=== PATIENT | female | born 1970 | race Caucasian/White ===

== ENCOUNTER 2024-11-20 18:13 | Emergency (ER) | payer MEDICAID, SELFPAY ==
[2024-11-20 18:29] VITALS: BP 150/91; PULSE 139; RESP 18; TEMP 37.2; O2SAT 96
--- NOTE | 2024-11-20 18:33 | XR_ITS ---
Examination: PA chest single view Technique: Upright PA chest single view Exam date and time: November 20, 2024 1702 hrs. Indications: Dizziness body aches today. Findings: Normal heart size Minor subsegmental atelectasis left base No lobar pneumonia or pulmonary edema Intact osseous structures Impression: No lobar pneumonia or pulmonary edema
--- NOTE | 2024-11-20 18:33 | EKG_ITS ---
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
--- NOTE | 2024-11-20 18:34 | PD.EDRME ---
Rapid Medical Screening Exam RME Arrival date/time: 11/20/24 18:13 54 year old female present to ED for c/o elevated blood glucose for 2 weeks I have greeted and performed a focused initial assessment of this patient. A comprehensive ED assessment and evaluation of the patient, analysis of all test results, and completion of the medical decision making process will be conducted by additional ED providers. Chief Complaint: General Adult/Misc Complain Time Seen by Provider: 11/20/24 18:25 Vital signs: Vital Signs Temperature 98.9 F 11/20/24 18:29 Pulse Rate 139 H 11/20/24 18:29 Respiratory Rate 18 11/20/24 18:29 Blood Pressure 150/91 H 11/20/24 18:29 Pulse Oximetry (%) 96 11/20/24 18:29 Oxygen Delivery Method Room Air 11/20/24 18:29
[2024-11-20 18:55] LABS: Lactate (Lactic Acid) 2.7 mMol/L (0.4-2.0)
[2024-11-20 18:56] LABS: Basophils # (Auto) 0.1 Thou/mm3 (0.0-0.2); Basophils % (Auto) 1 % (0-2.5); Eosinophils % (Auto) 1 % (0-10); Hematocrit 46.1 % (36.0-46.0); Hemoglobin 16.6 g/dL (12.0-16.0); Immature Granulocytes % (Auto) 0 % (0-0); Immature Granulocytes Auto 0.02 Thou/mm3 (0.00-0.00); Lymphocytes # (Auto) 2.7 Thou/mm3 (1.0-4.8); Lymphocytes % (Auto) 34 % (10-50); Mean Corpuscular Hemoglobin 31.2 pg (25.0-35.0); Mean Corpuscular Volume 87 fL (80-100); Monocytes # (Auto) 0.4 Thou/mm3 (0.0-0.8); Monocytes % (Auto) 5 % (0-12); Neutrophils # (Auto) 4.8 Thou/mm3 (1.8-7.7); Neutrophils % (Auto) 60 % (37-80); Nucleated Red Blood Cell % 0 /100 WBC (0); Platelet Count 387 Thou/mm3 (140-440); RDW Standard Deviation 38.5 fL (36.4-46.3); Red Blood Count 5.32 Miln/mm3 (4.00-5.20); White Blood Count 8.1 Thou/mm3 (3.6-11.0)
[2024-11-20 19:18] LABS: Alanine Aminotransferase 15 U/L (10-49); Albumin, Serum 5.3 gm/dL (3.5-5.0); Albumin/Globulin Ratio 1.5 (1.2-2.2); Alkaline Phosphatase 132 U/L (46-116); Anion Gap 12 (7-16); Aspartate Amino Transferase 12 U/L (0-34); BUN/Creatinine Ratio 21 Ratio (12-20); Bilirubin,Total 0.4 mg/dL (0.3-1.2); Blood Urea Nitrogen 21 mg/dL (9-23); Calcium 10.5 mg/dL (8.3-10.6); Calcium (Corrected) 10.5 mg/dL (8.5-10.1); Carbon Dioxide 25.7 mMol/L (20.0-31.0); Chloride 93 mMol/L (98-107); Globulin 3.6 gm/dL (2.3-3.5); Lipase 25 U/L (12-53); Magnesium 1.8 mg/dL (1.6-2.6); Osmolality,Calculated 283 (275-295); Potassium 4.2 mMol/L (3.4-5.1); Sodium 131 mMol/L (136-145); Total Protein 8.9 gm/dL (5.7-8.2); Troponin I < 0.002 ng/mL (0.0-0.045); eGFR > 60 See Note
[2024-11-20 19:20] LABS: Glucose 426 mg/dL (74-106)
[2024-11-20 19:21] LABS: Beta Hydroxybutyrate 1.2 mmol/L (<0.6)
[2024-11-20 21:10] VITALS: BP 141/102; PULSE 126; RESP 18; TEMP 37; O2SAT 99
[2024-11-20 21:25] LABS: Collection Type, Urine Voided; RBC,Urine 0 /hpf (0-3); WBC,Urine 0 /hpf (0-5)
[2024-11-20 21:49] LABS: Bilirubin,Urine Negative (Negative); Blood,Urine Negative (Negative); Clarity,Urine Clear (Clear/Hazy); Color,Urine Lt-Yellow (Lt Yel-Yel); Glucose, Urine 4+ (Negative); Ketones,Urine 1+ (Negative); Leukocyte Esterase,Urine Negative (Negative); Nitrite,Urine Negative (Negative); Protein,Urine 1+ (Neg - Trace); Specific Gravity,Urine 1.043 (1.001-1.035); Squamous Epithelial Cell,Urine < 1 /hpf (0-5); Urobilinogen,Urine Negative mg/dL (0.0-1.0)
[2024-11-20 21:53] LABS: Reflex Lactate? Y
--- NOTE | 2024-11-20 22:27 | PD.EDADULT ---
ED General RME/HPI General Chief complaint: General Adult/Misc Complain Stated complaint: HIGH BLOOD SUGAR Time Seen by Provider: 11/20/24 18:25 Arrival date/time: 11/20/24 18:13 Limitations: no limitations RME / HPI RME / HPI narrative: 11/20/24 18:13 54 year old female present to ED for c/o elevated blood glucose for 2 weeks I have greeted and performed a focused initial assessment of this patient. A comprehensive ED assessment and evaluation of the patient, analysis of all test results, and completion of the medical decision making process will be conducted by additional ED providers. ----- Dr. Norris[facility] Main ED Evaluation: 54yo female with pmhx HTN, DM presents to the ED for a chief complaint of elevated blood sugar x 2 weeks. Patient states she took her blood sugar prior to arrival and was noted to be over 500. She states she's been taking her insulin, but has not been able to bring her blood sugar down, so she came in for evaluation. She reports an associated cough and generalized body aches. She denies any fever, chills, nausea, vomiting or any other associated symptoms. Related Data Home Medications ?Medication ?Instructions ?Recorded ?Confirmed baclofen 10 mg tablet 10 mg PO HS 09/14/22 09/14/22 clonidine HCl 0.1 mg tablet 0.1 mg PO QDAY 09/14/22 09/14/22 glipizide 10 mg tablet 10 mg PO BID 09/14/22 09/14/22 insulin glargine 100 unit/mL (3 53 unit subcut QPM 09/14/22 09/14/22 mL) subcutaneous pen (Basaglar KwikPen U-100 Insulin) lidocaine 5 % topical patch 1 patch topical Q12H 09/14/22 09/14/22 methadone 10 mg tablet 10 mg PO Q8H PRN Pain 09/14/22 09/14/22 pregabalin 25 mg capsule 25 mg PO BID PRN Pain 09/14/22 09/14/22 promethazine 25 mg tablet 25 mg PO QDAY PRN n/v 09/14/22 09/14/22 Previous Rx's ?Medication ?Instructions ?Recorded clindamycin HCl 300 mg capsule 300 mg PO TID #21 caps 11/21/23 hydrocodone 5 mg-acetaminophen 325 1 tab PO Q8H PRN pain #14 tabs 11/21/23 mg tablet ibuprofen 600 mg tablet 600 mg PO Q8H PRN pain #14 tabs 11/21/23 Allergies Allergy/AdvReac Type Severity Reaction Status Date / Time barium iodide Allergy Severe PASSED OUT Verified 11/20/24 18:18 cephalexin Allergy Severe ITCHING Verified 11/20/24 18:18 AND VOMITING codeine Allergy Severe FAINTS Verified 11/20/24 18:18 Penicillins Allergy Severe HIVES AND Verified 11/20/24 18:18 DIFF BREATHING aspirin Allergy Unknown RASH Verified 11/20/24 18:18 Review of Systems Review of Systems Systems Reviewed: All systems reviewed, normal except as documented Past Medical History Past Medical History NEUROLOGIC: Positive Neurological Disorders (Coma x 3 mons. Pinged nerve- I don't know where.) and Cerebrovascular Accident (9 or 10 yrs ago real weak- had physical therapy.) CARDIAC: Positive Cardiac Disorders (sometimes chest pain and palpitations.), Cellulitis (14 yrs ago- left breast.) and Hypertension; Negative Congestive Heart Failure RESPIRATORY: Positive Pneumonia (bad pna- 14 yrs ago.); Negative Chronic Obstructive Pulmonary Disease (COPD) GASTROINTESTINAL: Positive Gastroesophageal Reflux Disease GENITOURINARY: Negative Renal Disease MUSCULOSKELETAL: Positive Musculoskeletal Disorders (recently found 2 herniated disc. Cyst hector. knees. Tendonitis arms,elbows.) and Degenerative Disk Disease (back and neck.); Negative Arthritis or Fractures ENT: Negative Cataracts (I'm not sure, I don't think so.) ENDOCRINE: Positive Diabetes Mellitus Type 2; Negative Diabetes Mellitus Type 1 OTHER HISTORY: Positive Hospitalization and Falls; Negative Blood Transfusions, Anesthesia Reactions, MRSA or Cancer Family History FAMILY HISTORY: Positive Family Cancer (mother- I don't know what kind.) Surgical History SURGICAL: Positive Section Social History SMOKING STATUS: Never smoker ED Exam Narrative Physical exam: Slightly diaphoretic General Limitations: Present no limitations General appearance: Present alert Head Head exam: Present atraumatic Eye Eye exam: Present normal appearance, PERRL and EOMI ENT ENT exam: Present normal exam, normal oropharynx and mucous membranes moist Neck Neck exam: Present normal inspection, full ROM and trachea midline Chest Chest inspection: Present normal inspection and symmetric chest wall rise Respiratory Respiratory exam: Present normal lung sounds bilaterally Cardiovascular Cardiovascular exam: Present normal rhythm and tachycardia Abdominal Exam Abdominal exam: Present soft and normal bowel sounds Extremities Exam Extremities exam: Present normal inspection and full ROM Back Exam Back exam: Present normal inspection and full ROM Neurological Exam Neurological exam: Present alert, oriented X3 and CN II-XII intact Psychiatric Psychiatric exam: Present normal affect and normal mood Skin Skin exam: Present warm, dry, intact and normal color Course Course Course Narrative: CXR is ordered for determining the etiology of cough. 2243: Sepsis alert initiated. Orders made at this time are congruent with ED Adult Sepsis Order List. Re-evaluation is to be completed. 0149: NS IVF infused. 0229: Sepsis reassessment performed consisting of lab review, vitals, physical exam including auscultation of heart, lungs, and visual evaluation of capillary refills, mucosal membranes and extremities. Quality Measures Possible source: unknown Blood cultures ordered: yes Antibiotic ordered: No Pertinent labs: 11/20/24 11/21/24 18:50 02:35 Lactic Acid 2.7 H mMol/L 1.7 mMol/L (0.4-2.0) (0.4-2.0) Procalcitonin 0.05 ng/ml (0.0-0.49) sepsis Orders Category Date Time Status Bedside COVID-19 Antigen Test NOW Care 11/20/24 18:33 Active Bedside Influenza A&B Antigen Test NOW Care 11/20/24 18:33 Completed Blood glucose [Bedside Blood Glucose] NOW Care 11/20/24 18:35 Active [place] STAT Care 11/20/24 22:43 Active Continuous Pulse Oximetry STAT Care 11/20/24 22:43 Active EKG (ED ONLY) *Do not use* NOW Care 11/20/24 18:33 Completed In and Out Catheter X1PRN Care 11/20/24 22:43 Active Insert IV NOW Care 11/20/24 22:43 Active Insert IV STAT Care 11/20/24 18:33 Active NPO STAT Care 11/20/24 22:43 Active Strict Intake and Output Routine Care 11/20/24 22:[address] angio chest abdomen pelvis Stat Exams 11/21/24 03:33 Ordered EKG (ED Only) Stat Exams 11/20/24 18:33 Draft XR chest 1V portable Stat Exams 11/20/24 18:33 Completed B-Type Natriuretic Peptide Stat Lab 11/20/24 18:50 Completed BMP [Basic Metabolic Panel] Stat Lab 11/21/24 02:35 Completed Beta Hydroxybutyrate Stat Lab 11/20/24 18:50 Completed Blood Culture (Lab) Stat Lab 11/20/24 23:10 Received CBC Stat Lab 11/20/24 18:50 Completed CMP [Comprehensive Metabolic Panel] Stat Lab 11/20/24 18:50 Completed LDH (Lactate Dehydrogenase) Stat Lab 11/20/24 18:50 Completed Lactate (Lactic Acid) Stat Lab 11/20/24 18:50 Completed Lactic Acid, 3 HR Stat Lab 11/20/24 21:53 Completed Lipase Stat Lab 11/20/24 18:50 Completed Mag [Magnesium] Stat Lab 11/20/24 18:50 Completed Partial Thromboplastin Time Stat Lab 11/20/24 18:50 Completed Phosphorous Stat Lab 11/20/24 18:50 Completed Procalcitonin Stat Lab 11/20/24 18:50 Completed Prothrombin Time with INR Stat Lab 11/20/24 18:50 Completed Troponin I Stat Lab 11/20/24 18:50 Completed UA [Urinalysis] Stat Lab 11/20/24 21:04 Completed Urinalysis Stat Lab 11/20/24 22:43 Ordered Urine Culture Stat Lab 11/20/24 22:43 Ordered VBG [Venous Blood Gas] Stat Lab 11/21/24 02:35 Completed HYDROcodone/APAP 10/325 [[place] 10/325] Med 11/20/24 23:16 Discontinued 1 tab PO X1 ONE HYDROcodone/APAP 10/325 [[place] 10/325] Med 11/21/24 02:26 Discontinued 1 tab PO X1 ONE Morphine Inj Med 11/21/24 03:34 Discontinued 4 mg IVP X1 ONE Morphine Inj Med 11/21/24 04:48 Discontinued 4 mg IVP X1 ONE Sodium Chloride 0.9% 1000 ml [Ns] 1,000 ml Med 11/20/24 18:33 Discontinued IV 999 mls/hr Sodium Chloride 0.9% 1000 ml [Ns] 1,000 ml Med 11/20/24 19:52 Discontinued IV 999 mls/hr Sodium Chloride 0.9% 1000 ml [Ns] 1,572 ml Med 11/21/24 03:32 Discontinued IV 1,572 mls/hr Oxygen Delivery NOW RT 11/20/24 22:43 Active Vital Signs Vital signs: Vital Signs Temperature 98.9 F 11/20/24 18:29 Pulse Rate 139 H 11/20/24 18:29 Respiratory Rate 18 11/20/24 18:29 Blood Pressure 150/91 H 11/20/24 18:29 Pulse Oximetry (%) 96 11/20/24 18:29 Oxygen Delivery Method Room Air 11/20/24 18:29 [facility] Patient data External records reviewed:: [facility] previous records (Per chart review, patient was seen here on 08/21/24 for a dental abscess.) Clinical information provided by:: patient Social determinants that could affect healthcare access:: none Patient has the following chronic illnesses:: CVA, HTN, DM How is presenting disease/condition affected by chronic disease/condition?: caused by Evaluation data The following diagnostics were reviewed and interpreted by me:: lab results, radiology exam(s) and EKG tracing(s) Lab and/or radiology exams considered but not ordered:: none Interpretation Summary: CBC is normal, Sodium is slightly low at 131, Glucose is elevated at 426, Beta Hydroxybutyrate is elevated at 1.2, Lactate is 2.7, Repeat Lactate is 1.7, Procalcitonin is normal, UA is positive for 1+ protein, 4+ glucose, and 1+ ketones, according to my interpretation. EKG done at 1844, sinus tachycardia, rate of 133, nonspecific ST-T changes, no elevations, QTc: 462, according to my interpretation. ------ [facility] Report Signed Patient: JAMES GREENE Record#: [id number] Birthdate: 1970 Age/Sex: 54 / F Location: [facility] Attending Dr: Ordering Physician: Kwesi Womack PA-C Date of Service: 11/20/24 Procedure(s): XR chest 1V portable Accession Number(s): [id number] cc: Erich Hendrickson MD; Abhijeet Power MD; Kwesi Womack PA-C~ Examination: PA chest single view Technique: Upright PA chest single view Exam date and time: November 20, 2024 1702 hrs. Indications: Dizziness body aches today. Findings: Normal heart size Minor subsegmental atelectasis left base No lobar pneumonia or pulmonary edema Intact osseous structures Impression: No lobar pneumonia or pulmonary edema Dictated By: Abhijeet Power MD Signed By: <Electronically signed by Abhijeet Power MD in OV> 11/20/24 1919 Medications Medications considered but not ordered:: none Medication administrations:: Medication Administration History Discontinued Medications Hydrocodone Bitart/Acetaminophen (Hydrocodone/Apap 10/325 Tab) 1 tab PO X1 ONE Stop: 11/20/24 23:17 Last Admin: 11/20/24 23:29 Dose: 1 tab Documented By: SOY Hydrocodone Bitart/Acetaminophen (Hydrocodone/Apap 10/325 Tab) 1 tab PO X1 ONE Stop: 11/21/24 02:27 Last Admin: 11/21/24 02:38 Dose: 1 tab Documented By: SOY Sodium Chloride (Ns) 1,000 mls @ 999 mls/hr IV .Q1H1M ONE Stop: 11/20/24 19:33 Last Infusion: 11/21/24 02:17 Dose: Infused Documented By: Admin: 11/20/24 22:51 Dose: 999 mls/hr Documented By: SOY Sodium Chloride (Ns) 1,000 mls @ 999 mls/hr IV .Q1H1M ONE Stop: 11/20/24 20:52 Last Infusion: 11/21/24 01:49 Dose: Infused Documented By: Admin: 11/20/24 22:52 Dose: 999 mls/hr Documented By: SOY Sodium Chloride (Ns) 1,572 mls @ 1,572 mls/hr 30 ml/kg infuse over 60 min (1572 ml) IV .Q1H ONE Stop: 11/21/24 04:31 Last Admin: 11/21/24 04:09 Dose: Not Given Documented By: SOY Non-Admin Reason: Other, see note Morphine Sulfate (Morphine Sulf Inj 10 Mg/Ml Vial) 4 mg IVP X1 ONE Stop: 11/21/24 03:35 Last Admin: 11/21/24 04:30 Dose: 4 mg Documented By: SOY Morphine Sulfate (Morphine Sulf Inj 10 Mg/Ml Vial) 4 mg IVP X1 ONE Stop: 11/21/24 04:49 Last Admin: 11/21/24 04:53 Dose: 4 mg Documented By: SOY see above Consultations Consultation(s) initiated? (list below): No Diagnosis Differential Diagnosis ED Complaint MDM: sepsis, dehydratin, DKA, acute on chronic pain, electrolyte abnormality Most likely diagnosis given after review of the tests above:: pending at sign out Admission Indicated Admission indicated?: not indicated Explain why admission is indicated or not indicated:: pending at sign out. Admission Request Was there a request for admission?: No Disposition Plan Disposition Plan: other (specify) (Signed out to Dr. Womack at 0600 pending CTA chest abdomen pelvis.) Medical Decision Making Differential Diagnosis Differential Diagnosis: sepsis, dehydratin, DKA, acute on chronic pain, electrolyte abnormality Lab Data 11/20/24 18:50 11/21/24 02:35 Labs: Lab Results 11/20/24 11/20/24 11/21/24 Range/Units 18:50 21:04 02:35 WBC 8.1 (3.6-11.0) Thou/mm3 RBC 5.32 H (4.00-5.20) Miln/mm3 Hgb 16.6 H (12.0-16.0) g/dL Hct 46.1 H (36.0-46.0) % MCV 87 (80-100) fL MCH 31.2 (25.0-35.0) pg MCHC 36.0 (31.0-37.0) g/dl RDW Std Deviation 38.5 (36.4-46.3) fL Plt Count 387 (140-440) Thou/mm3 Neut % (Auto) 60 (37-80) % Lymph % (Auto) 34 (10-50) % [place] % (Auto) 5 (0-12) % Eos % (Auto) 1 (0-10) % Baso % (Auto) 1 (0-2.5) % Neut # (Auto) 4.8 (1.8-7.7) Thou/mm3 Lymph # (Auto) 2.7 (1.0-4.8) Thou/mm3 [place] # (Auto) 0.4 (0.0-0.8) Thou/mm3 Eos # (Auto) 0.0 (0.0-0.5) Thou/mm3 Baso # (Auto) 0.1 (0.0-0.2) Thou/mm3 Immature Gran # (Auto) 0.02 H (0.00-0.00) Thou/mm3 Absolute Nucleated RBC 0.00 (0.00-0.00) Thou/mm3 Immature Gran % 0 (0-0) % Nucleated RBC % 0 (0) /100 WBC PT 11.3 (9.0-12.2) Seconds INR 1.0 (0.9-1.3) APTT 28.2 (22.0-36.0) Seconds VBG pH 7.30 L (7.33-7.66) VBG pCO2 48 (36-56) mmHg VBG pO2 35 (15-58) mmHg VBG O2 Sat (Parvin) 62 L (96-97) % VBG Base Excess -3 (-3-3) Sodium 131 L 136 (136-145) mMol/L Potassium 4.2 3.8 (3.4-5.1) mMol/L Chloride 93 L 101 (98-107) mMol/L Carbon Dioxide 25.7 22.9 (20.0-31.0) mMol/L Anion Gap 12 12 (7-16) BUN 21 20 (9-23) mg/dL Creatinine 1.0 0.8 (0.6-1.3) mg/dL Estim Creat Clear Calc Not Performed. 83.2 eGFR > 60 > 60 (60 - ) See Note BUN/Creatinine Ratio 21 H 25 H (12-20) Ratio Glucose 426 H* 289 H D (74-106) mg/dL Calculated Osmolality 283 285 (275-295) Lactic Acid 2.7 H 1.7 (0.4-2.0) mMol/L Calcium 10.5 9.0 D (8.3-10.6) mg/dL Corrected Calcium 10.5 H (8.5-10.1) mg/dL Phosphorus 5.3 H (2.4-5.1) mg/dL Magnesium 1.8 (1.6-2.6) mg/dL Total Bilirubin 0.4 (0.3-1.2) mg/dL AST 12 (0-34) U/L ALT 15 (10-49) U/L Alkaline Phosphatase 132 H (46-116) U/L Lactate Dehydrogenase 170 (120-246) U/L Troponin I < 0.002 (0.0-0.045) ng/mL B-Natriuretic Peptide < 20 (0-100) pg/mL Total Protein 8.9 H (5.7-8.2) gm/dL Albumin 5.3 H (3.5-5.0) gm/dL Globulin 3.6 H (2.3-3.5) gm/dL Albumin/Globulin Ratio 1.5 (1.2-2.2) Lipase 25 (12-53) U/L Beta-Hydroxybutyrate/Acetoacetate 1.2 H (<0.6) mmol/L Procalcitonin 0.05 (0.0-0.49) ng/ml Ur Collection Type Voided Urine Color Lt-Yellow (Lt Yel-Yel) Urine Clarity Clear (Clear/Hazy) Urine pH 6.0 (5.0-7.0) Ur Specific [place] 1.043 H (1.001-1.035) Urine Protein 1+ A (Neg - Trace) Urine Glucose (UA) 4+ A (Negative) Urine Ketones 1+ A (Negative) Urine Blood Negative (Negative) Urine Nitrite Negative (Negative) Urine Bilirubin Negative (Negative) Urine Urobilinogen (Auto) Negative (0.0-1.0) mg/dL Ur Leukocyte Esterase Negative (Negative) Urine RBC 0 (0-3) /hpf Urine WBC 0 (0-5) /hpf Ur Squamous Epith Cells < 1 (0-5) /hpf Urine Bacteria None (None) Discharge Plan Plan Disposition Comment: Stable at signout Prescriptions/Referrals Prescriptions/Med Rec: No Action clindamycin HCl 300 mg capsule 300 mg PO TID Qty: 21 0RF ibuprofen 600 mg tablet 600 mg PO Q8H PRN (Reason: pain) Qty: 14 0RF hydrocodone-acetaminophen 5-325 mg tablet 1 tab PO Q8H MDD 3 tabs/day PRN (Reason: pain) Qty: 14 0RF clonidine HCl 0.1 mg tablet 0.1 mg PO QDAY methadone 10 mg tablet 10 mg PO Q8H PRN (Reason: Pain) Patient Comments: TAKE 1 TABLET BY MOUTH EVERY 8 HOURS NEEDED FOR PAIN (MAX 3 TABLET/DAY) glipizide 10 mg tablet 10 mg PO BID baclofen 10 mg tablet 10 mg PO HS Patient Comments: TAKE 1 TABLET BY MOUTH EVERYDAY AT BEDTIME lidocaine 5 % adhesive patch,medicated 1 patch TOPICAL Q12H Patient Comments: APPLY 1 PATCH TO LOWER BACK AND BOTH KNEES FOR 12 HOURS ON AND 12 HOURS OFF NEEDED FOR PAIN promethazine 25 mg tablet 25 mg PO QDAY PRN (Reason: n/v) Patient Comments: TAKE 1 TABLET BY MOUTH DAILY NEEDED, DO NOT EXCEED MORE THAN ONCE A DAY pregabalin 25 mg capsule 25 mg PO BID PRN (Reason: Pain) Patient Comments: TAKE 1 CAPSULE BY MOUTH TWICE A DAY NEEDED MAX 2 CAPSULES DAILY insulin glargine [Basaglar KwikPen U-100 Insulin] 100 unit/mL (3 mL) insulin pen 53 unit SUBCUT QPM Referrals: Erich Hendrickson MD [Primary Care Provider] - In 1 week Problem List Clinical Impression: Diabetes, Acute hyperglycemia, Sepsis Patient/Caregiver Discharge Instructions Print Language: Lao
[2024-11-20 22:28] VITALS: PULSE 112; RESP 15; O2SAT 98
[2024-11-20 22:31] VITALS: BP 154/121; PULSE 116; RESP 21; O2SAT 97
[2024-11-20] MEDS: SODIUM CHLORIDE 0.9% 1000 ML 1,000 ML 999 ML IV ×2 (22:51→22:52)
[2024-11-20 23:00] VITALS: BP 160/106; PULSE 103; RESP 15; O2SAT 99
[2024-11-20] MEDS: HYDROcodone/APAP 10/325 TAB PO (23:29)
[2024-11-20 23:30] VITALS: BMI 31.8
[2024-11-20 23:30] LABS: Partial Thromboplastin Time 28.2 Seconds (22.0-36.0); Prothrombin Time 11.3 Seconds (9.0-12.2)
[2024-11-20 23:56] LABS: B-Type Natriuretic Peptide < 20 pg/mL (0-100)
[2024-11-20 23:57] LABS: Phosphorous 5.3 mg/dL (2.4-5.1); Procalcitonin 0.05 ng/ml (0.0-0.49)
[2024-11-21] VITALS (8 sets, daily range): BP systolic 139–183; BP diastolic 72–107; PULSE 83–104; RESP 16–18; TEMP 36.8–37.1; O2SAT 97–100
[2024-11-21 00:25] LABS: LDH (Lactate Dehydrogenase) 170 U/L (120-246)
[2024-11-21] MEDS: HYDROcodone/APAP 10/325 TAB PO (02:38)
[2024-11-21 02:56] LABS: Lactic Acid, 3 HR 1.7 mMol/L (0.4-2.0)
--- NOTE | 2024-11-21 03:33 | XR_ITS ---
Examination: CTA chest, with intravenous contrast. CTA abdomen, with intravenous contrast. CTA pelvis, with intravenous contrast. 2-D sagittal and coronal reconstructions. 3-D reconstructions. Date and time of exam: November 21, 2024 0534 hrs. Indications: High blood sugar today, tachycardia, chest abdominal pain today CTDI vol (mgy) 8.43 DLP (MGycm) 574 Technique: Multiple CTA images, 2.0 mm slice thickness, obtained chest, abdomen, pelvis, with the high-resolution 64 slice scanner. 100 cc Isovue-370 is administered intravenously. Sagittal and coronal 2-D reconstructions are obtained. 3-D reconstructions, angiographic images are obtained. 3-D postprocessing, including vascular maximum intensity projections. Low dose protocols were performed. One or more of the following dose reduction techniques were used; automated exposure control, adjustment of the mA and/or KV according to patient size, use of iterative reconstruction technique. Findings: No thoracic aortic aneurysmal dilatation No pulmonary artery emboli No paratracheal tracheobronchial or bronchopulmonary adenopathy No pneumonia or pulmonary edema or pleural disease No visualized liver or splenic Gallbladder is distended, mild extra hepatic biliary tract dilatation No pancreatic or adrenal mass Mild bilateral renal parenchymal scar formation No renal or ureteral calculi, no hydronephrosis 26 mm fat-containing umbilical hernia Normal appendix No bowel obstruction No diverticulitis Anteverted uterus No adnexal mass No bladder mass or bladder calculi Moderate osteopenia Impression: Negative for pulmonary artery emboli No pneumonia, pulmonary edema or pleural disease Mild bilateral renal parenchymal scar formation 26 mm fat-containing umbilical hernia Normal appendix No bowel obstruction or diverticulitis Distended gallbladder with mild intrahepatic biliary tract dilatation, recommend hepatobiliary sonography or MRCP follow-up
[2024-11-21 03:54] LABS: Base Excess, Venous -3 (-3-3); O2 Saturation, Venous 62 % (96-97); PCO2, Venous 48 mmHg (36-56); PO2, Venous 35 mmHg (15-58)
[2024-11-21 04:22] LABS: Anion Gap 12 (7-16); BUN/Creatinine Ratio 25 Ratio (12-20); Blood Urea Nitrogen 20 mg/dL (9-23); Carbon Dioxide 22.9 mMol/L (20.0-31.0); Chloride 101 mMol/L (98-107); Creatinine (Component) 0.8 mg/dL (0.6-1.3); Estimated Creatinine Clearance 83.2 mL/min (>60); Glucose 289 mg/dL (74-106); Osmolality,Calculated 285 (275-295); Potassium 3.8 mMol/L (3.4-5.1); Sodium 136 mMol/L (136-145); eGFR > 60 See Note
[2024-11-21] MEDS: MORPHINE SULF INJ 10 MG/ML VIAL 4 MG IVP ×2 (04:30→04:53)
--- NOTE | 2024-11-21 06:08 | PD.EDADDENDU ---
Emergency Room Addendum <Lorin Renner - Last Filed: 11/21/24 09:16> Addendum Narrative: 0600: Care assumed from Dr. Norris, the previous shift emergency physician. Past medical, surgical, social and family history reviewed. Vitals and home medications reviewed. I will assume the care of the patient at this time, pending chest/abdomen/pelvis CTA and final disposition. Please refer to the emergency department record for history and examination from initial visit.? Physical exam by me shows patient under no acute distress at this time. RADIOLOGY Procedure(s): CT angio chest abdomen pelvis Accession Number(s): [id number] cc: Erich Hendrickson MD; Abhijeet Power MD; Ning Norris MD~ Examination: CTA chest, with intravenous contrast. CTA abdomen, with intravenous contrast. CTA pelvis, with intravenous contrast. 2-D sagittal and coronal reconstructions. 3-D reconstructions. Date and time of exam: November 21, 2024 0534 hrs. Indications: High blood sugar today, tachycardia, chest abdominal pain today CTDI vol (mgy) 8.43 DLP (MGycm) 574 Technique: Multiple CTA images, 2.0 mm slice thickness, obtained chest, abdomen, pelvis, with the high-resolution 64 slice scanner. 100 cc Isovue-370 is administered intravenously. Sagittal and coronal 2-D reconstructions are obtained. 3-D reconstructions, angiographic images are obtained. 3-D postprocessing, including vascular maximum intensity projections. Low dose protocols were performed. One or more of the following dose reduction techniques were used; automated exposure control, adjustment of the mA and/or KV according to patient size, use of iterative reconstruction technique. Findings: No thoracic aortic aneurysmal dilatation No pulmonary artery emboli No paratracheal tracheobronchial or bronchopulmonary adenopathy No pneumonia or pulmonary edema or pleural disease No visualized liver or splenic Gallbladder is distended, mild extra hepatic biliary tract dilatation No pancreatic or adrenal mass Mild bilateral renal parenchymal scar formation No renal or ureteral calculi, no hydronephrosis 26 mm fat-containing umbilical hernia Normal appendix No bowel obstruction No diverticulitis Anteverted uterus No adnexal mass No bladder mass or bladder calculi Moderate osteopenia Impression: Negative for pulmonary artery emboli No pneumonia, pulmonary edema or pleural disease Mild bilateral renal parenchymal scar formation 26 mm fat-containing umbilical hernia Normal appendix No bowel obstruction or diverticulitis Distended gallbladder with mild intrahepatic biliary tract dilatation, recommend hepatobiliary sonography or MRCP follow-up Dictated By: Abhijeet Power MD <Fly Womack MD - Last Filed: 11/21/24 10:11> Addendum Narrative: 0600: Care assumed from Dr. Norris, the previous shift emergency physician. Past medical, surgical, social and family history reviewed. Vitals and home medications reviewed. I will assume the care of the patient at this time, pending chest/abdomen/pelvis CTA and final disposition. Please refer to the emergency department record for history and examination from initial visit.? Physical exam by me shows patient under no acute distress at this time. Lungs are clear. Heart normal. Abdomen is completely benign. Nontender normal distended. No rebound or guarding. No surgical signs. Neuroexam focally normal. No neurological deficit. Skin examination revealed a lot of needle tellez which appear to be chronic. They are all over her arms and legs. But she denied any recent use of heroin. She is on methadone for chronic pain. RADIOLOGY Procedure(s): CT angio chest abdomen pelvis Accession Number(s): [id number] cc: Erich Hendrickson MD; Abhijeet Power MD; Ning Norris MD~ Examination: CTA chest, with intravenous contrast. CTA abdomen, with intravenous contrast. CTA pelvis, with intravenous contrast. 2-D sagittal and coronal reconstructions. 3-D reconstructions. Date and time of exam: November 21, 2024 0534 hrs. Indications: High blood sugar today, tachycardia, chest abdominal pain today CTDI vol (mgy) 8.43 DLP (MGycm) 574 Technique: Multiple CTA images, 2.0 mm slice thickness, obtained chest, abdomen, pelvis, with the high-resolution 64 slice scanner. 100 cc Isovue-370 is administered intravenously. Sagittal and coronal 2-D reconstructions are obtained. 3-D reconstructions, angiographic images are obtained. 3-D postprocessing, including vascular maximum intensity projections. Low dose protocols were performed. One or more of the following dose reduction techniques were used; automated exposure control, adjustment of the mA and/or KV according to patient size, use of iterative reconstruction technique. Findings: No thoracic aortic aneurysmal dilatation No pulmonary artery emboli No paratracheal tracheobronchial or bronchopulmonary adenopathy No pneumonia or pulmonary edema or pleural disease No visualized liver or splenic Gallbladder is distended, mild extra hepatic biliary tract dilatation No pancreatic or adrenal mass Mild bilateral renal parenchymal scar formation No renal or ureteral calculi, no hydronephrosis 26 mm fat-containing umbilical hernia Normal appendix No bowel obstruction No diverticulitis Anteverted uterus No adnexal mass No bladder mass or bladder calculi Moderate osteopenia Impression: Negative for pulmonary artery emboli No pneumonia, pulmonary edema or pleural disease Mild bilateral renal parenchymal scar formation 26 mm fat-containing umbilical hernia Normal appendix No bowel obstruction or diverticulitis Distended gallbladder with mild intrahepatic biliary tract dilatation, recommend hepatobiliary sonography or MRCP follow-up Dictated By: Abhijeet Power MD CT chest abdomen and pelvic reviewed by and interpreted by me: No pneumonia. No free air. No free fluid. No ascites. No stranding. No dilated loops of bowel gas. No evidence of obstruction. No gallstones. When I took over, I gave her another liter of normal saline bolus. The pulse is already down to about 100 bpm. When her fingerstick less than 250 she could be discharged home. Test showed that she has some ketone in the system. And her blood sugar was high but was gradually brought out to acceptable range. No sign of DKA. Diagnosis: Diabetic hyperglycemia Dehydration Ketonemia Condition: Stable and improved for DC home DC instruction: Rest. Drink plenty of liquid. Avoid sugar. Check your blood sugar and take the diabetic medication accordingly. Follow-up with your medical doctor in 3 days. Return the nearest emergency department if condition worsens or if new symptoms develop.
--- NOTE | 2024-11-21 07:07 | PRELIM_ITS ---
CT angiogram of the chest, abdomen and pelvis with intravenous contrast (axial sections with sagittal and coronal reformats) November 21, 2024 at 0534 hoursClinical History: Abdominal pain and tachycardi a.Comparison: No prior study is available for comparison.Findings:The thoracic aorta without evidence of dissection or aneurysm. The origins of the right brachiocephalic, left common carotid, and left s ubclavian arteries are patent.The abdominal aorta without evidence of dissection or aneurysm. The shea iac, superior mesenteric, inferior mesenteric, and bilateral renal arteries are patent to the extent visualized. The common iliac, external iliac, and internal iliac arteries are patent bilaterally.Ther e is no filling defect within the pulmonary artery divisions to suggest pulmonary thromboembolism. No evidence of mediastinal mass or lymphadenopathy. There is no pericardial effusion.The lungs are edgar r. No evidence of pleural effusion or pneumothorax.The liver is mildly enlarged. Fatty infiltration o f the liver is noted. The gallbladder is distended. Mild intra and extrahepatic biliary ductal dilata tion; the common bile duct measures 8 mm. Suggest clinical correlation and further evaluation with so nography or MRCP, if clinically indicated.The spleen, pancreas, adrenals, and kidneys are unremarkabl e.No evidence of bowel obstruction. The appendix is within normal limits. There is no significant mes enteric or retroperitoneal adenopathy. A moderate-size infraumbilical hernia is noted.The urinary clemente dder is unremarkable. The uterus is unremarkable.There is no free fluid, free air, or abscess.Degener ative changes are identified in the spine.Impression:1. No evidence of aortic dissection or aneurysm. 2. No evidence of pulmonary thromboembolism.3. Distended gallbladder. Mild intra and extrahepatic hector iary ductal dilatation; the common bile duct measures 8 mm. Suggest clinical correlation and further evaluation with sonography or MRCP, if clinically indicated. Report Electronically Signed By: Santos marquez 11/21/2024 7:06:28 AM [EST]
[2024-11-21] MEDS: SODIUM CHLORIDE 0.9% 1000 ML 1,000 ML 999 ML IV (08:39)
[2024-11-21 09:01] LABS: Amphetamine/Methamp Scrn,U Negative (Negative); Barbiturate Screen,Urine Negative (Negative); Benzodiazepines Screen,Urine Negative (Negative); Benzoylecgonine Screen, Ur Negative (Negative); Fentanyl Screen,Urine Negative (Negative); Opiate Screen,Urine Negative (Negative); THC Screen,Urine Negative (Negative)
== END 2024-11-21 12:09 | disposition home or self-care (01) ==
PROVIDERS: Emergency Medicine; Physician Assistant; Emergency Provider Emergency Medicine; PCP Family Medicine
DX: E11.65 Type 2 diabetes mellitus with hyperglycemia (principal); E86.0 Dehydration; I10 Essential (primary) hypertension; R52 Pain, unspecified; R05.9 Cough, unspecified
CPT/HCPCS: 36415; 71045; 71275; 74174; 80048; 80053; 80307; 81001; 82010; 82803; 83605; 83615; 83690; 83735; 83880; 84100; 84145; 84484; 85025; 85610; 85730; 87040; 87086; 87400; 87811; 96374; 99285; A4649; J2270; J7030; Q9967; A9270

== ENCOUNTER 2025-04-29 14:08 | Inpatient (IN) | payer MEDICAID, SELFPAY ==
[2025-04-29] VITALS (8 sets, daily range): BP systolic 156–184; BP diastolic 91–114; PULSE 107–138; RESP 19–27; TEMP 36.6–37.7; O2SAT 100; BMI 21.2
--- NOTE | 2025-04-29 14:42 | EKG_ITS ---
[facility] Test Date: 2025-04-29 Pat Name: JAMES GREENE Department: Room: - Gender: Female [employer] Consult[employer]: : 1970 Requested By: Micheal Buck Order Number: [id number] Reading MD: Micheal Buck Measurements Intervals [place] Rate: 135 P: 65 IN: 119 QRS: 78 QRSD: 79 T: 57 QT: 334 QTc: 501 Interpretive Statements SINUS TACHYCARDIA WITH SHORT IN INTERVAL NONSPECIFIC ST & T-WAVE ABNORMALITY ABNORMAL RHYTHM ECG Compared to ECG 11/20/2024 18:44:04 Short IN interval now present T-wave abnormality still present /store/S0/[id number].pdf
--- NOTE | 2025-04-29 15:14 | PD.EDADULT ---
ED General RME/HPI General Chief complaint: Shortness of Breath/Dyspnea Stated complaint: SOB, N/V, WOUND BACK OF NECK, WEAKNESS X 3 WKS Time Seen by Provider: 04/29/25 14:33 Arrival date/time: 04/29/25 14:08 Limitations: no limitations RME / HPI RME / HPI narrative: DR. SOMMER MAIN ED EVALUATION: 55 year old female with past medical history significant for hypertension and diabetes presents to the Emergency Department with multiple complaints including shortness of breath, neck pain, and generalized weakness. Patient has neck pain from an abscess that was already draining. Related Data Home Medications ?Medication ?Instructions ?Recorded ?Confirmed baclofen 10 mg tablet 10 mg PO HS 09/14/22 09/14/22 clonidine HCl 0.1 mg tablet 0.1 mg PO QDAY 09/14/22 09/14/22 glipizide 10 mg tablet 10 mg PO BID 09/14/22 09/14/22 insulin glargine 100 unit/mL (3 53 unit subcut QPM 09/14/22 09/14/22 mL) subcutaneous pen (Bueno Incaglar KwikPen U-100 Insulin) lidocaine 5 % topical patch 1 patch topical Q12H 09/14/22 09/14/22 methadone 10 mg tablet 10 mg PO Q8H PRN Pain 09/14/22 09/14/22 pregabalin 25 mg capsule 25 mg PO BID PRN Pain 09/14/22 09/14/22 promethazine 25 mg tablet 25 mg PO QDAY PRN n/v 09/14/22 09/14/22 Previous Rx's ?Medication ?Instructions ?Recorded clindamycin HCl 300 mg capsule 300 mg PO TID #21 caps 11/21/23 hydrocodone 5 mg-acetaminophen 325 1 tab PO Q8H PRN pain #14 tabs 11/21/23 mg tablet ibuprofen 600 mg tablet 600 mg PO Q8H PRN pain #14 tabs 11/21/23 Allergies Allergy/AdvReac Type Severity Reaction Status Date / Time barium iodide Allergy Severe PASSED OUT Verified 04/29/25 14:12 cephalexin Allergy Severe ITCHING Verified 04/29/25 14:12 AND VOMITING codeine Allergy Severe FAINTS Verified 04/29/25 14:12 Penicillins Allergy Severe HIVES AND Verified 04/29/25 14:12 DIFF BREATHING aspirin Allergy Unknown RASH Verified 04/29/25 14:12 Review of Systems Review of Systems Systems Reviewed: All systems reviewed, normal except as documented Past Medical History Past Medical History NEUROLOGIC: Positive Neurological Disorders (Coma x 3 mons. Pinged nerve- I don't know where.) and Cerebrovascular Accident (9 or 10 yrs ago real weak- had physical therapy.) CARDIAC: Positive Cardiac Disorders, Cellulitis (14 yrs ago- left breast.) and Hypertension; Negative Congestive Heart Failure RESPIRATORY: Positive Pneumonia (bad pna- 14 yrs ago.); Negative Chronic Obstructive Pulmonary Disease (COPD) or Asthma GASTROINTESTINAL: Positive Gastroesophageal Reflux Disease GENITOURINARY: Negative Renal Disease MUSCULOSKELETAL: Positive Musculoskeletal Disorders (recently found 2 herniated disc. Cyst hector. knees. Tendonitis arms,elbows.) and Degenerative Disk Disease (back and neck.); Negative Arthritis or Fractures ENT: Negative Cataracts (I'm not sure, I don't think so.) ENDOCRINE: Negative Diabetes Mellitus Type 1 or Diabetes Mellitus Type 2 HEMATOLOGIC: Negative Sickle Cell Disease OTHER HISTORY: Positive Hospitalization and Falls; Negative Blood Transfusions, Anesthesia Reactions, MRSA or Cancer Family History FAMILY HISTORY: Positive Family Cancer (mother- I don't know what kind.) Surgical History SURGICAL: Positive Section Social History SMOKING STATUS: Never smoker ED Exam General Limitations: Present no limitations General appearance: Present alert and in no apparent distress Head Head exam: Present atraumatic, normocephalic and normal inspection Eye Eye exam: Present normal appearance, PERRL and EOMI ENT ENT exam: Present normal exam, normal oropharynx and mucous membranes moist Neck Neck exam: Present full ROM and trachea midline Chest Chest inspection: Present normal inspection and symmetric chest wall rise Respiratory Respiratory exam: Present normal lung sounds bilaterally Cardiovascular Cardiovascular exam: Present regular rate, normal rhythm and normal heart sounds Abdominal Exam Abdominal exam: Present soft and normal bowel sounds Extremities Exam Extremities exam: Present normal inspection and full ROM Back Exam Back exam: Present normal inspection and full ROM Neurological Exam Neurological exam: Present alert, oriented X3 and CN II-XII intact Psychiatric Psychiatric exam: Present normal affect and normal mood Skin Skin exam: Present warm, dry, intact, normal color and other (draining abscess on the neck) Course Quality Measures none Orders Category Date Time Status Bedside Blood Glucose Q1H Care 04/29/25 18:30 Active COVID-19 Screening Questionnaire NOW Care 04/29/25 18:[address] Screening NOW Care 04/29/25 14:44 Active Butcher Meat Q4H Care 04/29/25 18:30 Active Continuous Pulse Oximetry ONCE Care 04/29/25 14:42 Completed DKA Protocol QSHIFT Care 04/29/25 18:30 Active Decision to Admit X1 Care 04/29/25 18:12 Completed EKG (ED ONLY) *Do not use* NOW Care 04/29/25 14:42 Completed Insert IV STAT Care 04/29/25 14:42 Active Intake and Output Q1H Care 04/29/25 18:30 Ordered Intake and Output Q1H Care 04/29/25 19:30 Ordered Intake and Output Q1H Care 04/29/25 20:30 Ordered Intake and Output Q1H Care 04/29/25 21:30 Ordered Intake and Output Q1H Care 04/29/25 22:30 Ordered Intake and Output Q1H Care 04/29/25 23:30 Ordered NPO NOW Care 04/29/25 18:30 Active Notify provider NEEDED Care 04/29/25 18:30 Active Referral Registered Dietitian Routine Cons 04/29/25 18:30 Active Diet NPO (NOW) Diet 04/29/25 18:[address] angio chest Stat Exams 04/29/25 14:[address] soft tissue neck wo con Stat Exams 04/29/25 18:31 Completed EKG (ED Only) Stat Exams 04/29/25 14:42 Draft XR chest 1V portable Stat Exams 04/29/25 18:30 Completed ABG [Arterial Blood Gas] Stat Lab 04/29/25 19:59 Completed B-Type Natriuretic Peptide Stat Lab 04/29/25 15:44 Completed Beta Hydroxybutyrate DAILY Lab 05/01/25 09:00 Ordered Beta Hydroxybutyrate DAILY Lab 05/02/25 09:00 Ordered Beta Hydroxybutyrate DAILY Lab 05/03/25 09:00 Ordered Beta Hydroxybutyrate Stat Lab 04/29/25 18:48 Completed Blood Culture (Lab) Routine Lab 04/29/25 18:48 Received CBC AM DRAW Lab 04/30/25 05:00 Ordered CBC AM DRAW Lab 05/01/25 05:00 Ordered CBC AM DRAW Lab 05/02/25 05:00 Ordered CBC AM DRAW Lab 05/03/25 05:00 Ordered CBC AM DRAW Lab 05/04/25 05:00 Ordered CBC Stat Lab 04/29/25 15:44 Completed Comprehensive Metabolic Panel Stat Lab 04/29/25 15:44 Completed Glycohemoglobin w (eAG) AM DRAW Lab 04/30/25 05:00 Ordered Lactate (Lactic Acid) Q4 Lab 04/29/25 18:48 Completed Lactate (Lactic Acid) Q4H Lab 04/30/25 02:28 Completed Lactate (Lactic Acid) Q4H Lab 04/30/25 06:30 Ordered Lactate (Lactic Acid) Q4H Lab 04/30/25 10:30 Ordered Lactate (Lactic Acid) Q4H Lab 04/30/25 14:30 Ordered Lactate (Lactic Acid) Q4H Lab 04/30/25 18:30 Ordered Lactate (Lactic Acid) Q4H Lab 04/30/25 22:30 Ordered Lactate (Lactic Acid) Q4H Lab 05/01/25 02:30 Ordered Lactate (Lactic Acid) Q4H Lab 05/01/25 06:30 Ordered Lactate (Lactic Acid) Q4H Lab 05/01/25 10:30 Ordered Lactate (Lactic Acid) Q4H Lab 05/01/25 14:30 Ordered Lactate (Lactic Acid) Q4H Lab 05/01/25 18:30 Ordered Magnesium Q4H Lab 04/29/25 18:48 Completed Magnesium Q4H Lab 04/30/25 02:28 Completed Magnesium Q4H Lab 04/30/25 06:30 Ordered Magnesium Q4H Lab 04/30/25 10:30 Ordered Magnesium Q4H Lab 04/30/25 14:30 Ordered Magnesium Q4H Lab 04/30/25 18:30 Ordered Magnesium Q4H Lab 04/30/25 22:30 Ordered Magnesium Q4H Lab 05/01/25 02:30 Ordered Magnesium Q4H Lab 05/01/25 06:30 Ordered Magnesium Q4H Lab 05/01/25 10:30 Ordered Magnesium Q4H Lab 05/01/25 14:30 Ordered Magnesium Q4H Lab 05/01/25 18:30 Ordered Magnesium Stat Lab 04/29/25 15:44 Completed Phosphorous Q4H Lab 05/01/25 02:30 Ordered Phosphorous Q4H Lab 05/01/25 06:30 Ordered Phosphorous Q4H Lab 05/01/25 10:30 Ordered Phosphorous Q4H Lab 05/01/25 14:30 Ordered Phosphorous Q4H Lab 05/01/25 18:30 Ordered Prothrombin Time with INR Stat Lab 04/29/25 15:44 Completed Renal Function Panel Q4 Lab 04/29/25 18:48 Completed Renal Function Panel Q4 Lab 04/30/25 02:28 Completed Renal Function Panel Q4 Lab 04/30/25 06:30 Ordered Renal Function Panel Q4 Lab 04/30/25 10:30 Ordered Renal Function Panel Q4 Lab 04/30/25 14:30 Ordered Renal Function Panel Q4 Lab 04/30/25 18:30 Ordered Renal Function Panel Q4 Lab 04/30/25 22:30 Ordered Renal Function Panel Q4 Lab 05/01/25 02:30 Ordered Renal Function Panel Q4 Lab 05/01/25 06:30 Ordered Renal Function Panel Q4 Lab 05/01/25 10:30 Ordered Renal Function Panel Q4 Lab 05/01/25 14:30 Ordered Renal Function Panel Q4 Lab 05/01/25 18:30 Ordered Troponin I Stat Lab 04/29/25 15:44 Completed Dextrose 5%-Lactated Ringers [D5-Lr] 1,000 ml Med 04/29/25 18:30 Active Pot Chl Additive [KCl Additive] 40 meq IV 250 mls/hr Dextrose 5%-Lactated Ringers [D5-Lr] 1,000 ml Med 04/29/25 18:30 Active IV 250 mls/hr Dextrose 50% Syr [D50w Syringe Abboject] Med 04/29/25 18:30 Active 25 ml IV [id number] PRN KCL 20 mEq/L in D5-LR Med 04/29/25 18:30 Active 20 meq in 1,000 ml IV 250 mls/hr Levofloxacin/D5w 750Mg Ivpb [Levaquin Ivpb] Med 04/29/25 18:36 Discontinued 750 mg in 150 ml IV X1 Magnesium Sulfate 2 GM Ivpb [Magnesium Sulfate Ivpb] Med 04/29/25 18:30 Active 2 gm in 50 ml IV 25 mls/hr POT PHOS 15 mMol in NS 250 ML [Pot Phos 15 mMol in NS Med 04/29/25 18:30 Active 250 ml] 15 mmol in 250 ml IV PRN POTASSIUM CHL 10 mEq IVPB [Kcl Ivpb] Med 04/29/25 18:30 Active 10 meq in 100 ml IV 100 mls/hr POTASSIUM CHL 10 mEq IVPB [Kcl Ivpb] Med 04/29/25 18:30 Active 10 meq in 100 ml IV PRN Pre-Mixed [Pre-mixed Bag] 1 bag Med 04/29/25 18:30 Active Insulin Reg 100 Units/100 ml [Myxredlin] 100 unit IV 0.1 unit/kg/hr Ringers Lactated 1000 ml [Lactated Ringers] 1,000 ml Med 04/29/25 18:30 Active Pot Chl Additive [KCl Additive] 20 meq IV 250 mls/hr Ringers Lactated 1000 ml [Lactated Ringers] 1,000 ml Med 04/29/25 18:30 Active Pot Chl Additive [KCl Additive] 40 meq IV 250 mls/hr Ringers Lactated 1000 ml [Lactated Ringers] 1,000 ml Med 04/29/25 18:30 Active IV 250 mls/hr Ringers Lactated 1000 ml [Lactated Ringers] 1,000 ml Med 04/29/25 17:32 Discontinued IV 999 mls/hr Ringers Lactated 1000 ml [Lactated Ringers] 1,000 ml [facility] 04/29/25 18:30 Discontinued IV Q1H Sodium Bicarb 8.4% SYR Med 04/29/25 18:30 Active 50 ml IV Q4HR PRN Sodium Chloride 0.9% 1000 ml [Ns] 1,000 ml Med 04/29/25 14:42 Discontinued IV 999 mls/hr Sodium Chloride 0.9% 1000 ml [Ns] 1,000 ml Med 04/29/25 15:51 Discontinued IV 999 mls/hr Sodium Chloride 0.9% 1000 ml [Ns] 1,000 ml [facility] 04/29/25 17:33 Discontinued IV 999 mls/hr Sodium Chloride 0.9% 250 ml [Ns] 250 ml Med 04/29/25 18:30 Active Sod Phos Additive [NaPhos Additive] 15 mmol IV 62.5 mls/hr Vancomycin/Ns 1 gm Ivpb 200 ml [facility] 04/29/25 18:35 Discontinued IV X1 metroNIDAZOLE/NS 500 MG IVPB [Flagyl 500 mg IV] Med 04/29/25 18:37 Active 500 mg in 100 ml IV Q8HR Vital Signs Vital signs: Vital Signs Temperature 99.9 F 04/29/25 14:54 Pulse Rate 138 H 04/29/25 14:54 Respiratory Rate 27 H 04/29/25 14:54 Blood Pressure 178/108 H 04/29/25 14:54 Pulse Oximetry (%) 100 04/29/25 14:54 Oxygen Delivery Method Room Air 04/29/25 14:54 Discharge Plan Plan Patient Disposition: Admit Acute Care w/in Hospital Patient condition on transfer: Stable Problem List Clinical Impression: DKA (diabetic ketoacidosis), Abscess of skin of neck MDM Narrative Procedures done or offered: Patient had an abscess that was already draining. Manually drained the rest and decompressed the abscess. Clinical Information Provided by patient Medical Records Reviewed [facility] Meds/Rx Considered, not Ordered None Labs/Rad/Tests considered, not Ordered None Chronic Illness/Social Conditions Add or document further as needed: hypertension and diabetes EKG EKG Interpretation narrative: My interpretation: EKG performed at 1500 hours, sinus tachycardia, rate 135, no STEMI Medication Administration(s) Medication Administration History Clonidine (Clonidine Hcl 0.1 Mg Tablet) 0.1 mg PO TID [facility] Stop: 05/30/25 05:59 Last Admin: 04/30/25 05:21 Dose: 0.1 mg Documented By: AD Dextrose (Dextrose 50%-Water Inj 50 Ml Syringe) 25 ml IV PRNMRX1 PRN PRN Reason: Blood Sugar - Low Heparin Sodium (Porcine) (Heparin Sod Inj 5000 Unit/Ml Vial) 5,000 unit SC Q12H [facility] Stop: 05/13/25 20:14 Last Admin: 04/29/25 20:40 Dose: 5,000 unit Documented By: CB Co-signed By: EE Potassium Chloride (Kcl Ivpb) 10 meq in 100 mls @ 100 mls/hr IV .Q1H PRN PRN Reason: IF POTASSIUM LESS THAN 3.3 Stop: 05/29/25 18:29 Magnesium Sulfate (Magnesium Sulfate Ivpb) 2 gm in 50 mls @ 25 mls/hr IV .Q2H PRN PRN Reason: PER DKA PROTOCOL Stop: 05/29/25 18:29 Insulin Human Regular 100 unit (/ IV Miscellaneous Supplies) 100 mls @ 5.443 mls/hr IV .[id number] PRN; Protocol PRN Reason: PER PROTOCOL Stop: 05/29/25 18:29 Last Titration: 04/30/25 02:00 Dose: 0.1 unit/kg/hr, 5.443 mls/hr Documented By: AD Co-signed By: CLT Titration: 04/30/25 01:00 Dose: 0.1 unit/kg/hr, 5.443 mls/hr Documented By: AD Co-signed By: CLT Titration: 04/30/25 00:00 Dose: 0.1 unit/kg/hr, 5.443 mls/hr Documented By: AD Co-signed By: CLT Titration: 04/29/25 23:00 Dose: 0.1 unit/kg/hr, 5.443 mls/hr Documented By: AD Co-signed By: CLT Titration: 04/29/25 22:00 Dose: 0.1 unit/kg/hr, 5.443 mls/hr Documented By: AD Co-signed By: CLT Titration: 04/29/25 21:49 Dose: 0.1 unit/kg/hr, 5.443 mls/hr Documented By: AD Co-signed By: CLT Titration: 04/29/25 20:39 Dose: 0.1 unit/kg/hr, 5.443 mls/hr Documented By: AMISHA Co-signed By: YASMANI Admin: 04/29/25 19:38 Dose: 0.1 unit/kg/hr, 5.443 mls/hr Documented By: AMISHA Co-signed By: YASMANI Dextrose/Lactated Ringer's (D5-Lr) 1,000 mls @ 250 mls/hr IV .Q4H PRN PRN Reason: PER PROTOCOL Stop: 05/29/25 18:29 Last Admin: 04/30/25 02:59 Dose: 250 mls/hr Documented By: TRACE Lactated Ringer's (Lactated Ringers) 1,000 mls @ 250 mls/hr IV .Q4H PRN PRN Reason: PER PROTOCOL Stop: 04/30/25 18:29 Last Infusion: 04/30/25 02:59 Dose: 0 mls/hr Documented By: Admin: 04/30/25 00:27 Dose: 250 mls/hr Documented By: Infusion: 04/29/25 23:40 Dose: Infused Documented By: Admin: 04/29/25 19:40 Dose: 250 mls/hr Documented By: AMISHA Potassium Chloride 20 meq/ (Lactated Ringer's) 1,010 mls @ 250 mls/hr IV .Q4H3M PRN PRN Reason: K LEVEL 3.3 TO 5.3mM/L Stop: 05/29/25 18:29 Last Admin: 04/29/25 19:42 Dose: 250 mls/hr Documented By: AMISHA Potassium Chloride 40 meq/ (Lactated Ringer's) 1,020 mls @ 250 mls/hr IV .Q4H5M PRN PRN Reason: K LEVEL < 3.3 mM/L Stop: 05/29/25 18:29 Potassium Chloride 40 meq/ (Dextrose/Lactated Ringer's) 1,020 mls @ 250 mls/hr IV .Q4H5M PRN PRN Reason: K LEVEL < 3.3mM/L Stop: 05/29/25 18:29 Potassium Cl/Dextrose/Lact Ringer's (Kcl 20 Meq/L In D5-Lr) 20 meq in 1,000 mls @ 250 mls/hr IV .Q4H PRN PRN Reason: K LEVEL 3.3 TO 5.3 mM/L Stop: 05/29/25 18:29 Potassium Chloride (Kcl Ivpb) 10 meq in 100 mls @ 50 mls/hr IV PRN PRN PRN Reason: K LEVEL 3.3 to 5.3 & BG > 200 Stop: 05/29/25 18:29 Last Admin: 04/30/25 02:24 Dose: 50 mls/hr Documented By: Infusion: 04/30/25 02:24 Dose: Infused Documented By: Admin: 04/30/25 00:27 Dose: 50 mls/hr Documented By: TRACE Potassium Phosphate (Pot Phos 15 Mmol In Ns 250 Ml) 15 mmol in 250 mls @ 62.5 mls/hr IV PRN PRN PRN Reason: Phosphate <= 1mg/dL Stop: 05/29/25 18:29 Sodium Phosphate 15 mmol/ (Sodium Chloride) 255 mls @ 62.5 mls/hr IV .Q4H5M PRN PRN Reason: Phosphate <= 1mg/dL and K> than 5.3 Stop: 05/29/25 18:29 Metronidazole (Flagyl 500 Mg Iv) 500 mg in 100 mls @ 200 mls/hr IV Q8HR DANII Stop: 05/06/25 18:36 Last Admin: 04/30/25 05:22 Dose: 200 mls/hr Documented By: Infusion: 04/29/25 20:15 Dose: Infused Documented By: Admin: 04/29/25 19:37 Dose: 200 mls/hr Documented By: AMISHA Levofloxacin/Dextrose (Levaquin Ivpb) 500 mg in 100 mls @ 100 mls/hr IV QDAY DANII Stop: 05/07/25 08:59 Ketorolac Tromethamine (Ketorolac Inj 30 Mg/Ml Vial) 15 mg IVP Q6H PRN PRN Reason: Pain Stop: 05/04/25 20:14 Last Admin: 04/29/25 21:47 Dose: 15 mg Documented By: AD Methadone HCl (Methadone Hcl 10 Mg Tablet) 10 mg PO TID PRN PRN Reason: PAIN Stop: 05/04/25 22:29 Last Admin: 04/29/25 22:36 Dose: 10 mg Documented By: AD Ondansetron HCl (Ondansetron Inj 2 Mg/Ml Inj 2 Ml) 4 mg IVP Q6HR PRN; Protocol PRN Reason: NAUSEA OR VOMITING Stop: 05/29/25 20:08 Last Admin: 04/30/25 05:21 Dose: 4 mg Documented By: Admin: 04/29/25 21:48 Dose: 4 mg Documented By: AD Sodium Bicarbonate (Sodium Bicarb Inj 8.4% Syr 50 Ml Syringe) 50 ml IV Q4HR PRN PRN Reason: For ph <= to 7.0 Stop: 05/29/25 18:29 Discontinued Medications Sodium Chloride (Ns) 1,000 mls @ 999 mls/hr IV .Q1H1M ONE Stop: 04/29/25 15:42 Last Infusion: 04/29/25 17:08 Dose: Infused Documented By: Admin: 04/29/25 15:46 Dose: 999 mls/hr Documented By: RADHA Sodium Chloride (Ns) 1,000 mls @ 999 mls/hr IV .Q1H1M ONE Stop: 04/29/25 16:51 Last Infusion: 04/29/25 17:25 Dose: Infused Documented By: Admin: 04/29/25 16:31 Dose: 999 mls/hr Documented By: DO Lactated Ringer's (Lactated Ringers) 1,000 mls @ 999 mls/hr IV .Q1H1M ONE Stop: 04/29/25 18:32 Sodium Chloride (Ns) 1,000 mls @ 999 mls/hr IV .Q1H1M ONE Stop: 04/29/25 18:33 Last Infusion: 04/29/25 19:09 Dose: Infused Documented By: Admin: 04/29/25 17:38 Dose: 999 mls/hr Documented By: JERMAIN Lactated Ringer's (Lactated Ringers) 1,000 mls @ 1,000 mls/hr IV Q1H DANII Stop: 04/29/25 20:29 Last Admin: 04/29/25 20:26 Dose: 1,000 mls/hr Documented By: Infusion: 04/29/25 20:26 Dose: Infused Documented By: Admin: 04/29/25 19:37 Dose: 1,000 mls/hr Documented By: AMISHA Vancomycin/Sodium Chloride (Vancomycin/Ns 1 Gm Ivpb) 200 mls @ 120 mls/hr IV X1 ONE Stop: 04/29/25 20:14 Last Admin: 04/29/25 21:49 Dose: 120 mls/hr Documented By: TRACE Levofloxacin/Dextrose (Levaquin Ivpb) 750 mg in 150 mls @ 100 mls/hr IV X1 ONE Stop: 04/29/25 20:05 Last Admin: 04/29/25 20:14 Dose: 100 mls/hr Documented By: AMISHA Magnesium Sulfate (Magnesium Sulfate Ivpb) 2 gm in 50 mls @ 25 mls/hr IV X1 ONE Stop: 04/29/25 22:59 Last Admin: 04/29/25 20:40 Dose: 25 mls/hr Documented By: AMISHA Insulin Human Regular (Insulin Hum Regular 1 Unit/0.01 Ml (Per Unit)) 10 unit IV X1 ONE Stop: 04/29/25 20:03 Last Admin: 04/29/25 20:21 Dose: 10 unit Documented By: AMISHA Co-signed By: YASMANI Diagnosis Differential diagnosis: abscess, PE, pneumonia, CHF, Dispositon Disposition: Admit
[2025-04-29] MEDS: SODIUM CHLORIDE 0.9% 1000 ML 1,000 ML 999 ML IV ×3 (15:46→17:38)
[2025-04-29 15:56] LABS: Basophils # (Auto) 0.1 Thou/mm3 (0.0-0.2); Basophils % (Auto) 1 % (0-2.5); Eosinophils % (Auto) 0 % (0-10); Hematocrit 52.6 % (36.0-46.0); Hemoglobin 18.2 g/dL (12.0-16.0); Immature Granulocytes % (Auto) 4 % (0-0); Immature Granulocytes Auto 0.73 Thou/mm3 (0.00-0.00); Lymphocytes # (Auto) 1.3 Thou/mm3 (1.0-4.8); Lymphocytes % (Auto) 7 % (10-50); Mean Corpuscular HGB Conc 34.6 g/dl (31.0-37.0); Mean Corpuscular Hemoglobin 30.8 pg (25.0-35.0); Mean Corpuscular Volume 89 fL (80-100); Monocytes % (Auto) 5 % (0-12); Neutrophils # (Auto) 14.5 Thou/mm3 (1.8-7.7); Neutrophils % (Auto) 82 % (37-80); Nucleated Red Blood Cell % 0 /100 WBC (0); Platelet Count 602 Thou/mm3 (140-440); RDW Standard Deviation 41.2 fL (36.4-46.3); Red Blood Count 5.91 Miln/mm3 (4.00-5.20); White Blood Count 17.6 Thou/mm3 (3.6-11.0)
[2025-04-29 16:09] LABS: INR 1.1 (0.9-1.3); Prothrombin Time 11.7 Seconds (9.0-12.2)
[2025-04-29 16:41] LABS: Alanine Aminotransferase 18 U/L (10-49); Albumin/Globulin Ratio 1.4 (1.2-2.2); Alkaline Phosphatase 217 U/L (46-116); Anion Gap 32 (7-16); B-Type Natriuretic Peptide < 20 pg/mL (0-100); BUN/Creatinine Ratio 14 Ratio (12-20); Bilirubin,Total 0.2 mg/dL (0.3-1.2); Blood Urea Nitrogen 27 mg/dL (9-23); Calcium 10.6 mg/dL (8.3-10.6); Calcium (Corrected) 10.6 mg/dL (8.5-10.1); Chloride 90 mMol/L (98-107); Estimated Creatinine Clearance 26.9 mL/min (>60); Globulin 3.5 gm/dL (2.3-3.5); Magnesium 2.3 mg/dL (1.6-2.6); Osmolality,Calculated 304 (275-295); Potassium 4.5 mMol/L (3.4-5.1); Sodium 132 mMol/L (136-145); Total Protein 8.5 gm/dL (5.7-8.2); Troponin I < 0.020 ng/mL (0.0-0.045); eGFR 29 See Note
[2025-04-29 16:45] LABS: Aspartate Amino Transferase 12 U/L (0-34); Carbon Dioxide < 10.0 mMol/L (20.0-31.0); Glucose 724 mg/dL (74-106)
--- NOTE | 2025-04-29 18:30 | XR_ITS ---
Examination: AP chest single view Technique : AP portable upright chest single view Date and time: April 29, 2025 at 1855 hours INDICATIONS: Shortness chest pain beginning 4 days ago. FINDINGS: Normal heart size Lungs are clear. Moderate osteopenia IMPRESSION: No active disease
--- NOTE | 2025-04-29 18:31 | XR_ITS ---
Examination: CT soft tissue neck, without intravenous contrast. 2-D coronal reconstructions. 2-D sagittal reconstructions. Date and time of exam :April 29, 2025 2040 hours INDICATIONS: Redness swelling and pain involving the back of the neck recently. CTDI: vol (mGy):11.7 DLP: (mGycm):278 Technique: 1.25 mm axial sections of the neck of the obtained. Coronal and sagittal reconstructions have been obtained. . Low dose protocols were performed. One or more of the following dose reduction techniques were used; automated exposure control, adjustment of the mA and/or KV according to patient size, use of iterative reconstruction technique. Findings: Cellulitis pattern in the soft tissue posterior to the occipital bone Adjacent skin thickening No soft tissue abscess Symmetrical oropharynx nasopharynx No pathologic cervical lymphadenopathy The larynx appears normal Normal epiglottis IMPRESSION: Cellulitis pattern in the soft tissue posterior neck No soft tissue abscess
--- NOTE | 2025-04-29 18:41 | EVENTNT_ITS ---
<Statement entered by Norberto Rivera MD - 04/30/25 09:30> I reviewed the resident?s note findings and plan as documented in the resident?s note. i asked the resident to admit the patient to the ICU based off their labs and presenting complaints, given that DKA was most likely diagnosis. irrespective pt will require aggressive IVFs, f/u lactic acid/ bld clx. obtain sx consult for neck possible abscess start DKA protocol unasyn and vanc Documentation for date of: 04/29/25 Event Note Event Note: Patient is a 55-year-old female seen in the ED for possible DKA. ICU was consulted. He was informed of pending workup, requested blood gas, CT soft tissue neck, BHB to confirm metabolic acidosis secondary to DKA. General surgery Dr. Benson consulted, appreciate recommendations, he was updated over phone call about the consult. Patient started on vancomycin + Levaquin + Flagyl for the neck abscess, given history of allergies to penicillins. Night hospitalist was informed of possible request for admission from the ED overnight. Will reevaluate once ED workup completed, ICU versus floor admission. Plan of care discussed with exploration geologist Dr. Rivera, - Troy Blackburn MD PGY 2
[2025-04-29 19:11] LABS: Lactate (Lactic Acid) 3.1 mMol/L (0.4-2.0)
[2025-04-29] MEDS: RINGERS LACTATED 1000 ML 1,000 ML IV ×2 (19:37→20:26)
[2025-04-29] MEDS: metroNIDAZOLE/NS 500 MG IVPB 500 MG/100 ML BAG 200 MG IV (19:37)
[2025-04-29] MEDS: INSULIN REG 100 UNITS/100 ML 100 UNIT in PRE-MIXED 1 BAG 5.443 UNIT IV (19:38)
[2025-04-29] MEDS: RINGERS LACTATED 1000 ML 1,000 ML 250 ML IV (19:40)
[2025-04-29] MEDS: POT CHL ADDITIVE 20 MEQ in RINGERS LACTATED 1000 ML 1,000 ML 250 MEQ IV (19:42)
[2025-04-29 19:52] LABS: Anion Gap 28 (7-16); BUN/Creatinine Ratio 17 Ratio (12-20); Blood Urea Nitrogen 27 mg/dL (9-23); Calcium 9.4 mg/dL (8.3-10.6); Calcium (Corrected) 9.4 mg/dL (8.5-10.1); Chloride 98 mMol/L (98-107); Creatinine (Component) 1.6 mg/dL (0.6-1.3); Estimated Creatinine Clearance 33.6 mL/min (>60); Magnesium 1.9 mg/dL (1.6-2.6); Osmolality,Calculated 306 (275-295); Phosphorous 5.2 mg/dL (2.4-5.1); Potassium 4.5 mMol/L (3.4-5.1); Sodium 136 mMol/L (136-145); eGFR 38 See Note
--- NOTE | 2025-04-29 19:52 | PD.HHHP ---
Documentation for date of: 04/29/25 HPI - Hospitalist History of Present Illness History of present illness: Patient is a 55-year-old female with history of type 2 diabetes mellitus on insulin, peripheral neuropathy, chronic pain in setting of herniated disc, and hypertension, who presented with multiple complaints but her main complaint was neck pain. She was in her usual state of health until about 3 days prior to admission. Patient started to have worsening neck pain in the posterior area that is associated with swelling. She reported subjective fevers and chills. She feels weak. She reported abdominal pain that is mainly epigastric and associated with nausea and vomiting. She reported shortness of breath. Although symptoms started at the same time when her neck symptoms started. Patient does have history of diabetes mellitus and she is on insulin. She reported taking her insulin as per instructions. She reported taking pain medicine. No other reported symptoms. Patient reported no current tobacco use, alcohol use, or illicit drug use. She reported multiple allergies including penicillin and aspirin. In the ED, patient was tachycardic and hypertensive. She was afebrile. Labs showed critically elevated glucose at 581. Her anion gap was elevated and her bicarb was less than 10. Her creatinine was 2.0 and her baseline creatinine is 0.8. VBG showed pH of 7.3. ABG was ordered. CT scan of the neck soft tissue was ordered. General surgery was notified and will follow the patient. She was admitted to the ICU for further evaluation and management Review of Systems Review of Systems Narrative Review of Systems: 12 point of system reviewed. All negative except as mentioned in the HPI. Meds Home Medications and Allergies Home Medications ?Medication ?Instructions ?Recorded ?Confirmed ?Type baclofen 10 mg tablet 10 mg PO HS 09/14/22 09/14/22 History clonidine HCl 0.1 mg tablet 0.1 mg PO QDAY 09/14/22 09/14/22 History glipizide 10 mg tablet 10 mg PO BID 09/14/22 09/14/22 History insulin glargine 100 unit/mL (3 53 unit subcut QPM 09/14/22 09/14/22 History mL) subcutaneous pen (Basaglar KwikPen U-100 Insulin) lidocaine 5 % topical patch 1 patch topical Q12H 09/14/22 09/14/22 History methadone 10 mg tablet 10 mg PO Q8H PRN Pain 09/14/22 09/14/22 History pregabalin 25 mg capsule 25 mg PO BID PRN Pain 09/14/22 09/14/22 History promethazine 25 mg tablet 25 mg PO QDAY PRN n/v 09/14/22 09/14/22 History Allergies Allergy/AdvReac Type Severity Reaction Status Date / Time barium iodide Allergy Severe PASSED OUT Verified 04/29/25 14:12 cephalexin Allergy Severe ITCHING Verified 04/29/25 14:12 AND VOMITING codeine Allergy Severe FAINTS Verified 04/29/25 14:12 Penicillins Allergy Severe HIVES AND Verified 04/29/25 14:12 DIFF BREATHING aspirin Allergy Unknown RASH Verified 04/29/25 14:12 Exam Vital Signs Temp Pulse Resp BP Pulse Ox O2 Del Method 98.3 F 125 H 20 174/93 H 100 Room Air 04/29/25 19:33 04/29/25 19:33 04/29/25 19:33 04/29/25 19:33 04/29/25 19:33 04/29/25 19:33 Narrative General: Alert and oriented x3. Appears in pain and in mild distress Eyes: Pupils are equal and reactive to light bilaterally. HEENT: Atraumatic, normocephalic. No JVD noted. Mucous membranes are dry. Indurated area on the upper neck noted with mild drainage consistent with neck abscess. The area is tender to palpation. Cardiovascular: Normal S1 and S2. Tachycardic. No murmurs appreciated. No peripheral pitting edema noted. No JVD noted. Respiratory: No respiratory distress. Lungs are clear to auscultation bilaterally. No wheezing or crackles heard. Abdomen: Soft, epigastric tenderness noted, nondistended. Skin: No rash. Dry. Warm. Purulent discharge from skin abscess as mentioned above Musculoskeletal: No gross injuries. Able to move all 4 extremities. Neuro: Alert and oriented x3. Sensation is intact throughout. Strength is 5/5 but diminished. No focal neuro deficits. Psych: Anxious mood. Cooperative Results - Hospitalist Labs Diagrams: 04/29/25 15:44 Labs: Short CBC 04/29/25 Range/Units 15:44 WBC 17.6 H (3.6-11.0) Thou/mm3 Hgb 18.2 H (12.0-16.0) g/dL Hct 52.6 H (36.0-46.0) % Plt Count 602 H (140-440) Thou/mm3 BMP 04/29/25 15:44 Sodium 132 L Potassium 4.5 Chloride 90 L Carbon Dioxide < 10.0 L* BUN 27 H Creatinine 2.0 H Glucose 724 H* Calcium 10.6 Cardiac Enzymes 04/29/25 Range/Units 15:44 Troponin I < 0.020 (0.0-0.045) ng/mL Liver Function 04/29/25 Range/Units 15:44 Total Bilirubin 0.2 L (0.3-1.2) mg/dL AST 12 (0-34) U/L ALT 18 (10-49) U/L Alkaline Phosphatase 217 H (46-116) U/L Albumin 5.0 (3.5-5.0) gm/dL Assessment & Plan -Hospitalist Patient Synopsis 55-year-old female with history of type 2 diabetes mellitus on insulin who presented with a chief complaint of neck pain, fevers, epigastric pain, nausea, and vomiting. She was found to have DKA and neck abscess Endocrine DKA Type 2 diabetes mellitus on insulin Patient has significant anion gap elevation Her glucose levels were in the upper 500s/lower 600s at the time of admission She has very low sodium bicarb Possible medication compliance Possibly triggered by infection in setting of neck abscess Plan: Admitting to ICU Started insulin drip per DKA protocol Monitor electrolytes especially magnesium/potassium and replete as needed Started LR at 250 cc/h Monitor fingersticks every 1 hour N.p.o. Management of nausea/vomiting as needed Infectious disease Neck abscess Leukocytosis Likely in the setting of poorly controlled diabetes mellitus Patient was tachycardic and having leukocytosis for which she meets criteria for sepsis, although her abnormal vital signs can be in setting of DKA and severe dehydration General surgery Dr. Benson was contacted in the ED Plan: Started IV levofloxacin, renally dosed given the allergy to penicillins Trend WBC Continue IV fluids General Surgery consulted. Appreciate recommendations Management of pain as needed: Noted allergy to codeine. Will resume home methadone as needed 10 mg 3 times daily. Can give ketorolac IV 50 mg every 6 hours as needed Renal JOSE ROBERTO Likely prerenal in the setting of dehydration Plan: Continue aggressive IV hydration Monitor kidney function Avoid nephrotoxins Renally dose medications Hypomagnesemia Replete magnesium as needed and monitor level Hypertension Likely exacerbated by severe pain and nausea/vomiting. Resume home clonidine. Management of pain as needed as above Respiratory She is on room air Neuro She is AOO x 3 Cardio Sinus tachycardia Likely in setting of dehydration versus sepsis. Management as above. Monitor vital signs slowly CODE STATUS is full code DVT prophylaxis with subcutaneous heparin Diet is n.p.o. admitting to ICU Critical care time is 65 minutes Quality Measures Quality Measures VTE prophylaxis and none
[2025-04-29 20:04] LABS: Base Excess -24 (-3-3); HCO3 4 mEq/L (20-26); Inspired Oxygen, FIO2 21 %; O2 Saturation 99 % (91-98); PCO2 11 mmHg (32.0-48.0); PO2 134 mmHg (83-108)
[2025-04-29 20:08] LABS: Allen Test Performed/OK; Puncture Site Right Radial; pH, Arterial 7.12 (7.35-7.45)
[2025-04-29] MEDS: LEVOFLOXACIN/D5W 750MG IVPB 750 MG/150 ML BAG 100 MG IV (20:14)
[2025-04-29 20:17] LABS: Beta Hydroxybutyrate 5.3 mmol/L (<0.6)
[2025-04-29 20:18] LABS: Carbon Dioxide < 10.0 mMol/L (20.0-31.0)
[2025-04-29 20:19] LABS: Glucose 620 mg/dL (74-106)
[2025-04-29] MEDS: INSULIN HUM REGULAR 1 UNIT/0.01 ML (PER UNIT) 10 UNIT IV (20:21)
[2025-04-29] MEDS: Magnesium Sulfate 2 GM Ivpb 2 GM/50 ML BAG IV (20:40)
[2025-04-29] MEDS: HEPARIN SOD INJ 5000 UNIT/ML VIAL SC (20:40)
[2025-04-29] MEDS: KETOROLAC INJ 30 MG/ML VIAL 15 MG IVP (21:47)
[2025-04-29] MEDS: ONDANSETRON INJ 2 MG/ML INJ 2 ML 4 MG IVP (21:48)
[2025-04-29] MEDS: VANCOMYCIN/NS 1 GM IVPB 200 ML IV (21:49)
[2025-04-29 22:05] LABS: Reflex Lactate? Y
[2025-04-29] MEDS: METHADONE HCL 10 MG TABLET PO (22:36)
[2025-04-29 23:17] LABS: Lactic Acid, 3 HR 3.4 mMol/L (0.4-2.0)
[2025-04-30] VITALS (57 sets, daily range): BP systolic 142–201; BP diastolic 73–109; PULSE 85–112; RESP 1–26; TEMP 36.2–36.9; O2SAT 97–100; BMI 22.8
[2025-04-30 00:05] LABS: Albumin, Serum 3.5 gm/dL (3.5-5.0); Anion Gap 19 (7-16); BUN/Creatinine Ratio 16 Ratio (12-20); Blood Urea Nitrogen 16 mg/dL (9-23); Calcium 8.5 mg/dL (8.3-10.6); Calcium (Corrected) 8.9 mg/dL (8.5-10.1); Chloride 106 mMol/L (98-107); Estimated Creatinine Clearance 53.8 mL/min (>60); Glucose 308 mg/dL (74-106); Magnesium 4.2 mg/dL (1.6-2.6); Osmolality,Calculated 285 (275-295); Phosphorous 1.2 mg/dL (2.4-5.1); Potassium 5.3 mMol/L (3.4-5.1); Sodium 136 mMol/L (136-145); eGFR > 60 See Note
[2025-04-30 00:15] LABS: Carbon Dioxide 10.8 mMol/L (20.0-31.0)
[2025-04-30] MEDS: RINGERS LACTATED 1000 ML 1,000 ML 250 ML IV ×2 (00:27→07:54)
[2025-04-30] MEDS: POTASSIUM CHL 10 mEq IVPB 10 MEQ/100 ML BAG 50 MEQ IV ×3 (00:27→06:42)
[2025-04-30 02:35] LABS: Lactate (Lactic Acid) 1.4 mMol/L (0.4-2.0)
[2025-04-30] MEDS: DEXTROSE 5%-LACTATED RINGERS 1,000 ML 250 ML IV (02:59)
[2025-04-30 03:06] LABS: Albumin, Serum 3.9 gm/dL (3.5-5.0); Anion Gap 15 (7-16); BUN/Creatinine Ratio 19 Ratio (12-20); Blood Urea Nitrogen 19 mg/dL (9-23); Calcium 9.2 mg/dL (8.3-10.6); Calcium (Corrected) 9.3 mg/dL (8.5-10.1); Carbon Dioxide 19.8 mMol/L (20.0-31.0); Chloride 104 mMol/L (98-107); Estimated Creatinine Clearance 53.8 mL/min (>60); Glucose 214 mg/dL (74-106); Magnesium 1.8 mg/dL (1.6-2.6); Osmolality,Calculated 285 (275-295); Phosphorous 1.3 mg/dL (2.4-5.1); Potassium 4.6 mMol/L (3.4-5.1); Sodium 139 mMol/L (136-145); eGFR > 60 See Note
[2025-04-30] MEDS: ONDANSETRON INJ 2 MG/ML INJ 2 ML 4 MG IVP ×2 (05:21→12:02)
[2025-04-30] MEDS: cloNIDine HCL 0.1 MG TABLET PO ×3 (05:21→21:45)
[2025-04-30] MEDS: metroNIDAZOLE/NS 500 MG IVPB 500 MG/100 ML BAG 200 MG IV (05:22)
[2025-04-30 06:25] LABS: Lactate (Lactic Acid) 1.4 mMol/L (0.4-2.0)
[2025-04-30] MEDS: METHADONE HCL 10 MG TABLET PO ×2 (06:42→16:10)
[2025-04-30 06:54] LABS: Albumin, Serum 3.5 gm/dL (3.5-5.0); Anion Gap 10 (7-16); BUN/Creatinine Ratio 14 Ratio (12-20); Blood Urea Nitrogen 13 mg/dL (9-23); Calcium 8.7 mg/dL (8.3-10.6); Calcium (Corrected) 9.1 mg/dL (8.5-10.1); Carbon Dioxide 22.7 mMol/L (20.0-31.0); Chloride 104 mMol/L (98-107); Creatinine (Component) 0.9 mg/dL (0.6-1.3); Estimated Creatinine Clearance 59.8 mL/min (>60); Glucose 238 mg/dL (74-106); Magnesium 1.6 mg/dL (1.6-2.6); Osmolality,Calculated 281 (275-295); Phosphorous 1.4 mg/dL (2.4-5.1); Potassium 3.8 mMol/L (3.4-5.1); Sodium 137 mMol/L (136-145); eGFR > 60 See Note
[2025-04-30] MEDS: Magnesium Sulfate 4 GM Ivpb 4 GM/50 ML BAG IV (07:47)
[2025-04-30] MEDS: NAPH,KPH MBDB 1 PACKET (1.5 GM) PO (07:48)
[2025-04-30] MEDS: POT CHL ADDITIVE 20 MEQ in RINGERS LACTATED 1000 ML 1,000 ML 250 MEQ IV (07:58)
[2025-04-30 08:10] LABS: Basophils % (Auto) 0 % (0-2.5); Eosinophils % (Auto) 0 % (0-10); Hematocrit 36.8 % (36.0-46.0); Hemoglobin 13.7 g/dL (12.0-16.0); Immature Granulocytes % (Auto) 1 % (0-0); Immature Granulocytes Auto 0.08 Thou/mm3 (0.00-0.00); Lymphocytes # (Auto) 1.4 Thou/mm3 (1.0-4.8); Lymphocytes % (Auto) 11 % (10-50); Mean Corpuscular HGB Conc 37.2 g/dl (31.0-37.0); Mean Corpuscular Hemoglobin 30.8 pg (25.0-35.0); Mean Corpuscular Volume 83 fL (80-100); Monocytes % (Auto) 8 % (0-12); Neutrophils # (Auto) 10.2 Thou/mm3 (1.8-7.7); Neutrophils % (Auto) 80 % (37-80); Nucleated Red Blood Cell % 0 /100 WBC (0); Platelet Count 350 Thou/mm3 (140-440); RDW Standard Deviation 38.2 fL (36.4-46.3); Red Blood Count 4.45 Miln/mm3 (4.00-5.20); White Blood Count 12.7 Thou/mm3 (3.6-11.0)
[2025-04-30 08:12] LABS: Base Excess -1 (-3-3); HCO3 23 mEq/L (20-26); Inspired Oxygen, FIO2 21 %; O2 Saturation 98 % (91-98); PCO2 34 mmHg (32.0-48.0); PO2 83 mmHg (83-108); pH, Arterial 7.44 (7.35-7.45)
--- NOTE | 2025-04-30 08:17 | EKG_ITS ---
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
--- NOTE | 2025-04-30 08:24 | ESPR_ITS ---
<Statement entered by Raad Hampton MD - 05/01/25 10:59> agree with above. hold methadone. monitor qt interval closely. Cumulative time spent in management is 40 minutes Documentation for date of: 04/30/25 Subjective Subjective Interval history: Ms Angel is a 55-year-old female with history of type 2 diabetes mellitus on insulin, peripheral neuropathy, chronic pain in setting of herniated disc, and hypertension, who presented with multiple complaints but her main complaint was neck pain. She was in her usual state of health until about 3 days prior to admission. Patient started to have worsening neck pain in the posterior area that is associated with swelling. She reported subjective fevers and chills. She feels weak. She reported abdominal pain that is mainly epigastric and associated with nausea and vomiting. She reported shortness of breath. Although symptoms started at the same time when her neck symptoms started. Patient does have history of diabetes mellitus and she is on insulin. She reported taking her insulin as per instructions. She reported taking pain medicine. No other reported symptoms. Patient reported no current tobacco use, alcohol use, or illicit drug use. She reported multiple allergies including penicillin and aspirin. In the ED, patient was tachycardic and hypertensive. She was afebrile. Labs showed critically elevated glucose at 581. Her anion gap was elevated and her bicarb was less than 10. Her creatinine was 2.0 and her baseline creatinine is 0.8. VBG showed pH of 7.3. ABG was ordered. CT scan of the neck soft tissue was ordered. General surgery was notified and will follow the patient. She was admitted to the ICU for further evaluation and management. 04/30/2025: Patient seen at bedside, endorses improvement in epigastric pain, no more episodes of vomiting. Insulin gtt was running overnight, total 67.3 units received, BG now ranging 190-250s. Will transition to 40 units glargine and 6 units lispro AC, along with SSI. Patient lab show closed AG, normal bicarb and K and mag wnl. Will hold home methadone given QTc >501, repeat EKG ordered. May resume once QTc <480, PRN keterolac in place until. Plan to downgrade to medical floors today for further management once off of gtt and transitioned safely to SC insulin. Will continue iv antibiotics, switched to clindamycin and doxycycline until further evaluation by general surgery. Exam Vital Signs Temp Pulse Resp BP Pulse Ox O2 Del Method 98.4 F 97 13 168/91 H 100 Room Air 04/30/25 04:00 04/30/25 06:00 04/30/25 06:00 04/30/25 06:00 04/30/25 06:00 04/29/25 20:38 Narrative Exam Constitutional Alert, oriented x3 and comfortable HEENT Vision grossly intact. Patent nares. Trachea midline. Respiratory Chest normal on inspection and clear to auscultation bilaterally. Cardiovascular S1 and S2 audible, RRR. No murmurs or carotid bruit. No gross JVD. Abdominal Soft, BS + ; mildly tender to palpation in epigastric region. Genitourinary No bladder tenderness, no flank pain. Normal to palpation. Musculoskeletal Extremities tone within normal limits. 1+ LE edema. Neurological CN II - XII grossly intact. Extremity motor and sensation grossly intact. Skin Warm, dry and intact. B/L LE erythema and raised lesions in various stages on healing, non pruritic. Psychiatric Patient has a good affect, is cooperative. Objective Labs 04/30/25 07:05 04/30/25 10:45 Labs: Laboratory Results - last 24 hr 04/29/25 04/29/25 04/29/25 15:44 18:48 19:59 WBC 17.6 H RBC 5.91 H Hgb 18.2 H Hct 52.6 H MCV 89 MCH 30.8 MCHC 34.6 RDW Std Deviation 41.2 Plt Count 602 H Neut % (Auto) 82 H Lymph % (Auto) 7 L [place] % (Auto) 5 Eos % (Auto) 0 Baso % (Auto) 1 Neut # (Auto) 14.5 H Lymph # (Auto) 1.3 [place] # (Auto) 1.0 H Eos # (Auto) 0.0 Baso # (Auto) 0.1 Immature Gran # (Auto) 0.73 H Absolute Nucleated RBC 0.00 Immature Gran % 4 H Nucleated RBC % 0 PT 11.7 INR 1.1 Puncture Site Right Radial ABG pH 7.12 L* ABG pCO2 11 L* ABG pO2 134 H ABG HCO3 4 L* ABG O2 Saturation 99 H ABG Base Excess -24 L FiO2 21 Sodium 132 L 136 Potassium 4.5 4.5 Chloride 90 L 98 Carbon Dioxide < 10.0 L* < 10.0 L* Anion Gap 32 H 28 H BUN 27 H 27 H Creatinine 2.0 H 1.6 H Estim Creat Clear Calc 26.9 L 33.6 L eGFR 29 L 38 L BUN/Creatinine Ratio 14 17 Glucose 724 H* 620 H* D Calculated Osmolality 304 H 306 H Lactic Acid 3.1 H Calcium 10.6 9.4 Corrected Calcium 10.6 H 9.4 Phosphorus 5.2 H Magnesium 2.3 1.9 Total Bilirubin 0.2 L AST 12 ALT 18 Alkaline Phosphatase 217 H Troponin I < 0.020 B-Natriuretic Peptide < 20 Total Protein 8.5 H Albumin 5.0 5.0 Globulin 3.5 Albumin/Globulin Ratio 1.4 Beta-Hydroxybutyrate/Acetoacetate 5.3 H 04/29/25 04/30/25 04/30/25 22:57 02:28 06:10 WBC RBC Hgb Hct MCV MCH MCHC RDW Std Deviation Plt Count Neut % (Auto) Lymph % (Auto) [place] % (Auto) Eos % (Auto) Baso % (Auto) Neut # (Auto) Lymph # (Auto) [place] # (Auto) Eos # (Auto) Baso # (Auto) Immature Gran # (Auto) Absolute Nucleated RBC Immature Gran % Nucleated RBC % PT INR Puncture Site ABG pH ABG pCO2 ABG pO2 ABG HCO3 ABG O2 Saturation ABG Base Excess FiO2 Sodium 136 139 137 Potassium 5.3 H D 4.6 D 3.8 D Chloride 106 104 104 Carbon Dioxide 10.8 L* 19.8 L 22.7 Anion Gap 19 H 15 10 BUN 16 19 13 Creatinine 1.0 D 1.0 0.9 Estim Creat Clear Calc 53.8 L 53.8 L 59.8 L eGFR > 60 > 60 > 60 BUN/Creatinine Ratio 16 19 14 Glucose 308 H D 214 H D 238 H Calculated Osmolality 285 285 281 Lactic Acid 3.4 H 1.4 1.4 Calcium 8.5 9.2 8.7 Corrected Calcium 8.9 9.3 9.1 Phosphorus 1.2 L 1.3 L 1.4 L Magnesium 4.2 H 1.8 1.6 Total Bilirubin AST ALT Alkaline Phosphatase Troponin I B-Natriuretic Peptide Total Protein Albumin 3.5 D 3.9 3.5 Globulin Albumin/Globulin Ratio Beta-Hydroxybutyrate/Acetoacetate 04/30/25 07:05 WBC 12.7 H RBC 4.45 Hgb 13.7 D Hct 36.8 D MCV 83 MCH 30.8 MCHC 37.2 H RDW Std Deviation 38.2 Plt Count 350 D Neut % (Auto) 80 Lymph % (Auto) 11 [place] % (Auto) 8 Eos % (Auto) 0 Baso % (Auto) 0 Neut # (Auto) 10.2 H Lymph # (Auto) 1.4 [place] # (Auto) 1.0 H Eos # (Auto) 0.0 Baso # (Auto) 0.0 Immature Gran # (Auto) 0.08 H Absolute Nucleated RBC 0.00 Immature Gran % 1 H Nucleated RBC % 0 PT INR Puncture Site ABG pH ABG pCO2 ABG pO2 ABG HCO3 ABG O2 Saturation ABG Base Excess FiO2 Sodium Potassium Chloride Carbon Dioxide Anion Gap BUN Creatinine Estim Creat Clear Calc eGFR BUN/Creatinine Ratio Glucose Calculated Osmolality Lactic Acid Calcium Corrected Calcium Phosphorus Magnesium Total Bilirubin AST ALT Alkaline Phosphatase Troponin I B-Natriuretic Peptide Total Protein Albumin Globulin Albumin/Globulin Ratio Beta-Hydroxybutyrate/Acetoacetate ABG Interpretation ABG results: 04/29/25 19:59 ABG pH 7.12 L* ABG pCO2 11 L* ABG pO2 134 H ABG HCO3 4 L* ABG O2 Saturation 99 H ABG Base Excess -24 L Quality Measures Quality Measures VTE prophylaxis and none Assessment & Plan Assessment Current Active Medications: Generic Name Dose Route Start Last Admin Trade Name Freq PRN Reason Stop Dose Admin Clonidine 0.1 mg 04/30/25 06:00 04/30/25 05:21 Clonidine Hcl 0.1 Mg Tablet PO 05/30/25 05:59 0.1 mg TID DANII Administration Dextrose 25 ml 04/29/25 18:30 Dextrose 50%-Water Inj 50 Ml Syringe IV [id number] PRN Blood Sugar - Low Enoxaparin Sodium 40 mg 04/30/25 21:00 Enoxaparin Sod Inj 40 Mg/0.4 Ml Syringe SC 05/14/25 20:59 HS DANII Hyoscyamine 0.25 mg 04/30/25 10:00 Hyoscyamine Sulf 0.125 Mg Tab.Subl PO 05/30/25 09:59 Q4HR DANII Potassium Chloride 10 meq in 100 mls @ 100 mls/hr 04/29/25 18:30 Kcl Ivpb IV 05/29/25 18:29 .Q1H PRN IF POTASSIUM LESS THAN 3.3 Magnesium Sulfate 2 gm in 50 mls @ 25 mls/hr 04/29/25 18:30 Magnesium Sulfate Ivpb IV 05/29/25 18:29 .Q2H PRN PER DKA PROTOCOL Insulin Human Regular 100 unit 100 mls @ 5.443 mls/hr 04/29/25 18:30 04/30/25 07:00 / IV Miscellaneous Supplies IV 05/29/25 18:29 0.1 unit/kg/hr .[id number] PRN 5.443 mls/hr PER PROTOCOL Titration Protocol 0.1 UNIT/KG/HR Dextrose/Lactated Ringer's 1,000 mls @ 250 mls/hr 04/29/25 18:30 04/30/25 07:00 D5-Lr IV 05/29/25 18:29 Infused .Q4H PRN Infusion PER PROTOCOL Lactated Ringer's 1,000 mls @ 250 mls/hr 04/29/25 18:30 04/30/25 07:58 Lactated Ringers IV 04/30/25 18:29 0 mls/hr .Q4H PRN Infusion PER PROTOCOL Potassium Chloride 20 meq/ 1,010 mls @ 250 mls/hr 04/29/25 18:30 04/30/25 07:58 Lactated Ringer's IV 05/29/25 18:29 250 mls/hr .Q4H3M PRN Administration K LEVEL 3.3 TO 5.3mM/L Potassium Chloride 40 meq/ 1,020 mls @ 250 mls/hr 04/29/25 18:30 Lactated Ringer's IV 05/29/25 18:29 .Q4H5M PRN K LEVEL < 3.3 mM/L Potassium Chloride 40 meq/ 1,020 mls @ 250 mls/hr 04/29/25 18:30 Dextrose/Lactated Ringer's IV 05/29/25 18:29 .Q4H5M PRN K LEVEL < 3.3mM/L Potassium Chloride 10 meq in 100 mls @ 50 mls/hr 04/29/25 18:30 04/30/25 06:42 Kcl Ivpb IV 05/29/25 18:29 50 mls/hr PRN PRN Administration K LEVEL 3.3 to 5.3 & BG > 200 Sodium Phosphate 15 mmol/ 255 mls @ 62.5 mls/hr 04/29/25 18:30 Sodium Chloride IV 05/29/25 18:29 .Q4H5M PRN Phosphate <= 1mg/dL and K> than 5.3 Metronidazole 500 mg in 100 mls @ 200 mls/hr 04/29/25 18:37 04/30/25 05:22 Flagyl 500 Mg Iv IV 05/06/25 18:36 200 mls/hr Q8HR DANII Administration Levofloxacin/Dextrose 500 mg in 100 mls @ 100 mls/hr 04/30/25 09:00 Levaquin Ivpb IV 05/07/25 08:59 QDAY DANII Potassium Phosphate 15 mmol in 250 mls @ 62.5 mls/hr 04/30/25 07:29 Pot Phos 15 Mmol In Ns 250 Ml IV 05/29/25 18:29 PRN PRN Phos <2 Magnesium Sulfate 4 gm in 50 mls @ 12.5 mls/hr 04/30/25 07:29 04/30/25 07:47 Magnesium Sulfate Ivpb IV 04/30/25 11:28 12.5 mls/hr X1 ONE Administration Potassium Cl/Dextrose/Lact Ringer's 20 meq in 1,000 mls @ 250 mls/hr 04/30/25 07:47 Kcl 20 Meq/L In D5-Lr IV 05/29/25 18:29 .Q4H PRN K LEVEL <3.4 Ketorolac Tromethamine 15 mg 04/30/25 08:20 Ketorolac Inj 30 Mg/Ml Vial IVP 05/04/25 20:14 Q6H PRN PAIN SCALE 4-10(MOD-SEV) Methadone HCl 10 mg 04/30/25 08:05 Methadone Hcl 10 Mg Tablet PO 05/04/25 22:29 TID PRN Pain 4-10 Protocol Ondansetron HCl 4 mg 04/29/25 20:09 04/30/25 05:21 Ondansetron Inj 2 Mg/Ml Inj 2 Ml IVP 05/29/25 20:08 4 mg Q6HR PRN Administration NAUSEA OR VOMITING Protocol Pantoprazole Sodium 40 mg 04/30/25 08:20 Pantoprazole Inj 40 Mg Vial IVP 05/30/25 08:19 QDAY DANII Sodium Bicarbonate 50 ml 04/29/25 18:30 Sodium Bicarb Inj 8.4% Syr 50 Ml Syringe IV 05/29/25 18:29 Q4HR PRN For ph <= to 7.0 Plan Ms Angel is a 55-year-old female with history of type 2 diabetes mellitus on insulin, peripheral neuropathy, chronic pain in setting of herniated disc, and hypertension, who presented with worsening neck pain in the posterior area, associated with subjective fevers, nausea and vomiting and epigastric pain. She was admitted to ICU for DKA, on insulin gtt. NEURO No active problems. CVS Primary Hypertension Dx: Likely exacerbated by abdo pain in setting of DKA Rx: Resume home clonidine TID Management of pain with Keterolac and home methadone Prolonged QTc >500 Sinus tachycardia - resolved Dx: Likely in setting of dehydration versus sepsis. Rx: - Rehydrated with IVF, tolerating diet. - HR trending 90s. Continue to monitor - EKG shows QTc 501 on 04/29. Will hold methadone until QTc <480 - Keep K >4 and Mg >2 to prevent arrythmias PULM No active problems. GI/Hep Epigastric pain Nausea/Vomiting Dx: Pt endorses improvement in epigastric pain, no more episodes of vomiting. Rx: - Will hold home methadone given QTc >501. PRN [address]ac in place until - Repeat EKG ordered, follow up repeat EKGs closely - PRN Zofran on board. Avoid any other QTc prolonging agents. RENAL No active problems JOSE ROBERTO- resolved : Cr 1.3 -> 0.6 ENDO DKA Type 2 insulin dependant diabetes mellitus Dx: - On admission: glucose levels were in the upper 500s/lower 600s, low sodium bicarb 19.8 and pH 7.12 - Possible medication non-compliance, and exacerbated by infection in the scalp follicle - 04/30: Insulin gtt overnight, total 67.3 units received, BG now ranging 190- 250s, AG 10 (closed), bicarb wnl. Rx: - On insulin drip per DKA protocol - Glargine 30U given this am. Will give additional 10U HS x1 tonight - Continue SSI w/ AC - Glargine 40U HS + Lispro 6U AC from 05/01/2025 HEME/ONC Leukocytosis Dx: Likely in the setting of scalp furuncle. WBC 17 --> 12 Rx: - Levaquin and flagyl discontinued - Started on Clindamycin + Doxycycline (04/30- ID Scalp furuncle Dx: scalp furuncle posteriorly, poorly controlled diabetes mellitus Patient was tachycardic and having leukocytosis for which she meets criteria for sepsis, although her abnormal vital signs can be in setting of DKA and severe dehydration General surgery Dr. Benson was contacted in the ED Plan: Started IV levofloxacin, renally dosed given the allergy to penicillins Trend WBC Continue IV fluids General Surgery consulted. Appreciate recommendations Management of pain as needed: Noted allergy to codeine. Will resume home methadone as needed 10 mg 3 times daily. Can give ketorolac IV 50 mg every 6 hours as needed ICU Health maintenance: Dispo: Admit to ICU for DKA on insulin gtt --> SC. Downgrade to medical floors on 04/30/2025 Diet: carb consistent LOW DVT ppx: Enoxaparin 40mg SC daily GI ppx: Protonix 40mg qD IV lines: 2 pIV Central line: No Arterial line: No Mccoy: No Code status: FULL CODE Plan of care discussed with tab card press operator Dr Hampton, Troy Blackburn MD PGY 2 This document was compiled using speech recognition software. Grammatical errors can be an occasional consequence of this system due to software limitations.
[2025-04-30] MEDS: KCL 20 mEq/L in D5-LR 20 MEQ/1,000 ML BAG 250 MEQ IV (08:47)
[2025-04-30 08:53] LABS: Allen Test Performed/OK; Puncture Site Right Radial
[2025-04-30] MEDS: POT PHOS 15 mMol in NS 250 ML 15 MMOL/250 ML BAG 62.5 MMOL IV (10:01)
[2025-04-30] MEDS: DOXYCYCLINE INJ 100 MG in SODIUM CHLORIDE 0.9% (POP) 100 ML IV ×2 (10:01→20:37)
[2025-04-30] MEDS: CLINDAMYCIN/NS 300MG IVPB 300 MG/50 ML BAG 100 MG IV ×3 (10:01→21:44)
[2025-04-30] MEDS: PANTOPRAZOLE INJ 40 MG VIAL IVP (10:01)
[2025-04-30] MEDS: HYOSCYAMINE SULF 0.125 MG TAB.SUBL 0.25 MG PO ×4 (10:24→21:45)
[2025-04-30] MEDS: INSULIN GLARGINE (Lantus) 5 UNIT/0.05 ML (PER 5 UNITS) 30 UNIT SC (10:57)
[2025-04-30 11:20] LABS: Albumin, Serum 3.3 gm/dL (3.5-5.0); Anion Gap 10 (7-16); BUN/Creatinine Ratio 11 Ratio (12-20); Blood Urea Nitrogen 8 mg/dL (9-23); Calcium 8.4 mg/dL (8.3-10.6); Carbon Dioxide 22.1 mMol/L (20.0-31.0); Chloride 103 mMol/L (98-107); Creatinine (Component) 0.7 mg/dL (0.6-1.3); Estimated Creatinine Clearance 73.5 mL/min (>60); Glucose 235 mg/dL (74-106); Magnesium 2.5 mg/dL (1.6-2.6); Osmolality,Calculated 276 (275-295); Phosphorous 1.8 mg/dL (2.4-5.1); Potassium 3.4 mMol/L (3.4-5.1); Sodium 135 mMol/L (136-145); eGFR > 60 See Note
[2025-04-30] MEDS: INSULIN LISPRO (AdmeLOG) 1 UNIT/0.01 ML UNIT SC ×2 (11:56→17:17)
[2025-04-30] MEDS: INSULIN LISPRO (AdmeLOG) 1 UNIT/0.01 ML UNIT 6 UNIT SC ×2 (11:56→17:17)
[2025-04-30 12:37] LABS: Glucose Estimated Average 355 mg/dL (80-131); Hemoglobin A1C > 14.0 % Hgb (4.8-6.0)
[2025-04-30] MEDS: KETOROLAC INJ 30 MG/ML VIAL 15 MG IVP ×2 (15:33→21:44)
[2025-04-30 15:38] LABS: Albumin, Serum 3.4 gm/dL (3.5-5.0); Anion Gap 10 (7-16); BUN/Creatinine Ratio 8 Ratio (12-20); Blood Urea Nitrogen 6 mg/dL (9-23); Calcium 8.6 mg/dL (8.3-10.6); Calcium (Corrected) 9.1 mg/dL (8.5-10.1); Carbon Dioxide 24.8 mMol/L (20.0-31.0); Chloride 103 mMol/L (98-107); Creatinine (Component) 0.8 mg/dL (0.6-1.3); Estimated Creatinine Clearance 64.3 mL/min (>60); Glucose 159 mg/dL (74-106); Magnesium 2.3 mg/dL (1.6-2.6); Osmolality,Calculated 276 (275-295); Phosphorous 2.4 mg/dL (2.4-5.1); Potassium 3.6 mMol/L (3.4-5.1); Sodium 138 mMol/L (136-145); eGFR > 60 See Note
--- NOTE | 2025-04-30 16:23 | PC.SS ---
SS update: patient on IV antibiotics, pending evaluation by general surgery.
--- NOTE | 2025-04-30 16:55 | ESPR_ITS ---
Documentation for date of: 04/30/25 Subjective Subjective Interval history: ICU downgrade on 04/30. Initially admitted on 04/29 for management of DKA but presented with pain on posterior aspect of head with draining lesion noted. On admission, HCO3 less than 10, AG 32, creatinine 2.0, glucose 724, beta hydroxybutyrate 5.3. She was then started on insulin drip and admitted to the ICU for which she received a total of 72 units of insulin. AG now closed and patient transition to 40 units glargine, 6 units lispro 3 times daily with meals, and sliding scale insulin. Surgery consulted in ED for lesion on posterior head for which imaging showed cellulitis pattern. Initial EKG showed QTc of 501 for which home methadone was held but repeat EKG showed QTc of 510. At bedside, patient states she still is mildly nauseous and has some epigastric tenderness on exam. Exam Vital Signs Temp Pulse Resp BP Pulse Ox O2 Del Method 98.0 F 94 15 142/75 H 99 Room Air 04/30/25 16:04/30/25 16:04/30/25 16:04/30/25 16:04/30/25 16:04/29/25 20:38 Narrative Exam General: AOx3, no acute distress, able to speak full sentences HEENT: NC/AT, mucous membranes moist, bilateral sclera anicteric Cardiovascular: regular rate and rhythm, S1/S2 present, no murmurs appreciated Pulmonary: clear to auscultation bilaterally, no rales/rhonchi/wheezes Abdominal: mild epigastric tenderness; soft, non-distended, no rebound/guarding, normal bowel sounds present Musculoskeletal: normal ROM, no peripheral edema Skin: draining lesion on posterior aspect of scalp, healed lesions on skin, warm and dry, intact Neuro: CN II-XII intact, no focal deficits Objective Labs 05/01/25 05:32 05/01/25 05:32 Labs: Laboratory Results - last 24 hr 04/29/25 04/29/25 04/29/25 18:48 19:59 22:57 WBC RBC Hgb Hct MCV MCH MCHC RDW Std Deviation Plt Count Neut % (Auto) Lymph % (Auto) [place] % (Auto) Eos % (Auto) Baso % (Auto) Neut # (Auto) Lymph # (Auto) [place] # (Auto) Eos # (Auto) Baso # (Auto) Immature Gran # (Auto) Absolute Nucleated RBC Immature Gran % Nucleated RBC % Puncture Site Right Radial ABG pH 7.12 L* ABG pCO2 11 L* ABG pO2 134 H ABG HCO3 4 L* ABG O2 Saturation 99 H ABG Base Excess -24 L FiO2 21 Sodium 136 136 Potassium 4.5 5.3 H D Chloride 98 106 Carbon Dioxide < 10.0 L* 10.8 L* Anion Gap 28 H 19 H BUN 27 H 16 Creatinine 1.6 H 1.0 D Estim Creat Clear Calc 33.6 L 53.8 L eGFR 38 L > 60 BUN/Creatinine Ratio 17 16 Glucose 620 H* D [address] Glu mg/dL Hemoglobin A1c Calculated Osmolality 306 H 285 Lactic Acid 3.1 H 3.4 H Calcium 9.4 8.5 Corrected Calcium 9.4 8.9 Phosphorus 5.2 H 1.2 L Magnesium 1.9 4.2 H Albumin 5.0 3.5 D Beta-Hydroxybutyrate/Acetoacetate 5.3 H 04/30/25 04/30/25 04/30/25 02:28 06:10 07:05 WBC 12.7 H RBC 4.45 Hgb 13.7 D Hct 36.8 D MCV 83 MCH 30.8 MCHC 37.2 H RDW Std Deviation 38.2 Plt Count 350 D Neut % (Auto) 80 Lymph % (Auto) 11 [place] % (Auto) 8 Eos % (Auto) 0 Baso % (Auto) 0 Neut # (Auto) 10.2 H Lymph # (Auto) 1.4 [place] # (Auto) 1.0 H Eos # (Auto) 0.0 Baso # (Auto) 0.0 Immature Gran # (Auto) 0.08 H Absolute Nucleated RBC 0.00 Immature Gran % 1 H Nucleated RBC % 0 Puncture Site ABG pH ABG pCO2 ABG pO2 ABG HCO3 ABG O2 Saturation ABG Base Excess FiO2 Sodium 139 137 Potassium 4.6 D 3.8 D Chloride 104 104 Carbon Dioxide 19.8 L 22.7 Anion Gap 15 10 BUN 19 13 Creatinine 1.0 0.9 Estim Creat Clear Calc 53.8 L 59.8 L eGFR > 60 > 60 BUN/Creatinine Ratio 19 14 Glucose 214 H D [address] Glu mg/dL Hemoglobin A1c Calculated Osmolality 285 281 Lactic Acid 1.4 1.4 Calcium 9.2 8.7 Corrected Calcium 9.3 9.1 Phosphorus 1.3 L 1.4 L Magnesium 1.8 1.6 Albumin 3.9 3.5 Beta-Hydroxybutyrate/Acetoacetate 04/30/25 04/30/25 04/30/25 08:08 10:30 10:45 WBC RBC Hgb Hct MCV MCH MCHC RDW Std Deviation Plt Count Neut % (Auto) Lymph % (Auto) [place] % (Auto) Eos % (Auto) Baso % (Auto) Neut # (Auto) Lymph # (Auto) [place] # (Auto) Eos # (Auto) Baso # (Auto) Immature Gran # (Auto) Absolute Nucleated RBC Immature Gran % Nucleated RBC % Puncture Site Right Radial ABG pH 7.44 D ABG pCO2 34 D ABG pO2 83 D ABG HCO3 23 ABG O2 Saturation 98 ABG Base Excess -1 FiO2 21 Sodium 135 L Potassium 3.4 Chloride 103 Carbon Dioxide 22.1 Anion Gap 10 BUN 8 L Creatinine 0.7 Estim Creat Clear Calc 73.5 eGFR > 60 BUN/Creatinine Ratio 11 L Glucose [address] Glu mg/dL 355 H Hemoglobin A1c > 14.0 H Calculated Osmolality 276 Lactic Acid Calcium 8.4 Corrected Calcium 9.0 Phosphorus 1.8 L Magnesium 2.5 Albumin 3.3 L Beta-Hydroxybutyrate/Acetoacetate 04/30/25 15:06 WBC RBC Hgb Hct MCV MCH MCHC RDW Std Deviation Plt Count Neut % (Auto) Lymph % (Auto) [place] % (Auto) Eos % (Auto) Baso % (Auto) Neut # (Auto) Lymph # (Auto) [place] # (Auto) Eos # (Auto) Baso # (Auto) Immature Gran # (Auto) Absolute Nucleated RBC Immature Gran % Nucleated RBC % Puncture Site ABG pH ABG pCO2 ABG pO2 ABG HCO3 ABG O2 Saturation ABG Base Excess FiO2 Sodium 138 Potassium 3.6 Chloride 103 Carbon Dioxide 24.8 Anion Gap 10 BUN 6 L Creatinine 0.8 Estim Creat Clear Calc 64.3 eGFR > 60 BUN/Creatinine Ratio 8 L Glucose [address] Glu mg/dL Hemoglobin A1c Calculated Osmolality 276 Lactic Acid Calcium 8.6 Corrected Calcium 9.1 Phosphorus 2.4 Magnesium 2.3 Albumin 3.4 L Beta-Hydroxybutyrate/Acetoacetate ABG Interpretation ABG results: 04/29/25 04/30/25 19:59 08:08 ABG pH 7.12 L* 7.44 D ABG pCO2 11 L* 34 D ABG pO2 134 H 83 D ABG HCO3 4 L* 23 ABG O2 Saturation 99 H 98 ABG Base Excess -24 L -1 Quality Measures Quality Measures VTE prophylaxis and none Assessment & Plan Assessment Current Active Medications: Generic Name Dose Route Start Last Admin Trade Name Freq PRN Reason Stop Dose Admin Clonidine 0.1 mg 04/30/25 06:00 04/30/25 14:06 Clonidine Hcl 0.1 Mg Tablet PO 05/30/25 05:59 0.1 mg TID DANII Administration Dextrose 25 ml 04/29/25 18:30 Dextrose 50%-Water Inj 50 Ml Syringe IV [id number] PRN Blood Sugar - Low Dextrose 50 ml 04/30/25 10:28 Dextrose 50%-Water Inj 50 Ml Syringe IV 05/30/25 10:27 Q15MIN PRN BG <50 OR BG <70 & pt unresponsive Enoxaparin Sodium 40 mg 04/30/25 21:00 Enoxaparin Sod Inj 40 Mg/0.4 Ml Syringe SC 05/14/25 20:59 HS DANII Glucagon 1 mg 04/30/25 10:28 Glucagon Inj 1 Mg Vial IM Q15MIN PRN BG <70, and no IV access Hyoscyamine 0.25 mg 04/30/25 10:00 04/30/25 14:06 Hyoscyamine Sulf 0.125 Mg Tab.Subl PO 05/30/25 09:59 0.25 mg Q4HR DANII Administration Potassium Chloride 10 meq in 100 mls @ 100 mls/hr 04/29/25 18:30 Kcl Ivpb IV 05/29/25 18:29 .Q1H PRN IF POTASSIUM LESS THAN 3.3 Magnesium Sulfate 2 gm in 50 mls @ 25 mls/hr 04/29/25 18:30 Magnesium Sulfate Ivpb IV 05/29/25 18:29 .Q2H PRN PER DKA PROTOCOL Potassium Chloride 10 meq in 100 mls @ 50 mls/hr 04/29/25 18:30 04/30/25 06:42 Kcl Ivpb IV 05/29/25 18:29 50 mls/hr PRN PRN Administration K LEVEL 3.3 to 5.3 & BG > 200 Sodium Phosphate 15 mmol/ 255 mls @ 62.5 mls/hr 04/29/25 18:30 Sodium Chloride IV 05/29/25 18:29 .Q4H5M PRN Phosphate <= 1mg/dL and K> than 5.3 Potassium Phosphate 15 mmol in 250 mls @ 62.5 mls/hr 04/30/25 07:29 04/30/25 10:01 Pot Phos 15 Mmol In Ns 250 Ml IV 05/29/25 18:29 62.5 mls/hr PRN PRN Administration Phos <2 Potassium Cl/Dextrose/Lact Ringer's 20 meq in 1,000 mls @ 250 mls/hr 04/30/25 07:47 04/30/25 10:00 Kcl 20 Meq/L In D5-Lr IV 05/29/25 18:29 0 mls/hr .Q4H PRN Infusion K LEVEL <3.4 Doxycycline Hyclate 100 mg/ 100 mls @ 100 mls/hr 04/30/25 09:45 04/30/25 10:01 Sodium Chloride IV 05/07/25 09:44 100 mls/hr BID DANII Administration Clindamycin/Sodium Chloride 300 mg in 50 mls @ 100 mls/hr 04/30/25 10:00 04/30/25 14:05 Cleocin/Ns Ivpb IV 05/07/25 09:59 100 mls/hr Q8HR DANII Administration Insulin Glargine 40 unit 05/01/25 21:00 Insulin Glargine (Lantus) 5 Unit/0.05 Ml (Per 5 Units) MT 05/31/25 20:59 HS DANII Insulin Glargine 10 unit 04/30/25 21:00 Insulin Glargine (Lantus) 5 Unit/0.05 Ml (Per 5 Units) SC 04/30/25 21:01 X1 ONE Insulin Human Lispro 6 unit 04/30/25 12:00 04/30/25 11:56 Insulin Lispro (Admelog) 1 Unit/0.01 Ml Unit SC 05/30/25 11:59 6 unit TIDWM DANII Administration Insulin Human Lispro 0 unit 04/30/25 11:30 04/30/25 11:56 Insulin Lispro (Admelog) 1 Unit/0.01 Ml Unit MT 05/30/25 11:29 3 unit AC DANII Administration Protocol Ketorolac Tromethamine 15 mg 04/30/25 08:20 04/30/25 15:33 Ketorolac Inj 30 Mg/Ml Vial IVP 05/04/25 20:14 15 mg Q6H PRN Administration PAIN SCALE 4-10(MOD-SEV) Methadone HCl 10 mg 04/30/25 15:32 04/30/25 16:10 Methadone Hcl 10 Mg Tablet PO 05/04/25 22:29 10 mg TID PRN Administration PAIN Protocol Ondansetron HCl 4 mg 04/29/25 20:09 04/30/25 12:02 Ondansetron Inj 2 Mg/Ml Inj 2 Ml IVP 05/29/25 20:08 4 mg Q6HR PRN Administration NAUSEA OR VOMITING Protocol Pantoprazole Sodium 40 mg 04/30/25 08:20 04/30/25 10:01 Pantoprazole Inj 40 Mg Vial IVP 05/30/25 08:19 40 mg QDAY DANII Administration Sodium Bicarbonate 50 ml 04/29/25 18:30 Sodium Bicarb Inj 8.4% Syr 50 Ml Syringe IV 05/29/25 18:29 Q4HR PRN For ph <= to 7.0 Jen Angel is a 55-year-old female with a past medical history of type 2 diabetes mellitus on insulin, peripheral neuropathy, chronic pain secondary to herniated disc, and hypertension who is admitted for management of DKA and draining lesion on posterior scalp. #Diabetic ketoacidosis, resolved #Insulin-dependent type 2 diabetes mellitus #Nausea/vomiting On admission, HCO3 less than 10, AG 32, creatinine 2.0, glucose 724, beta hydroxybutyrate 5.3. She was then started on insulin drip and admitted to the ICU for which she received a total of 72 units of insulin. A1c greater than 14%. ? Glargine 40 units daily ? Lispro 6 units 3 times daily with meals ? SSI ? Hypoglycemic protocol in place #Furuncle on posterior scalp Draining lesion on posterior scalp for which CT scan showed cellulitis pattern but no evidence of abscess. ? Genereal surgery following, appreciate recommendations ? Clindamycin 300 mg IV every 8 hours (04/30-) ? Doxycycline 100 mg IV twice daily (04/30-) #Hypertension ? Clonidine 0.1 mg p.o. 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 Methadone 10 mg p.o. 3 times daily as needed #Acute kidney injury, resolved #Hyperkalemia, resolved #Hypophosphatemia, resolved Hospital management: Disposition: DKA, posterior furuncle pending surgery recs Diet: carb consistent low Lines: PIV DVT prophylaxis: heparin SC BID GI prophylaxis: pantoprazole 40 mg IV daily CODE STATUS: full code ----- Plan discussed with attending physician Dr. Eagle Gunn MD PGY-1 Internal Medicine Attending Provider Attestation/Addendum I have examined the patient, reviewed labs and imaging findings, discussed the case with the resident(s), and reviewed entered orders. I agree with the plan of care as outlined in this note. Dr. Eagle MD
--- NOTE | 2025-04-30 17:07 | PC.SS ---
Patient is a 55-year old female admitted for DKA neck abcess. Patient in ICU. Patient information confirmed with sonMaurilio. He confirmed demographic information and identified as patient's emergency contact. Patient lives at home with her two sons. Patient utilizes a home walker to assist with ambulation. Patient followed by Juan Molina at [facility] for primary care. Preferred pharmacy is [facility]. Patient discharge plan is to return home. Family is agreeable to home health services. No preferred agency at this time. Family to transport the patient home at discharge. D/c plan: home health Next of kin: sonMaurilio
[2025-04-30] MEDS: LOSARTAN POTASSIUM 25 MG TABLET PO (18:14)
[2025-04-30] MEDS: INSULIN GLARGINE (Lantus) 5 UNIT/0.05 ML (PER 5 UNITS) 10 UNIT SC (20:36)
[2025-04-30] MEDS: ENOXAPARIN SOD INJ 40 MG/0.4 ML SYRINGE SC (20:37)
[2025-05-01] VITALS (16 sets, daily range): BP systolic 130–157; BP diastolic 74–92; PULSE 75–91; RESP 1–27; TEMP 35.9–36.3; O2SAT 96–99; BMI 22.4
[2025-05-01] MEDS: METHADONE HCL 10 MG TABLET PO (00:04)
[2025-05-01] MEDS: HYOSCYAMINE SULF 0.125 MG TAB.SUBL 0.25 MG PO ×6 (02:48→21:23)
[2025-05-01] MEDS: CLINDAMYCIN/NS 300MG IVPB 300 MG/50 ML BAG 100 MG IV ×3 (05:17→21:24)
[2025-05-01] MEDS: cloNIDine HCL 0.1 MG TABLET PO ×3 (05:17→21:23)
[2025-05-01] MEDS: KETOROLAC INJ 30 MG/ML VIAL 15 MG IVP (05:58)
[2025-05-01 06:00] LABS: Basophils % (Auto) 0 % (0-2.5); Eosinophils % (Auto) 0 % (0-10); Hematocrit 34.4 % (36.0-46.0); Hemoglobin 12.9 g/dL (12.0-16.0); Immature Granulocytes % (Auto) 0 % (0-0); Immature Granulocytes Auto 0.03 Thou/mm3 (0.00-0.00); Lymphocytes # (Auto) 2.3 Thou/mm3 (1.0-4.8); Lymphocytes % (Auto) 29 % (10-50); Mean Corpuscular HGB Conc 37.5 g/dl (31.0-37.0); Mean Corpuscular Hemoglobin 30.9 pg (25.0-35.0); Mean Corpuscular Volume 82 fL (80-100); Monocytes # (Auto) 0.5 Thou/mm3 (0.0-0.8); Monocytes % (Auto) 7 % (0-12); Neutrophils # (Auto) 5.1 Thou/mm3 (1.8-7.7); Neutrophils % (Auto) 64 % (37-80); Nucleated Red Blood Cell % 0 /100 WBC (0); Platelet Count 258 Thou/mm3 (140-440); RDW Standard Deviation 38.6 fL (36.4-46.3); Red Blood Count 4.18 Miln/mm3 (4.00-5.20)
[2025-05-01 06:28] LABS: Albumin, Serum 3.4 gm/dL (3.5-5.0); Anion Gap 11 (7-16); BUN/Creatinine Ratio 8 Ratio (12-20); Blood Urea Nitrogen 5 mg/dL (9-23); Calcium 8.7 mg/dL (8.3-10.6); Calcium (Corrected) 9.2 mg/dL (8.5-10.1); Carbon Dioxide 27.1 mMol/L (20.0-31.0); Chloride 98 mMol/L (98-107); Creatinine (Component) 0.6 mg/dL (0.6-1.3); Estimated Creatinine Clearance 85.8 mL/min (>60); Glucose 206 mg/dL (74-106); Magnesium 1.8 mg/dL (1.6-2.6); Osmolality,Calculated 275 (275-295); Phosphorous 2.2 mg/dL (2.4-5.1); Potassium 3.6 mMol/L (3.4-5.1); Sodium 136 mMol/L (136-145); eGFR > 60 See Note
[2025-05-01] MEDS: INSULIN LISPRO (AdmeLOG) 1 UNIT/0.01 ML UNIT 6 UNIT SC ×2 (07:17→16:56)
[2025-05-01] MEDS: INSULIN LISPRO (AdmeLOG) 1 UNIT/0.01 ML UNIT SC ×2 (07:17→16:57)
[2025-05-01] MEDS: PANTOPRAZOLE INJ 40 MG VIAL IVP (08:52)
[2025-05-01] MEDS: DOXYCYCLINE INJ 100 MG in SODIUM CHLORIDE 0.9% (POP) 100 ML IV ×2 (08:53→20:22)
[2025-05-01] MEDS: LOSARTAN POTASSIUM 25 MG TABLET PO (08:53)
[2025-05-01] MEDS: NAPH,KPH MBDB 1 PACKET (1.5 GM) PO (08:53)
[2025-05-01] MEDS: INSULIN GLARGINE (Lantus) 5 UNIT/0.05 ML (PER 5 UNITS) 45 UNIT SC (08:54)
[2025-05-01] MEDS: PREGABALIN 25 MG CAPSULE PO ×2 (09:05→20:39)
--- NOTE | 2025-05-01 09:24 | EKG_ITS ---
[facility] Test Date: 2025-05-01 Pat Name: JAMES GREENE Department: Room: [facility] Gender: Female [employer] Program Manager: MAMADOU : 1970 Requested By: Alexis Gunn Order Number: [id number] Reading MD: Alexis Gunn Measurements Intervals [place] Rate: 84 P: 48 NM: 133 QRS: 50 QRSD: 88 T: 54 QT: 411 QTc: 486 Interpretive Statements SINUS RHYTHM Compared to ECG 04/30/2025 16:28:09 Short NM interval no longer present /store/S0/[id number]/ecg/[id number].pdf
--- NOTE | 2025-05-01 10:24 | ESPR_ITS ---
Documentation for date of: 05/01/25 Subjective Subjective Interval history: No acute overnight events. Seen and examined at bedside and patient states that her nausea, vomiting, abdominal pain have significantly improved since admission. Counseled/educated patient on importance of outpatient follow-up given significantly elevated A1c. Change insulin regimen from glargine 40 to 45 units daily and we will keep lispro 6 units TID with meals. Otherwise, general surgery evaluated patient for lesion on posterior scalp and stated no interventions from there reported to continue with antibiotics at this time. Vital signs stable, CBC unremarkable, CHEM panel showed hypophosphatemia which was repleted. Anticipate discharge within the next 24 to 48 hours. Exam Vital Signs Temp Pulse Resp BP Pulse Ox O2 Del Method 97.2 F 79 19 140/81 H 97 Room Air 05/01/25 08:00 05/01/25 08:53 05/01/25 08:00 05/01/25 08:53 05/01/25 08:00 05/01/25 04:00 Narrative Exam General: AOx3, no acute distress, able to speak full sentences HEENT: NC/AT, mucous membranes moist, bilateral sclera anicteric Cardiovascular: regular rate and rhythm, S1/S2 present, no murmurs appreciated Pulmonary: clear to auscultation bilaterally, no rales/rhonchi/wheezes Abdominal: soft, nontender, non-distended, no rebound/guarding, normal bowel sounds present Musculoskeletal: normal ROM, no peripheral edema Skin: draining lesion on posterior aspect of scalp, healed lesions on skin, warm and dry, intact Neuro: CN II-XII intact, no focal deficits Objective Labs 05/02/25 05:41 05/02/25 05:41 Labs: Laboratory Results - last 24 hr 04/30/25 04/30/25 04/30/25 10:30 10:45 15:06 WBC RBC Hgb Hct MCV MCH MCHC RDW Std Deviation Plt Count Neut % (Auto) Lymph % (Auto) [place] % (Auto) Eos % (Auto) Baso % (Auto) Neut # (Auto) Lymph # (Auto) [place] # (Auto) Eos # (Auto) Baso # (Auto) Immature Gran # (Auto) Absolute Nucleated RBC Immature Gran % Nucleated RBC % Sodium 135 L 138 Potassium 3.4 3.6 Chloride 103 103 Carbon Dioxide 22.1 24.8 Anion Gap 10 10 BUN 8 L 6 L Creatinine 0.7 0.8 Estim Creat Clear Calc 73.5 64.3 eGFR > 60 > 60 BUN/Creatinine Ratio 11 L 8 L Glucose [address] Glu mg/dL 355 H Hemoglobin A1c > 14.0 H Calculated Osmolality 276 276 Calcium 8.4 8.6 Corrected Calcium 9.0 9.1 Phosphorus 1.8 L 2.4 Magnesium 2.5 2.3 Albumin 3.3 L 3.4 L 05/01/25 05:32 WBC 8.0 RBC 4.18 Hgb 12.9 Hct 34.4 L MCV 82 MCH 30.9 MCHC 37.5 H RDW Std Deviation 38.6 Plt Count 258 D Neut % (Auto) 64 Lymph % (Auto) 29 [place] % (Auto) 7 Eos % (Auto) 0 Baso % (Auto) 0 Neut # (Auto) 5.1 Lymph # (Auto) 2.3 [place] # (Auto) 0.5 Eos # (Auto) 0.0 Baso # (Auto) 0.0 Immature Gran # (Auto) 0.03 H Absolute Nucleated RBC 0.00 Immature Gran % 0 Nucleated RBC % 0 Sodium 136 Potassium 3.6 Chloride 98 Carbon Dioxide 27.1 Anion Gap 11 BUN 5 L Creatinine 0.6 Estim Creat Clear Calc 85.8 eGFR > 60 BUN/Creatinine Ratio 8 L Glucose [address] Glu mg/dL Hemoglobin A1c Calculated Osmolality 275 Calcium 8.7 Corrected Calcium 9.2 Phosphorus 2.2 L Magnesium 1.8 Albumin 3.4 L ABG Interpretation ABG results: 04/29/25 04/30/25 19:59 08:08 ABG pH 7.12 L* 7.44 D ABG pCO2 11 L* 34 D ABG pO2 134 H 83 D ABG HCO3 4 L* 23 ABG O2 Saturation 99 H 98 ABG Base Excess -24 L -1 Quality Measures Quality Measures VTE prophylaxis and none Assessment & Plan Assessment Current Active Medications: Generic Name Dose Route Start Last Admin Trade Name Freq PRN Reason Stop Dose Admin Acetaminophen 650 mg 04/30/25 18:08 Acetaminophen 325 Mg Tablet PO 05/30/25 18:07 Q6HR PRN Fever >99.9 Clonidine 0.1 mg 04/30/25 06:00 05/01/25 05:17 Clonidine Hcl 0.1 Mg Tablet PO 05/30/25 05:59 0.1 mg TID DANII Administration Dextrose 50 ml 04/30/25 10:28 Dextrose 50%-Water Inj 50 Ml Syringe IV 05/30/25 10:27 Q15MIN PRN BG <50 OR BG <70 & pt unresponsive Enoxaparin Sodium 40 mg 04/30/25 21:00 04/30/25 20:37 Enoxaparin Sod Inj 40 Mg/0.4 Ml Syringe SC 05/14/25 20:59 40 mg HS DANII Administration Glucagon 1 mg 04/30/25 10:28 Glucagon Inj 1 Mg Vial IM Q15MIN PRN BG <70, and no IV access Hyoscyamine 0.25 mg 04/30/25 10:00 05/01/25 09:03 Hyoscyamine Sulf 0.125 Mg Tab.Subl PO 05/30/25 09:59 0.25 mg Q4HR DANII Administration Doxycycline Hyclate 100 mg/ 100 mls @ 100 mls/hr 04/30/25 09:45 05/01/25 08:53 Sodium Chloride IV 05/07/25 09:44 100 mls/hr BID DANII Administration Clindamycin/Sodium Chloride 300 mg in 50 mls @ 100 mls/hr 04/30/25 10:00 05/01/25 06:12 Cleocin/Ns Ivpb IV 05/07/25 09:59 Infused Q8HR DANII Infusion Insulin Glargine 45 unit 05/01/25 09:00 05/01/25 08:54 Insulin Glargine (Lantus) 5 Unit/0.05 Ml (Per 5 Units) SC 05/31/25 08:59 45 unit DAILY DANII Administration Insulin Human Lispro 6 unit 04/30/25 12:00 05/01/25 07:17 Insulin Lispro (Admelog) 1 Unit/0.01 Ml Unit SC 05/30/25 11:59 6 unit TIDWM DANII Administration Insulin Human Lispro 0 unit 04/30/25 11:30 05/01/25 07:17 Insulin Lispro (Admelog) 1 Unit/0.01 Ml Unit SC 05/30/25 11:29 3 unit AC DANII Administration Protocol Ketorolac Tromethamine 15 mg 04/30/25 08:20 05/01/25 05:58 Ketorolac Inj 30 Mg/Ml Vial IVP 05/04/25 20:14 15 mg Q6H PRN Administration PAIN SCALE 4-10(MOD-SEV) Losartan Potassium 25 mg 04/30/25 18:15 05/01/25 08:53 Losartan Potassium 25 Mg Tablet PO 05/30/25 18:14 25 mg QDAY DANII Administration Methadone HCl 10 mg 04/30/25 15:32 05/01/25 00:04 Methadone Hcl 10 Mg Tablet PO 05/04/25 22:29 10 mg TID PRN Administration PAIN Protocol Ondansetron HCl 4 mg 04/29/25 20:09 04/30/25 12:02 Ondansetron Inj 2 Mg/Ml Inj 2 Ml IVP 05/29/25 20:08 4 mg Q6HR PRN Administration NAUSEA OR VOMITING Protocol Pantoprazole Sodium 40 mg 04/30/25 08:20 05/01/25 08:52 Pantoprazole Inj 40 Mg Vial IVP 05/30/25 08:19 40 mg QDAY DANII Administration Pregabalin 25 mg 05/01/25 09:00 05/01/25 09:05 Pregabalin 25 Mg Capsule PO 05/31/25 08:59 25 mg BID DANII Administration Plan Radha Angel is a 55-year-old female with a past medical history of type 2 diabetes mellitus on insulin, peripheral neuropathy, chronic pain secondary to herniated disc, and hypertension who is admitted for management of DKA and draining lesion on posterior scalp. #Diabetic ketoacidosis, resolved #Insulin-dependent type 2 diabetes mellitus #Nausea/vomiting On admission, HCO3 less than 10, AG 32, creatinine 2.0, glucose 724, beta hydroxybutyrate 5.3. She was then started on insulin drip and admitted to the ICU for which she received a total of 72 units of insulin. A1c greater than 14%. ? Glargine 45 units daily ? Lispro 6 units 3 times daily with meals ? SSI ? Hypoglycemic protocol in place #Cellulitis of posterior scalp Draining lesion on posterior scalp for which CT scan showed cellulitis pattern but no evidence of abscess. ? Genereal surgery following, appreciate recommendations: no interventions needed, continue with antibiotics ? Clindamycin 300 mg IV every 8 hours (04/30-) ? Doxycycline 100 mg IV twice daily (04/30-) ? Blood cultures: NGTD #Hypertension ? Clonidine 0.1 mg p.o. 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 Methadone 10 mg p.o. 3 times daily as needed -> HELD ? [place] 7.5 as needed #Acute kidney injury, resolved #Hyperkalemia, resolved #Hypophosphatemia ? Avoid nephrotoxic agents when possible and renally dose medications ? Replete as needed Hospital management: Disposition: DKA, pending blood culture results Diet: carb consistent low Lines: PIV DVT prophylaxis: heparin SC BID GI prophylaxis: pantoprazole 40 mg IV daily CODE STATUS: full code ----- Plan discussed with attending physician Dr. Eagle Gunn MD PGY-1 Internal Medicine Attending Provider Attestation/Addendum I have examined the patient, reviewed labs and imaging findings, discussed the case with the resident(s), and reviewed entered orders. I agree with the plan of care as outlined in this note, with these additional summaries/recommendations: Patient seen at bedside. No acute overnight events. Patients DKA has resolved. She has uncontrolled diabetes mellitus type II. A1C >14%. Continue basal and bolus insulin with accu-checks. Target BS of 140-180 while hospitalized. Continue diabetic education. Patient will require basal and bolus insulin on DC once medically cleared. Continue abx for neck cellulitis. Bcx no growth @ 24 hour belinda and will await 48 hour belinda. Patient was seen by general surgery and no surgical intervention needed. Continue pain management. Please see residents note for additional details and management. Dr. Eagle MD
--- NOTE | 2025-05-01 11:08 | PD.SURCONS ---
HPI Consult details Consult date: 05/01/25 Reason for consultation narrative: Abscess and cellulitis of posterior scalp History of present illness: 55-year-old female with history of diabetes was admitted with pain and swelling of posterior scalp and upper neck. She denies history of trauma, insect or spider bites. A CT scan was obtained on admission that revealed cellulitis pattern without fluid collection or abscess. Since yesterday she started developing fluctuance with spontaneous drainage of abscess. She has had incision and drainage of upper back abscess in the past. Review of Systems Constitutional Constitutional: Denies chills and Denies fever(s) Cardiovascular Cardiovascular: Denies chest pain Respiratory Respiratory: Denies cough Gastrointestinal Gastrointestinal: Denies nausea and Denies vomiting Hematologic/Lymphatic Hematologic/Lymphatic: Denies easy bleeding and Denies easy bruising Past Medical History Surgical History OTHER SURGICAL HX: , incision and drainage of back abscess Social History SMOKING STATUS: Former smoker SUBSTANCE USE: former substance user ALCOHOL: Never Meds Home Medications and Allergies Home Medications ?Medication ?Instructions ?Recorded ?Confirmed ?Type baclofen 10 mg tablet 10 mg PO HS 09/14/22 04/30/25 History clonidine HCl 0.1 mg tablet 0.1 mg PO QDAY 09/14/22 04/30/25 History glipizide 10 mg tablet 10 mg PO BID 09/14/22 04/30/25 History insulin glargine 100 unit/mL (3 53 unit subcut QPM 09/14/22 04/30/25 History mL) subcutaneous pen (Basaglar KwikPen U-100 Insulin) lidocaine 5 % topical patch 1 patch topical Q12H 09/14/22 04/30/25 History methadone 10 mg tablet 10 mg PO Q8H PRN Pain 09/14/22 04/30/25 History pregabalin 25 mg capsule 25 mg PO BID PRN Pain 09/14/22 04/30/25 History promethazine 25 mg tablet 25 mg PO QDAY PRN n/v 09/14/22 04/30/25 History duloxetine 30 mg capsule,delayed mg PO 04/30/25 History release Allergies Allergy/AdvReac Type Severity Reaction Status Date / Time barium iodide Allergy Severe PASSED OUT Verified 04/29/25 14:12 cephalexin Allergy Severe ITCHING Verified 04/29/25 14:12 AND VOMITING codeine Allergy Severe FAINTS Verified 04/29/25 14:12 Penicillins Allergy Severe HIVES AND Verified 04/29/25 14:12 DIFF BREATHING aspirin Allergy Unknown RASH Verified 04/29/25 14:12 Exam Vital Signs Temp Pulse Resp BP Pulse Ox O2 Del Method 97.2 F 79 19 140/81 H 97 Room Air 05/01/25 08:00 05/01/25 08:53 05/01/25 08:00 05/01/25 08:53 05/01/25 08:00 05/01/25 04:00 Constitutional Constitutional: no acute distress Routine Neck Exam Comments: Supple midline trachea with full range of motion. She has posterior scalp abscess that is spontaneously draining with minimal surrounding cellulitis Assessment & Plan Problem List (1) Abscess of skin of neck: Status: Acute Additional Assessment Additional comments: Patient has cellulitis and abscess of posterior scalp that is spontaneously draining Plan No further intervention indicated at this time. Continue IV antibiotics, agree with clindamycin. When symptoms improved patient can be discharged on oral clindamycin.
[2025-05-01] MEDS: HYDROcodone/APAP 7.5/325 TABLET 1 TAB PO ×2 (14:19→20:21)
[2025-05-01] MEDS: ONDANSETRON INJ 2 MG/ML INJ 2 ML 4 MG IVP (16:56)
--- NOTE | 2025-05-01 17:02 | PC.DIETICIAN ---
Nutrition Education (A1C>14.0): Patient was educated on dietary management of diabetes; written material was provided for future reference. *Consider prescribing a Dexcom G6 or G7 prior to discharge.
[2025-05-01] MEDS: ENOXAPARIN SOD INJ 40 MG/0.4 ML SYRINGE SC (20:22)
[2025-05-02] VITALS: BP 139/84; PULSE 78; RESP 12; TEMP 36.2; O2SAT 97
[2025-05-02] MEDS: HYDROcodone/APAP 7.5/325 TABLET 1 TAB PO ×2 (02:23→07:51)
[2025-05-02] MEDS: HYOSCYAMINE SULF 0.125 MG TAB.SUBL 0.25 MG PO ×2 (02:23→05:54)
[2025-05-02 04:00] VITALS: BP 108/80; PULSE 73; RESP 12; TEMP 36.2; O2SAT 98
[2025-05-02 05:44] VITALS: BMI 22.5
[2025-05-02] MEDS: CLINDAMYCIN/NS 300MG IVPB 300 MG/50 ML BAG 100 MG IV (05:53)
[2025-05-02 05:54] VITALS: BP 108/90; PULSE 73
[2025-05-02] MEDS: cloNIDine HCL 0.1 MG TABLET PO (05:54)
[2025-05-02] MEDS: ONDANSETRON INJ 2 MG/ML INJ 2 ML 4 MG IVP (06:00)
[2025-05-02 06:24] LABS: Basophils % (Auto) 0 % (0-2.5); Eosinophils % (Auto) 1 % (0-10); Hematocrit 37.4 % (36.0-46.0); Hemoglobin 13.4 g/dL (12.0-16.0); Immature Granulocytes % (Auto) 1 % (0-0); Immature Granulocytes Auto 0.02 Thou/mm3 (0.00-0.00); Lymphocytes # (Auto) 1.4 Thou/mm3 (1.0-4.8); Lymphocytes % (Auto) 36 % (10-50); Mean Corpuscular HGB Conc 35.8 g/dl (31.0-37.0); Mean Corpuscular Hemoglobin 30.5 pg (25.0-35.0); Mean Corpuscular Volume 85 fL (80-100); Monocytes # (Auto) 0.4 Thou/mm3 (0.0-0.8); Monocytes % (Auto) 11 % (0-12); Neutrophils % (Auto) 52 % (37-80); Nucleated Red Blood Cell % 0 /100 WBC (0); Platelet Count 212 Thou/mm3 (140-440); RDW Standard Deviation 38.6 fL (36.4-46.3); White Blood Count 3.8 Thou/mm3 (3.6-11.0)
[2025-05-02 07:05] LABS: Albumin, Serum 3.3 gm/dL (3.5-5.0); Anion Gap 10 (7-16); BUN/Creatinine Ratio 15 Ratio (12-20); Blood Urea Nitrogen 9 mg/dL (9-23); Calcium 8.8 mg/dL (8.3-10.6); Calcium (Corrected) 9.4 mg/dL (8.5-10.1); Carbon Dioxide 30.9 mMol/L (20.0-31.0); Chloride 97 mMol/L (98-107); Creatinine (Component) 0.6 mg/dL (0.6-1.3); Estimated Creatinine Clearance 85.8 mL/min (>60); Glucose 268 mg/dL (74-106); Magnesium 1.7 mg/dL (1.6-2.6); Osmolality,Calculated 283 (275-295); Potassium 3.7 mMol/L (3.4-5.1); Sodium 138 mMol/L (136-145); eGFR > 60 See Note
[2025-05-02] MEDS: INSULIN LISPRO (AdmeLOG) 1 UNIT/0.01 ML UNIT SC (07:51)
[2025-05-02 08:00] VITALS: BP 138/85; PULSE 79; RESP 19; TEMP 36.2; O2SAT 97
[2025-05-02] MEDS: PANTOPRAZOLE INJ 40 MG VIAL IVP (08:35)
[2025-05-02] MEDS: DOXYCYCLINE INJ 100 MG in SODIUM CHLORIDE 0.9% (POP) 100 ML IV (08:35)
[2025-05-02 08:36] VITALS: BP 126/73; PULSE 86
[2025-05-02] MEDS: LOSARTAN POTASSIUM 25 MG TABLET PO (08:36)
[2025-05-02] MEDS: INSULIN LISPRO (AdmeLOG) 1 UNIT/0.01 ML UNIT 6 UNIT SC (08:39)
[2025-05-02] MEDS: PREGABALIN 25 MG CAPSULE PO (08:39)
[2025-05-02] MEDS: INSULIN GLARGINE (Lantus) 5 UNIT/0.05 ML (PER 5 UNITS) 50 UNIT SC (08:53)
--- NOTE | 2025-05-02 09:58 | PD.RESDS ---
Planned Discharge Date 05/02/25 DS: Providers Provider Date of admission: 04/29/25 19:48 Primary care physician: Erich Hendrickson MD Admitting Provider: Jos Prasad MD Attending Provider on Admission: Raad Hampton MD Consults: 04/29/25 18:30 Referral Registered Dietitian Routine Comment: 04/29/25 19:57 Consult to General Surgery Stat Comment: Neck abscess Consulting Provider: Regina Benson 05/01/25 01:51 Referral Wound Care Routine Comment: Instructions: admitted with abcess to posterior neck Attending Provider on DC: Alexis Gunn MD Discharging Provider: Alexis Gunn MD DS: Diagnosis Problem List Completed Was Problem List Reviewed/Reconciled?: Yes Hospital Course Hospital Course Hospital course: Radha Angel is a 55-year-old female with a past medical history of type 2 diabetes mellitus on insulin, peripheral neuropathy, chronic pain secondary to herniated disc, and hypertension who is admitted for management of DKA and draining lesion on posterior scalp. Initially presented with chief complaint of neck pain with associated swelling and drainage, subjective fevers, chills, and generalized weakness. She also noted abdominal pain with associated nausea and vomiting and shortness of breath that started along with symptoms of neck pain. History of diabetes mellitus on insulin and reports being compliant with medications. In ED, glucose 581, AGMA, bicarb less than 10, creatinine 2.0 (baseline 0.8), ABG pH 7.12. A1c noted to be > 14% and per patient, she was only diagnosed with diabetes a couple years ago as she did not regularly see doctors. Initially admitted to ICU for DKA on insulin drip and eventually downgraded to floors with 40 units glargine, 6 units lispro 3 times daily with meals. General surgery was consulted for draining lesion on posterior scalp for which no further intervention was indicated and recommended to continue with IV antibiotics. Blood sugars generally well-controlled and insulin regimen changed to 50 units glargine daily and to continue with 6 units lispro 3 times daily with meals. Upon discharge, Dexcom glucometer ordered and educated patient on importance of close outpatient follow-up. Additionally, will be discharged with kanamycin and doxycycline for 5 more days to complete antibiotic course for posterior scalp cellulitis. Otherwise, vital signs stable, CBC and CHEM panel unremarkable and so deemed stable for discharge. Diagnoses during admission: #Diabetic ketoacidosis, resolved #Insulin-dependent type 2 diabetes mellitus #Nausea/vomiting #Cellulitis of posterior scalp #Hypertension #Chronic pain in setting of discrimination #Peripheral neuropathy #Acute kidney injury, resolved #Hyperkalemia, resolved #Hypophosphatemia Discharge instructions: ? Take clindamycin and doxycycline for 5 more days to complete antibiotic course ? Administer 50 units of insulin glargine daily ? Administer 6 units of insulin lispro three times per day with meals ? Hold taking glipizide until you follow-up with your PCP ? Continue taking all other home medications as prescribed ? Follow-up with PCP within 1-2 weeks of discharge ? If you do not have a PCP, you can follow-up at the [facility] (you can call [phone] to make an appointment) ? If you wish to follow-up with Dr. Gunn, schedule appointment on Saturday afternoons ? Return to ED if symptoms worsen or recur ----- Plan discussed with attending physician Dr. Eagle Gunn MD PGY-1 Internal Medicine Time Spent with Patient Time attestation: Total time spent providing and/or coordinating discharge services: Time spent: Greater than 30 minutes Exam Vital Signs Temp Pulse Resp BP Pulse Ox O2 Del Method 97.1 F 86 19 126/73 97 Room Air 05/02/25 08:00 05/02/25 08:36 05/02/25 08:00 05/02/25 08:36 05/02/25 08:00 05/02/25 08:00 Narrative Exam General: AOx3, no acute distress, able to speak full sentences HEENT: NC/AT, mucous membranes moist, bilateral sclera anicteric Cardiovascular: regular rate and rhythm, S1/S2 present, no murmurs appreciated Pulmonary: clear to auscultation bilaterally, no rales/rhonchi/wheezes Abdominal: soft, nontender, non-distended, no rebound/guarding, normal bowel sounds present Musculoskeletal: normal ROM, no peripheral edema Skin: draining lesion on posterior aspect of scalp, healed lesions on skin, warm and dry, intact Neuro: CN II-XII intact, no focal deficits Discharge Plan Plan Patient Disposition: HOME (Self Care) Patient condition on transfer: Stable Care Plan Goals: ? Take clindamycin and doxycycline for 5 more days to complete antibiotic course ? Administer 50 units of insulin glargine daily ? Administer 6 units of insulin lispro three times per day with meals ? Hold taking glipizide until you follow-up with your PCP ? Continue taking all other home medications as prescribed ? Follow-up with PCP within 1-2 weeks of discharge ? If you do not have a PCP, you can follow-up at the [facility] (you can call [phone] to make an appointment) ? If you wish to follow-up with Dr. Gunn, schedule appointment on Saturday afternoons ? Return to ED if symptoms worsen or recur Prescriptions/Referrals Prescriptions/Med Rec: New (DME) Dexcom G6 Sensor Device See Rx Instructions .Route Qty: 3 0RF Rx Instructions: As directed (DME) Dexcom G6 Online Advertising Director Misc See Rx Instructions .Route Qty: 1 0RF Rx Instructions: As directed (DME) Dexcom G6 Transmitter Device See Rx Instructions .Route Qty: 1 0RF Rx Instructions: As directed insulin glargine-aglr 100 unit/mL (3 mL) insulin pen 50 unit subcut QDAY Qty: 15 0RF (DME) pen needle, diabetic [CareFine Pen Needle] 29 gauge x 1/2 needle See Rx Instructions .Route Qty: 100 0RF Rx Instructions: Use for insulin administration insulin lispro 100 unit/mL insulin pen 6 unit subcut TID Qty: 15 0RF Rx Instructions: Administer three times per day with meals clindamycin HCl 300 mg capsule 300 mg PO TID 5 Days Qty: 15 0RF doxycycline hyclate 100 mg capsule 100 mg PO BID 5 Days Qty: 10 0RF Continued clonidine HCl 0.1 mg tablet 0.1 mg PO QDAY methadone 10 mg tablet 10 mg PO Q8H PRN (Reason: Pain) Patient Comments: TAKE 1 TABLET BY MOUTH EVERY 8 HOURS NEEDED FOR PAIN (MAX 3 TABLET/DAY) baclofen 10 mg tablet 10 mg PO HS Patient Comments: TAKE 1 TABLET BY MOUTH EVERYDAY AT BEDTIME promethazine 25 mg tablet 25 mg PO QDAY PRN (Reason: n/v) Patient Comments: TAKE 1 TABLET BY MOUTH DAILY NEEDED, DO NOT EXCEED MORE THAN ONCE A DAY pregabalin 25 mg capsule 25 mg PO BID PRN (Reason: Pain) Patient Comments: TAKE 1 CAPSULE BY MOUTH TWICE A DAY NEEDED MAX 2 CAPSULES DAILY duloxetine 30 mg capsule,delayed release(DR/EC) PO Patient Comments: takes once a day Q day Held glipizide 10 mg tablet 10 mg PO BID Hold Instructions: Hold until you follow-up with your PCP Discontinued clindamycin HCl 300 mg capsule 300 mg PO TID Qty: 21 0RF ibuprofen 600 mg tablet 600 mg PO Q8H PRN (Reason: pain) Qty: 14 0RF hydrocodone-acetaminophen 5-325 mg tablet 1 tab PO Q8H MDD 3 tabs/day PRN (Reason: pain) Qty: 14 0RF lidocaine 5 % adhesive patch,medicated 1 patch TOPICAL Q12H Patient Comments: APPLY 1 PATCH TO LOWER BACK AND BOTH KNEES FOR 12 HOURS ON AND 12 HOURS OFF NEEDED FOR PAIN insulin glargine [Basaglar KwikPen U-100 Insulin] 100 unit/mL (3 mL) insulin pen 53 unit SUBCUT QPM Referrals: Erich Hendrickson MD [Primary Care Provider] - Patient/Caregiver Discharge Instructions Education Materials: Diabetes Shopping Preparing Meals, Diabetes Tracking Your Fitness ..., Diabetes Carbs Fats Protein, Diabetes and High Blood Pressure Print Language: Albanian Stand Alone Forms: [employer] Award Info., Patient Portal Info Letter Discharge Order Discharge Orders: Discharge (Routine); Ordered 05/02/25 Ordered By: Alexis Gunn Quality Discharge Quality Measures VTE prophylaxis MD Attestestation MD Attestation I have examined the patient, reviewed labs and imaging findings, discussed the case with the resident(s), and reviewed entered orders. I agree with the plan of care as outlined in this note. Time Spent: [address] Eagle MD
--- NOTE | 2025-05-10 13:08 | PC.CC ---
PA submitted and approved for DexZEFR G6 [place], sensors, transmitters through 05/10/26. Updated Narendra who received adjudicated claims.
== END 2025-05-02 11:09 | disposition home or self-care (01) | DRG 420 ==
LOC: SERX 18:11 → SERHOLD 19:59 → S2SX 21:07 → S2NX 05-01 14:29 → S2SX 05-03 10:03
PROVIDERS: Student in an Organized Health Care Education/Training Program; Admitting Provider Student in an Organized Health Care Education/Training Program; Emergency Provider Emergency Medicine; PCP Family Medicine; Visit Provider Internal Medicine
DX: E11.10 Type 2 diabetes mellitus with ketoacidosis without coma (principal); I10 Essential (primary) hypertension; E11.42 Type 2 diabetes mellitus with diabetic polyneuropathy; M54.2 Cervicalgia; G89.29 Other chronic pain; L02.11 Cutaneous abscess of neck; N17.9 Acute kidney failure, unspecified; Z79.4 Long term (current) use of insulin; R00.0 Tachycardia, unspecified; E11.40 Type 2 diabetes mellitus with diabetic neuropathy, unspecified; E83.39 Other disorders of phosphorus metabolism; E86.0 Dehydration; E87.5 Hyperkalemia; L02.821 Furuncle of head [any part, except face]; L03.221 Cellulitis of neck; L03.811 Cellulitis of head [any part, except face]; Z87.891 Personal history of nicotine dependence; Z88.0 Allergy status to penicillin; Z88.5 Allergy status to narcotic agent; Z88.6 Allergy status to analgesic agent; Z88.8 Allergy status to other drugs, medicaments and biological substances
CPT/HCPCS: 36415; 36600; 70490; 71045; 80053; 80069; 82010; 82803; 83036; 83605; 83735; 83880; 84484; 85025; 85610; 87040; 87081; 87811; 93005; 96360; 96361; 96365; 96372; 99285; J1644; J1650; J1815; J1885; J1956; J2405; J2470; J3370; J3475; J3480; J3490; J7030; J7120; J7121; J7999; S0077; A9270; J0737; J1836

== ENCOUNTER 2025-08-28 23:04 | Observation (INO) | payer MEDICAID, SELFPAY ==
[2025-08-28 23:08] VITALS: BMI 30.9
[2025-08-28 23:38] VITALS: BP 131/76; PULSE 107; RESP 20; TEMP 37.1; O2SAT 96
--- NOTE | 2025-08-28 23:40 | XR_ITS ---
Examination: Abdomen sonogram, Limited Date and time of exam: August 28, 2025, 11:50 p.m. INDICATIONS: Epigastric pain nausea and vomiting beginning 2 weeks ago Technique: Real-time gandhi scale transabdominal sonographic images of the upper abdomen obtained. Findings: Minimal gallbladder sludge, negative for gallstones Gallbladder wall 0.3 cm Common bile duct 0.4 cm Pancreatic head 1.8 cm Hepatomegaly 18.9 cm fatty infiltration lobular contour Normal hepatopetal portal venous flow. Patent IVC. 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
--- NOTE | 2025-08-28 23:40 | XR_ITS ---
Examination: CT brain head without contrast. 2-D sagittal coronal reconstructions Date and time of exam: August 28, 2025, 11:50 p.m. INDICATIONS: Headache today Technique: Multiple CT axial sections of the brain have been obtained, 5 mm slice thickness. Contrast has not been administered. 2-D sagittal, coronal reconstructions have been obtained Low dose protocols were performed. One or more of the following dose reduction techniques were used; automated exposure control, adjustment of the mA and/or KV according to patient size, use of iterative reconstruction technique. Findings: No significant ventricular enlargement. Intra-axial or extra-axial hemorrhage density is not seen. No mass effect or midline shift Basal cisterns are not remarkable. Fourth ventricle is midline. Cranial vault intact. Small retention cysts in the maxillary antra Impression: Negative for acute hemorrhage, mass effect or midline shift
--- NOTE | 2025-08-28 23:40 | PD.EDRME ---
Rapid Medical Screening Exam RME Arrival date/time: 08/28/25 23:04 This is a case of 55-year-old female who came in in the emergency room due to multiple concern patient started to have complaint of headache dizziness and blurring of vision and tremors patient also having abdominal pain mostly on the upper abdomen patient states that his blood sugar keeps dropping thus decided to start consult here in the emergency room Chief Complaint: Neuro Symptoms/Deficit Time Seen by Provider: 08/28/25 23:39 Vital signs: Vital Signs Temperature 98.7 F 08/28/25 23:38 Pulse Rate 107 H 08/28/25 23:38 Respiratory Rate 20 08/28/25 23:38 Blood Pressure 131/76 H 08/28/25 23:38 Pulse Oximetry (%) 96 08/28/25 23:38 Oxygen Delivery Method Room Air 08/28/25 23:38
[2025-08-29] VITALS (7 sets, daily range): BP systolic 134–187; BP diastolic 59–101; PULSE 89–102; RESP 16–19; TEMP 36.3–37.2; O2SAT 95–99
[2025-08-29 00:27] LABS: Basophils # (Auto) 0.1 Thou/mm3 (0.0-0.2); Basophils % (Auto) 1 % (0-2.5); Eosinophils # (Auto) 0.0 Thou/mm3 (0.0-0.5); Eosinophils % (Auto) 0 % (0-10); Hematocrit 45.0 % (36.0-46.0); Hemoglobin 15.8 g/dL (12.0-16.0); Immature Granulocytes Auto 0.02 Thou/mm3 (0.00-0.00); Lymphocytes # (Auto) 2.4 Thou/mm3 (1.0-4.8); Lymphocytes % (Auto) 40 % (10-50); Mean Corpuscular HGB Conc 35.1 g/dl (31.0-37.0); Mean Corpuscular Hemoglobin 30.2 pg (25.0-35.0); Mean Corpuscular Volume 86 fL (80-100); Monocytes # (Auto) 0.5 Thou/mm3 (0.0-0.8); Monocytes % (Auto) 8 % (0-12); Neutrophils # (Auto) 3.1 Thou/mm3 (1.8-7.7); Neutrophils % (Auto) 51 % (37-80); Nucleated Red Blood Cell # 0.00 Thou/mm3 (0.00-0.00); Nucleated Red Blood Cell % 0 /100 WBC (0); Platelet Count 423 Thou/mm3 (140-440); RDW Standard Deviation 39.0 fL (36.4-46.3); Red Blood Count 5.24 Miln/mm3 (4.00-5.20); White Blood Count 6.1 Thou/mm3 (3.6-11.0)
[2025-08-29 00:51] LABS: Collection Type, Urine Clean Catch
[2025-08-29 00:52] LABS: Alanine Aminotransferase 7 U/L (10-49); Albumin, Serum 5.0 gm/dL (3.5-5.0); Albumin/Globulin Ratio 1.5 (1.2-2.2); Alkaline Phosphatase 113 U/L (46-116); Anion Gap 13 (7-16); Aspartate Amino Transferase < 8 U/L (0-34); BUN/Creatinine Ratio 18 Ratio (12-20); Bilirubin,Total 0.5 mg/dL (0.3-1.2); Blood Urea Nitrogen 18 mg/dL (9-23); Calcium 10.4 mg/dL (8.3-10.6); Calcium (Corrected) 10.4 mg/dL (8.5-10.1); Carbon Dioxide 26.5 mMol/L (20.0-31.0); Chloride 98 mMol/L (98-107); Creatinine (Component) 1.0 mg/dL (0.6-1.3); Estimated Creatinine Clearance 64.9 mL/min (>60); Globulin 3.3 gm/dL (2.3-3.5); Glucose 385 mg/dL (74-106); Lipase 19 U/L (12-53); Osmolality,Calculated 291 (275-295); Potassium 3.8 mMol/L (3.4-5.1); Sodium 137 mMol/L (136-145); Total Protein 8.3 gm/dL (5.7-8.2); eGFR > 60 See Note
--- NOTE | 2025-08-29 00:53 | PRELIM_ITS ---
Gallbladder ultrasound. August 28, 2025 at 2354 hours Clinical history:Gallstone. Technique: Grayscale and color flow images of the abdomen are provided. Comparison: Correlated with the prior CT Chest, Abdomen and Pelvis Angio study dated November 21, 2024. Findings: The visualized liver is mildly enlarged, measuring 18.9 cm and demonstrates increased echogenicity without mass or ductal dilatation. The main portal vein is patent and demonstrates hepatopetal flow. There is minimal gallbladder sludge. Sonographic Almeida sign is not mentioned in the technologist's note. The gallbladder wall is borderline thickened, measuring 3 mm. No obvious pericholecystic fluid. The common duct is normal in caliber at 4 mm. No free fluid is demonstrated on the submitted images. The inferior vena cava is patent to the extent visualised. Impression: No gallstone. Minimal gallbladder sludge with borderline gallbladder wall thickening. In the appropriate clinical setting, acute cholecystitis cannot be excluded. Suggest follow-up with HIDA scan, if clinically indicated. Mild hepatomegaly with fatty liver. Report Electronically Signed By: Ashleigh Nguyen 08/29/2025 12:52:20 AM [EST]
[2025-08-29 00:58] LABS: Bilirubin,Urine Negative (Negative); Blood,Urine Negative (Negative); Clarity,Urine Clear (Clear/Hazy); Color,Urine Yellow (Lt Yel-Yel); Glucose, Urine 4+ (Negative); Ketones,Urine 1+ (Negative); Leukocyte Esterase,Urine Negative (Negative); Nitrite,Urine Negative (Negative); PH,Urine 6.0 (5.0-7.0); Protein,Urine 1+ (Neg - Trace); RBC,Urine 11 /hpf (0-3); Specific Gravity,Urine 1.041 (1.001-1.035); Squamous Epithelial Cell,Urine 2 /hpf (0-5); Urobilinogen,Urine Negative mg/dL (0.0-1.0); WBC,Urine 3 /hpf (0-5)
--- NOTE | 2025-08-29 02:37 | PD.EDNEURO ---
Neuro Symptoms Deficit-RME/HPI General Chief Complaint: Abdominal Pain Stated Complaint: DIARRHEA, ABD PAIN, BG HIGH AND LOW, SOB, EYE Time Seen by Provider: 08/28/25 23:39 Arrival date/time: 08/28/25 23:04 RME / HPI RME / HPI Narrative: 08/28/25 23:04 This is a case of 55-year-old female who came in in the emergency room due to multiple concern patient started to have complaint of headache dizziness and blurring of vision and tremors patient also having abdominal pain mostly on the upper abdomen patient states that his blood sugar keeps dropping thus decided to start consult here in the emergency room DR. BOWSER MAIN ED EVALUATION: Patient with Hx Type II DM on insulin, chronic pain/peripheral neuropathy recently admitted for DKA due to scalp cellulitis now presenting with ongoing diarrhea for 2 weeks duration and epigastric/RUQ abdominal pain. Reports bloating with aching/cramping and occasional sharp component. No radiation to the back. No nausea without emesis, no fever without chills. Pain is worse after meals and intermittent low blood sugar with relatively low PO. PMH: Type II DM, HTN, Peripheral neuropathy, Chronic pain, DKA, PSH: Allergies: Cephalexin, Codeine, Penicillin, ASA, Barium iodide Social: Non-drinker, Non-smoker, No illicit drug abuse Related Data Home Medications ?Medication ?Instructions ?Recorded ?Confirmed baclofen 10 mg tablet 10 mg PO HS 09/14/22 04/30/25 clonidine HCl 0.1 mg tablet 0.1 mg PO QDAY 09/14/22 04/30/25 glipizide 10 mg tablet 10 mg PO BID 09/14/22 04/30/25 Held on 05/02/25. Instructions: Hold until you follow-up with your PCP methadone 10 mg tablet 10 mg PO Q8H PRN Pain 09/14/22 04/30/25 pregabalin 25 mg capsule 25 mg PO BID PRN Pain 09/14/22 04/30/25 promethazine 25 mg tablet 25 mg PO QDAY PRN n/v 09/14/22 04/30/25 duloxetine 30 mg capsule,delayed mg PO 04/30/25 release Previous Rx's ?Medication ?Instructions ?Recorded blood-glucose sensor (Dexcom G6 #3 ea 05/02/25 Sensor device) blood-glucose transmitter (Dexcom #1 ea 05/02/25 G6 Transmitter device) blood-glucose,recreation counselor,cont #1 ea 05/02/25 (Dexcom G6 Soda Room Operator) insulin glargine-aglr 100 unit/mL 50 unit (0.5 mL) subcut QDAY #15 mL 05/02/25 (3 mL) subcutaneous pen insulin lispro 100 unit/mL 6 unit (0.06 mL) subcut TID #15 mL 05/02/25 subcutaneous pen pen needle, diabetic 29 gauge x #100 ea 05/02/25 1/2 (CareFine Pen Needle) Allergies Allergy/AdvReac Type Severity Reaction Status Date / Time barium iodide Allergy Severe PASSED OUT Verified 08/28/25 23:07 cephalexin Allergy Severe ITCHING Verified 08/28/25 23:07 AND VOMITING codeine Allergy Severe FAINTS Verified 08/28/25 23:07 Penicillins Allergy Severe HIVES AND Verified 08/28/25 23:07 DIFF BREATHING aspirin Allergy Unknown RASH Verified 08/28/25 23:07 Review of Systems Review of Systems Systems Reviewed: All systems reviewed, normal except as documented Past Medical History Past Medical History NEUROLOGIC: Positive Neurological Disorders and Cerebrovascular Accident CARDIAC: Positive Cardiac Disorders, Cellulitis and Hypertension RESPIRATORY: Positive Pneumonia GASTROINTESTINAL: Positive Gastroesophageal Reflux Disease MUSCULOSKELETAL: Positive Musculoskeletal Disorders and Degenerative Disk Disease OTHER HISTORY: Positive Hospitalization and Falls Family History FAMILY HISTORY: Positive Family Cancer Surgical History SURGICAL: Positive Section Social History SUBSTANCE USE: former substance user ED Exam Narrative Physical exam: GEN. APPEARANCE: The patient is alert awake oriented X-3, tearful in moderate distress c/o epigastric/RUQ abdominal pain, lying down comfortably, does not look ill/toxic. Patient has good eye contact. Patient is cooperative. VITALS: All vitals were reviewed and the pulse ox is 96% on room air which is normal according to my interpretation. HEENT: Normocephalic, atraumatic. Pupils are equal and reactive. Oral mucosa is moist. Patent Nares NECK: Supple, nontender, no thyromegaly, no meningismus, no JVD, no step offs CHEST: Symmetrical, atraumatic, and with equal expansion , Nontender on palpation no deformity and no crepitus. CARDIOVASCULAR: Heart regular rhythm no murmur or gallop rub or extra beats. LUNGS: Clear to auscultation bilaterally with symmetrical chest rise. No laboring tachypnea or wheezing. No intercostal subcostal retraction. No rales and no rhonchi. ABDOMEN: Soft, flat, markedly tender at RUQ/epigastrium, noted guarding or rebound tenderness. There are no abnormal masses palpated. Active and normal bowel sounds. EXTREMITIES: Nontender. No edema. No cyanosis. Patient is able to move all 4 extremities well, with full ROM and good CSM. SKIN: Warm and dry, no jaundice or rashes noted. MUSCULOSKELETAL: No lubar or midline bony tenderness. There is no CVA tenderness. No paraspinal muscle spasm or tenderness. NEURO: Patient is COLLAZO x 4, Cranial nerves II through XII grossly intact. There is no focal neurologic deficits noted. GCS is 15, PNS and VEIN ACCESS TECHNICIAN appear grossly intact. PSYCHIATRIC: Patient is in normal mood and affect, cooperative, no SI or HI or hallucinations. Course Quality Measures none Orders Category Date Time Status Insert IV NOW Care 08/29/25 04:[address] head/brain wo con Stat Exams 08/28/25 23:40 Completed US gall bladder Stat Exams 08/28/25 23:40 Taken CBC Stat Lab 08/28/25 23:40 Completed Comprehensive Metabolic Panel Stat Lab 08/28/25 23:40 Completed Lipase Stat Lab 08/28/25 23:40 Completed Urinalysis Stat Lab 08/28/25 00:30 Completed Levofloxacin/D5w 500 mg Ivpb [Levaquin Ivpb] Med 08/29/25 05:42 Discontinued 500 mg in 100 ml IV X1 Morphine* Inj Med 08/29/25 05:42 Discontinued 4 mg IVP Q1H PRN Morphine* Inj Med 08/29/25 02:48 Discontinued 4 mg IVP X1 ONE Morphine* Inj Med 08/29/25 05:00 Discontinued 4 mg IVP X1 ONE Ondansetron Inj [Zofran Inj] Med 08/29/25 04:39 Discontinued 4 mg IVP X1 ONE Prochlorperazine Inj [Compazine Inj] Med 08/29/25 02:47 Discontinued 5 mg IV X1 ONE Sodium Chloride 0.9% 1000 ml [Ns] 1,000 ml Med 08/29/25 02:47 Discontinued IV 999 mls/hr Sodium Chloride 0.9% 1000 ml [Ns] 1,000 ml Med 08/29/25 04:35 Discontinued IV 999 mls/hr metroNIDAZOLE/NS 500 MG IVPB [Flagyl 500 mg IV] Med 08/29/25 05:44 Discontinued 500 mg in 100 ml IV X1 Vital Signs Vital signs: Vital Signs Temperature 98.7 F 08/28/25 23:38 Pulse Rate 107 H 08/28/25 23:38 Respiratory Rate 20 08/28/25 23:38 Blood Pressure 131/76 H 08/28/25 23:38 Pulse Oximetry (%) 96 08/28/25 23:38 Oxygen Delivery Method Room Air 08/28/25 23:38 Neuro Symptoms / Deficit MDM Narrative MDM Narrative:: Scribe Attestation: Dianelys Terrell, am scribing for and in the presence of Dr. Bowser. Provider Notation: Although this document has been carefully reviewed, there may still be some phonetic and other typographical errors. These errors are purely grammatical due to imperfections in the software program and should not be construed in any way to compromise the substance of the patient's medical care during this visit. Patient with Hx Type II DM on insulin, chronic pain/peripheral neuropathy recently admitted for DKA due to scalp cellulitis now presenting with ongoing diarrhea for 2 weeks duration and epigastric/RUQ abdominal pain. Reports bloating with aching/cramping and occasional sharp component. Please see PE findings. Laboratory markers including CBC demonstrated normal WBC, no anemia, or thrombocytopenia. Serum chemistries demonstrated elevated BS without signs of ketosis. UA without evidence of infection although evidence of concentration suggestive of dehydration. Gall bladder US suggests possible viky and recommends HIDA scan correct deficit,, required incrememntla doses of low-dose narcotics/anti-emetics. Seral exam cont invountary guard RUQ. Discussed with Hospitalist for admission, pending HIDA scan and surgical evaluation in 24 hours. Imperic ABX administered. Acalculous cholecystitis Patient data External records reviewed:: [facility] previous records (Reviewed prior ED records from 04/29/25. Patient was seen for Abscess of skin of neck.) Clinical information provided by:: patient Social determinants that could affect healthcare access:: none Patient has the following chronic illnesses:: Cellulitis, Hypertension, Gastroesophageal Reflux Disease, Degenerative Disk Disease How is presenting disease/condition affected by chronic disease/condition?: exacerbated by Evaluation data The following diagnostics were reviewed and interpreted by me:: lab results and radiology exam(s) Lab and/or radiology exams considered but not ordered:: None Interpretation Summary: RADIOLOGY Gall Bladder US: Findings: The visualized liver is mildly enlarged, measuring 18.9 cm and demonstrates increased echogenicity without mass or ductal dilatation. The main portal vein is patent and demonstrates hepatopetal flow. There is minimal gallbladder sludge. Sonographic Almeida sign is not mentioned in the technologist's note. The gallbladder wall is borderline thickened, measuring 3 mm. No obvious pericholecystic fluid. The common duct is normal in caliber at 4 mm. No free fluid is demonstrated on the submitted images. The inferior vena cava is patent to the extent visualised. Impression: No gallstone. Minimal gallbladder sludge with borderline gallbladder wall thickening. In the appropriate clinical setting, acute cholecystitis cannot be excluded. Suggest follow-up with HIDA scan, if clinically indicated. Mild hepatomegaly with fatty liver. Head/Brain CT: Findings: No significant ventricular enlargement. Intra-axial or extra-axial hemorrhage density is not seen. No mass effect or midline shift Basal cisterns are not remarkable. Fourth ventricle is midline. Cranial vault intact. Small retention cysts in the maxillary antra Impression: Negative for acute hemorrhage, mass effect or midline shift Medications / Prescriptions Medications or Prescriptions considered but not ordered:: None Medication administrations:: Medication Administration History Acetaminophen (Acetaminophen 325 Mg Tablet) 650 mg PO Q6H PRN PRN Reason: Fever >101.5 Stop: 09/28/25 05:58 Acetaminophen (Acetaminophen 325 Mg Tablet) 650 mg PO Q6H PRN PRN Reason: PAIN SCALE 1-3 (mild Stop: 09/28/25 05:58 Dextrose (Dextrose 50%-Water Inj 50 Ml Syringe) 25 ml IV Q15MIN PRN PRN Reason: BG 50-70 responsive npo pt Stop: 09/28/25 06:38 Dextrose (Dextrose 50%-Water Inj 50 Ml Syringe) 50 ml IV Q15MIN PRN PRN Reason: BG <50 OR BG <70 & pt unresponsive Stop: 09/28/25 06:38 Glucagon (Glucagon Inj 1 Mg Vial) 1 mg IM Q15MIN PRN PRN Reason: BG <70, and no IV access Lactated Ringer's (Lactated Ringers) 1,000 mls @ 75 mls/hr IV .[id number] COUNT INCLUDES THE [facility] Stop: 09/28/25 05:59 Levofloxacin/Dextrose (Levaquin Ivpb) 500 mg in 100 mls @ 100 mls/hr IV QDAY COUNT INCLUDES THE [facility] Stop: 09/05/25 08:59 Metronidazole (Flagyl 500 Mg Iv) 500 mg in 100 mls @ 200 mls/hr IV Q8HR COUNT INCLUDES THE [facility] Stop: 09/05/25 06:03 Insulin Human Lispro (Insulin Lispro (Admelog) 1 Unit/0.01 Ml Unit) 0 unit SC [facility]; Protocol Stop: 09/28/25 07:29 Morphine Sulfate (Morphine Sulf Inj 4 Mg/Ml Vial) 2 mg IVP Q4HR PRN PRN Reason: PAIN SCALE 7-10 (Severe Stop: 09/03/25 05:58 Discontinued Medications Sodium Chloride (Ns) 1,000 mls @ 999 mls/hr IV .Q1H1M ONE Stop: 08/29/25 05:35 Last Admin: 08/29/25 05:20 Dose: 999 mls/hr Documented By: SOY Sodium Chloride (Ns) 1,000 mls @ 999 mls/hr IV .Q1H1M ONE Stop: 08/29/25 03:47 Last Admin: 08/29/25 06:22 Dose: 999 mls/hr Documented By: SOY Levofloxacin/Dextrose (Levaquin Ivpb) 500 mg in 100 mls @ 100 mls/hr IV X1 ONE Stop: 08/29/25 06:41 Metronidazole (Flagyl 500 Mg Iv) 500 mg in 100 mls @ 200 mls/hr IV X1 ONE Stop: 08/29/25 06:13 Last Admin: 08/29/25 06:25 Dose: 200 mls/hr Documented By: SOY Morphine Sulfate (Morphine Sulf Inj 4 Mg/Ml Vial) 4 mg IVP X1 ONE Stop: 08/29/25 05:01 Last Admin: 08/29/25 05:19 Dose: 4 mg Documented By: SOY Morphine Sulfate (Morphine Sulf Inj 4 Mg/Ml Vial) 4 mg IVP X1 ONE Stop: 08/29/25 02:49 Last Admin: 08/29/25 06:24 Dose: 4 mg Documented By: SOY Morphine Sulfate (Morphine Sulf Inj 4 Mg/Ml Vial) 4 mg IVP Q1H PRN PRN Reason: ABDOMINAL CRAMPING Ondansetron HCl (Ondansetron Inj 2 Mg/Ml Inj 2 Ml) 4 mg IVP X1 ONE; Protocol Stop: 08/29/25 04:40 Last Admin: 08/29/25 05:19 Dose: 4 mg Documented By: SOY Prochlorperazine Edisylate (Prochlorperazine Inj 5 Mg/Ml Vial 2 Ml) 5 mg IV X1 ONE; Protocol Stop: 08/29/25 02:48 Last Admin: 08/29/25 06:23 Dose: 5 mg Documented By: SOY See above if any Consultations Consultation(s) initiated? (list below): Yes Consultation #1 (Physician, Specialty, Details): Discussed with Dr. Urbano for admission. Reviewed the patient?s HPI, PMHx, lab and/or radiology results. Discussed treatment plan. Will consult an admission. Time: 05:36 Diagnosis Neuro Differential Diagnosis: other (Cholecystitis, Renal calculi, Pyelonephritis, Cholelithiasis) Most likely diagnosis given after review of the tests above:: Acalculus cholecystitis Admission Indicated Admission indicated?: indicated Explain why admission is indicated or not indicated:: Acalculus cholecystitis Admission Request Was there a request for admission?: Yes Admission Attestation Admission request attestation: Discussed case with [] from Hospitalist service regarding admission. Discussed patients ED course, exam findings, labs, and radiology results. The Hospitalist [agrees,declines] to accept the patient for admission. Disposition Plan Disposition Plan: Admit Discharge Plan Plan Patient Disposition: Admit Acute Care w/in Hospital Problem List Clinical Impression: Acalculous cholecystitis
[2025-08-29] MEDS: ONDANSETRON INJ 2 MG/ML INJ 2 ML 4 MG IVP (05:19)
[2025-08-29] MEDS: MORPHINE SULF INJ 4 MG/ML VIAL IVP ×2 (05:19→06:24)
[2025-08-29] MEDS: SODIUM CHLORIDE 0.9% 1000 ML 1,000 ML 999 ML IV ×2 (05:20→06:22)
--- NOTE | 2025-08-29 06:10 | PD.RESHP ---
Documentation for date of: 08/29/25 HPI History of Present Illness Chief complaint: Right upper quadrant abdominal pain History of present illness: This is a 55-year-old female with past medical history of type 2 diabetes mellitus on insulin, peripheral neuropathy, chronic pain secondary to herniated disc, hypertension and stroke who presented to the ED with complaints of right upper quadrant abdominal pain. She has been experiencing right upper quadrant, epigastric abdominal pain for 2 weeks associated with diarrhea 5 times a day. She complains pain has 8 out of 10 on a pain scale which is constantly present throughout the day but aggravates on eating and drinking and deep breath. She complains of diarrhea 5 times a day sometimes pale in color. Both the diarrhea and the pain got worsened since 08/27 yesterday. She complains of nausea since yesterday but denies any vomiting. She admits on and off fever since 2 weeks associated with chills. She admits to sharp chest pain since today 08/28 afternoon but denies any palpitation or chest tightness. She endorses occasional cough but denies any increased sputum, urinary frequency, urgency. ED visit vitals are BP 134/89, pulse rate 102, resp 19, temperature 98.4 saturating 96% on room atmosphere. Pertinent labs are glucose 385, corrected calcium 10.4, urine glucose 4+, urine ketone 1+. Head CT negative for any mass or hemorrhage or midline shift Abdominal ultrasound: Borderline gallbladder wall thickening cannot exclude acute cholecystitis follow-up with HIDA scan Treatment given at ED: Morphine 4 mg, ondansetron 4 mg, 1 L NS Past medical history: As stated above. Past surgical history: 2 sections. Family history: Diabetes and heart disease in maternal and paternal side Allergy history: Allergic to barium, penicillin, codeine, aspirin Review of Systems Review of Systems Systems Reviewed: All systems reviewed, normal except as documented Exam Vital Signs Temp Pulse Resp BP Pulse Ox O2 Del Method 98.4 F 102 H 19 134/89 H 96 Room Air 08/29/25 03:41 08/29/25 03:41 08/29/25 03:41 08/29/25 03:41 08/29/25 03:41 08/29/25 03:41 Narrative Exam GENERAL: NAD, AAOx3 HEENT: Moist mucosa. Eyes open, symmetrical, & clear CARDIO: Rapid regular rhythm Noted. No Murmurs. PULM: No noted coughing/dyspnea CTA B/L, no R/W/R GI: Abdomen soft, nondistended, Tenderness on palpation of RUQ,epigastric region. SKIN/MSK/EXT: No wounds/rashes/amputations, no pain on palpation.. Pedal pulses present B/L NEURO: AAOx3, no focal neuro deficits, able to move all 4 extremities Results: Labs 08/29/25 06:10 08/29/25 06:10 Labs: Short CBC 08/29/25 Range/Units 00:11 WBC 6.1 (3.6-11.0) Thou/mm3 Hgb 15.8 (12.0-16.0) g/dL Hct 45.0 (36.0-46.0) % Plt Count 423 (140-440) Thou/mm3 BMP 08/29/25 00:11 Sodium 137 Potassium 3.8 Chloride 98 Carbon Dioxide 26.5 BUN 18 Creatinine 1.0 Glucose 385 H Calcium 10.4 Liver Function 08/29/25 Range/Units 00:11 Total Bilirubin 0.5 (0.3-1.2) mg/dL AST < 8 (0-34) U/L ALT 7 L (10-49) U/L Alkaline Phosphatase 113 (46-116) U/L Albumin 5.0 (3.5-5.0) gm/dL Urine 08/28/25 Range/Units 00:30 Urine Color Yellow (Lt Yel-Yel) Urine Clarity Clear (Clear/Hazy) Urine pH 6.0 (5.0-7.0) Ur Specific [place] 1.041 H (1.001-1.035) Urine Protein 1+ A (Neg - Trace) Urine Glucose (UA) 4+ A (Negative) Quality Measures Quality Measures none Medications Home Medications and Allergies Home Medications ?Medication ?Instructions ?Recorded ?Confirmed ?Type baclofen 10 mg tablet 10 mg PO HS 09/14/22 04/30/25 History clonidine HCl 0.1 mg tablet 0.1 mg PO QDAY 09/14/22 04/30/25 History glipizide 10 mg tablet 10 mg PO BID 09/14/22 04/30/25 History Held on 05/02/25. Instructions: Hold until you follow-up with your PCP methadone 10 mg tablet 10 mg PO Q8H PRN Pain 09/14/22 04/30/25 History pregabalin 25 mg capsule 25 mg PO BID PRN Pain 09/14/22 04/30/25 History promethazine 25 mg tablet 25 mg PO QDAY PRN n/v 09/14/22 04/30/25 History duloxetine 30 mg capsule,delayed mg PO 04/30/25 History release Allergies Allergy/AdvReac Type Severity Reaction Status Date / Time barium iodide Allergy Severe PASSED OUT Verified 08/28/25 23:07 cephalexin Allergy Severe ITCHING Verified 08/28/25 23:07 AND VOMITING codeine Allergy Severe FAINTS Verified 08/28/25 23:07 Penicillins Allergy Severe HIVES AND Verified 08/28/25 23:07 DIFF BREATHING aspirin Allergy Unknown RASH Verified 08/28/25 23:07 Visit Medications Acetaminophen (Acetaminophen 325 Mg Tablet) 650 mg PO Q6H PRN PRN Reason: Fever >101.5 Stop: 09/28/25 05:58 Acetaminophen (Acetaminophen 325 Mg Tablet) 650 mg PO Q6H PRN PRN Reason: PAIN SCALE 1-3 (mild Stop: 09/28/25 05:58 Levofloxacin/Dextrose (Levaquin Ivpb) 500 mg in 100 mls @ 100 mls/hr IV X1 ONE Stop: 08/29/25 06:41 Metronidazole (Flagyl 500 Mg Iv) 500 mg in 100 mls @ 200 mls/hr IV X1 ONE Stop: 08/29/25 06:13 Lactated Ringer's (Lactated Ringers) 1,000 mls @ 75 mls/hr IV .[id number] [facility] Stop: 09/28/25 05:59 Levofloxacin/Dextrose (Levaquin Ivpb) 500 mg in 100 mls @ 100 mls/hr IV QDAY [facility] Stop: 09/05/25 08:59 Metronidazole (Flagyl 500 Mg Iv) 500 mg in 100 mls @ 200 mls/hr IV Q8HR [facility] Stop: 09/05/25 06:03 Morphine Sulfate (Morphine Sulf Inj 4 Mg/Ml Vial) 2 mg IVP Q4HR PRN PRN Reason: PAIN SCALE 7-10 (Severe Stop: 09/03/25 05:58 Discontinued Medications Sodium Chloride (Ns) 1,000 mls @ 999 mls/hr IV .Q1H1M ONE Stop: 08/29/25 05:35 Last Admin: 08/29/25 05:20 Dose: 999 mls/hr Sodium Chloride (Ns) 1,000 mls @ 999 mls/hr IV .Q1H1M ONE Stop: 08/29/25 03:47 Morphine Sulfate (Morphine Sulf Inj 4 Mg/Ml Vial) 4 mg IVP X1 ONE Stop: 08/29/25 05:01 Last Admin: 08/29/25 05:19 Dose: 4 mg Morphine Sulfate (Morphine Sulf Inj 4 Mg/Ml Vial) 4 mg IVP X1 ONE Stop: 08/29/25 02:49 Morphine Sulfate (Morphine Sulf Inj 4 Mg/Ml Vial) 4 mg IVP Q1H PRN PRN Reason: ABDOMINAL CRAMPING Ondansetron HCl (Ondansetron Inj 2 Mg/Ml Inj 2 Ml) 4 mg IVP X1 ONE; Protocol Stop: 08/29/25 04:40 Last Admin: 08/29/25 05:19 Dose: 4 mg Prochlorperazine Edisylate (Prochlorperazine Inj 5 Mg/Ml Vial 2 Ml) 5 mg IV X1 ONE; Protocol Stop: 08/29/25 02:48 Assessment & Plan Plan This is a 55-year-old female with past medical history of type 2 diabetes mellitus on insulin, peripheral neuropathy, chronic pain secondary to herniated disc, hypertension and stroke Presnted to the ED with worsening abdominal pain and diarrhea. She was admitted for suspicious cholecystitis. #? Acute cholecystitis Right upper quadrant pain 8 out of 10 since 2 weeks worsening on food intake and deep inspiration associated diarrhea worsened to 10 out of 10 since 2 days Nausea since 2 days. Tenderness on right upper quadrant and epigastric regions. Ultrasound gallbladder shows borderline thickening. ?Consider HIDA scan. ?General Surgery consulted ?Ordered morphine 2 mg every 4 hours ? Ordered levofloxacin 500 mg IV metronidazole 500 mg ?1 L Ringer lactate ordered. ?Starting n.p.o. for now. # Diabetes Blood glucose 385, urinary glucose 4+ and on insulin at home. ? Consider consider starting her on insulin. # Hypertension ? Consider starting on home medication clonidine after reconciliation. # Peripheral neuropathy, chronic pain?herniated disc Consider duloxetine and pregabalin after reconcilation Code status: Full DVT prophylaxis: SCD GI prophylaxis: Zofran Diet: NPO Mccoy: None Lines: PIV Supplemental O2: none Disposition: Observation. I discussed this case with my senior Dr. Urbano and my attending Dr. Erickson. Analia Conde MD-[id number]. Attending Provider Attestation/Addendum I, Samantha Erickson, DO, attest that I was physically present for the anderson portions of the service and evaluated the patient with the resident and I reviewed and discussed the case with the resident and agree with the resident's findings and plans of care as documented above Patient is a 55-year-old female with past medical history of type 2 diabetes mellitus and opioid dependence per chart review who presented to the ED due to complaints of 2 weeks of abdominal pain. She reports postprandial pain and associated poor p.o. intake. She also endorses having nausea, but no vomiting. She reports intermittent fevers as well. Patient states that she has been having multiple bouts of diarrhea, particularly after eating meals. She denies any recent use of antibiotics or recent hospitalization. She reports the pain as sharp, worse in her right upper quadrant radiating to her epigastric and left upper quadrant as well. However, patient appears to have pain all over her body. She had endorsed having headache, she complained of the elastic band on her pants to cause worsening abdominal discomfort and also reported some sharp chest pains. Labs are otherwise unremarkable, except for elevated glucose at 320. Will obtain A1c. Ultrasound gallbladder shows no gallstones, minimal gallbladder sludge with borderline gallbladder wall thickening. HIDA scan suggested. Patient does have some involuntary guarding on exam and positive Almeida sign. Abdomen is otherwise soft and nondistended. Will observe patient on MedSurg and obtain surgical consult as patient may have acute cholecystitis. Will place patient on IV Levaquin and Flagyl. Will keep n.p.o. at this time and continue with gentle IV fluids. Pain control as needed
[2025-08-29] MEDS: PROCHLORPERAZINE INJ 5 MG/ML VIAL 2 ML IV (06:23)
[2025-08-29 06:25] LABS: Lactate (Lactic Acid) 1.1 mMol/L (0.4-2.0)
[2025-08-29] MEDS: metroNIDAZOLE/NS 500 MG IVPB 500 MG/100 ML BAG 200 MG IV (06:25)
[2025-08-29 06:26] LABS: Basophils # (Auto) 0.1 Thou/mm3 (0.0-0.2); Basophils % (Auto) 1 % (0-2.5); Eosinophils # (Auto) 0.1 Thou/mm3 (0.0-0.5); Eosinophils % (Auto) 1 % (0-10); Hematocrit 42.3 % (36.0-46.0); Hemoglobin 14.5 g/dL (12.0-16.0); Immature Granulocytes Auto 0.02 Thou/mm3 (0.00-0.00); Lymphocytes # (Auto) 2.5 Thou/mm3 (1.0-4.8); Lymphocytes % (Auto) 42 % (10-50); Mean Corpuscular HGB Conc 34.3 g/dl (31.0-37.0); Mean Corpuscular Hemoglobin 29.6 pg (25.0-35.0); Mean Corpuscular Volume 86 fL (80-100); Monocytes # (Auto) 0.6 Thou/mm3 (0.0-0.8); Monocytes % (Auto) 11 % (0-12); Neutrophils # (Auto) 2.7 Thou/mm3 (1.8-7.7); Neutrophils % (Auto) 46 % (37-80); Nucleated Red Blood Cell # 0.00 Thou/mm3 (0.00-0.00); Nucleated Red Blood Cell % 0 /100 WBC (0); Platelet Count 324 Thou/mm3 (140-440); RDW Standard Deviation 39.5 fL (36.4-46.3); Red Blood Count 4.90 Miln/mm3 (4.00-5.20); White Blood Count 5.9 Thou/mm3 (3.6-11.0)
[2025-08-29 06:42] LABS: INR 1.0 (0.9-1.3); Prothrombin Time 10.9 Seconds (9.0-12.2)
[2025-08-29] MEDS: RINGERS LACTATED 1000 ML 1,000 ML 75 ML IV (06:51)
[2025-08-29 07:12] LABS: Alanine Aminotransferase < 7 U/L (10-49); Albumin, Serum 4.3 gm/dL (3.5-5.0); Albumin/Globulin Ratio 1.5 (1.2-2.2); Alkaline Phosphatase 98 U/L (46-116); Anion Gap 12 (7-16); Aspartate Amino Transferase 14 U/L (0-34); BUN/Creatinine Ratio 21 Ratio (12-20); Bilirubin,Total 0.6 mg/dL (0.3-1.2); Blood Urea Nitrogen 15 mg/dL (9-23); Calcium 9.2 mg/dL (8.3-10.6); Calcium (Corrected) 9.2 mg/dL (8.5-10.1); Carbon Dioxide 25.3 mMol/L (20.0-31.0); Chloride 104 mMol/L (98-107); Creatinine (Component) 0.7 mg/dL (0.6-1.3); Estimated Creatinine Clearance 92.7 mL/min (>60); Globulin 2.8 gm/dL (2.3-3.5); Glucose 320 mg/dL (74-106); Magnesium 1.9 mg/dL (1.6-2.6); Osmolality,Calculated 294 (275-295); Phosphorous 3.5 mg/dL (2.4-5.1); Potassium 4.3 mMol/L (3.4-5.1); Sodium 141 mMol/L (136-145); Total Protein 7.1 gm/dL (5.7-8.2); eGFR > 60 See Note
[2025-08-29 07:14] LABS: Troponin I < 0.020 ng/mL (0.0-0.045)
--- NOTE | 2025-08-29 07:15 | PC.NURSE ---
Pt. here from home to room 6, pt. states she has had diarrhea X 2 weeks and upper right quadrant abdominal pain X 2 weeks. Pt. denies any vomiting states she has had nausea. Pt. lower extremities are hot to touch, red in color and skin is white/flaky. Pt. has mild edema trace pitting to right foot. Pt. states her feet are always very hot, pt. states she keeps them in front of a fan at home. No s/s of distress at this time. Wheeler offered and pt. states she already has one. Pt. states she knows she is NPO at this time.
[2025-08-29 07:29] LABS: Glucose Estimated Average 148 mg/dL (80-131); Hemoglobin A1C 6.8 % Hgb (4.8-6.0)
[2025-08-29] MEDS: LEVOFLOXACIN/D5W 500 MG IVPB 500 MG/100 ML BAG 100 MG IV (08:39)
--- NOTE | 2025-08-29 08:52 | PC.NURSE ---
Dr. Ahmadi bedside talking with pt.
--- NOTE | 2025-08-29 09:15 | PD.RESPRO ---
Documentation for date of: 08/29/25 Exam Vital Signs Temp Pulse Resp BP Pulse Ox O2 Del Method 98.8 F 99 16 187/97 H 95 Room Air 08/29/25 08:13 08/29/25 08:13 08/29/25 08:13 08/29/25 08:13 08/29/25 08:13 08/29/25 08:13 Objective Labs 08/29/25 06:10 08/29/25 06:10 Labs: Laboratory Results - last 24 hr 08/28/25 08/29/25 08/29/25 00:30 00:11 06:10 WBC 6.1 5.9 RBC 5.24 H 4.90 Hgb 15.8 14.5 Hct 45.0 42.3 MCV 86 86 MCH 30.2 29.6 MCHC 35.1 34.3 RDW Std Deviation 39.0 39.5 Plt Count 423 324 D Neut % (Auto) 51 46 Lymph % (Auto) 40 42 [place] % (Auto) 8 11 Eos % (Auto) 0 1 Baso % (Auto) 1 1 Neut # (Auto) 3.1 2.7 Lymph # (Auto) 2.4 2.5 [place] # (Auto) 0.5 0.6 Eos # (Auto) 0.0 0.1 Baso # (Auto) 0.1 0.1 Immature Gran # (Auto) 0.02 H 0.02 H Absolute Nucleated RBC 0.00 0.00 Immature Gran % 0 0 Nucleated RBC % 0 0 PT 10.9 INR 1.0 Sodium 137 141 Potassium 3.8 4.3 D Chloride 98 104 Carbon Dioxide 26.5 25.3 Anion Gap 13 12 BUN 18 15 Creatinine 1.0 0.7 Estim Creat Clear Calc 64.9 92.7 eGFR > 60 > 60 BUN/Creatinine Ratio 18 21 H Glucose [address] Glu mg/dL 148 H Hemoglobin A1c 6.8 H Calculated Osmolality 291 294 Lactic Acid 1.1 Calcium 10.4 9.2 Corrected Calcium 10.4 H 9.2 Phosphorus 3.5 Magnesium 1.9 Total Bilirubin 0.5 0.6 AST < 8 14 ALT 7 L < 7 L Alkaline Phosphatase 113 98 Troponin I < 0.020 Total Protein 8.3 H 7.1 Albumin 5.0 4.3 D Globulin 3.3 2.8 Albumin/Globulin Ratio 1.5 1.5 Lipase 19 Ur Collection Type Clean Catch Urine Color Yellow Urine Clarity Clear Urine pH 6.0 Ur Specific Imperial 1.041 H Urine Protein 1+ A Urine Glucose (UA) 4+ A Urine Ketones 1+ A Urine Blood Negative Urine Nitrite Negative Urine Bilirubin Negative Urine Urobilinogen (Auto) Negative Ur Leukocyte Esterase Negative Urine RBC 11 H Urine WBC 3 Ur Squamous Epith Cells 2 Urine Bacteria None Quality Measures Quality Measures none Assessment & Plan Assessment Current Active Medications: Generic Name Dose Route Start Last Admin Trade Name Freq PRN Reason Stop Dose Admin Acetaminophen 650 mg 08/29/25 05:59 Acetaminophen 325 Mg Tablet PO 09/28/25 05:58 Q6H PRN Fever >101.5 Acetaminophen 650 mg 08/29/25 05:59 Acetaminophen 325 Mg Tablet PO 09/28/25 05:58 Q6H PRN PAIN SCALE 1-3 (mild Clonidine 0.1 mg 08/29/25 09:00 Clonidine Hcl 0.1 Mg Tablet PO 09/28/25 08:59 BID DANII Dextrose 25 ml 08/29/25 06:39 Dextrose 50%-Water Inj 50 Ml Syringe IV 09/28/25 06:38 Q15MIN PRN BG 50-70 responsive npo pt Dextrose 50 ml 08/29/25 06:39 Dextrose 50%-Water Inj 50 Ml Syringe IV 09/28/25 06:38 Q15MIN PRN BG <50 OR BG <70 & pt unresponsive Glucagon 1 mg 08/29/25 06:39 Glucagon Inj 1 Mg Vial IM Q15MIN PRN BG <70, and no IV access Lactated Ringer's 1,000 mls @ 75 mls/hr 08/29/25 06:00 08/29/25 06:51 Lactated Ringers IV 09/28/25 05:59 75 mls/hr .[id number] DANII Administration Levofloxacin/Dextrose 500 mg in 100 mls @ 100 mls/hr 08/30/25 09:00 Levaquin Ivpb IV 09/05/25 08:59 QDAY DANII Metronidazole 500 mg in 100 mls @ 200 mls/hr 08/29/25 14:00 Flagyl 500 Mg Iv IV 09/05/25 06:03 Q8HR DANII Insulin Degludec 10 unit 08/29/25 09:00 Insulin Degludec 5 Unit/0.05 Ml (Per 5 Units) SC 09/28/25 08:59 QDAY [facility] Insulin Human Lispro 0 unit 08/29/25 08:45 08/29/25 08:45 Insulin Lispro (Admelog) 1 Unit/0.01 Ml Unit SC 09/28/25 08:44 Not Given Q6H [facility] Protocol Morphine Sulfate 2 mg 08/29/25 05:59 Morphine Sulf Inj 4 Mg/Ml Vial IVP 09/03/25 05:58 Q4HR PRN PAIN SCALE 7-10 (Severe
[2025-08-29] MEDS: INSULIN DEGLUDEC 5 UNIT/0.05 ML (PER 5 UNITS) 10 UNIT SC (10:26)
[2025-08-29] MEDS: MORPHINE SULF INJ 4 MG/ML VIAL 2 MG IVP (10:53)
--- NOTE | 2025-08-29 11:50 | PD.SURCONS ---
HPI Consult details History of present illness: 55F with HTN, CVA, DM2 with peripheral neuropathy, chronic pain presented to ER with right upper quadrant pain. Patient states she has been having the pain for the past 2 weeks, associated with diarrhea. Pain is worsened with eating and also associated with nausea but no vomiting. In ER she underwent abdominal ultrasound which initially questioned wall thickening but on official read shows gallbladder sludge, no stones and normal wall thickness with no pericholecystic fluid PMH: HTN, CVA, DM2, chronic pain PSH: C-sections Meds: Includes insulin, methadone Allergies: Cephalexin, codeine, PCN, aspirin Review of Systems Review of Systems ROS Unobtainable: All systems reviewed & no additional complaints except as documented Meds Home Medications and Allergies Home Medications ?Medication ?Instructions ?Recorded ?Confirmed ?Type baclofen 10 mg tablet 10 mg PO HS 09/14/22 04/30/25 History clonidine HCl 0.1 mg tablet 0.1 mg PO QDAY 09/14/22 04/30/25 History glipizide 10 mg tablet 10 mg PO BID 09/14/22 04/30/25 History Held on 05/02/25. Instructions: Hold until you follow-up with your PCP methadone 10 mg tablet 10 mg PO Q8H PRN Pain 09/14/22 04/30/25 History pregabalin 25 mg capsule 25 mg PO BID PRN Pain 09/14/22 04/30/25 History promethazine 25 mg tablet 25 mg PO QDAY PRN n/v 09/14/22 04/30/25 History duloxetine 30 mg capsule,delayed mg PO 04/30/25 History release Allergies Allergy/AdvReac Type Severity Reaction Status Date / Time barium iodide Allergy Severe PASSED OUT Verified 08/28/25 23:07 cephalexin Allergy Severe ITCHING Verified 08/28/25 23:07 AND VOMITING codeine Allergy Severe FAINTS Verified 08/28/25 23:07 Penicillins Allergy Severe HIVES AND Verified 08/28/25 23:07 DIFF BREATHING aspirin Allergy Unknown RASH Verified 08/28/25 23:07 Exam Vital Signs Temp Pulse Resp BP Pulse Ox O2 Del Method 98.8 F 92 17 183/101 H 96 Room Air 08/29/25 08:13 08/29/25 10:29 08/29/25 09:40 08/29/25 10:29 08/29/25 09:40 08/29/25 09:40 Constitutional Constitutional: no acute distress Routine Respiratory Exam Respiratory: Present no resp distress Routine Abdominal Exam Abdominal: Present soft and tenderness (moderate RUQ tenderness); Absent distended, rebound or guarding Results Results: Laboratory Laboratory results: results reviewed Results: Imaging US - abdomen: report reviewed Assessment & Plan Plan 55F with HTN, CVA, DM2 with peripheral neuropathy, chronic pain presented to ER with right upper quadrant pain, with findings of gallbladder sludge but negative for stones and cholecystitis. I explained that while surgery is recommended to prevent future attacks, it is not urgent and can be scheduled electively. I explained benefits/risks of surgery including need for conversion to open, bleeding, infection, and injury to nearby structures requiring further procedures or a major biliary reconstruction which requires transfer to another hospital. I also explained risks of postoperative hernia and diarrhea. All questions were answered and patient is agreeable to following up for elective cholecystectomy Diet as tolerated OK for dc from my standpoint, will follow up as outpt
[2025-08-29] MEDS: INSULIN LISPRO (AdmeLOG) 1 UNIT/0.01 ML UNIT SC (11:56)
--- NOTE | 2025-08-29 14:43 | PC.SS ---
Patient is a 55 year old female presenting to the hospital for abdominal pain. RAFTSMAN made face to face contact with patient at bedside, role and reason for visit was explained. Patient confirmed demographic information and stated that she lives at home with her two sons. Patient stated that in case she is unable to make medical decisions on her own she would like Viktor Angel to make them [phone]. Patient stated that she utilizes a cane and walker to complete ADL?S, her PCP is Dr. River at [facility], her last appointment was in July 2025, and she is retired. Her pharmacy of choice is [email or web address]. Patient stated that once medically clear she will return home and her sons will provide transportation. Decision maker: Viktor Angel [phone] PCP: [facility], Dr. River d/c: home
--- NOTE | 2025-08-29 14:53 | ESDS_ITS ---
<Statement entered by Jaswant Sandy MD - 08/29/25 18:55> I have discussed and was present for the essential components of the history, physical examination, diagnosis, and treatment plan with the resident. I agree with the patient's care as documented by the resident and amended herein by me. Jaswant Sandy MD FACP. Planned Discharge Date 08/29/25 DS: Providers Provider Date of admission: 08/29/25 05:59 Primary care physician: Fly River PA-C Admitting Provider: Samantha Erickson DO Attending Provider on Admission: Samantha Erickson DO Consults: 08/29/25 06:04 Consult to General Surgery Stat Comment: Consulting Provider: Priscila Márquez Attending Provider on DC: Christiano Ahmadi DO Discharging Provider: Christiano Ahmadi DO DS: Diagnosis Problem List Completed Was Problem List Reviewed/Reconciled?: Yes Hospital Course Hospital Course Hospital course: Summary: 55-year-old female with past medical history of type 2 diabetes mellitus on insulin, peripheral neuropathy, chronic pain secondary to herniated disc, hypertension and stroke who presented to the ED with complaints of right upper quadrant abdominal pain. Gallbladder US showed gallbladder sludge, but no choleithiasis and cholecysitis. Consulted general surgery, who agreed on discharge and follow up outpatient for elective cholecystectomy. ED course: ED visit vitals are BP 134/89, pulse rate 102, resp 19, temperature 98.4 saturating 96% on room atmosphere. Pertinent labs are glucose 385, corrected calcium 10.4, urine glucose 4+, urine ketone 1+. 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 Upon admission, patient was given morphine 2mg q4hr, IV Levofloxacin 500mg, IV metronidazole 500mg and IVF LR 75 ml/hr. Patient's BP was high so restarted patient's home medication clonidine. Consulted General Surgery, Dr. Márquez, who agreed to dicharge the patient and follow up outpatient for elective cholecystectomy. Instructions: Home Care Instructions: * Diet: Eat a low-fat, bland diet to reduce stress on your gallbladder. Avoid greasy, fried, spicy, or fatty foods. * Hydration: Drink plenty of fluids to stay hydrated. * Medications: Take any prescribed medications as directed. You may use acetaminophen (Tylenol) for pain relief if needed. Avoid NSAIDs unless advised by your provider. * Activity: Rest as needed but try to stay lightly active as tolerated. Follow-Up Care: * Surgical Consultation: You must follow up with a surgeon as an outpatient to discuss further evaluation and possible treatment, which may include surgery. * Primary Care Provider: Continue routine care with your PCP for ongoing management and to report any new symptoms. When to Seek Immediate Medical Attention: Return to the Emergency Department or contact your healthcare provider immediately if you experience: * Worsening or severe abdominal pain, especially in the upper right area * Fever or chills * Nausea or vomiting that doesn?t improve * Yellowing of your skin or eyes (jaundice) * Any other new or concerning symptoms Stable to discharge to HOME #?Acute cholecystitis #Diabetes #Hypertension #Peripheral neuropathy, chronic pain?herniated disc Assessment and plan discussed with my attending physician Dr. Vika Ahmadi (PGY-1) - Internal medicine resident Time Spent with Patient Time attestation: Total time spent providing and/or coordinating discharge services: Time spent: Greater than 30 minutes Exam Vital Signs Temp Pulse Resp BP Pulse Ox O2 Del Method 97.3 F 89 18 168/90 H 99 Room Air 08/29/25 12:50 08/29/25 12:50 08/29/25 12:50 08/29/25 12:50 08/29/25 12:50 08/29/25 12:50 Narrative Exam GENERAL: NAD, AAOx3 HEENT: Moist mucosa. Eyes open, symmetrical, & clear CARDIO: Rapid regular rhythm Noted. No Murmurs. PULM: No noted coughing/dyspnea CTA B/L, no R/W/R GI: Abdomen soft, nondistended, Tenderness on palpation of RUQ,epigastric region. SKIN/MSK/EXT: No wounds/rashes/amputations, no pain on palpation.. Pedal pulses present B/L NEURO: AAOx3, no focal neuro deficits, able to move all 4 extremities Discharge Plan Plan Patient Disposition: HOME (Self Care) Care Plan Goals: Home Care Instructions: * Diet: Eat a low-fat, bland diet to reduce stress on your gallbladder. Avoid greasy, fried, spicy, or fatty foods. * Hydration: Drink plenty of fluids to stay hydrated. * Medications: Take any prescribed medications as directed. You may use acetaminophen (Tylenol) for pain relief if needed. Avoid NSAIDs unless advised by your provider. * Activity: Rest as needed but try to stay lightly active as tolerated. Follow-Up Care: * Surgical Consultation: You must follow up with a surgeon as an outpatient to discuss further evaluation and possible treatment, which may include surgery. * Primary Care Provider: Continue routine care with your PCP for ongoing management and to report any new symptoms. When to Seek Immediate Medical Attention: Return to the Emergency Department or contact your healthcare provider immediately if you experience: * Worsening or severe abdominal pain, especially in the upper right area * Fever or chills * Nausea or vomiting that doesn?t improve * Yellowing of your skin or eyes (jaundice) * Any other new or concerning symptoms Prescriptions/Referrals Prescriptions/Med Rec: Continued clonidine HCl 0.1 mg tablet 0.1 mg PO QDAY methadone 10 mg tablet 10 mg PO Q8H PRN (Reason: Pain) Patient Comments: TAKE 1 TABLET BY MOUTH EVERY 8 HOURS NEEDED FOR PAIN (MAX 3 TABLET/DAY) glipizide 10 mg tablet 10 mg PO BID baclofen 10 mg tablet 10 mg PO HS Patient Comments: TAKE 1 TABLET BY MOUTH EVERYDAY AT BEDTIME promethazine 25 mg tablet 25 mg PO QDAY PRN (Reason: n/v) Patient Comments: TAKE 1 TABLET BY MOUTH DAILY NEEDED, DO NOT EXCEED MORE THAN ONCE A DAY pregabalin 25 mg capsule 25 mg PO BID PRN (Reason: Pain) Patient Comments: TAKE 1 CAPSULE BY MOUTH TWICE A DAY NEEDED MAX 2 CAPSULES DAILY duloxetine 30 mg capsule,delayed release(DR/EC) PO Patient Comments: takes once a day Q day (DME) Dexcom G6 Sensor Device See Rx Instructions .Route Qty: 3 0RF Rx Instructions: As directed (DME) Dexcom G6 Independent Marketing Consultant Misc See Rx Instructions .Route Qty: 1 0RF Rx Instructions: As directed (DME) Dexcom G6 Transmitter Device See Rx Instructions .Route Qty: 1 0RF Rx Instructions: As directed insulin glargine-aglr 100 unit/mL (3 mL) insulin pen 50 unit subcut QDAY Qty: 15 0RF (DME) pen needle, diabetic [CareFine Pen Needle] 29 gauge x 1/2 needle See Rx Instructions .Route Qty: 100 0RF Rx Instructions: Use for insulin administration insulin lispro 100 unit/mL insulin pen 6 unit subcut TID Qty: 15 0RF Rx Instructions: Administer three times per day with meals Referrals: Fly River PA-C [Primary Care Provider] Patient/Caregiver Discharge Instructions Education Materials: Cholecystectomy Print Language: Czech Stand Alone Forms: Cierra Award Info., Patient Portal Info Letter, Work/Release Restrictions Discharge Order Discharge Orders: Discharge (Routine); Ordered 08/29/25 Ordered By: Gilda Rowe Quality Discharge Quality Measures VTE prophylaxis
== END 2025-08-29 14:58 | disposition home or self-care (01) ==
LOC: SERX 08-29 05:52 → SERHOLD 08-29 06:24 → S3NX 08-29 10:11
PROVIDERS: Nurse Practitioner Family; Student in an Organized Health Care Education/Training Program; Admitting Provider Internal Medicine; Emergency Provider Emergency Medicine; PCP Physician Assistant; Visit Provider Internal Medicine
DX: K82.8 Other specified diseases of gallbladder (principal); K76.0 Fatty (change of) liver, not elsewhere classified; E11.42 Type 2 diabetes mellitus with diabetic polyneuropathy; I10 Essential (primary) hypertension
CPT/HCPCS: 36415; 70450; 76705; 80053; 81001; 83036; 83605; 83690; 83735; 84100; 84484; 85025; 85610; 96361; 96365; 96375; 96376; 99284; G0378; J0780; J1815; J1956; J2270; J2405; J3490; J7030; J7120; A9270; J1836

== ENCOUNTER 2025-09-08 08:50 | Day surgery (SDC) | payer MEDICAID, SELFPAY ==
[2025-09-07 08:21] VITALS: BMI 31.1
[2025-09-07 09:40] LABS: Basophils # (Auto) 0.1 Thou/mm3 (0.0-0.2); Basophils % (Auto) 1 % (0-2.5); Eosinophils # (Auto) 0.3 Thou/mm3 (0.0-0.5); Eosinophils % (Auto) 5 % (0-10); Hematocrit 37.6 % (36.0-46.0); Hemoglobin 12.7 g/dL (12.0-16.0); Immature Granulocytes Auto 0.01 Thou/mm3 (0.00-0.00); Lymphocytes # (Auto) 2.4 Thou/mm3 (1.0-4.8); Lymphocytes % (Auto) 36 % (10-50); Mean Corpuscular HGB Conc 33.8 g/dl (31.0-37.0); Mean Corpuscular Hemoglobin 29.7 pg (25.0-35.0); Mean Corpuscular Volume 88 fL (80-100); Monocytes # (Auto) 0.6 Thou/mm3 (0.0-0.8); Monocytes % (Auto) 9 % (0-12); Neutrophils # (Auto) 3.3 Thou/mm3 (1.8-7.7); Neutrophils % (Auto) 50 % (37-80); Nucleated Red Blood Cell # 0.00 Thou/mm3 (0.00-0.00); Nucleated Red Blood Cell % 0 /100 WBC (0); Platelet Count 292 Thou/mm3 (140-440); RDW Standard Deviation 40.2 fL (36.4-46.3); Red Blood Count 4.27 Miln/mm3 (4.00-5.20); White Blood Count 6.6 Thou/mm3 (3.6-11.0)
[2025-09-07 09:46] LABS: INR 1.0 (0.9-1.3); Partial Thromboplastin Time 28.8 Seconds (22.0-36.0); Prothrombin Time 10.3 Seconds (9.0-12.2)
[2025-09-07 09:53] LABS: Alanine Aminotransferase 9 U/L (10-49); Albumin, Serum 4.4 gm/dL (3.5-5.0); Albumin/Globulin Ratio 1.5 (1.2-2.2); Alkaline Phosphatase 105 U/L (46-116); Anion Gap 9 (7-16); Aspartate Amino Transferase 14 U/L (0-34); BUN/Creatinine Ratio 19 Ratio (12-20); Bilirubin,Total 0.2 mg/dL (0.3-1.2); Blood Urea Nitrogen 13 mg/dL (9-23); Calcium 9.5 mg/dL (8.3-10.6); Calcium (Corrected) 9.5 mg/dL (8.5-10.1); Carbon Dioxide 29.7 mMol/L (20.0-31.0); Chloride 99 mMol/L (98-107); Creatinine (Component) 0.7 mg/dL (0.6-1.3); Estimated Creatinine Clearance 86.0 mL/min (>60); Globulin 2.9 gm/dL (2.3-3.5); Glucose 267 mg/dL (74-106); Osmolality,Calculated 284 (275-295); Potassium 3.7 mMol/L (3.4-5.1); Sodium 138 mMol/L (136-145); Total Protein 7.3 gm/dL (5.7-8.2); eGFR > 60 See Note
--- NOTE | 2025-09-07 14:11 | SUR.PREOP ---
Health history reviewed with Dr Collado.
[2025-09-08] VITALS (10 sets, daily range): BP systolic 156–180; BP diastolic 78–129; PULSE 89–97; RESP 13–21; TEMP 36.3–37.2; O2SAT 92–99; BMI 31.3
--- NOTE | 2025-09-08 10:32 | CHAP ---
Visited briefly with patient and son and gave encouragement and prayer.
--- NOTE | 2025-09-08 12:00 | ESOP_ITS ---
Date of Procedure 09/08/25 Pre Op Diagnosis Symptomatic cholelithiasis Post Op Diagnosis Same Procedure Laparoscopic cholecystectomy Findings Intrahepatic gallbladder Procedure Description After discussion of risks and benefits, patient was brought to the operating room, SCDs were placed and general anesthesia was induced. She received pre operative antibiotics and was prepped and draped in the usual sterile fashion. After timeout the supraumbilical incision was made with a #15 blade and the skin was elevated with towel clamps. A Veress needle was placed through the incision and proper placement was confirmed with a drop test. The abdomen was then insufflated to 15 mmHg. The Veress needle was exchanged for a 5 mm camera using a Visiport technique. There were no signs of injury from the point of entry. 3 additional ports were placed under direct vision, one 12 mm at the epigastrium, one 5 mm right subcostal and one 5 mm right anterior axillary line. Patient was placed in reverse Trendelenburg. The gallbladder was noted to be quite intrahepatic and as such it was difficult to grasp the fundus so I first aspirated the gallbadder with return of approx 80cc of dark bile. The fundus of the gallbladder was then grasped and retracted cephalad and the infundibulum was grasped retracted laterally. The lower third of the gallbladder was freed from the gallbladder bed using electrocautery and the hepatocystic triangle was cleared of fat and fibrous tissue using blunt dissection. I continued blunt dissection in order to achieve the critical view however during this process I caused the cystic artery to bleed but was able to clip it and then bleeding stopped. I resumed blunt dissection until only the cystic duct was visible entering the gallbladder and then clipped and transected the cystic duct in the usual fashion. The gallbladder was removed from the gallbladder bed using electrocautery. The specimen was removed in an Endo Catch bag via the epigastric port and the epigastric fascia was closed with 0 Vicryl suture using a Raúl-Soren. The gallbladder bed was inspected and hemostasis was achieved with electrocautery and reinforced with surgicell powder. Pneumoperitoneum was released and ports were removed under direct vision. Incisions were irrigated and infiltrated with half percent Marcaine for a total of 30 cc. Incisions were closed with 4-0 Monocryl and reinforced with Dermabond. Patient was extubated and brought to PACU in stable condition Pathology / specimen Other (Gallbladder) Estimated Blood Loss 50 Surgeon Priscila Márquez MD Surgical Staff Operation Date: 09/08/25 11:15 Case Staff Anesthesiologist: Alex Collado RNdigital asset manager: Macarena Villalobos
--- NOTE | 2025-09-08 12:02 | SUR.PHASEI ---
Pt. arrived to recovery via gurney, eyes closed, VSS, lung sounds clear, equal expansion hector., pt. receiving 4 liters 02 via NC, pt. oral airway in place, lap sites x4 to abdomen, dermabond intact, no active bleeding or redness noted. Report received from Dr. Collado and Malcolm LUCAS.
--- NOTE | 2025-09-08 12:04 | ESDS_ITS ---
Planned Discharge Date 09/08/25 DS: Providers Provider Primary care physician: Angelo Molina PA-C Attending Provider on Admission: Priscila Márquez MD Attending Provider on DC: Priscila Márquez MD Discharging Provider: Priscila Márquez MD Diagnosis Discharge Diagnosis (1) Symptomatic cholelithiasis: Status: Acute Problem List Completed Was Problem List Reviewed/Reconciled?: Yes Exam Vital Signs Temp Pulse Resp BP Pulse Ox 99 F 94 16 162/88 H 97 09/08/25 06:00 09/08/25 06:00 09/08/25 06:00 09/08/25 06:00 09/08/25 06:00 Discharge Plan Plan Patient Disposition: HOME (Self Care) Prescriptions/Referrals Prescriptions/Med Rec: New oxycodone-acetaminophen [Percocet] 5-325 mg tablet 1 tab PO Q4H MDD 6 tabs PRN (Reason: pain) Qty: 10 0RF Rx Instructions: Take 1 tablet as needed every 4-6 hours for moderate to severe pain No Action clonidine HCl 0.1 mg tablet 0.1 mg PO BID methadone 10 mg tablet 10 mg PO Q8H PRN (Reason: Pain) Patient Comments: TAKE 1 TABLET BY MOUTH EVERY 8 HOURS NEEDED FOR PAIN (MAX 3 TABLET/DAY) baclofen 10 mg tablet 10 mg PO BID Patient Comments: TAKE 1 TABLET BY MOUTH EVERYDAY AT BEDTIME promethazine 25 mg tablet 25 mg PO Q12H PRN (Reason: n/v) Patient Comments: TAKE 1 TABLET BY MOUTH DAILY NEEDED, DO NOT EXCEED MORE THAN ONCE A DAY pregabalin 25 mg capsule 25 mg PO BID Patient Comments: TAKE 1 CAPSULE BY MOUTH TWICE A DAY NEEDED MAX 2 CAPSULES DAILY duloxetine 30 mg capsule,delayed release(DR/EC) 30 mg PO BID Patient Comments: takes once a day Q day (DME) Dexcom G6 Sensor Device See Rx Instructions .Route Qty: 3 0RF Rx Instructions: As directed (DME) Dexcom G6 Hand Thermal Cutter Misc See Rx Instructions .Route Qty: 1 0RF Rx Instructions: As directed (DME) Dexcom G6 Transmitter Device See Rx Instructions .Route Qty: 1 0RF Rx Instructions: As directed (DME) pen needle, diabetic [CareFine Pen Needle] 29 gauge x 1/2 needle See Rx Instructions .Route Qty: 100 0RF Rx Instructions: Use for insulin administration Ozempic 0.25 mg or 0.5 mg (2 mg/3 mL) pen injector 0.5 mg SUBCUT QWEEK insulin lispro 100 unit/mL insulin pen 20 unit subcut TID Rx Instructions: Administer three times per day with meals insulin glargine-aglr 100 unit/mL (3 mL) insulin pen 80 unit subcut HS Referrals: Angelo Molina PA-C [Primary Care Provider] Priscila Márquez MD [Physician, General Surgery] Patient/Caregiver Discharge Instructions Other Discharge Activity Instructions:: Avoid lifting objects >10lbs for 6 weeks You may resume showering in two days, on 09/10 Avoid bathing or swimming for 2 weeks Your incisions have skin glue on them which will fall off on its own and does not need to be replaced. Your stitches will not need to be removed If you develop worsening pain, nausea/vomiting, fever or signs of jaundice please seek care in ER Gradually resume your normal diet, but avoid fatty and greasy foods for the first couple of weeks as they may cause pain and/or diarrhea During the surgery we fill your abdomen with air in order to see the structures. Some air tends to linger and cause pain that is referred to the shoulder as well as pain with deep breaths. This will improve with time. Being out of bed and walking helps the air to absorb faster Education Materials: Cholecystectomy Laparoscopic Dc, Preventing Surgical Site Infections Print Language: Vincentian Stand Alone Forms: [employer]ierra Award Info., Patient Portal Info Letter Discharge Order Discharge Orders: Discharge (Routine); Ordered 09/08/25 Ordered By: Priscila Márquez Results Results: Laboratory Laboratory results: results reviewed Results: Imaging US - abdomen: report reviewed and image reviewed PROCEDURES: Procedure Date 09/08/25 Procedures Laparoscopic cholecystectomy
--- NOTE | 2025-09-08 12:30 | SUR.PHASEII ---
1230: Pt. AAOX4, vitals stable, breathing unlabored, complaint of pain, no complaint of nausea, x4 dermabond sites to ABD CDI, no active bleed noted, report received from Karina LUCAS.
[2025-09-08] MEDS: fentaNYL CIT INJ 50 mCg/ML AMP 2ML IVP ×2 (12:42→12:52)
--- NOTE | 2025-09-08 13:35 | SUR.PHASEII ---
1335: Pt. AAOx4, vitals stable, breathing unlabored, no complaint of pain or nausea, x4 dermabond sites to ABD CDI, no active bleed noted, pt. tolerated bites of ice chips well, pt. ambulated to wheelchair with steady gait and no assist, no complications. Gave discharge instructions given to the pt. and her ride, both verbalized understanding and had no further questions. Pt. left with all personal belongings.
--- NOTE | 2025-09-12 13:22 | ESPR_ITS ---
Documentation for date of: 09/12/25 PRE AND POST ANESTHESIA NOTE: Patient had GETA for lap cholecystectomy on 09/08/25. Pre-op, the pre-op liaison mentioned this patient having h/o chest pain. So I called and spoke with her on the phone and she reported 1-2 year h/o feeling retro-sternal and L sided chest pain, about twice a month, associated with exertion, and also chronic dyspnea on exertion. She denied worsening of this. She denied ever seeing wrapping machine operator but reported she has been referred to cardiology. She has h/o HTN and DM. I educated her in simple terms that her chest pain could be from CAD and she should see wrapping machine operator first before surgery, however she reported her gall bladder symptoms and pain bother her everyday affecting her quality of life and she preferred to proceed with the surgeon despite my recommendation and despite explaining the risks. She again denied worsening factors of her chest pain. I discussed this with the surgeon pre-op and everyone agreed to proceed. On the day of surgery, I again discussed with the patient and her son at bedside, she denied any chest pain in the interim and all agreed to proceed. I advised post op cardiology follow up. She did well intra-op. I just called and spoke with her on the phone and she denied any problems from anesthesia. She reported having post op abdominal pain and I advised her to contact her surgeon for post op pain and care concerns. I also again advised her to see a wrapping machine operator. She had no further questions for me and was thankful. Alex Collado MD Anesthesia Progress Note Progress Note Most recent Vital Signs: Last Vital Signs Temp 97.4 F 09/08/25 13:25 Pulse 91 09/08/25 13:25 Resp 15 09/08/25 13:25 BP 165/85 H 09/08/25 13:25 Pulse Ox 92 L 09/08/25 13:25 O2 Flow Rate 1 09/08/25 12:32
== END 2025-09-08 13:35 | disposition home or self-care (01) ==
PROVIDERS: Anesthesiology; PCP Family Medicine; Referring Provider Surgery; Visit Provider Surgery
PROC: 0FT44ZZ Resection of Gallbladder, Percutaneous Endoscopic Approach (ICD-10-PCS; CPT 47562; principal; 2025-09-08 11:00)
DX: K80.10 Calculus of gallbladder with chronic cholecystitis without obstruction (principal); I10 Essential (primary) hypertension; Z86.73 Personal history of transient ischemic attack (TIA), and cerebral infarction without residual deficits; Z79.84 Long term (current) use of oral hypoglycemic drugs; Z79.899 Other long term (current) drug therapy; E11.42 Type 2 diabetes mellitus with diabetic polyneuropathy; Q44.1 Other congenital malformations of gallbladder
CPT/HCPCS: 47562; 36415; 80053; 85025; 85610; 85730; A4217; A4649; J0131; J0694; J1100; J2704; J2765; J3010; J3490; A9270; J1805

== ENCOUNTER 2025-09-23 17:09 | Inpatient (IN) | payer MEDICAID, SELFPAY ==
[2025-09-23 17:10] VITALS: BMI 29.2
[2025-09-23 17:23] VITALS: BP 148/92; PULSE 115; RESP 20; TEMP 37.1; O2SAT 98
--- NOTE | 2025-09-23 17:37 | XR_ITS ---
Examination: CT abdomen with intravenous contrast CT pelvis with intravenous contrast 2-D coronal reconstructions 2-D sagittal reconstructions Date and time of exam: September 23, 2025, 1930 hours INDICATIONS: Abdominal pain nausea vomiting beginning 2 days ago. CTDI: vol (mGy) 16.99 DLP: (mGycm) 667 Technique: Multiple axial sections of the abdomen and pelvis have been obtained. 64 slice high-resolution scanner used. 3 mm axial sections have been obtained, post intravenous injection 60 cc [id number] 2-D sagittal, coronal reconstructions obtained. Low dose protocols were performed. One or more of the following dose reduction techniques were used; automated exposure control, adjustment of the mA and/or KV according to patient size, use of iterative reconstruction technique. Findings: No focal liver lesions Fluid collection with air densities in the gallbladder fossa at least 10 x 6 cm Surgical clips in the gallbladder fossa The mucosa in the body and gastric antrum thickened Spleen not enlarged No pancreatic mass No renal or ureteral calculi, no hydronephrosis 35 mm fat-containing umbilical hernia containing incarcerated fat Normal appendix No bowel obstruction Anteverted uterus Urinary bladder intact Moderate osteopenia IMPRESSION: Findings most consistent with large abscess in the gallbladder fossa, amenable to CT-guided percutaneous catheter drainage as clinically warranted Gastritis pattern 35mm umbilical hernia containing incarcerated fat
--- NOTE | 2025-09-23 17:38 | PD.EDRME ---
Rapid Medical Screening Exam RME Arrival date/time: 09/23/25 17:09 55-year-old female presents to the emergency department today for complaints of nausea vomiting abdominal pain patient reports recent history of cholecystectomy. Patient also states that her blood sugars have been labile Chief Complaint: General Adult/Misc Complain Vital signs: Vital Signs Temperature 98.7 F 09/23/25 17:23 Pulse Rate 115 H 09/23/25 17:23 Respiratory Rate 20 09/23/25 17:23 Blood Pressure 148/92 H 09/23/25 17:23 Pulse Oximetry (%) 98 09/23/25 17:23 Oxygen Delivery Method Room Air 09/23/25 17:23 Vital signs reviewed by provider: Yes Exam: On exam patient appears to be in pain Clinical Impression: Lab work and imaging ordered
[2025-09-23 18:00] LABS: Lactate (Lactic Acid) 1.7 mMol/L (0.4-2.0)
[2025-09-23 18:01] LABS: Basophils # (Auto) 0.0 Thou/mm3 (0.0-0.2); Basophils % (Auto) 1 % (0-2.5); Eosinophils # (Auto) 0.1 Thou/mm3 (0.0-0.5); Eosinophils % (Auto) 1 % (0-10); Hematocrit 41.1 % (36.0-46.0); Hemoglobin 13.3 g/dL (12.0-16.0); Immature Granulocytes Auto 0.06 Thou/mm3 (0.00-0.00); Lymphocytes # (Auto) 2.2 Thou/mm3 (1.0-4.8); Lymphocytes % (Auto) 25 % (10-50); Mean Corpuscular HGB Conc 32.4 g/dl (31.0-37.0); Mean Corpuscular Hemoglobin 28.7 pg (25.0-35.0); Mean Corpuscular Volume 89 fL (80-100); Monocytes # (Auto) 0.6 Thou/mm3 (0.0-0.8); Monocytes % (Auto) 7 % (0-12); Neutrophils # (Auto) 5.8 Thou/mm3 (1.8-7.7); Neutrophils % (Auto) 66 % (37-80); Nucleated Red Blood Cell # 0.00 Thou/mm3 (0.00-0.00); Nucleated Red Blood Cell % 0 /100 WBC (0); Platelet Count 510 Thou/mm3 (140-440); RDW Standard Deviation 42.0 fL (36.4-46.3); Red Blood Count 4.64 Miln/mm3 (4.00-5.20); White Blood Count 8.8 Thou/mm3 (3.6-11.0)
[2025-09-23 18:01] LABS: Base Excess, Venous 4 (-3-3); O2 Saturation, Venous 91 % (96-97); PCO2, Venous 38 mmHg (36-56); PO2, Venous 53 mmHg (15-58); pH, Venous 7.47 (7.33-7.66)
[2025-09-23 18:05] LABS: Beta Hydroxybutyrate 0.1 mmol/L (<0.6)
[2025-09-23 18:17] LABS: Glucose Estimated Average 166 mg/dL (80-131); Hemoglobin A1C 7.4 % Hgb (4.8-6.0)
[2025-09-23 18:24] LABS: Alanine Aminotransferase 16 U/L (10-49); Albumin, Serum 4.9 gm/dL (3.5-5.0); Albumin/Globulin Ratio 1.5 (1.2-2.2); Alkaline Phosphatase 166 U/L (46-116); Anion Gap 10 (7-16); Aspartate Amino Transferase 17 U/L (0-34); BUN/Creatinine Ratio 28 Ratio (12-20); Bilirubin,Total 0.3 mg/dL (0.3-1.2); Blood Urea Nitrogen 22 mg/dL (9-23); Calcium 10.0 mg/dL (8.3-10.6); Calcium (Corrected) 10.0 mg/dL (8.5-10.1); Carbon Dioxide 28.3 mMol/L (20.0-31.0); Chloride 99 mMol/L (98-107); Creatinine (Component) 0.8 mg/dL (0.6-1.3); Estimated Creatinine Clearance 78.8 mL/min (>60); Globulin 3.2 gm/dL (2.3-3.5); Glucose 286 mg/dL (74-106); Lipase 22 U/L (12-53); Osmolality,Calculated 287 (275-295); Potassium 4.3 mMol/L (3.4-5.1); Sodium 137 mMol/L (136-145); Total Protein 8.1 gm/dL (5.7-8.2); eGFR > 60 See Note
[2025-09-23 18:26] LABS: Procalcitonin 0.04 ng/ml (0.0-0.49)
[2025-09-23 18:28] LABS: Collection Type, Urine Clean Catch
[2025-09-23 18:50] LABS: Bilirubin,Urine Negative (Negative); Blood,Urine Negative (Negative); Clarity,Urine Clear (Clear/Hazy); Color,Urine Yellow (Lt Yel-Yel); Glucose, Urine Trace (Negative); Ketones,Urine Negative (Negative); Leukocyte Esterase,Urine Positive (Negative); Nitrite,Urine Negative (Negative); PH,Urine 6.0 (5.0-7.0); Protein,Urine Trace (Neg - Trace); RBC,Urine 1 /hpf (0-3); Specific Gravity,Urine 1.028 (1.001-1.035); Squamous Epithelial Cell,Urine 1 /hpf (0-5); Urobilinogen,Urine Negative mg/dL (0.0-1.0); WBC,Urine 1 /hpf (0-5)
--- NOTE | 2025-09-23 18:55 | PD.EDADULT ---
ED General RME/HPI General Chief complaint: General Adult/Misc Complain Stated complaint: MULTIPLE COMPLAINTS Time Seen by Provider: 09/23/25 18:55 Arrival date/time: 09/23/25 17:09 RME / HPI RME / HPI narrative: 09/23/25 17:09 55-year-old female presents to the emergency department today for complaints of nausea vomiting abdominal pain patient reports recent history of cholecystectomy. Patient also states that her blood sugars have been labile Dr. Foss?s Main ED Evaluation: 55yo female with a hisyory of DM, HTN presents to the ED for a chief complaint of worsening RUQ pain x yesterday. Patient reports associated headache and general malaise. Patient had a recent cholecystectomy on 09/08/25. Denies any other associated symptoms. Related Data Home Medications ?Medication ?Instructions ?Recorded ?Confirmed baclofen 10 mg tablet 10 mg PO BID 09/14/22 09/08/25 clonidine HCl 0.1 mg tablet 0.1 mg PO BID 09/14/22 09/08/25 methadone 10 mg tablet 10 mg PO Q8H PRN Pain 09/14/22 09/08/25 pregabalin 25 mg capsule 25 mg PO BID 09/14/22 09/08/25 promethazine 25 mg tablet 25 mg PO Q12H PRN n/v 09/14/22 09/08/25 duloxetine 30 mg capsule,delayed 30 mg PO BID 04/30/25 09/08/25 release insulin glargine-aglr 100 unit/mL 80 unit subcut HS 09/07/25 09/08/25 (3 mL) subcutaneous pen insulin lispro 100 unit/mL 20 unit subcut TID 09/07/25 09/08/25 subcutaneous pen semaglutide 0.25 mg or 0.5 mg (2 0.5 mg subcut QWEEK 09/07/25 09/07/25 mg/3 mL) subcutaneous pen injector (Ozempic) Previous Rx's ?Medication ?Instructions ?Recorded blood-glucose sensor (Dexcom G6 #3 ea 05/02/25 Sensor device) blood-glucose transmitter (Dexcom #1 ea 05/02/25 G6 Transmitter device) blood-glucose,supervisor lace tearing,cont #1 ea 05/02/25 (Dexcom G6 Assembler Adjuster) pen needle, diabetic 29 gauge x #100 ea 05/02/25 1/2 (CareFine Pen Needle) oxycodone-acetaminophen 5 mg-325 1 tab PO Q4H PRN pain #10 tabs 09/20/25 mg tablet (Percocet) Allergies Allergy/AdvReac Type Severity Reaction Status Date / Time barium iodide Allergy Severe PASSED OUT Verified 09/23/25 17:14 cephalexin Allergy Severe ITCHING Verified 09/23/25 17:14 AND VOMITING codeine Allergy Severe FAINTS Verified 09/23/25 17:14 ibuprofen Allergy Severe Swelling Verified 09/23/25 17:14 of Lip/Tongue/Throat Penicillins Allergy Severe HIVES AND Verified 09/23/25 17:14 DIFF BREATHING aspirin Allergy Unknown RASH Verified 09/23/25 17:14 Review of Systems Review of Systems Systems Reviewed: All systems reviewed, normal except as documented Past Medical History Past Medical History NEUROLOGIC: Positive Neurological Disorders and Cerebrovascular Accident (11 yrs ago); Negative Seizures CARDIAC: Positive Cardiac Disorders, Cellulitis and Hypertension; Negative Congestive Heart Failure or Varicose Veins RESPIRATORY: Positive Pneumonia; Negative Chronic Obstructive Pulmonary Disease (COPD) or Asthma GASTROINTESTINAL: Positive Gastrointestinal Disorders, Gall Bladder Disease, Irritable Bowel and Gastroesophageal Reflux Disease; Negative Hepatitis GENITOURINARY: Negative Genitourinary Disorders or Renal Disease REPRODUCTIVE: Positive Previous Pregnancies; Negative Pelvic Inflammatory Disease MUSCULOSKELETAL: Positive Musculoskeletal Disorders, Arthritis (tendonitis elbows, knee pain, bursitis hip), Degenerative Disk Disease and Fibromyalgia; Negative Fractures ENT: Negative Cataracts ENDOCRINE: Positive Endocrine Disorders and Diabetes Mellitus Type 2; Negative Diabetes Mellitus Type 1 HEMATOLOGIC: Negative Blood Disorders or Sickle Cell Disease PSYCHO/SOCIAL: Negative Depression OTHER HISTORY: Positive Hospitalization and Falls; Negative Autoimmune Disease, Shingles, Blood Transfusions, Blood Transfusion Reaction, Anesthesia Reactions, MRSA, Clostridium Difficile or Cancer Family History FAMILY HISTORY: Positive Family Cardiac Disorders; Negative Family Psychiatric Problems, Family Respiratory Disorders, Family Gastrointestinal Problems, Family Cancer, Family Surgery or Family Anesthesia Reaction Surgical History SURGICAL: Positive Section (X1) Social History SMOKING STATUS: Never smoker SUBSTANCE USE: former substance user ED Exam Narrative Physical exam: Generally patient is alert nontoxic in appearance but mild distress secondary to pain, heart borderline tachycardic rate at approximately 100 with regular rhythm, lungs clear to auscultation equal bilaterally, abdomen soft bowel sounds present laparoscopic wounds appear without erythema or discharge. There is right upper quadrant and epigastric abdominal tenderness without rebound. Abdomen is minimally distended., Neurologic exam Sai Coma Scale 15 without focal motor deficit Course Quality Measures none Orders Category Date Time Status CT Screening NOW Care 09/23/25 17:37 Active Insert IV NOW Care 09/23/25 17:[address] abdomen pelvis w con Stat Exams 09/23/25 17:37 Completed A1C [Glycohemoglobin w (eAG)] Stat Lab 09/23/25 17:50 Completed Beta Hydroxybutyrate Stat Lab 09/23/25 17:50 Completed Blood Culture (Lab) Stat Lab 09/23/25 17:55 Received CBC Stat Lab 09/23/25 17:50 Completed Comprehensive Metabolic Panel Stat Lab 09/23/25 17:50 Completed Lactate (Lactic Acid) Stat Lab 09/23/25 17:50 Completed Lipase Stat Lab 09/23/25 17:50 Completed Procalcitonin Stat Lab 09/23/25 17:50 Completed Urinalysis Stat Lab 09/23/25 18:00 Completed Urine Culture Stat Lab 09/23/25 18:00 Received VBG [Venous Blood Gas] Stat Lab 09/23/25 17:52 Completed Levofloxacin/D5w 500 mg Ivpb [Levaquin Ivpb] Med 09/23/25 20:12 Active 500 mg in 100 ml IV X1 Morphine* Inj Med 09/23/25 19:03 Discontinued 4 mg IVP X1 ONE Vancomycin Pharmacy to Dose Med 09/23/25 20:15 Active 1 each IV QDAY Vancomycin/D5w 1500 mg Ivpb 300 ml Med 09/23/25 20:30 Active IV X1 metroNIDAZOLE/NS 500 MG IVPB [Flagyl 500 mg IV] Med 09/23/25 20:12 Active 500 mg in 100 ml IV X1 Vital Signs Vital signs: Vital Signs Temperature 98.7 F 09/23/25 17:23 Pulse Rate 115 H 09/23/25 17:23 Respiratory Rate 20 09/23/25 17:23 Blood Pressure 148/92 H 09/23/25 17:23 Pulse Oximetry (%) 98 09/23/25 17:23 Oxygen Delivery Method Room Air 09/23/25 17:23 Discharge Plan Plan Patient Disposition: Admit Acute Care w/in Hospital Prescriptions/Referrals Prescriptions/Med Rec: No Action oxycodone-acetaminophen [Percocet] 5-325 mg tablet 1 tab PO Q4H MDD 6 tabs PRN (Reason: pain) Qty: 10 0RF Rx Instructions: Take 1 tablet as needed every 4-6 hours for moderate to severe pain clonidine HCl 0.1 mg tablet 0.1 mg PO BID methadone 10 mg tablet 10 mg PO Q8H PRN (Reason: Pain) Patient Comments: TAKE 1 TABLET BY MOUTH EVERY 8 HOURS NEEDED FOR PAIN (MAX 3 TABLET/DAY) baclofen 10 mg tablet 10 mg PO BID Patient Comments: TAKE 1 TABLET BY MOUTH EVERYDAY AT BEDTIME promethazine 25 mg tablet 25 mg PO Q12H PRN (Reason: n/v) Patient Comments: TAKE 1 TABLET BY MOUTH DAILY NEEDED, DO NOT EXCEED MORE THAN ONCE A DAY pregabalin 25 mg capsule 25 mg PO BID Patient Comments: TAKE 1 CAPSULE BY MOUTH TWICE A DAY NEEDED MAX 2 CAPSULES DAILY duloxetine 30 mg capsule,delayed release(DR/EC) 30 mg PO BID Patient Comments: takes once a day Q day (DME) Dexcom G6 Sensor Device See Rx Instructions .Route Qty: 3 0RF Rx Instructions: As directed (DME) Dexcom G6 Assembler Adjuster Misc See Rx Instructions .Route Qty: 1 0RF Rx Instructions: As directed (DME) Dexcom G6 Transmitter Device See Rx Instructions .Route Qty: 1 0RF Rx Instructions: As directed (DME) pen needle, diabetic [CareFine Pen Needle] 29 gauge x 1/2 needle See Rx Instructions .Route Qty: 100 0RF Rx Instructions: Use for insulin administration Ozempic 0.25 mg or 0.5 mg (2 mg/3 mL) pen injector 0.5 mg SUBCUT QWEEK insulin lispro 100 unit/mL insulin pen 20 unit subcut TID Rx Instructions: Administer three times per day with meals insulin glargine-aglr 100 unit/mL (3 mL) insulin pen 80 unit subcut HS Problem List Clinical Impression: Intra-abdominal abscess Patient/Caregiver Discharge Instructions Print Language: Venezuelan Stand Alone Forms: [employer] Info., Patient Portal Info Letter MDM Narrative MDM hospital course (for use when minimal MDM required): Scribe Attestation: 09/23/25 - Esha Terrell am scribing for and in the presence of Dr. Foss. Patient is afebrile with a white count of 8800. CT scan done the abdomen pelvis with IV contrast showed abscess within the gallbladder fossa. Patient has multiple allergies to antibiotics including penicillin and cephalosporin. Patient was given Levaquin 500 milligrams IV, Flagyl 500 mg IV and vancomycin dosed by pharmacy. Patient was also given morphine 4 mg IV x 2 for pain. I spoke with the patient's general surgeon, Dr. Márquez who asked for the patient to be admitted by the hospitalist and she will consult on this patient. I spoke with the hospitalist and presented the case to them and they will come down to admit the patient for further treatment and evaluation. While here in the hospital the patient most likely will undergo interventional radiology CT-guided drainage of the gallbladder wall fossa abscess. Clinical Information Provided by: patient Medical Records reviewed [facility] (Per chart review, patient was admitted here on 08/29/25 for acalculous cholecystitis) Meds/Rx considered, not ordered None Labs/Rad/Tests considered, not ordered None Chronic Illness/Social Conditions Explain: Hx prior stroke, DM, HTN Labs Labs: interpreted by me Imaging Imaging interpretation: interpreted by me Imaging Interpretation(s): [facility] Report Signed Patient: JAMES GREENE [facility]. Record#: [id number] Birthdate: 1970 Age/Sex: 55 / F Location: [facility] Attending Dr: Ordering Physician: Cameron RANDALL)Fly NP Date of Service: 09/23/25 Procedure(s): CT abdomen pelvis w con Accession Number(s): [id number] cc: Cameron RANDALL),Fly ABEBE; Abhijeet Power MD~ Examination: CT abdomen with intravenous contrast CT pelvis with intravenous contrast 2-D coronal reconstructions 2-D sagittal reconstructions Date and time of exam: September 23, 2025, 1930 hours INDICATIONS: Abdominal pain nausea vomiting beginning 2 days ago. CTDI: vol (mGy) 16.99 DLP: (mGycm) 667 Technique: Multiple axial sections of the abdomen and pelvis have been obtained. 64 slice high-resolution scanner used. 3 mm axial sections have been obtained, post intravenous injection 60 cc [id number] 2-D sagittal, coronal reconstructions obtained. Low dose protocols were performed. One or more of the following dose reduction techniques were used; automated exposure control, adjustment of the mA and/or KV according to patient size, use of iterative reconstruction technique. Findings: No focal liver lesions Fluid collection with air densities in the gallbladder fossa at least 10 x 6 cm Surgical clips in the gallbladder fossa The mucosa in the body and gastric antrum thickened Spleen not enlarged No pancreatic mass No renal or ureteral calculi, no hydronephrosis 35 mm fat-containing umbilical hernia containing incarcerated fat Normal appendix No bowel obstruction Anteverted uterus Urinary bladder intact Moderate osteopenia IMPRESSION: Findings most consistent with large abscess in the gallbladder fossa, amenable to CT-guided percutaneous catheter drainage as clinically warranted Gastritis pattern 35mm umbilical hernia containing incarcerated fat Dictated By: Abhijeet Power MD Signed By: <Electronically signed by Abhijeet Power MD in OV> 09/23/251999 Medication Administration(s) Medication Administration History Metronidazole (Flagyl 500 Mg Iv) 500 mg in 100 mls @ 100 mls/hr IV X1 ONE Stop: 09/23/25 21:11 Last Admin: 09/23/25 20:45 Dose: 100 mls/hr Documented By: WO Levofloxacin/Dextrose (Levaquin Ivpb) 500 mg in 100 mls @ 100 mls/hr IV X1 ONE Stop: 09/23/25 21:11 Last Admin: 09/23/25 20:45 Dose: 100 mls/hr Documented By: WO Vancomycin HCl/Dextrose (Vancomycin/D5w 1500 Mg Ivpb) 300 mls @ 120 mls/hr IV X1 ONE Stop: 09/23/25 22:59 Pharmacy Consult (Vancomycin Pharmacy To Dose 1 Each Each) 1 each IV QDAY DANII Stop: 10/23/25 20:14 Discontinued Medications Morphine Sulfate (Morphine Sulf Inj 4 Mg/Ml Vial) 4 mg IVP X1 ONE Stop: 09/23/25 19:04 Last Admin: 09/23/25 19:19 Dose: 4 mg Documented By: WO see above Diagnosis Differential Diagnosis ED Complaint MDM: See MDM
[2025-09-23 19:03] VITALS: BP 142/96; PULSE 109; RESP 22; TEMP 37.2; O2SAT 96
[2025-09-23] MEDS: MORPHINE SULF INJ 4 MG/ML VIAL IVP ×2 (19:19→21:08)
--- NOTE | 2025-09-23 20:18 | PC.NURSE ---
2018, CALLED AND LEFT MESSAGE , WANTING TO SPEAK TO THEM IN REGARDS TO PT.
[2025-09-23] MEDS: LEVOFLOXACIN/D5W 500 MG IVPB 500 MG/100 ML BAG 100 MG IV (20:45)
[2025-09-23] MEDS: metroNIDAZOLE/NS 500 MG IVPB 500 MG/100 ML BAG 100 MG IV (20:45)
--- NOTE | 2025-09-23 21:37 | ESHP_ITS ---
<Statement entered by Jaswant Sandy MD - 09/24/25 06:04> I have discussed and was present for the essential components of the history, physical examination, diagnosis, and treatment plan with the resident. I agree with the patient's care as documented by the resident and amended herein by me. Jaswant Sandy MD FACP. Documentation for date of: 09/23/25 HPI History of Present Illness History of present illness: 55-year-old female with a medical history of type 2 diabetes mellitus (on insulin), peripheral neuropathy, chronic pain secondary to a herniated disc on methadone, hypertension, and a prior cerebrovascular accident 6 years ago, who presents to the ED with complaints of right upper quadrant abdominal pain. She has been experiencing persistent right upper quadrant and epigastric discomfort for the past day, which is associated with nausea but no vomiting. The pain has worsened since yesterday. The patient underwent a laparoscopic cholecystectomy on September 08, performed by Dr. Nix, and has been recovering from the procedure; however, she reports a recent increase in pain, which is now more pronounced. Additionally, she complains of a headache that she describes as migraine-like in nature. Upon discharge following her surgery, the patient was prescribed Percocet for pain management but was not given any antibiotics at that time. Her oral intake has decreased, and she has been consuming soft foods due to discomfort. Patient not complaining of any SOB, chest pain, fever, chills, or weight loss. ED course: Initial vitals in ED include T 98.7, BP 148/92, HR 115, RR 20, O2 saturation 98% on room air. CT Abdo/pelvis showed large abscess in the gallbladder fossa. CBC unremarkable, CMP showed normal renal function, normal LFTs, negative procalcitonin, negative lipase, A1c 7.4. Patient received morphine 4 mg IV x 2, metronidazole 500 mg IV x 1, levofloxacin 500 mg IV x 1, vancomycin IV x 1. Past medical history: As stated above. Past surgical history: Cholecystectomy 09/08/2025, 2 C-sections Allergies: Barium iodide, cephalexin, codeine, ibuprofen, penicillin, aspirin Family history: Noncontributory. Social history: No alcohol use, no smoking, no illicit drug use. Patient admitted for intra-abdominal abscess pending surgical evaluation by Dr. Márquez. Review of Systems Review of Systems Narrative Review of Systems: All systems reviewed negative unless stated otherwise above. Exam Vital Signs Temp Pulse Resp BP Pulse Ox O2 Del Method 99 F 109 H 22 H 142/96 H 96 Room Air 09/23/25 19:03 09/23/25 19:03 09/23/25 19:03 09/23/25 19:03 09/23/25 19:03 09/23/25 19:03 Narrative Exam General: AOx3, in moderate distress, able to speak full sentences, Telugu speaking HEENT: NC/AT, mucous membranes moist, bilateral sclera anicteric Cardiovascular: regular rate and rhythm, S1/S2 present, no murmurs appreciated Pulmonary: clear to auscultation bilaterally, no rales/rhonchi/wheezes Abdominal: soft, non-distended, tenderness to minimal palpation on RUQ, v oluntary guarding but not involuntary with questionable rebound tenderness, normal bowel sounds present Musculoskeletal: normal ROM, no peripheral edema Skin: warm and dry, intact, no rashes Neuro: CN II-XII intact, no focal deficits Results: Labs 09/23/25 17:50 09/23/25 17:50 Labs: Short CBC 09/23/25 Range/Units 17:50 WBC 8.8 (3.6-11.0) Thou/mm3 Hgb 13.3 (12.0-16.0) g/dL Hct 41.1 (36.0-46.0) % Plt Count 510 H D (140-440) Thou/mm3 BMP 09/23/25 17:50 Sodium 137 Potassium 4.3 Chloride 99 Carbon Dioxide 28.3 BUN 22 Creatinine 0.8 Glucose 286 H Calcium 10.0 Liver Function 09/23/25 Range/Units 17:50 Total Bilirubin 0.3 (0.3-1.2) mg/dL AST 17 (0-34) U/L ALT 16 (10-49) U/L Alkaline Phosphatase 166 H (46-116) U/L Albumin 4.9 (3.5-5.0) gm/dL Urine 09/23/25 Range/Units 18:00 Urine Color Yellow (Lt Yel-Yel) Urine Clarity Clear (Clear/Hazy) Urine pH 6.0 (5.0-7.0) Ur Specific [place] 1.028 (1.001-1.035) Urine Protein Trace (Neg - Trace) Urine Glucose (UA) Trace (Negative) ABG Interpretation ABG results: 09/23/25 17:52 VBG pH 7.47 VBG pCO2 38 VBG pO2 53 VBG Base Excess 4 H Quality Measures Quality Measures none Medications Home Medications and Allergies Home Medications ?Medication ?Instructions ?Recorded ?Confirmed ?Type baclofen 10 mg tablet 10 mg PO BID 09/14/22 History clonidine HCl 0.1 mg tablet 0.1 mg PO BID 09/14/22 History methadone 10 mg tablet 10 mg PO Q8H PRN Pain 09/08/25 History pregabalin 25 mg capsule 25 mg PO BID 09/14/22 History promethazine 25 mg tablet 25 mg PO Q12H PRN n/v 09/08/25 History duloxetine 30 mg capsule,delayed 30 mg PO BID 04/30/25 09/08/25 History release insulin glargine-aglr 100 unit/mL 80 unit subcut HS 09/08/25 History (3 mL) subcutaneous pen insulin lispro 100 unit/mL 20 unit subcut TID 09/07/25 09/08/25 History subcutaneous pen semaglutide 0.25 mg or 0.5 mg (2 0.5 mg subcut QWEEK 1 09/07/25 History mg/3 mL) subcutaneous pen injector (Ozempic) Allergies Allergy/AdvReac Type Severity Reaction Status Date / Time barium iodide Allergy Severe PASSED OUT Verified 09/23/25 17:14 cephalexin Allergy Severe ITCHING Verified 09/23/25 17:14 AND VOMITING codeine Allergy Severe FAINTS Verified 09/23/25 17:14 ibuprofen Allergy Severe Swelling Verified 09/23/25 17:14 of Lip/Tongue/Throat Penicillins Allergy Severe HIVES AND Verified 09/23/25 17:14 DIFF BREATHING aspirin Allergy Unknown RASH Verified 09/23/25 17:14 Visit Medications Acetaminophen (Acetaminophen 325 Mg Tablet) 650 mg PO Q6H PRN PRN Reason: Fever >101.5 Stop: 10/23/25 21:21 Vancomycin HCl/Dextrose (Vancomycin/D5w 1500 Mg Ivpb) 300 mls @ 120 mls/hr IV X1 ONE Stop: 09/23/25 22:59 Ciprofloxacin/Dextrose (Cipro Ivpb) 400 mg in 200 mls @ 200 mls/hr IV Q12HR [facility] Stop: 10/01/25 08:59 Metronidazole (Flagyl 500 Mg Iv) 500 mg in 100 mls @ 200 mls/hr IV Q8HR [facility] Stop: 10/01/25 00:59 Morphine Sulfate (Morphine Sulf Inj 4 Mg/Ml Vial) 4 mg IVP Q4HR PRN PRN Reason: PAIN SCALE 7-10 (Severe Stop: 09/28/25 21:30 Ondansetron HCl (Ondansetron Inj 2 Mg/Ml Inj 2 Ml) 4 mg IVP Q6H PRN; Protocol PRN Reason: NAUSEA OR VOMITING Stop: 10/23/25 21:21 Pantoprazole Sodium (Pantoprazole Inj 40 Mg Vial) 40 mg IVP QDAY [facility] Stop: 10/24/25 08:59 Pharmacy Consult (Vancomycin Pharmacy To Dose 1 Each Each) 1 each IV QDAY [facility] Stop: 10/23/25 20:14 Discontinued Medications Clonidine (Clonidine Hcl 0.1 Mg Tablet) 0.1 mg PO X1 ONE Stop: 09/23/25 21:28 Metronidazole (Flagyl 500 Mg Iv) 500 mg in 100 mls @ 100 mls/hr IV X1 ONE Stop: 09/23/25 21:11 Last Admin: 09/23/25 20:45 Dose: 100 mls/hr Levofloxacin/Dextrose (Levaquin Ivpb) 500 mg in 100 mls @ 100 mls/hr IV X1 ONE Stop: 09/23/25 21:11 Last Admin: 09/23/25 20:45 Dose: 100 mls/hr Morphine Sulfate (Morphine Sulf Inj 4 Mg/Ml Vial) 4 mg IVP X1 ONE Stop: 09/23/25 19:04 Last Admin: 09/23/25 19:19 Dose: 4 mg Morphine Sulfate (Morphine Sulf Inj 4 Mg/Ml Vial) 4 mg IVP X1 ONE Stop: 09/23/25 20:55 Last Admin: 09/23/25 21:08 Dose: 4 mg Assessment & Plan Plan 55-year-old female with a medical history of type 2 diabetes mellitus (on insulin), peripheral neuropathy, chronic pain secondary to a herniated disc on methadone, HTN, and a prior CVA 6 years ago, who presents to the ED with complaints of RUQ x1 day. Patient admitted for intra-abdominal abscess pending surgical evaluation by Dr. Márquez. #Intra-abdominal abscess #Gallbladder fossa abscess #History of cholecystectomy Afebrile and nontoxic-appearing. On abdominal exam had tenderness to minimal palpation on right upper quadrant, voluntary guarding but not involuntary with questionable rebound tenderness, normal bowel sounds present. CT abdomen showed fluid collection with air densities in the gallbladder fossa at least 10 x 6 cm WBC within normal range Pro-Russell unremarkable UA unremarkable Patient had laparoscopic cholecystectomy on 09/[address] Márquez Plan: ? Surgical consult placed, Dr. Márquez aware, to assess in a.m. ? Dr. Márquez to assess the patient before any decision on IR drainage is made ? Ciprofloxacin 400 mg IV every 12 hours ? Metronidazole 500 mg every 8 hours ? Follow-up blood culture and urine culture #Type 2 diabetes, insulin-dependent A1c on admission 7.4 Plan: ? Insulin sliding scale #Hypertension Patient takes clonidine 0.1 mg p.o. twice daily Clonidine 0.1 mg x 1 was given in ED Plan ? Resumed home clonidine #Peripheral neuropathy, chronic pain?herniated disc Patient takes methadone at home Plan: ? Pending med recon ? Day team to contact pharmacy for methadone dosing #History of CVA, 6 years ago Per patient does not take aspirin because of allergy and not on any statin medication Plan ? Lipid panel ordered in a.m. Health Maintenance: Diet: N.p.o. after midnight GI prophylaxis: Protonix 40 mg daily DVT prophylaxis: SCDs Antibiotics: Ciprofloxacin and metronidazole CODE STATUS: Full [facility] Case discussed with my attending Dr. Sandy, and senior resident, Dr. Ivan Miller MD PGY-1
[2025-09-23] MEDS: VANCOMYCIN/D5W 1500 MG IVPB 300 ML 120 MG IV (22:01)
[2025-09-23 22:06] VITALS: BP 152/86; PULSE 103; PULSE 105; RESP 17; TEMP 37.2; O2SAT 97
[2025-09-23 22:33] VITALS: BMI 27.1
--- NOTE | 2025-09-23 22:52 | PC.NURSE ---
[facility]Rec unable to be completed due to patient unable to recall medications. Son will bring medications.
[2025-09-24] VITALS (17 sets, daily range): BP systolic 121–162; BP diastolic 61–97; PULSE 79–98; RESP 10–22; TEMP 36.3–36.6; O2SAT 92–100
[2025-09-24] MEDS: MORPHINE SULF INJ 4 MG/ML VIAL IVP ×4 (01:27→14:18)
[2025-09-24] MEDS: metroNIDAZOLE/NS 500 MG IVPB 500 MG/100 ML BAG 200 MG IV ×3 (03:16→22:06)
[2025-09-24 06:14] LABS: Basophils # (Auto) 0.1 Thou/mm3 (0.0-0.2); Basophils % (Auto) 1 % (0-2.5); Eosinophils # (Auto) 0.1 Thou/mm3 (0.0-0.5); Eosinophils % (Auto) 2 % (0-10); Hematocrit 38.2 % (36.0-46.0); Hemoglobin 12.4 g/dL (12.0-16.0); Immature Granulocytes Auto 0.04 Thou/mm3 (0.00-0.00); Lymphocytes # (Auto) 2.5 Thou/mm3 (1.0-4.8); Lymphocytes % (Auto) 31 % (10-50); Mean Corpuscular HGB Conc 32.5 g/dl (31.0-37.0); Mean Corpuscular Hemoglobin 28.8 pg (25.0-35.0); Mean Corpuscular Volume 89 fL (80-100); Monocytes # (Auto) 0.7 Thou/mm3 (0.0-0.8); Monocytes % (Auto) 9 % (0-12); Neutrophils # (Auto) 4.5 Thou/mm3 (1.8-7.7); Neutrophils % (Auto) 57 % (37-80); Nucleated Red Blood Cell # 0.00 Thou/mm3 (0.00-0.00); Nucleated Red Blood Cell % 0 /100 WBC (0); Platelet Count 428 Thou/mm3 (140-440); RDW Standard Deviation 42.3 fL (36.4-46.3); Red Blood Count 4.30 Miln/mm3 (4.00-5.20); White Blood Count 7.9 Thou/mm3 (3.6-11.0)
[2025-09-24 06:37] LABS: Alanine Aminotransferase 14 U/L (10-49); Albumin, Serum 4.5 gm/dL (3.5-5.0); Albumin/Globulin Ratio 1.5 (1.2-2.2); Alkaline Phosphatase 151 U/L (46-116); Anion Gap 9 (7-16); Aspartate Amino Transferase 16 U/L (0-34); BUN/Creatinine Ratio 30 Ratio (12-20); Bilirubin,Total 0.4 mg/dL (0.3-1.2); Blood Urea Nitrogen 18 mg/dL (9-23); Calcium 9.7 mg/dL (8.3-10.6); Calcium (Corrected) 9.7 mg/dL (8.5-10.1); Carbon Dioxide 29.7 mMol/L (20.0-31.0); Cardiac Risk Estimate 3.3 RATIO (3.7-5.6); Chloride 101 mMol/L (98-107); Cholesterol 232 mg/dL (132-200); Creatinine (Component) 0.6 mg/dL (0.6-1.3); Estimated Creatinine Clearance 101.5 mL/min (>60); Globulin 3.0 gm/dL (2.3-3.5); Glucose 100 mg/dL (74-106); HDL Cholesterol 71 mg/dL (40-60); LDL Cholesterol,Calculated 132 mg/dL (0-130); Magnesium 1.9 mg/dL (1.6-2.6); Osmolality,Calculated 281 (275-295); Phosphorous 4.8 mg/dL (2.4-5.1); Potassium 4.4 mMol/L (3.4-5.1); Sodium 140 mMol/L (136-145); Total Protein 7.5 gm/dL (5.7-8.2); Triglycerides 144 mg/dL (30-150); eGFR > 60 See Note
--- NOTE | 2025-09-24 07:49 | ESPR_ITS ---
<Statement entered by Destiny Barbosa MD - 09/24/25 16:37> Patient is seen at bedside currently is in significant amount of pain is sitting upright in her bed stating this is the only position that is slightly comfortable. There is a large abscess noted on imaging plan is for IR drainage. Will continue IV antibiotics and IV pain control with morphine Q4HR Patient was seen and examined by me personally. I have directly supervised and reviewed documentation by the team resident and agree with its findings. ------- Plan of care was discussed with the attending, Dr. Dre Barbosa, PGY-2 Documentation for date of: 09/24/25 Subjective Subjective Interval history: Ms. Angel reports severe RUQ abdominal pain, worse with laying down. Associated with nausea, but no vomiting. Diarrhea 2 days ago, no blood in stool. Last PO intake 11 am 09/23. Dr. Márquez examined patient, recommended IR drain placement for gallbladder fossa abscess. Exam Vital Signs Temp Pulse Resp BP Pulse Ox O2 Del Method 97.4 F 82 15 139/80 H 97 Room Air 09/24/25 04:00 09/24/25 04:00 09/24/25 04:00 09/24/25 04:00 09/24/25 04:00 09/24/25 04:00 Narrative Exam General: No acute distress, well nourished Eye: PERRL, EOMI, normal conjunctiva, no scleral icterus HENT: Normocephalic, atraumatic, normal hearing, moist oral mucosa Neck: Supple, non-tender, no JVD, no lymphadenopathy Lungs: Clear to auscultation bilaterally, non-labored respirations, symmetric chest rise, no use of accessory muscles Heart: Normal S1 and S2, no S3 or S4 appreciated. Normal rate and regular rhythm, no murmurs, rubs gallops, or edema. Peripheral pulses intact bilaterally, capillary refill brisk distally Abdomen: Soft, RUQ TTP, non-distended, normal bowel sounds. No guarding or rebound tenderness. Musculoskeletal: Normal range of motion and strength, no tenderness or swelling Skin: Skin is warm, dry, no rashes or lesions. Laparoscopic incisions present and clean on abdomen Neurologic: Alert, awake and oriented x3. CN II-XII grossly intact. No focal neuro deficits. No signs of meningeal irritation noted. Psychiatric: Cooperative, appropriate mood and affect Objective Labs 09/24/25 05:20 09/24/25 05:20 Labs: Laboratory Results - last 24 hr 09/23/25 09/23/25 09/23/25 17:50 17:52 18:00 WBC 8.8 RBC 4.64 Hgb 13.3 Hct 41.1 MCV 89 MCH 28.7 MCHC 32.4 RDW Std Deviation 42.0 Plt Count 510 H D Neut % (Auto) 66 Lymph % (Auto) 25 [place] % (Auto) 7 Eos % (Auto) 1 Baso % (Auto) 1 Neut # (Auto) 5.8 Lymph # (Auto) 2.2 [place] # (Auto) 0.6 Eos # (Auto) 0.1 Baso # (Auto) 0.0 Immature Gran # (Auto) 0.06 H Absolute Nucleated RBC 0.00 Immature Gran % 1 H Nucleated RBC % 0 VBG pH 7.47 VBG pCO2 38 VBG pO2 53 VBG O2 Sat (Parvin) 91 L VBG Base Excess 4 H Sodium 137 Potassium 4.3 Chloride 99 Carbon Dioxide 28.3 Anion Gap 10 BUN 22 Creatinine 0.8 Estim Creat Clear Calc 78.8 eGFR > 60 BUN/Creatinine Ratio 28 H Glucose [address] Glu mg/dL 166 H Hemoglobin A1c 7.4 H Calculated Osmolality 287 Lactic Acid 1.7 Calcium 10.0 Corrected Calcium 10.0 Phosphorus Magnesium Total Bilirubin 0.3 AST 17 ALT 16 Alkaline Phosphatase 166 H Total Protein 8.1 Albumin 4.9 Globulin 3.2 Albumin/Globulin Ratio 1.5 Triglycerides Cholesterol LDL Cholesterol, Calc HDL Cholesterol Cholesterol/HDL Ratio Lipase 22 Beta-Hydroxybutyrate/Acetoacetate 0.1 Procalcitonin 0.04 Ur Collection Type Clean Catch Urine Color Yellow Urine Clarity Clear Urine pH 6.0 Ur Specific [place] 1.028 Urine Protein Trace Urine Glucose (UA) Trace Urine Ketones Negative Urine Blood Negative Urine Nitrite Negative Urine Bilirubin Negative Urine Urobilinogen (Auto) Negative Ur Leukocyte Esterase Positive Urine RBC 1 Urine WBC 1 Ur Squamous Epith Cells 1 Urine Bacteria None 09/24/25 05:20 WBC 7.9 RBC 4.30 Hgb 12.4 Hct 38.2 MCV 89 MCH 28.8 MCHC 32.5 RDW Std Deviation 42.3 Plt Count 428 D Neut % (Auto) 57 Lymph % (Auto) 31 [place] % (Auto) 9 Eos % (Auto) 2 Baso % (Auto) 1 Neut # (Auto) 4.5 Lymph # (Auto) 2.5 [place] # (Auto) 0.7 Eos # (Auto) 0.1 Baso # (Auto) 0.1 Immature Gran # (Auto) 0.04 H Absolute Nucleated RBC 0.00 Immature Gran % 1 H Nucleated RBC % 0 VBG pH VBG pCO2 VBG pO2 VBG O2 Sat (Parvin) VBG Base Excess Sodium 140 Potassium 4.4 Chloride 101 Carbon Dioxide 29.7 Anion Gap 9 BUN 18 Creatinine 0.6 Estim Creat Clear Calc 101.5 eGFR > 60 BUN/Creatinine Ratio 30 H Glucose [address] Glu mg/dL Hemoglobin A1c Calculated Osmolality 281 Lactic Acid Calcium 9.7 Corrected Calcium 9.7 Phosphorus 4.8 Magnesium 1.9 Total Bilirubin 0.4 AST 16 ALT 14 Alkaline Phosphatase 151 H Total Protein 7.5 Albumin 4.5 Globulin 3.0 Albumin/Globulin Ratio 1.5 Triglycerides 144 Cholesterol 232 H LDL Cholesterol, Calc 132 H HDL Cholesterol 71 H Cholesterol/HDL Ratio 3.3 L Lipase Beta-Hydroxybutyrate/Acetoacetate Procalcitonin Ur Collection Type Urine Color Urine Clarity Urine pH Ur Specific [place] Urine Protein Urine Glucose (UA) Urine Ketones Urine Blood Urine Nitrite Urine Bilirubin Urine Urobilinogen (Auto) Ur Leukocyte Esterase Urine RBC Urine WBC Ur Squamous Epith Cells Urine Bacteria ABG Interpretation ABG results: 09/23/25 17:52 VBG pH 7.47 VBG pCO2 38 VBG pO2 53 VBG Base Excess 4 H Quality Measures Quality Measures none Assessment & Plan Assessment Current Active Medications: Generic Name Dose Route Start Last Admin Trade Name Masha PRN Reason Stop Dose Admin Acetaminophen 650 mg 09/23/25 21:22 Acetaminophen 325 Mg Tablet PO 10/23/25 21:21 Q6H PRN Fever >101.5 Clonidine 0.1 mg 09/24/25 09:00 Clonidine Hcl 0.1 Mg Tablet PO 10/24/25 08:59 BID DANII Dextrose 25 ml 09/23/25 22:04 Dextrose 50%-Water Inj 50 Ml Syringe IV 10/23/25 22:03 Q15MIN PRN BG 50-70 responsive npo pt Dextrose 50 ml 09/23/25 22:04 Dextrose 50%-Water Inj 50 Ml Syringe IV 10/23/25 22:03 Q15MIN PRN BG <50 OR BG <70 & pt unresponsive Glucagon 1 mg 09/23/25 22:04 Glucagon Inj 1 Mg Vial IM Q15MIN PRN BG <70, and no IV access Ciprofloxacin/Dextrose 400 mg in 200 mls @ 200 mls/hr 09/24/25 09:00 Cipro Ivpb IV 10/01/25 08:59 Q12HR DANII Metronidazole 500 mg in 100 mls @ 200 mls/hr 09/24/25 04:00 09/24/25 03:16 Flagyl 500 Mg Iv IV 10/01/25 03:59 200 mls/hr Q8HR DANII Administration Vancomycin/Sodium Chloride 200 mls @ 120 mls/hr 09/24/25 10:00 Vancomycin/Ns 1 Gm Ivpb IV 10/01/25 09:59 Q12H [facility] Protocol Insulin Human Lispro 0 unit 09/24/25 06:00 09/24/25 05:18 Insulin Lispro (Admelog) 1 Unit/0.01 Ml Unit SC 10/24/25 05:59 Not Given Q6HR [facility] Protocol Morphine Sulfate 4 mg 09/23/25 21:31 09/24/25 06:00 Morphine Sulf Inj 4 Mg/Ml Vial IVP 09/28/25 21:30 4 mg Q4HR PRN Administration PAIN SCALE 7-10 (Severe Ondansetron HCl 4 mg 09/23/25 21:22 Ondansetron Inj 2 Mg/Ml Inj 2 Ml IVP 10/23/25 21:21 Q6H PRN NAUSEA OR VOMITING Protocol Pantoprazole Sodium 40 mg 09/24/25 09:00 Pantoprazole Inj 40 Mg Vial IVP 10/24/25 08:59 QDAY [facility] Pharmacy Consult 1 each 09/23/25 20:15 09/23/25 22:13 Vancomycin Pharmacy To Dose 1 Each Each IV 10/23/25 20:14 Not Given QDAY [facility] Plan 55-year-old female with PMHx type 2 diabetes mellitus (on insulin), peripheral neuropathy, chronic pain secondary to a herniated disc on methadone, HTN, and a prior CVA 6 years ago, who presents to the ED with RUQ x1 day. Patient admitted for intra-abdominal abscess pending surgical evaluation by Dr. Márquez. #Intra-abdominal abscess #Umbilical hernia with incarcerated fat #Gallbladder fossa abscess #History of cholecystectomy (09/08/[address] Márquez) Afebrile and nontoxic-appearing, no leukocytosis. RUQ TTP, voluntary guarding, nausea CT a/p: fluid collection with air densities in the gallbladder fossa at least 10 x 6 cm, 35 mm umbilical hernia w/ incarcerated fat; gastritis Plan: ? Surgical consult placed, Dr. Márquez rec IR drainage - Pending IR drain placement for gallbladder fossa abscess ? Ciprofloxacin 400 mg IV every 12 hours ? Metronidazole 500 mg every 8 hours - Reglan IV PRN - Pantoprazole 40 mg IV daily ? Follow-up blood culture #Type 2 diabetes, insulin-dependent A1c on admission 7.4 Plan: ? Insulin sliding scale #Hypertension Plan ? Clonidine 0.1 mg PO BID (home med) #Peripheral neuropathy #Chronic pain 2/2 herniated disc Patient takes methadone at home Plan: ? Day team to contact pharmacy for methadone dosing #History of CVA (6 years ago) Per patient does not take aspirin because of allergy and not on any statin medication Lipid panel: Triglyceride 144, Cholesterol 232, LDL 132, HDL ASCVD: 4.6% risk of CV event in 10 years --> moderate intensity statin Plan ? Atorvastatin 20 mg PO QHS Checklist Dispo: Pending IR drain placement Lines: PIV Diet: NPO Bowel Reg: doc/senna VTE ppx: SCD GI ppx: pantoprazole 40 mg IV daily Pain mgmt: morphine 4 mg IV q4h Code status: full Plan discussed with Dr. Karsten Barbosa and Dr. Dre Aranda MD PGY1 Attending Provider Attestation/Addendum I, Samantha Erickson, DO, attest that I was physically present for the anderson portions of the service and evaluated the patient with the resident and I reviewed and discussed the case with the resident and agree with the resident's findings and plans of care as documented above Patient seen and eval this afternoon following placement of drainage of gallbladder fossa abscess. Patient continues to complain of pain and nausea. CT abdomen pelvis personally reviewed and showed distended stomach and abscess was noted. Suspect that patient may have a component of gastroparesis in the setting of diabetes. Will place patient on metoclopramide every 6 hours. Will also continue with pain control as needed. Patient is currently on Cipro and Flagyl for lower empiric antibiotic coverage. Continue with pain control. Will follow-up with body fluid cultures to further narrow antibiotic coverage.
--- NOTE | 2025-09-24 09:09 | XR_ITS ---
EXAM: CT-guided gallbladder fossa fluid collection percutaneous drainage catheter placement. INDICATION: Postcholecystectomy gallbladder fossa fluid collection Exam date: 09/24/2025, 11:22 a.m. COMPARISON: 09/23/2025 CTDI: 54.9 DLP: 808 PROCEDURE: After discussion of risks and benefits informed consent was obtained. Patient was brought to the CT suite and placed supine on the exam table. Preliminary noncontrast enhanced CT again demonstrated a 6 cm low-density collection in the gallbladder fossa. This was targeted for drainage. The overlying skin was cleaned and draped in normal sterile surgical fashion. 10 cc of 1% lidocaine was used for local anesthesia. Conscious sedation was begun using direct continuous nursing supervision. Using CT guidance an 18-gauge Chiba needle was sequentially advanced into the targeted collection via an anterior approach. Thick dark bloody fluid was obtained. A 0.035 wire was advanced through the needle and the needle was withdrawn. The tract was serially dilated and a 10 [place] pigtail catheter was placed over the wire and the wire was removed. Post catheter placement CT was performed which demonstrated appropriate positioning of the distal catheter tip with no evidence of hematoma or other acute complication. Approximately 50 cc of dark bloody material was aspirated at the time of the procedure. The catheter was attached to a vacuum bag, sutured in place and covered with a sterile dressing. There were no immediate complications. IMPRESSION: Successful right gallbladder fossa 10 [place] drainage catheter placement as above. Thick dark red blood obtained with approximately 50 cc removed during the procedure. Recommend flushing aspirating the catheter twice a day with 5 cc of normal saline. There may be limited catheter output due to the thick nature of this collection. Surgical intervention may be needed to fully drain this collection
--- NOTE | 2025-09-24 09:32 | PD.SURCONS ---
HPI Consult details History of present illness: 55F with HTN, DMII on insulin, chronic back pain on methadone s/p laparoscopic cholecystectomy 09/08/25 presenting with abdominal pain. Pt had been feeling overall well after surgery but as of the last couple days felt her pain was worse and also noted chills, headache and malaise. Given the degree of pain she sought care in ER and workup showed normal WBC and LFTs however CT showed a 10x6cm gallbladder fossa collection concerning for abscess Review of Systems Review of Systems ROS Unobtainable: All systems reviewed & no additional complaints except as documented Meds Home Medications and Allergies Home Medications ?Medication ?Instructions ?Recorded ?Confirmed ?Type baclofen 10 mg tablet 10 mg PO BID 09/14/22 09/24/25 History clonidine HCl 0.1 mg tablet 0.1 mg PO BID 09/14/22 09/24/25 History methadone 10 mg tablet 10 mg PO Q8H PRN Pain 09/14/22 09/24/25 History pregabalin 25 mg capsule 25 mg PO BID 09/14/22 09/24/25 History promethazine 25 mg tablet 25 mg PO Q12H PRN n/v 09/14/22 09/24/25 History duloxetine 30 mg capsule,delayed 30 mg PO BID 04/30/25 09/24/25 History release insulin glargine-aglr 100 unit/mL 80 unit subcut HS 09/07/25 09/24/25 History (3 mL) subcutaneous pen insulin lispro 100 unit/mL 20 unit subcut TID 09/07/25 09/24/25 History subcutaneous pen semaglutide 0.25 mg or 0.5 mg (2 0.5 mg subcut QWEEK 09/07/25 09/24/25 History mg/3 mL) subcutaneous pen injector (Ozempic) Allergies Allergy/AdvReac Type Severity Reaction Status Date / Time barium iodide Allergy Severe PASSED OUT Verified 09/23/25 17:14 cephalexin Allergy Severe ITCHING Verified 09/23/25 17:14 AND VOMITING codeine Allergy Severe FAINTS Verified 09/23/25 17:14 ibuprofen Allergy Severe Swelling Verified 09/23/25 17:14 of Lip/Tongue/Throat Penicillins Allergy Severe HIVES AND Verified 09/23/25 17:14 DIFF BREATHING aspirin Allergy Unknown RASH Verified 09/23/25 17:14 Exam Vital Signs Temp Pulse Resp BP Pulse Ox O2 Del Method 97.4 F 97 17 160/83 H 96 Room Air 09/24/25 08:00 09/24/25 08:00 09/24/25 08:00 09/24/25 08:00 09/24/25 08:00 09/24/25 08:00 Constitutional Constitutional: no acute distress Routine Respiratory Exam Respiratory: Present no resp distress Routine Abdominal Exam Abdominal: Present soft, tenderness (moderate RUQ tenderness) and wound (incisions c/d/i, no erythema, no fluctuance ); Absent distended, rebound or guarding Results Results: Laboratory Laboratory results: results reviewed Results: Imaging CT scan - abdomen: report reviewed and image reviewed Assessment & Plan Plan 55F with HTN, DMII on insulin, chronic back pain on methadone s/p laparoscopic cholecystectomy 09/08/25 presenting with abdominal pain, with normal WBC and LFTs but a 10x6cm gallbladder fossa collection. Given her degree of pain will appreciate percutaneous drainage of this fluid collection F/u IR for drainage OK for diet after procedure Continue abx
[2025-09-24] MEDS: CIPROFLOXACIN/D5w 400 MG IVPB 400 MG/200 ML BAG 200 MG IV ×2 (09:39→20:59)
[2025-09-24] MEDS: ONDANSETRON INJ 2 MG/ML INJ 2 ML 4 MG IVP (09:43)
[2025-09-24 10:23] LABS: INR 1.0 (0.9-1.3); Partial Thromboplastin Time 31.1 Seconds (22.0-36.0); Prothrombin Time 11.0 Seconds (9.0-12.2)
[2025-09-24] MEDS: LIDOCAINE INJ PF 1% 30 ML VIAL INFL (11:25)
[2025-09-24] MEDS: MIDAZOLAM INJ 1 MG/ML VIAL 2 ML 2 MG IVP (11:27)
[2025-09-24] MEDS: fentaNYL CIT INJ 50 mCg/ML AMP 2ML 200 MCG IVP (11:27)
--- NOTE | 2025-09-24 12:26 | PC.NURSE ---
Patient returned from IR at this time. Patient c/o abdominal pain rated 7/10. Drain in place. Dressing clean, dry and intact.
--- NOTE | 2025-09-24 14:55 | PC.SS ---
Patient needs rollator walker for home. The diagnosis creates mobility limitation that significantly impairs ability to participate in the patients activities of daily living either in their entirety, or in a reasonable time frame. Also the patient is able to safely use the walker and the patient?s mobility is sufficiently resolved with the use of the walker and cane has been ruled out.
--- NOTE | 2025-09-24 16:00 | PC.PT ---
PT eval only. Patient is I with transfers and ambulation with AD.
[2025-09-24] MEDS: INSULIN LISPRO (AdmeLOG) 1 UNIT/0.01 ML UNIT SC ×2 (17:03→20:58)
[2025-09-24] MEDS: METOCLOPRAMIDE INJ 5 MG/ML VIAL 2 ML IVP ×2 (17:04→23:27)
[2025-09-24] MEDS: MORPHINE SULF INJ 4 MG/ML VIAL 2 MG IVP ×2 (19:28→22:35)
[2025-09-24] MEDS: ATORVASTATIN CALCIUM 20 MG TABLET PO (20:59)
[2025-09-24] MEDS: LIDOCAINE 5% 1 PATCH TOP (22:36)
[2025-09-25] VITALS (8 sets, daily range): BP systolic 122–161; BP diastolic 71–94; PULSE 57–102; RESP 16–20; TEMP 35.6–37.1; O2SAT 96–98
[2025-09-25] MEDS: MORPHINE SULF INJ 4 MG/ML VIAL 2 MG IVP ×5 (04:23→23:40)
[2025-09-25] MEDS: METOCLOPRAMIDE INJ 5 MG/ML VIAL 2 ML IVP ×4 (05:24→23:40)
[2025-09-25] MEDS: metroNIDAZOLE/NS 500 MG IVPB 500 MG/100 ML BAG 200 MG IV ×3 (05:25→21:02)
[2025-09-25 06:40] LABS: Basophils # (Auto) 0.0 Thou/mm3 (0.0-0.2); Basophils % (Auto) 0 % (0-2.5); Eosinophils # (Auto) 0.1 Thou/mm3 (0.0-0.5); Eosinophils % (Auto) 1 % (0-10); Hematocrit 36.5 % (36.0-46.0); Hemoglobin 12.0 g/dL (12.0-16.0); Immature Granulocytes Auto 0.03 Thou/mm3 (0.00-0.00); Lymphocytes # (Auto) 1.9 Thou/mm3 (1.0-4.8); Lymphocytes % (Auto) 25 % (10-50); Mean Corpuscular HGB Conc 32.9 g/dl (31.0-37.0); Mean Corpuscular Hemoglobin 28.6 pg (25.0-35.0); Mean Corpuscular Volume 87 fL (80-100); Monocytes # (Auto) 0.7 Thou/mm3 (0.0-0.8); Monocytes % (Auto) 9 % (0-12); Neutrophils # (Auto) 5.0 Thou/mm3 (1.8-7.7); Neutrophils % (Auto) 65 % (37-80); Nucleated Red Blood Cell # 0.00 Thou/mm3 (0.00-0.00); Nucleated Red Blood Cell % 0 /100 WBC (0); Platelet Count 436 Thou/mm3 (140-440); RDW Standard Deviation 40.6 fL (36.4-46.3); Red Blood Count 4.19 Miln/mm3 (4.00-5.20); White Blood Count 7.6 Thou/mm3 (3.6-11.0)
[2025-09-25 07:16] LABS: Alanine Aminotransferase 10 U/L (10-49); Albumin, Serum 4.3 gm/dL (3.5-5.0); Albumin/Globulin Ratio 1.5 (1.2-2.2); Alkaline Phosphatase 143 U/L (46-116); Anion Gap 10 (7-16); Aspartate Amino Transferase 14 U/L (0-34); BUN/Creatinine Ratio 23 Ratio (12-20); Bilirubin,Total 0.6 mg/dL (0.3-1.2); Blood Urea Nitrogen 14 mg/dL (9-23); Calcium 9.7 mg/dL (8.3-10.6); Calcium (Corrected) 9.7 mg/dL (8.5-10.1); Carbon Dioxide 27.4 mMol/L (20.0-31.0); Chloride 100 mMol/L (98-107); Creatinine (Component) 0.6 mg/dL (0.6-1.3); Estimated Creatinine Clearance 101.5 mL/min (>60); Globulin 2.8 gm/dL (2.3-3.5); Glucose 197 mg/dL (74-106); Magnesium 1.7 mg/dL (1.6-2.6); Osmolality,Calculated 279 (275-295); Phosphorous 3.9 mg/dL (2.4-5.1); Potassium 4.2 mMol/L (3.4-5.1); Sodium 137 mMol/L (136-145); Total Protein 7.1 gm/dL (5.7-8.2); eGFR > 60 See Note
[2025-09-25] MEDS: INSULIN LISPRO (AdmeLOG) 1 UNIT/0.01 ML UNIT SC ×4 (07:33→20:00)
--- NOTE | 2025-09-25 07:42 | PD.RESPRO ---
Documentation for date of: 09/25/25 Subjective Subjective Interval history: NAEO. Patient reports continued RUQ abdominal pain at site of drain. No nausea or vomiting, controlled with Reglan. Able to tolerate minimal PO intake. Passing gas, no BM. Drain output with minimal bloody fluid. Dr. Márquez recommended 500 cc flush with NS BID. Exam Vital Signs Temp Pulse Resp BP Pulse Ox O2 Del Method O2 Flow Rate 98.8 F 57 L 20 150/94 H 96 Nasal Cannula 3 09/25/25 04:00 09/25/25 04:00 09/25/25 04:00 09/25/25 04:00 09/25/25 04:00 09/25/25 04:00 09/25/25 04:00 Narrative Exam General: No acute distress, well nourished Eye: PERRL, EOMI, normal conjunctiva, no scleral icterus HENT: Normocephalic, atraumatic, normal hearing, moist oral mucosa Neck: Supple, non-tender, no JVD, no lymphadenopathy Lungs: Clear to auscultation bilaterally, non-labored respirations, symmetric chest rise, no use of accessory muscles Heart: Normal S1 and S2, no S3 or S4 appreciated. Normal rate and regular rhythm, no murmurs, rubs gallops, or edema. Peripheral pulses intact bilaterally, capillary refill brisk distally Abdomen: Soft, RUQ TTP, non-distended, normal bowel sounds. No guarding or rebound tenderness. Abscess drain in place, draining minimal bloody liquid Musculoskeletal: Normal range of motion and strength, no tenderness or swelling Skin: Skin is warm, dry, no rashes or lesions. Laparoscopic incisions present and clean on abdomen Neurologic: Alert, awake and oriented x3. CN II-XII grossly intact. No focal neuro deficits. No signs of meningeal irritation noted. Psychiatric: Cooperative, appropriate mood and affect Objective Labs 09/25/25 05:30 09/25/25 05:30 Labs: Laboratory Results - last 24 hr 09/24/25 09/25/25 05:32 05:30 WBC 7.6 RBC 4.19 Hgb 12.0 Hct 36.5 MCV 87 MCH 28.6 MCHC 32.9 RDW Std Deviation 40.6 Plt Count 436 Neut % (Auto) 65 Lymph % (Auto) 25 [place] % (Auto) 9 Eos % (Auto) 1 Baso % (Auto) 0 Neut # (Auto) 5.0 Lymph # (Auto) 1.9 [place] # (Auto) 0.7 Eos # (Auto) 0.1 Baso # (Auto) 0.0 Immature Gran # (Auto) 0.03 H Absolute Nucleated RBC 0.00 Immature Gran % 0 Nucleated RBC % 0 PT 11.0 INR 1.0 APTT 31.1 Sodium 137 Potassium 4.2 Chloride 100 Carbon Dioxide 27.4 Anion Gap 10 BUN 14 Creatinine 0.6 Estim Creat Clear Calc 101.5 eGFR > 60 BUN/Creatinine Ratio 23 H Glucose 197 H D Calculated Osmolality 279 Calcium 9.7 Corrected Calcium 9.7 Phosphorus 3.9 Magnesium 1.7 Total Bilirubin 0.6 AST 14 ALT 10 Alkaline Phosphatase 143 H Total Protein 7.1 Albumin 4.3 Globulin 2.8 Albumin/Globulin Ratio 1.5 ABG Interpretation ABG results: 09/23/25 17:52 VBG pH 7.47 VBG pCO2 38 VBG pO2 53 VBG Base Excess 4 H Quality Measures Quality Measures none Assessment & Plan Assessment Current Active Medications: Generic Name Dose Route Start Last Admin Trade Name Freq PRN Reason Stop Dose Admin Acetaminophen 650 mg 09/23/25 21:22 Acetaminophen 325 Mg Tablet PO 10/23/25 21:21 Q6H PRN Fever >101.5 Atorvastatin Calcium 20 mg 09/24/25 21:00 09/24/25 20:59 Atorvastatin Calcium 20 Mg Tablet PO 10/24/25 20:59 20 mg HS DANII Administration Clonidine 0.1 mg 09/24/25 09:00 09/24/25 20:59 Clonidine Hcl 0.1 Mg Tablet PO 10/24/25 08:59 0.1 mg BID DANII Administration Dextrose 25 ml 09/23/25 22:04 Dextrose 50%-Water Inj 50 Ml Syringe IV 10/23/25 22:03 Q15MIN PRN BG 50-70 responsive npo pt Dextrose 50 ml 09/23/25 22:04 Dextrose 50%-Water Inj 50 Ml Syringe IV 10/23/25 22:03 Q15MIN PRN BG <50 OR BG <70 & pt unresponsive Diazepam 5 mg 09/24/25 09:15 Diazepam Inj 5 Mg/Ml Vial 2 Ml IVP 09/29/25 09:14 X1 PRN anxiety prior to abscess drain Glucagon 1 mg 09/23/25 22:04 Glucagon Inj 1 Mg Vial IM Q15MIN PRN BG <70, and no IV access Ciprofloxacin/Dextrose 400 mg in 200 mls @ 200 mls/hr 09/24/25 09:00 09/24/25 20:59 Cipro Ivpb IV 10/01/25 08:59 200 mls/hr Q12HR DANII Administration Metronidazole 500 mg in 100 mls @ 200 mls/hr 09/24/25 04:00 09/25/25 05:25 Flagyl 500 Mg Iv IV 10/01/25 03:59 200 mls/hr Q8HR DANII Administration Insulin Human Lispro 0 unit 09/24/25 17:00 09/25/25 07:33 Insulin Lispro (Admelog) 1 Unit/0.01 Ml Unit SC 10/24/25 16:59 2 unit ACHS DANII Administration Protocol Metoclopramide HCl 5 mg 09/24/25 12:00 09/25/25 05:24 Metoclopramide Inj 5 Mg/Ml Vial 2 Ml IVP 10/24/25 11:59 5 mg Q6HR DANII Administration Protocol Morphine Sulfate 2 mg 09/24/25 14:55 09/25/25 04:23 Morphine Sulf Inj 4 Mg/Ml Vial IVP 09/28/25 21:30 2 mg Q4HR PRN Administration PAIN SCALE 7-10 (Severe Pantoprazole Sodium 40 mg 09/24/25 09:00 09/24/25 09:39 Pantoprazole Inj 40 Mg Vial IVP 10/24/25 08:59 40 mg QDAY DANII Administration Sennosides 1 tab 09/24/25 08:01 Senna/Docusate Sod 1 Tab Tablet PO 10/24/25 08:00 QDAY PRN CONSTIPATION Protocol Plan 55-year-old female with PMHx type 2 diabetes mellitus (on insulin), peripheral neuropathy, chronic pain secondary to a herniated disc on methadone, HTN, and a prior CVA 6 years ago, who presents to the ED with RUQ x1 day. Patient admitted for intra-abdominal abscess pending surgical evaluation by Dr. Márquez. #Intra-abdominal abscess #Umbilical hernia with incarcerated fat #Gallbladder fossa abscess #History of cholecystectomy (09/08/[address] Márquez) Afebrile and nontoxic-appearing, no leukocytosis. RUQ TTP, voluntary guarding, nausea CT a/p: fluid collection with air densities in the gallbladder fossa at least 10 x 6 cm, 35 mm umbilical hernia w/ incarcerated fat; gastritis IR placed drain for gallbladder fossa abscess 08/24 Gallbladder fluid cx: prelim GPC Plan: ? Ciprofloxacin 400 mg IV every 12 hours (09/24-) ? Metronidazole 500 mg every 8 hours (09/24-) - Vancomycin (pharmacy to dose) (09/25-) - Reglan IV PRN - Pantoprazole 40 mg IV daily - [place] 5 mg q4h PRN ? Follow-up blood culture, gallbladder fluid culture #Type 2 diabetes, insulin-dependent A1c on admission 7.4 Plan: ? Insulin sliding scale #Hypertension Plan ? Clonidine 0.1 mg PO BID (home med) #Peripheral neuropathy #Chronic pain 2/2 herniated disc Patient takes methadone at home - 10 mg TID, Rx from [facility], picks up at [facility] Plan: ? Methadone 10 mg PO TID (home med) - Blaclofen 10 mg PO BID (home med) #History of CVA (6 years ago) Per patient does not take aspirin because of allergy and not on any statin medication Lipid panel: Triglyceride 144, Cholesterol 232, LDL 132, HDL ASCVD: 4.6% risk of CV event in 10 years --> moderate intensity statin Plan ? Atorvastatin 20 mg PO QHS Checklist Dispo: Drainage of abscess Lines: PIV Diet: carb consistent Bowel Reg: doc/senna PRN VTE ppx: SCD GI ppx: pantoprazole 40 mg IV daily Pain mgmt: Tylenol PO PRN, [place] 5 mg q4h PRN, morphine 2 mg IV q4h, methadone 10 mg TID, Baclofen 10 mg PO BID Code status: full Plan discussed with Dr. Karsten Barbosa and Dr. Dre Aranda MD PGY1 Attending Provider Attestation/Addendum I, Samantha Erickson DO, attest that I was physically present for the anderson portions of the service and evaluated the patient with the resident and I reviewed and discussed the case with the resident and agree with the resident's findings and plans of care as documented above Patient seen and evaluated this AM. She states she continues to have pain and some nausea, but tolerating diet. Drain has dark bloody output noted. Will need to be flushed with 5cc of NS twice a day as radiology report shows that fluid collection is quite thick. Pending final cultures and sensitivities of body fluid. She is on cipro and flagyl, but aspirate is positive for GPC. Will add vancomycin at this time. Patient states she takes methadone at home, but has taken more than she is instructed due to her worsening abdominal pain. She is otherwise afebrile.
[2025-09-25] MEDS: CIPROFLOXACIN/D5w 400 MG IVPB 400 MG/200 ML BAG 200 MG IV ×2 (09:08→20:01)
[2025-09-25 09:39] LABS: Vancomycin,Trough < 3.0 mcg/mL (5.0-10.0)
[2025-09-25] MEDS: VANCOMYCIN/NS 1 GM IVPB 200 ML IV ×2 (10:19→21:51)
[2025-09-25] MEDS: SENNA/DOCUSATE SOD 1 TAB TABLET PO (10:20)
[2025-09-25] MEDS: HYDROcodone/APAP 5/325 TABLET 1 TAB PO ×2 (10:20→17:32)
[2025-09-25] MEDS: METHADONE HCL 10 MG TABLET PO ×3 (11:41→21:01)
--- NOTE | 2025-09-25 12:33 | PC.SS ---
Radha Angel is a 55-year-old female admitted to Med Surg for Intra-Abd Abscess. SS conducted bedside contact with the patient to complete initial assessment and to discuss discharge planning. Role and reason explained. Patient confirmed demographic information. Patient identifies Stiven Angel [phone] as her surrogate decision maker. Pt states she is able to complete all ADL?s independently. Rollator and cane. Pts PCP is Dr. Molina. Pharmacy of choice is [facility]. Discharge options discussed and the pt wishes to return home.? Family will provide transportation upon DC. No further intervention required at this time, social science professor would be available to address any further concerns. DC Plan: Home Contact: Viktor Saleem Address: Confirmed on face sheet PCP: Tracy
--- NOTE | 2025-09-25 14:37 | PC.SS ---
Rounding: Pending cultures DC plan home when ready
[2025-09-25] MEDS: BACLOFEN 10 MG TABLET PO (20:01)
[2025-09-25] MEDS: ATORVASTATIN CALCIUM 20 MG TABLET PO (20:01)
[2025-09-26] VITALS (8 sets, daily range): BP systolic 115–140; BP diastolic 62–88; PULSE 74–95; RESP 16–20; TEMP 36.2–37.1; O2SAT 95–98
[2025-09-26] MEDS: MORPHINE SULF INJ 4 MG/ML VIAL 2 MG IVP ×3 (04:11→23:24)
[2025-09-26] MEDS: metroNIDAZOLE/NS 500 MG IVPB 500 MG/100 ML BAG 200 MG IV ×3 (05:10→21:16)
[2025-09-26] MEDS: METHADONE HCL 10 MG TABLET PO ×3 (05:10→21:16)
[2025-09-26] MEDS: METOCLOPRAMIDE INJ 5 MG/ML VIAL 2 ML IVP ×2 (05:10→12:30)
[2025-09-26 05:39] LABS: Basophils # (Auto) 0.1 Thou/mm3 (0.0-0.2); Basophils % (Auto) 1 % (0-2.5); Eosinophils # (Auto) 0.1 Thou/mm3 (0.0-0.5); Eosinophils % (Auto) 1 % (0-10); Hematocrit 34.6 % (36.0-46.0); Hemoglobin 11.3 g/dL (12.0-16.0); Immature Granulocytes Auto 0.03 Thou/mm3 (0.00-0.00); Lymphocytes # (Auto) 1.8 Thou/mm3 (1.0-4.8); Lymphocytes % (Auto) 28 % (10-50); Mean Corpuscular HGB Conc 32.7 g/dl (31.0-37.0); Mean Corpuscular Hemoglobin 28.8 pg (25.0-35.0); Mean Corpuscular Volume 88 fL (80-100); Monocytes # (Auto) 0.5 Thou/mm3 (0.0-0.8); Monocytes % (Auto) 8 % (0-12); Neutrophils # (Auto) 3.8 Thou/mm3 (1.8-7.7); Neutrophils % (Auto) 61 % (37-80); Nucleated Red Blood Cell # 0.00 Thou/mm3 (0.00-0.00); Nucleated Red Blood Cell % 0 /100 WBC (0); Platelet Count 367 Thou/mm3 (140-440); RDW Standard Deviation 40.2 fL (36.4-46.3); Red Blood Count 3.93 Miln/mm3 (4.00-5.20); White Blood Count 6.2 Thou/mm3 (3.6-11.0)
[2025-09-26 06:26] LABS: Alanine Aminotransferase 8 U/L (10-49); Albumin, Serum 4.3 gm/dL (3.5-5.0); Albumin/Globulin Ratio 1.5 (1.2-2.2); Alkaline Phosphatase 139 U/L (46-116); Anion Gap 8 (7-16); Aspartate Amino Transferase 12 U/L (0-34); BUN/Creatinine Ratio 19 Ratio (12-20); Bilirubin,Total 0.6 mg/dL (0.3-1.2); Blood Urea Nitrogen 13 mg/dL (9-23); Calcium 9.8 mg/dL (8.3-10.6); Calcium (Corrected) 9.8 mg/dL (8.5-10.1); Carbon Dioxide 27.8 mMol/L (20.0-31.0); Chloride 98 mMol/L (98-107); Creatinine (Component) 0.7 mg/dL (0.6-1.3); Estimated Creatinine Clearance 87.0 mL/min (>60); Globulin 2.9 gm/dL (2.3-3.5); Glucose 312 mg/dL (74-106); Magnesium 1.6 mg/dL (1.6-2.6); Osmolality,Calculated 280 (275-295); Phosphorous 3.5 mg/dL (2.4-5.1); Potassium 4.2 mMol/L (3.4-5.1); Sodium 134 mMol/L (136-145); Total Protein 7.2 gm/dL (5.7-8.2); eGFR > 60 See Note
[2025-09-26] MEDS: INSULIN LISPRO (AdmeLOG) 1 UNIT/0.01 ML UNIT SC ×4 (07:31→20:07)
[2025-09-26] MEDS: HYDROcodone/APAP 5/325 TABLET 1 TAB PO ×2 (07:41→19:26)
--- NOTE | 2025-09-26 07:49 | PD.RESPRO ---
Documentation for date of: 09/26/25 Subjective Subjective Interval history: Patient seen and examined at bedside she appears to be uncomfortable reporting rlq and luq pain states that she had increased nausea that was relieved with Zofran for ~15 min . Of note patient takes Ozempic in the past and concern for delayed gastric emptying scant discharge from drain. Repeat abdominal imaging with KUB and CT CAP without contrast demonstrated appropriate drain placement in the gallbladder fossa and abscess noted to be smaller than previously Exam Vital Signs Temp Pulse Resp BP Pulse Ox O2 Del Method O2 Flow Rate 98.8 F 88 20 126/80 97 Room Air 3 09/26/25 04:00 09/26/25 04:00 09/26/25 04:00 09/26/25 04:00 09/26/25 04:00 09/26/25 04:00 09/25/25 15:40 Narrative Exam General: No acute distress, well nourished Eye: PERRL, EOMI, normal conjunctiva, no scleral icterus HENT: Normocephalic, atraumatic, normal hearing, moist oral mucosa Neck: Supple, non-tender, no JVD, no lymphadenopathy Lungs: Clear to auscultation bilaterally, non-labored respirations, symmetric chest rise, no use of accessory muscles Heart: Normal S1 and S2, no S3 or S4 appreciated. Normal rate and regular rhythm, no murmurs, rubs gallops, or edema. Peripheral pulses intact bilaterally, capillary refill brisk distally Abdomen: Soft, Rlq ttp, non-distended, normal bowel sounds. No guarding or rebound tenderness. Abscess drain in place, draining minimal bloody liquid Musculoskeletal: Normal range of motion and strength, no tenderness or swelling Skin: Skin is warm, dry, no rashes or lesions. Laparoscopic incisions present and clean on abdomen Neurologic: Alert, awake and oriented x3. CN II-XII grossly intact. No focal neuro deficits. No signs of meningeal irritation noted. Psychiatric: Cooperative, appropriate mood and affect Objective Labs 09/26/25 04:09/26/25 04:25 Labs: Laboratory Results - last 24 hr 09/25/25 09/26/25 08:53 04:25 WBC 6.2 RBC 3.93 L Hgb 11.3 L Hct 34.6 L MCV 88 MCH 28.8 MCHC 32.7 RDW Std Deviation 40.2 Plt Count 367 D Neut % (Auto) 61 Lymph % (Auto) 28 [place] % (Auto) 8 Eos % (Auto) 1 Baso % (Auto) 1 Neut # (Auto) 3.8 Lymph # (Auto) 1.8 [place] # (Auto) 0.5 Eos # (Auto) 0.1 Baso # (Auto) 0.1 Immature Gran # (Auto) 0.03 H Absolute Nucleated RBC 0.00 Immature Gran % 1 H Nucleated RBC % 0 Sodium 134 L Potassium 4.2 Chloride 98 Carbon Dioxide 27.8 Anion Gap 8 BUN 13 Creatinine 0.7 Estim Creat Clear Calc 87.0 eGFR > 60 BUN/Creatinine Ratio 19 Glucose 312 H D Calculated Osmolality 280 Calcium 9.8 Corrected Calcium 9.8 Phosphorus 3.5 Magnesium 1.6 Total Bilirubin 0.6 AST 12 ALT 8 L Alkaline Phosphatase 139 H Total Protein 7.2 Albumin 4.3 Globulin 2.9 Albumin/Globulin Ratio 1.5 Vancomycin Trough < 3.0 L ABG Interpretation ABG results: 09/23/25 17:52 VBG pH 7.47 VBG pCO2 38 VBG pO2 53 VBG Base Excess 4 H Quality Measures Quality Measures VTE prophylaxis Assessment & Plan Assessment Current Active Medications: Generic Name Dose Route Start Last Admin Trade Name Freq PRN Reason Stop Dose Admin Acetaminophen 650 mg 09/23/25 21:22 Acetaminophen 325 Mg Tablet PO 10/23/25 21:21 Q6H PRN Fever >101.5 Hydrocodone Bitart/Acetaminophen 1 tab 09/25/25 09:14 09/26/25 07:41 Hydrocodone/Apap 5/325 Tablet PO 09/30/25 09:13 1 tab Q4HR PRN Administration PAIN SCALE 4-10(Mod-Sev Atorvastatin Calcium 20 mg 09/24/25 21:00 09/25/25 20:01 Atorvastatin Calcium 20 Mg Tablet PO 10/24/25 20:59 20 mg HS DANII Administration Baclofen 10 mg 09/25/25 11:30 09/25/25 20:01 Baclofen 10 Mg Tablet PO 10/25/25 11:29 10 mg BID DANII Administration Clonidine 0.1 mg 09/24/25 09:00 09/25/25 20:05 Clonidine Hcl 0.1 Mg Tablet PO 10/24/25 08:59 0.1 mg BID DANII Administration Dextrose 25 ml 09/23/25 22:04 Dextrose 50%-Water Inj 50 Ml Syringe IV 10/23/25 22:03 Q15MIN PRN BG 50-70 responsive npo pt Dextrose 50 ml 09/23/25 22:04 Dextrose 50%-Water Inj 50 Ml Syringe IV 10/23/25 22:03 Q15MIN PRN BG <50 OR BG <70 & pt unresponsive Diazepam 5 mg 09/24/25 09:15 Diazepam Inj 5 Mg/Ml Vial 2 Ml IVP 09/29/25 09:14 X1 PRN anxiety prior to abscess drain Glucagon 1 mg 09/23/25 22:04 Glucagon Inj 1 Mg Vial IM Q15MIN PRN BG <70, and no IV access Ciprofloxacin/Dextrose 400 mg in 200 mls @ 200 mls/hr 09/24/25 09:00 09/25/25 20:01 Cipro Ivpb IV 10/01/25 08:59 200 mls/hr Q12HR DANII Administration Metronidazole 500 mg in 100 mls @ 200 mls/hr 09/24/25 04:00 09/26/25 05:10 Flagyl 500 Mg Iv IV 10/01/25 03:59 200 mls/hr Q8HR DANII Administration Vancomycin/Sodium Chloride 200 mls @ 120 mls/hr 09/25/25 10:00 09/25/25 21:51 Vancomycin/Ns 1 Gm Ivpb IV 10/02/25 09:59 120 mls/hr BID@1000,2200 DANII Administration Protocol Magnesium Sulfate 4 gm in 50 mls @ 12.5 mls/hr 09/26/25 07:36 Magnesium Sulfate Ivpb IV 09/26/25 11:35 X1 ONE Insulin Degludec 7 unit 09/26/25 09:00 Insulin Degludec 5 Unit/0.05 Ml (Per 5 Units) SC 10/26/25 08:59 QDAY [facility] Insulin Human Lispro 0 unit 09/26/25 07:47 Insulin Lispro (Admelog) 1 Unit/0.01 Ml Unit SC 10/24/25 16:59 ACHS [facility] Protocol Lidocaine 1 patch 09/25/25 09:14 Lidocaine 5% 1 Patch TOP 10/25/25 09:13 UD PRN LOCALIZED PAIN Methadone HCl 10 mg 09/25/25 10:30 09/26/25 05:10 Methadone Hcl 10 Mg Tablet PO 09/30/25 10:29 10 mg TID DANII Administration Protocol Metoclopramide HCl 5 mg 09/24/25 12:00 09/26/25 05:10 Metoclopramide Inj 5 Mg/Ml Vial 2 Ml IVP 10/24/25 11:59 5 mg Q6HR DANII Administration Protocol Morphine Sulfate 2 mg 09/25/25 09:15 09/26/25 04:11 Morphine Sulf Inj 4 Mg/Ml Vial IVP 09/28/25 21:30 2 mg Q4HR PRN Administration BREAKTHROUGH PAIN 4-10 Ondansetron HCl 4 mg 09/26/25 07:48 Ondansetron Inj 2 Mg/Ml Inj 2 Ml IVP 10/26/25 07:47 Q8HR PRN NAUSEA OR VOMITING Protocol Pantoprazole Sodium 40 mg 09/24/25 09:00 09/25/25 08:43 Pantoprazole Inj 40 Mg Vial IVP 10/24/25 08:59 40 mg QDAY DANII Administration Pharmacy Consult 1 each 09/25/25 09:00 Vancomycin Pharmacy To Dose 1 Each Each IV 10/25/25 08:59 QDAY PRN CONSULT Sennosides 1 tab 09/24/25 08:01 09/25/25 10:20 Senna/Docusate Sod 1 Tab Tablet PO 10/24/25 08:00 1 tab QDAY PRN Administration CONSTIPATION Protocol Plan 55-year-old female with PMHx type 2 diabetes mellitus (on insulin), peripheral neuropathy, chronic pain secondary to a herniated disc on methadone, HTN, and a prior CVA 6 years ago, who presents to the ED with RUQ x1 day. Patient admitted for intra-abdominal abscess s/p drain placement, on iv abx #Intra-abdominal abscess #Umbilical hernia with incarcerated fat #Gallbladder fossa abscess with drain in place #History of cholecystectomy (09/08/[address] Márquez) Afebrile and nontoxic-appearing, no leukocytosis. RUQ TTP, voluntary guarding, nausea CT a/p: fluid collection with air densities in the gallbladder fossa at least 10 x 6 cm, 35 mm umbilical hernia w/ incarcerated fat; gastritis IR placed drain for gallbladder fossa abscess 08/24 Gallbladder fluid cx: prelim GPC CTAP wo con with smller abscess and drain in appropriate position Plan: ? Ciprofloxacin 400 mg IV every 12 hours (09/24-) ? Metronidazole 500 mg every 8 hours (09/24-) - Vancomycin (pharmacy to dose) (09/25-) - Reglan 10 IV PRN - Pantoprazole 40 mg IV daily - [place] 5 mg q4h PRN ? Follow-up blood culture, gallbladder fluid culture #Type 2 diabetes, insulin-dependent A1c on admission 7.4 Plan: ? Insulin sliding scale step 2 - degludec 10 U qd #Hypertension Plan ? Clonidine 0.1 mg PO BID (home med) #Peripheral neuropathy #Chronic pain 2/2 herniated disc Patient takes methadone at home - 10 mg TID, Rx from [facility], picks up at [facility] Plan: ? Methadone 10 mg PO TID (home med) - Blaclofen 10 mg PO BID (home med) #History of CVA (6 years ago) Per patient does not take aspirin because of allergy and not on any statin medication Lipid panel: Triglyceride 144, Cholesterol 232, LDL 132, HDL ASCVD: 4.6% risk of CV event in 10 years --> moderate intensity statin Plan ? Atorvastatin 20 mg PO QHS Checklist Dispo: Drainage of abscess Lines: PIV Diet: carb consistent Bowel Reg: doc/senna PRN VTE ppx: SCD GI ppx: pantoprazole 40 mg IV daily Pain mgmt: Tylenol PO PRN, [place] 5 mg q4h PRN, morphine 2 mg IV q4h, methadone 10 mg TID, Baclofen 10 mg PO BID Code status: full Plan discussed with my attending Dr. Dre Clayton MD PGY1 Attending Provider Attestation/Addendum ISamantha DO, attest that I was physically present for the anderson portions of the service and evaluated the patient with the resident and I reviewed and discussed the case with the resident and agree with the resident's findings and plans of care as documented above Patient seen and evaluated this AM. Patient reports having more pain this AM, radiating from the site of catheter to the left side of her abdomen. She states she has had BMs, but continues to have nausea. CT abd/pelvis was repeated. She is noted again to have distended stomach. Abscess appears smaller. Suspect that patient has a component of gastroparesis. Will increase reglan dose to 10mg IV q6hr. Patient states she is tolerating diet. Will start on 10u degludec and continue with sliding scale. Uptitrate as needed.
[2025-09-26] MEDS: ONDANSETRON INJ 2 MG/ML INJ 2 ML 4 MG IVP (08:04)
[2025-09-26] MEDS: CIPROFLOXACIN/D5w 400 MG IVPB 400 MG/200 ML BAG 200 MG IV ×2 (08:04→20:11)
[2025-09-26] MEDS: Magnesium Sulfate 4 GM Ivpb 4 GM/50 ML BAG IV (08:04)
[2025-09-26] MEDS: BACLOFEN 10 MG TABLET PO ×2 (08:06→20:11)
[2025-09-26] MEDS: INSULIN DEGLUDEC 5 UNIT/0.05 ML (PER 5 UNITS) 7 UNIT SC (08:07)
[2025-09-26] MEDS: VANCOMYCIN/NS 1 GM IVPB 200 ML IV ×2 (09:30→21:55)
--- NOTE | 2025-09-26 09:40 | XR_ITS ---
Examination: Abdomen AP single view Technique: AP portable supine abdomen, single view Exam date and time: September 26, 2025, 0949 hours INDICATIONS: Right lower abdominal pain and tenderness beginning today. FINDINGS: Abscess drainage catheter right upper abdomen Abundant stool throughout the colon No obstruction No free air IMPRESSION: Gallbladder fossa drainage catheter satisfactory position
--- NOTE | 2025-09-26 09:50 | XR_ITS ---
Examination: CT abdomen and pelvis without contrast. Coronal 3-D reconstructions. Sagittal 2-D reconstructions. Date and time of exam: September 26, 2025, 1114 hours, comparison September 23, 2025 INDICATIONS: Status post placement abscess drainage catheter gallbladder fossa September 24, 2025 CTDI: vol (mGy): 10.1 DLP: (mGycm): 482 Technique: Axial images of the abdomen have been obtained, 3 mm slice thickness Intravenous contrast material has not been administered. Low dose protocols were performed. One or more of the following dose reduction techniques were used; automated exposure control, adjustment of the mA and/or KV according to patient size, use of iterative reconstruction technique. Findings: Abscess drainage catheter in the center of the smaller abscess in the gallbladder fossa satisfactory position No hydronephrosis Spleen not enlarged No pancreatic mass Aorta normal size No new abdominal abscess Fat-containing umbilical hernia again noted No bowel obstruction No pelvic mass Bladder intact IMPRESSION: Abscess drainage catheter in satisfactory position in smaller abscess in the gallbladder fossa
[2025-09-26] MEDS: HYDROmorphone INJ 2 MG/ML VIAL 1 MG IVP (10:07)
[2025-09-26] MEDS: ACETAMINOPHEN 325 MG TABLET 650 MG PO ×3 (14:32→23:24)
[2025-09-26] MEDS: INSULIN LISPRO (AdmeLOG) 1 UNIT/0.01 ML UNIT 5 UNIT SC (14:36)
[2025-09-26] MEDS: INSULIN DEGLUDEC 5 UNIT/0.05 ML (PER 5 UNITS) 3 UNIT SC (14:37)
--- NOTE | 2025-09-26 16:24 | ESPR_ITS ---
Documentation for date of: 09/26/25 Subjective Subjective Brief History: 55F with HTN, DMII on insulin, chronic back pain on methadone s/p laparoscopic cholecystectomy 09/08/25 presenting with abdominal pain. Pt had been feeling overall well after surgery but as of the last couple days felt her pain was worse and also noted chills, headache and malaise. Given the degree of pain she sought care in ER and workup showed normal WBC and LFTs however CT showed a 1 0x6cm gallbladder fossa collection concerning for abscess Narrative: Pt reporting ongoing pain today, percutaneous drain had 25cc emptied yesterday and 10cc today. Remaining afebrile with normal WBC, reporting mild nausea but is eating, passing gas and had a BM yesterday Exam Vital Signs Temp Pulse Resp BP Pulse Ox O2 Del Method O2 Flow Rate 97.4 F 84 16 115/73 96 Room Air 3 09/26/25 16:00 09/26/25 16:00 09/26/25 16:00 09/26/25 16:00 09/26/25 16:00 09/26/25 16:00 09/25/25 15:40 Constitutional Constitutional: no acute distress Routine Respiratory Exam Respiratory: Present no resp distress Routine Abdominal Exam Abdominal: Present soft, tenderness (moderate diffuse tenderness), surgical scars (incisions c/d/i) and drain (RUQ drain with sanguinous output); Absent distended, firm or rigid Results Results: Laboratory Laboratory results: results reviewed Results: Imaging CT scan - abdomen: report reviewed and image reviewed Assessment & Plan Plan 55F with HTN, DMII on insulin, chronic back pain on methadone s/p laparoscopic cholecystectomy 09/08/25 presenting with abdominal pain, with normal WBC and LFTs but a 10x6cm gallbladder fossa collection s/p IR drain placement 09/24, reporting ongoing pain for which CT was repeated today showing smaller fluid collection, no other acute findings Continue strict I&O, if drain output remains <20cc in 24 hours tomorrow may remove drain and pt could dc
[2025-09-26] MEDS: RINGERS LACTATED 1000 ML 1,000 ML 85 ML IV (16:48)
[2025-09-26] MEDS: METOCLOPRAMIDE INJ 5 MG/ML VIAL 2 ML 10 MG IVP ×2 (17:32→23:25)
[2025-09-26] MEDS: ATORVASTATIN CALCIUM 20 MG TABLET PO (20:11)
[2025-09-26 21:38] LABS: Vancomycin,Trough 9.2 mcg/mL (5.0-10.0)
[2025-09-27] VITALS (8 sets, daily range): BP systolic 132–154; BP diastolic 70–81; PULSE 72–85; RESP 14–18; TEMP 36.2–36.8; O2SAT 95–99; BMI 27.1
[2025-09-27] MEDS: RINGERS LACTATED 1000 ML 1,000 ML 85 ML IV (05:18)
[2025-09-27] MEDS: metroNIDAZOLE/NS 500 MG IVPB 500 MG/100 ML BAG 200 MG IV ×3 (05:19→21:24)
[2025-09-27] MEDS: ACETAMINOPHEN 325 MG TABLET 650 MG PO ×3 (05:19→17:13)
[2025-09-27] MEDS: METHADONE HCL 10 MG TABLET PO ×3 (05:19→21:00)
[2025-09-27] MEDS: METOCLOPRAMIDE INJ 5 MG/ML VIAL 2 ML 10 MG IVP ×3 (05:19→17:14)
[2025-09-27 05:22] LABS: Basophils # (Auto) 0.0 Thou/mm3 (0.0-0.2); Basophils % (Auto) 1 % (0-2.5); Eosinophils # (Auto) 0.1 Thou/mm3 (0.0-0.5); Eosinophils % (Auto) 2 % (0-10); Hematocrit 35.1 % (36.0-46.0); Hemoglobin 11.4 g/dL (12.0-16.0); Immature Granulocytes Auto 0.01 Thou/mm3 (0.00-0.00); Lymphocytes # (Auto) 1.7 Thou/mm3 (1.0-4.8); Lymphocytes % (Auto) 34 % (10-50); Mean Corpuscular HGB Conc 32.5 g/dl (31.0-37.0); Mean Corpuscular Hemoglobin 28.6 pg (25.0-35.0); Mean Corpuscular Volume 88 fL (80-100); Monocytes # (Auto) 0.5 Thou/mm3 (0.0-0.8); Monocytes % (Auto) 10 % (0-12); Neutrophils # (Auto) 2.8 Thou/mm3 (1.8-7.7); Neutrophils % (Auto) 54 % (37-80); Nucleated Red Blood Cell # 0.00 Thou/mm3 (0.00-0.00); Nucleated Red Blood Cell % 0 /100 WBC (0); Platelet Count 420 Thou/mm3 (140-440); RDW Standard Deviation 39.8 fL (36.4-46.3); Red Blood Count 3.98 Miln/mm3 (4.00-5.20); White Blood Count 5.1 Thou/mm3 (3.6-11.0)
[2025-09-27 05:57] LABS: Alanine Aminotransferase 29 U/L (10-49); Albumin, Serum 4.0 gm/dL (3.5-5.0); Albumin/Globulin Ratio 1.5 (1.2-2.2); Alkaline Phosphatase 279 U/L (46-116); Anion Gap 7 (7-16); Aspartate Amino Transferase 61 U/L (0-34); BUN/Creatinine Ratio 23 Ratio (12-20); Bilirubin,Total 0.4 mg/dL (0.3-1.2); Blood Urea Nitrogen 14 mg/dL (9-23); Calcium 9.4 mg/dL (8.3-10.6); Calcium (Corrected) 9.4 mg/dL (8.5-10.1); Carbon Dioxide 32.0 mMol/L (20.0-31.0); Chloride 98 mMol/L (98-107); Creatinine (Component) 0.6 mg/dL (0.6-1.3); Estimated Creatinine Clearance 101.5 mL/min (>60); Globulin 2.6 gm/dL (2.3-3.5); Glucose 312 mg/dL (74-106); Osmolality,Calculated 286 (275-295); Potassium 4.3 mMol/L (3.4-5.1); Sodium 137 mMol/L (136-145); Total Protein 6.6 gm/dL (5.7-8.2); eGFR > 60 See Note
[2025-09-27] MEDS: INSULIN LISPRO (AdmeLOG) 1 UNIT/0.01 ML UNIT SC ×4 (07:31→20:20)
[2025-09-27] MEDS: ONDANSETRON INJ 2 MG/ML INJ 2 ML 4 MG IVP ×2 (07:55→22:09)
[2025-09-27] MEDS: BACLOFEN 10 MG TABLET PO ×2 (08:19→20:23)
[2025-09-27] MEDS: INSULIN DEGLUDEC 5 UNIT/0.05 ML (PER 5 UNITS) 10 UNIT SC (08:20)
[2025-09-27] MEDS: CIPROFLOXACIN/D5w 400 MG IVPB 400 MG/200 ML BAG 200 MG IV ×2 (08:22→20:23)
[2025-09-27] MEDS: HYDROcodone/APAP 5/325 TABLET 1 TAB PO (08:34)
--- NOTE | 2025-09-27 08:36 | ESPR_ITS ---
<Statement entered by Destiny Barbosa MD - 09/27/25 16:04> Patient is seen at bedside. Continues to complain of significant abdominal pain. Accordion drain has minimal bloody output approximately 15 cc. Fluid from gallbladder cultures grew GPC's and blood culture sugars are above 300. Will continue IV antibiotics until speciation. Will increase degludec to 20 units daily and lispro 8 units AC. And keep a close monitoring on blood sugars. Patient was seen and examined by me personally. I have directly supervised and reviewed documentation by the team resident and agree with its findings. ------- Plan of care was discussed with the attending, Dr. Dre Barbosa, PGY-2 Documentation for date of: 09/27/25 Subjective Subjective Interval history: pt had BM yesterday she continues to have RUQ tenderness given morphine which helps with pain Exam Vital Signs Temp Pulse Resp BP Pulse Ox O2 Del Method O2 Flow Rate 98.2 F 80 14 154/81 H 96 Room Air 3 09/27/25 07:17 09/27/25 08:19 09/27/25 07:17 09/27/25 08:19 09/27/25 07:17 09/27/25 07:17 09/25/25 15:40 Narrative Exam General: No acute distress, well nourished Eye: PERRL, EOMI, normal conjunctiva, no scleral icterus HENT: Normocephalic, atraumatic, normal hearing, moist oral mucosa Neck: Supple, non-tender, no JVD, no lymphadenopathy Lungs: Clear to auscultation bilaterally, non-labored respirations, symmetric chest rise, no use of accessory muscles Heart: Normal S1 and S2, no S3 or S4 appreciated. Normal rate and regular rhythm, no murmurs, rubs gallops, or edema. Peripheral pulses intact bilaterally, capillary refill brisk distally Abdomen: Soft, RUQ ttp, non-distended, normal bowel sounds. No guarding or rebound tenderness. Abscess drain in place, draining minimal bloody liquid ~15 cc Musculoskeletal: Normal range of motion and strength, no tenderness or swelling Skin: Skin is warm, dry, no rashes or lesions. Laparoscopic incisions present and clean on abdomen Neurologic: Alert, awake and oriented x3. CN II-XII grossly intact. No focal neuro deficits. No signs of meningeal irritation noted. Psychiatric: Cooperative, appropriate mood and affect Objective Labs 09/27/25 05:01 09/27/25 05:01 Labs: Laboratory Results - last 24 hr 09/26/25 09/27/25 20:43 05:01 WBC 5.1 RBC 3.98 L Hgb 11.4 L Hct 35.1 L MCV 88 MCH 28.6 MCHC 32.5 RDW Std Deviation 39.8 Plt Count 420 D Neut % (Auto) 54 Lymph % (Auto) 34 [place] % (Auto) 10 Eos % (Auto) 2 Baso % (Auto) 1 Neut # (Auto) 2.8 Lymph # (Auto) 1.7 [place] # (Auto) 0.5 Eos # (Auto) 0.1 Baso # (Auto) 0.0 Immature Gran # (Auto) 0.01 H Absolute Nucleated RBC 0.00 Immature Gran % 0 Nucleated RBC % 0 Sodium 137 Potassium 4.3 Chloride 98 Carbon Dioxide 32.0 H Anion Gap 7 BUN 14 Creatinine 0.6 Estim Creat Clear Calc 101.5 eGFR > 60 BUN/Creatinine Ratio 23 H Glucose 312 H Calculated Osmolality 286 Calcium 9.4 Corrected Calcium 9.4 Total Bilirubin 0.4 AST 61 H ALT 29 Alkaline Phosphatase 279 H D Total Protein 6.6 Albumin 4.0 Globulin 2.6 Albumin/Globulin Ratio 1.5 Vancomycin Trough 9.2 ABG Interpretation ABG results: 09/23/25 17:52 VBG pH 7.47 VBG pCO2 38 VBG pO2 53 VBG Base Excess 4 H Quality Measures Quality Measures VTE prophylaxis Assessment & Plan Assessment Current Active Medications: Generic Name Dose Route Start Last Admin Trade Name Freq PRN Reason Stop Dose Admin Acetaminophen 650 mg 09/23/25 21:22 Acetaminophen 325 Mg Tablet PO 10/23/25 21:21 Q6H PRN Fever >101.5 Acetaminophen 650 mg 09/26/25 14:00 09/27/25 05:19 Acetaminophen 325 Mg Tablet PO 10/26/25 13:59 650 mg Q6HR DANII Administration Hydrocodone Bitart/Acetaminophen 1 tab 09/25/25 09:14 09/27/25 08:34 Hydrocodone/Apap 5/325 Tablet PO 09/30/25 09:13 1 tab Q4HR PRN Administration PAIN SCALE 4-10(Mod-Sev Atorvastatin Calcium 20 mg 09/24/25 21:00 09/26/25 20:11 Atorvastatin Calcium 20 Mg Tablet PO 10/24/25 20:59 20 mg HS DANII Administration Baclofen 10 mg 09/25/25 11:30 09/27/25 08:19 Baclofen 10 Mg Tablet PO 10/25/25 11:29 10 mg BID DANII Administration Clonidine 0.1 mg 09/24/25 09:00 09/27/25 08:19 Clonidine Hcl 0.1 Mg Tablet PO 10/24/25 08:59 0.1 mg BID DANII Administration Dextrose 25 ml 09/23/25 22:04 Dextrose 50%-Water Inj 50 Ml Syringe IV 10/23/25 22:03 Q15MIN PRN BG 50-70 responsive npo pt Dextrose 50 ml 09/23/25 22:04 Dextrose 50%-Water Inj 50 Ml Syringe IV 10/23/25 22:03 Q15MIN PRN BG <50 OR BG <70 & pt unresponsive Diazepam 5 mg 09/24/25 09:15 Diazepam Inj 5 Mg/Ml Vial 2 Ml IVP 09/29/25 09:14 X1 PRN anxiety prior to abscess drain Glucagon 1 mg 09/23/25 22:04 Glucagon Inj 1 Mg Vial IM Q15MIN PRN BG <70, and no IV access Ciprofloxacin/Dextrose 400 mg in 200 mls @ 200 mls/hr 09/24/25 09:00 09/27/25 08:22 Cipro Ivpb IV 10/01/25 08:59 200 mls/hr Q12HR DANII Administration Metronidazole 500 mg in 100 mls @ 200 mls/hr 09/24/25 04:00 09/27/25 05:19 Flagyl 500 Mg Iv IV 10/01/25 03:59 200 mls/hr Q8HR DANII Administration Lactated Ringer's 1,000 mls @ 85 mls/hr 09/26/25 16:18 09/27/25 05:18 Lactated Ringers IV 09/27/25 15:49 85 mls/hr .[id number] DANII Administration Vancomycin HCl/Dextrose 250 mls @ 120 mls/hr 09/27/25 10:00 Vancomycin/D5w 1,250 Mg Ivpb IV 10/04/25 09:59 BID@1000,2200 DANII Protocol Insulin Degludec 10 unit 09/27/25 09:00 09/27/25 08:20 Insulin Degludec 5 Unit/0.05 Ml (Per 5 Units) SC 10/27/25 08:59 10 unit QDAY DANII Administration Insulin Human Lispro 0 unit 09/26/25 07:47 09/27/25 07:31 Insulin Lispro (Admelog) 1 Unit/0.01 Ml Unit SC 10/24/25 16:59 4 unit ACHS DANII Administration Protocol Lidocaine 1 patch 09/25/25 09:14 Lidocaine 5% 1 Patch TOP 10/25/25 09:13 UD PRN LOCALIZED PAIN Methadone HCl 10 mg 09/25/25 10:30 09/27/25 05:19 Methadone Hcl 10 Mg Tablet PO 09/30/25 10:29 10 mg TID DANII Administration Protocol Metoclopramide HCl 10 mg 09/26/25 18:00 09/27/25 05:19 Metoclopramide Inj 5 Mg/Ml Vial 2 Ml IVP 10/26/25 17:59 10 mg Q6HR DANII Administration Protocol Morphine Sulfate 2 mg 09/25/25 09:15 09/26/25 23:24 Morphine Sulf Inj 4 Mg/Ml Vial IVP 09/28/25 21:30 2 mg Q4HR PRN Administration BREAKTHROUGH PAIN 4-10 Ondansetron HCl 4 mg 09/26/25 07:48 09/27/25 07:55 Ondansetron Inj 2 Mg/Ml Inj 2 Ml IVP 10/26/25 07:47 4 mg Q8HR PRN Administration NAUSEA OR VOMITING Protocol Pantoprazole Sodium 40 mg 09/24/25 09:00 09/27/25 08:21 Pantoprazole Inj 40 Mg Vial IVP 10/24/25 08:59 40 mg QDAY DANII Administration Pharmacy Consult 1 each 09/25/25 09:00 Vancomycin Pharmacy To Dose 1 Each Each IV 10/25/25 08:59 QDAY PRN CONSULT Sennosides 1 tab 09/24/25 08:01 09/25/25 10:20 Senna/Docusate Sod 1 Tab Tablet PO 10/24/25 08:00 1 tab QDAY PRN Administration CONSTIPATION Protocol Plan 55-year-old female with PMHx type 2 diabetes mellitus (on insulin), peripheral neuropathy, chronic pain secondary to a herniated disc on methadone, HTN, and a prior CVA 6 years ago, who presents to the ED with RUQ x1 day. Patient admitted for intra-abdominal abscess s/p drain placement, on iv abx, pending wound cultres #Intra-abdominal abscess #Umbilical hernia with incarcerated fat #Gallbladder fossa abscess with drain in place #History of cholecystectomy (09/08/[address] Márquez) Afebrile and nontoxic-appearing, no leukocytosis. RUQ TTP, voluntary guarding, nausea CT a/p: fluid collection with air densities in the gallbladder fossa at least 10 x 6 cm, 35 mm umbilical hernia w/ incarcerated fat; gastritis IR placed drain for gallbladder fossa abscess 08/24 Gallbladder fluid cx: prelim GPC CTAP wo con with smaller abscess and drain in appropriate position Plan: ? Ciprofloxacin 400 mg IV every 12 hours (09/24-) ? Metronidazole 500 mg every 8 hours (09/24-) - Vancomycin (pharmacy to dose) (09/25-) - Reglan 10 IV PRN - Pantoprazole 40 mg IV daily - [place] 5 mg q4h PRN - morphine 2mg IVP for pain PRN ? Follow-up blood culture, gallbladder fluid culture #Type 2 diabetes, insulin-dependent A1c on admission 7.4 Plan: ? Insulin sliding scale step 2 - degludec 20 U qd - Lispro 8 U TID with meals #Hypertension Plan ? Clonidine 0.1 mg PO BID (home med) #Peripheral neuropathy #Chronic pain 2/2 herniated disc Patient takes methadone at home - 10 mg TID, Rx from [facility], picks up at [facility] Plan: ? Methadone 10 mg PO TID (home med) - Blaclofen 10 mg PO BID (home med) #History of CVA (6 years ago) Per patient does not take aspirin because of allergy and not on any statin medication Lipid panel: Triglyceride 144, Cholesterol 232, LDL 132, HDL ASCVD: 4.6% risk of CV event in 10 years --> moderate intensity statin Plan ? Atorvastatin 20 mg PO QHS Checklist Dispo: Drainage of abscess, continues to need IV pain meds, pending wound cx speciation (gpc) Lines: PIV Diet: carb consistent Bowel Reg: doc/senna PRN VTE ppx: SCD GI ppx: pantoprazole 40 mg IV daily Pain mgmt: Tylenol PO PRN, [place] 5 mg q4h PRN, morphine 2 mg IV q4h, methadone 10 mg TID, Baclofen 10 mg PO BID Code status: full Plan discussed with my attending Dr. Erickson and my senior resident Dr. Mindy Clayton MD PGY1 Attending Provider Attestation/Addendum I, Samantha Erickson DO, attest that I was physically present for the and[place] portions of the service and evaluated the patient with the resident and I reviewed and discussed the case with the resident and agree with the resident's findings and plans of care as documented above Patient seen and evaluated this AM. She states that she continues to have pain, but improved after receiving morphine and methadone this morning. She is able to have regular bm and tolerating diet. Minimal output from drain noted, which remains serosanguinous. Encouraged patient to ambulate. Pending final cultures and sensitivities of gallbladder fossa fluid to further narrow abx.
[2025-09-27] MEDS: MORPHINE SULF INJ 4 MG/ML VIAL 2 MG IVP ×3 (10:23→21:23)
[2025-09-27] MEDS: VANCOMYCIN/D5W 1,250 MG IVPB 250 ML 120 MG IV ×2 (10:23→22:09)
[2025-09-27] MEDS: INSULIN DEGLUDEC 5 UNIT/0.05 ML (PER 5 UNITS) SC (10:23)
[2025-09-27] MEDS: INSULIN LISPRO (AdmeLOG) 1 UNIT/0.01 ML UNIT 8 UNIT SC ×2 (11:28→17:12)
--- NOTE | 2025-09-27 14:34 | PC.SS ---
rounding note: Pain control. blood sugars need to be controlled. D/c plan: home
[2025-09-27] MEDS: ATORVASTATIN CALCIUM 20 MG TABLET PO (20:23)
[2025-09-28] VITALS: BP 162/73; PULSE 89; RESP 17; TEMP 36.4; O2SAT 97
[2025-09-28] MEDS: METOCLOPRAMIDE INJ 5 MG/ML VIAL 2 ML 10 MG IVP ×3 (00:07→11:39)
[2025-09-28] MEDS: ACETAMINOPHEN 325 MG TABLET 650 MG PO ×3 (00:08→11:39)
[2025-09-28] MEDS: MORPHINE SULF INJ 4 MG/ML VIAL 2 MG IVP ×2 (01:43→06:50)
[2025-09-28 04:00] VITALS: BP 164/95; PULSE 80; RESP 17; TEMP 36.3; O2SAT 97
[2025-09-28 05:28] LABS: Basophils # (Auto) 0.1 Thou/mm3 (0.0-0.2); Basophils % (Auto) 1 % (0-2.5); Eosinophils # (Auto) 0.1 Thou/mm3 (0.0-0.5); Eosinophils % (Auto) 2 % (0-10); Hematocrit 36.3 % (36.0-46.0); Hemoglobin 12.3 g/dL (12.0-16.0); Immature Granulocytes Auto 0.02 Thou/mm3 (0.00-0.00); Lymphocytes # (Auto) 1.6 Thou/mm3 (1.0-4.8); Lymphocytes % (Auto) 33 % (10-50); Mean Corpuscular HGB Conc 33.9 g/dl (31.0-37.0); Mean Corpuscular Hemoglobin 28.8 pg (25.0-35.0); Mean Corpuscular Volume 85 fL (80-100); Monocytes # (Auto) 0.3 Thou/mm3 (0.0-0.8); Monocytes % (Auto) 7 % (0-12); Neutrophils # (Auto) 2.9 Thou/mm3 (1.8-7.7); Neutrophils % (Auto) 57 % (37-80); Nucleated Red Blood Cell # 0.00 Thou/mm3 (0.00-0.00); Nucleated Red Blood Cell % 0 /100 WBC (0); Platelet Count 482 Thou/mm3 (140-440); RDW Standard Deviation 38.1 fL (36.4-46.3); Red Blood Count 4.27 Miln/mm3 (4.00-5.20); White Blood Count 5.0 Thou/mm3 (3.6-11.0)
[2025-09-28] MEDS: METHADONE HCL 10 MG TABLET PO ×2 (05:34→13:57)
[2025-09-28] MEDS: metroNIDAZOLE/NS 500 MG IVPB 500 MG/100 ML BAG 200 MG IV (05:34)
[2025-09-28 06:10] LABS: Alanine Aminotransferase 74 U/L (10-49); Albumin, Serum 4.2 gm/dL (3.5-5.0); Albumin/Globulin Ratio 1.6 (1.2-2.2); Alkaline Phosphatase 542 U/L (46-116); Anion Gap 8 (7-16); Aspartate Amino Transferase 137 U/L (0-34); BUN/Creatinine Ratio 15 Ratio (12-20); Bilirubin,Total 0.3 mg/dL (0.3-1.2); Blood Urea Nitrogen 9 mg/dL (9-23); Calcium 9.6 mg/dL (8.3-10.6); Calcium (Corrected) 9.6 mg/dL (8.5-10.1); Carbon Dioxide 32.1 mMol/L (20.0-31.0); Chloride 97 mMol/L (98-107); Creatinine (Component) 0.6 mg/dL (0.6-1.3); Estimated Creatinine Clearance 99.1 mL/min (>60); Globulin 2.7 gm/dL (2.3-3.5); Glucose 284 mg/dL (74-106); Osmolality,Calculated 282 (275-295); Potassium 4.3 mMol/L (3.4-5.1); Sodium 137 mMol/L (136-145); Total Protein 6.9 gm/dL (5.7-8.2); eGFR > 60 See Note
[2025-09-28] MEDS: INSULIN LISPRO (AdmeLOG) 1 UNIT/0.01 ML UNIT SC ×2 (07:33→11:42)
[2025-09-28] MEDS: INSULIN LISPRO (AdmeLOG) 1 UNIT/0.01 ML UNIT 8 UNIT SC ×2 (07:33→11:41)
[2025-09-28 08:00] VITALS: BP 171/93; PULSE 76; RESP 18; TEMP 36.1; O2SAT 96
[2025-09-28 08:30] VITALS: BP 164/95; PULSE 80
[2025-09-28] MEDS: BACLOFEN 10 MG TABLET PO (08:30)
[2025-09-28] MEDS: INSULIN DEGLUDEC 5 UNIT/0.05 ML (PER 5 UNITS) 20 UNIT SC (08:31)
[2025-09-28] MEDS: CIPROFLOXACIN/D5w 400 MG IVPB 400 MG/200 ML BAG 200 MG IV (08:31)
[2025-09-28] MEDS: VANCOMYCIN/D5W 1,250 MG IVPB 250 ML 120 MG IV (09:39)
--- NOTE | 2025-09-28 10:42 | PD.RESPRO ---
Documentation for date of: 09/28/25 Subjective Subjective Interval history: NAEO. Drain removed this AM due to minimal output. She is able to have regular bm and tolerating diet. Nausea managed with Reglan. Pain managed with methadone, Baclofen, and morphine IV, refusing [place] PO. Receiving morphine IV q4h. Exam Vital Signs Temp Pulse Resp BP Pulse Ox O2 Del Method O2 Flow Rate 97.0 F 80 18 164/95 H 96 Room Air 3 09/28/25 08:00 09/28/25 08:30 09/28/25 08:00 09/28/25 08:30 09/28/25 08:00 09/28/25 08:00 09/28/25 08:00 Objective Labs 09/28/25 04:34 09/28/25 04:34 Labs: Laboratory Results - last 24 hr 09/28/25 04:34 WBC 5.0 RBC 4.27 Hgb 12.3 Hct 36.3 MCV 85 MCH 28.8 MCHC 33.9 RDW Std Deviation 38.1 Plt Count 482 H D Neut % (Auto) 57 Lymph % (Auto) 33 [place] % (Auto) 7 Eos % (Auto) 2 Baso % (Auto) 1 Neut # (Auto) 2.9 Lymph # (Auto) 1.6 [place] # (Auto) 0.3 Eos # (Auto) 0.1 Baso # (Auto) 0.1 Immature Gran # (Auto) 0.02 H Absolute Nucleated RBC 0.00 Immature Gran % 0 Nucleated RBC % 0 Sodium 137 Potassium 4.3 Chloride 97 L Carbon Dioxide 32.1 H Anion Gap 8 BUN 9 Creatinine 0.6 Estim Creat Clear Calc 99.1 eGFR > 60 BUN/Creatinine Ratio 15 Glucose 284 H Calculated Osmolality 282 Calcium 9.6 Corrected Calcium 9.6 Total Bilirubin 0.3 AST 137 H ALT 74 H Alkaline Phosphatase 542 H D Total Protein 6.9 Albumin 4.2 Globulin 2.7 Albumin/Globulin Ratio 1.6 ABG Interpretation ABG results: 09/23/25 17:52 VBG pH 7.47 VBG pCO2 38 VBG pO2 53 VBG Base Excess 4 H Quality Measures Quality Measures VTE prophylaxis Assessment & Plan Assessment Current Active Medications: Generic Name Dose Route Start Last Admin Trade Name Freq PRN Reason Stop Dose Admin Acetaminophen 650 mg 09/23/25 21:22 Acetaminophen 325 Mg Tablet PO 10/23/25 21:21 Q6H PRN Fever >101.5 Acetaminophen 650 mg 09/26/25 14:00 09/28/25 05:34 Acetaminophen 325 Mg Tablet PO 10/26/25 13:59 650 mg Q6HR DANII Administration Hydrocodone Bitart/Acetaminophen 1 tab 09/25/25 09:14 09/27/25 08:34 Hydrocodone/Apap 5/325 Tablet PO 09/30/25 09:13 1 tab Q4HR PRN Administration PAIN SCALE 4-10(Mod-Sev Atorvastatin Calcium 20 mg 09/24/25 21:00 09/27/25 20:23 Atorvastatin Calcium 20 Mg Tablet PO 10/24/25 20:59 20 mg HS DANII Administration Baclofen 10 mg 09/25/25 11:30 09/28/25 08:30 Baclofen 10 Mg Tablet PO 10/25/25 11:29 10 mg BID DANII Administration Clonidine 0.1 mg 09/24/25 09:00 09/28/25 08:30 Clonidine Hcl 0.1 Mg Tablet PO 10/24/25 08:59 0.1 mg BID DANII Administration Dextrose 25 ml 09/23/25 22:04 Dextrose 50%-Water Inj 50 Ml Syringe IV 10/23/25 22:03 Q15MIN PRN BG 50-70 responsive npo pt Dextrose 50 ml 09/23/25 22:04 Dextrose 50%-Water Inj 50 Ml Syringe IV 10/23/25 22:03 Q15MIN PRN BG <50 OR BG <70 & pt unresponsive Diazepam 5 mg 09/24/25 09:15 Diazepam Inj 5 Mg/Ml Vial 2 Ml IVP 09/29/25 09:14 X1 PRN anxiety prior to abscess drain Glucagon 1 mg 09/23/25 22:04 Glucagon Inj 1 Mg Vial IM Q15MIN PRN BG <70, and no IV access Ciprofloxacin/Dextrose 400 mg in 200 mls @ 200 mls/hr 09/24/25 09:00 09/28/25 08:31 Cipro Ivpb IV 10/01/25 08:59 200 mls/hr Q12HR DANII Administration Metronidazole 500 mg in 100 mls @ 200 mls/hr 09/24/25 04:00 09/28/25 05:34 Flagyl 500 Mg Iv IV 10/01/25 03:59 200 mls/hr Q8HR DANII Administration Vancomycin HCl/Dextrose 250 mls @ 120 mls/hr 09/27/25 10:00 09/28/25 09:39 Vancomycin/D5w 1,250 Mg Ivpb IV 10/04/25 09:59 120 mls/hr BID@1000,2200 DANII Administration Protocol Insulin Degludec 20 unit 09/28/25 09:00 09/28/25 08:31 Insulin Degludec 5 Unit/0.05 Ml (Per 5 Units) SC 10/28/25 08:59 20 unit QDAY DANII Administration Insulin Human Lispro 0 unit 09/26/25 07:47 09/28/25 07:33 Insulin Lispro (Admelog) 1 Unit/0.01 Ml Unit SC 10/24/25 16:[address] [facility] Administration Protocol Insulin Human Lispro 8 unit 09/27/25 11:30 09/28/25 07:33 Insulin Lispro (Admelog) 1 Unit/0.01 Ml Unit SC 10/27/25 11:29 8 unit AC DANII Administration Lidocaine 1 patch 09/25/25 09:14 Lidocaine 5% 1 Patch TOP 10/25/25 09:13 UD PRN LOCALIZED PAIN Methadone HCl 10 mg 09/25/25 10:30 09/28/25 05:34 Methadone Hcl 10 Mg Tablet PO 09/30/25 10:[address] [facility] Administration Protocol Metoclopramide HCl 10 mg 09/26/25 18:00 09/28/25 05:33 Metoclopramide Inj 5 Mg/Ml Vial 2 Ml IVP 10/26/25 17:59 10 mg Q6HR DANII Administration Protocol Morphine Sulfate 2 mg 09/25/25 09:15 09/28/25 06:50 Morphine Sulf Inj 4 Mg/Ml Vial IVP 09/28/25 21:30 2 mg Q4HR PRN Administration BREAKTHROUGH PAIN 4-10 Ondansetron HCl 4 mg 09/26/25 07:48 09/27/25 22:09 Ondansetron Inj 2 Mg/Ml Inj 2 Ml IVP 10/26/25 07:47 4 mg Q8HR PRN Administration NAUSEA OR VOMITING Protocol Pantoprazole Sodium 40 mg 09/29/25 09:00 Pantoprazole 40 Mg Tablet PO 10/29/25 08:[address] [facility] Pharmacy Consult 1 each 09/25/25 09:00 Vancomycin Pharmacy To Dose 1 Each Each IV 10/25/25 08:59 QDAY PRN CONSULT Sennosides 1 tab 09/24/25 08:01 09/25/25 10:20 Senna/Docusate Sod 1 Tab Tablet PO 10/24/25 08:00 1 tab QDAY PRN Administration CONSTIPATION Protocol Plan 55-year-old female with PMHx type 2 diabetes mellitus (on insulin), peripheral neuropathy, chronic pain secondary to a herniated disc on methadone, HTN, and a prior CVA 6 years ago, who presents to the ED with RUQ x1 day. Patient admitted for intra-abdominal abscess s/p drain placement, on iv abx, pending wound cultres #Intra-abdominal abscess #Umbilical hernia with incarcerated fat #Gallbladder fossa abscess with drain in place #History of cholecystectomy (09/08/[address] Márquez) Afebrile and nontoxic-appearing, no leukocytosis. RUQ TTP, voluntary guarding, nausea CT a/p: fluid collection with air densities in the gallbladder fossa at least 10 x 6 cm, 35 mm umbilical hernia w/ incarcerated fat; gastritis IR placed drain for gallbladder fossa abscess 08/24 Gallbladder fluid cx: prelim GPC CTAP wo con with smaller abscess and drain in appropriate position Removed drain 09/28 due to minimal output Plan: ? Ciprofloxacin 400 mg IV every 12 hours (09/24-) ? Metronidazole 500 mg every 8 hours (09/24-) - Vancomycin (pharmacy to dose) (09/25-) - Reglan 10 IV PRN - Pantoprazole 40 mg IV daily - [place] 5 mg q4h PRN - morphine 2mg IVP for pain PRN ? Follow-up blood culture, gallbladder fluid culture #Type 2 diabetes, insulin-dependent A1c on admission 7.4 Plan: ? Insulin sliding scale step 2 - degludec 20 U qd - Lispro 8 U TID with meals #Hypertension Plan ? Clonidine 0.1 mg PO BID (home med) #Peripheral neuropathy #Chronic pain 2/2 herniated disc Patient takes methadone at home - 10 mg TID, Rx from [facility], picks up at [facility] Plan: ? Methadone 10 mg PO TID (home med) - Blaclofen 10 mg PO BID (home med) #History of CVA (6 years ago) Per patient does not take aspirin because of allergy and not on any statin medication Lipid panel: Triglyceride 144, Cholesterol 232, LDL 132, HDL ASCVD: 4.6% risk of CV event in 10 years --> moderate intensity statin Plan ? Atorvastatin 20 mg PO QHS Checklist Dispo: Drainage of abscess, continues to need IV pain meds, pending wound cx speciation (gpc) Lines: PIV Diet: carb consistent Bowel Reg: doc/senna PRN VTE ppx: SCD GI ppx: pantoprazole 40 mg IV daily Pain mgmt: Tylenol PO PRN, [place] 5 mg q4h PRN, morphine 2 mg IV q4h, methadone 10 mg TID, Baclofen 10 mg PO BID Code status: full Plan discussed with Dr. Karsten Barbosa and Dr. Shanice Aranda MD PGY1
--- NOTE | 2025-09-28 10:53 | PD.RESDS ---
Planned Discharge Date 09/28/25 DS: Providers Provider Date of admission: 09/23/25 21:31 Primary care physician: Angelo Molina PA-C Admitting Provider: Jaswant Sandy MD Attending Provider on Admission: Samantha Erickson DO Consults: 09/23/25 21:34 Consult to General Surgery Stat Comment: intra-abdominal abscess Consulting Provider: Priscila Márquez 09/23/25 22:49 Referral Physical Therapy Routine Comment: Physician Instructions: Attending Provider on DC: Dr. Prasad Discharging Provider: Lili Aranda MD DS: Diagnosis Problem List Completed Was Problem List Reviewed/Reconciled?: Yes Hospital Course Hospital Course Hospital course: Hospital Course Ms. Angel is a 54 y/o female with PMHx type 2 diabetes mellitus (on insulin) c/b peripheral neuropathy, chronic pain secondary to a herniated disc on methadone, HTN, and a prior CVA 6 years ago, who presents to the ED on 09/23 with RUQ x1 day. Pt recently underwent cholecystectomy with Dr. Márquez on 09/08/25. Imaging showed abscess in the gallbladder fossa (10 x 6 cm). IR placed a drain in gallbladder fossa 08/24 with minimal serosanguinous output over 5 days and IV antibiotics were started and pain was managed with home dose methadone in addition to PRN IV and PO pain medications. Accordian drain removed 09/28. Wound culture grew Streptococcus salivarius. Blood cultures negative. Patient will continue course of ciprofloxacin and metronidazole for a total of 14 days. Patient's blood glucose was difficult to control during hospitalization, and patient noted that she often became hypoglycemia at home on home regimen. Patient will be discharged on Degludec 40 U nightly with Lispro 10 U with meals in addition to sliding scale step 2. A1C on admission 7.4. Patient to follow up with PCP outpatient for further T2DM management. Increased atorvastatin from 20 to 40 mg QHS 2/2 ASCVD score. PT noted that patient did not need further PT upon discharge. Pt to follow up with Dr. Márquez in 2 weeks outpatient. Patient stable and medically cleared for discharge. Diagnoses #Intra-abdominal abscess #Umbilical hernia with incarcerated fat #Gallbladder fossa abscess with drain in place #History of cholecystectomy (09/08/[address] Márquez) #Type 2 diabetes, insulin-dependent #Hypertension #Peripheral neuropathy #Chronic pain 2/2 herniated disc #History of CVA (6 years ago) Discharge Instructions - Follow up with PCP within 1 week of discharge, if you do not have a primary care physician you can come see us at the [facility] by calling [phone] - Continue taking Ciprofloxacin and Metronidazole once daily for 9 more days - Take Degludec 40 Units nightly - Lispro 10 U with each meal - Please use additional units of Lispro with mealtime if needed (see below for sliding scale) - Continue rest of medications as previously prescribed - Return to the ED or call EMS if symptoms return and/or worsen If blood sugar 180-200 mg/dl --> add 2U Lispro If blood sugar 201-250 mg/dl --> add 3 U Lispro If blood sugar 251-300 mg/dl --> add 4 U Lispro If blood sugar >300 mg/dl --> add 5 U Lispro Lili Aranda MD PGY1 Time Spent with Patient Time attestation: Total time spent providing and/or coordinating discharge services: Time spent: Greater than 30 minutes Exam Vital Signs Temp Pulse Resp BP Pulse Ox O2 Del Method O2 Flow Rate 97.0 F 80 18 164/95 H 96 Room Air 3 09/28/25 08:00 09/28/25 08:30 09/28/25 08:00 09/28/25 08:30 09/28/25 08:00 09/28/25 08:00 09/28/25 08:00 Narrative Exam General: No acute distress, well nourished Eye: PERRL, EOMI, normal conjunctiva, no scleral icterus HENT: Normocephalic, atraumatic, normal hearing, moist oral mucosa Neck: Supple, non-tender, no JVD, no lymphadenopathy Lungs: Clear to auscultation bilaterally, non-labored respirations, symmetric chest rise, no use of accessory muscles Heart: Normal S1 and S2, no S3 or S4 appreciated. Normal rate and regular rhythm, no murmurs, rubs gallops, or edema. Peripheral pulses intact bilaterally, capillary refill brisk distally Abdomen: Soft, RUQ ttp, non-distended, normal bowel sounds. Musculoskeletal: Normal range of motion and strength, no tenderness or swelling Skin: Skin is warm, dry, no rashes or lesions. Laparoscopic incisions present and clean on abdomen Neurologic: Alert, awake and oriented x3. CN II-XII grossly intact. No focal neuro deficits. No signs of meningeal irritation noted. Psychiatric: Cooperative, appropriate mood and affect Discharge Plan Plan Patient Disposition: HOME (Self Care) Patient condition on transfer: Stable Care Plan Goals: - Follow up with PCP within 1 week of discharge, if you do not have a primary care physician you can come see us at the [facility] by calling [phone] - Continue taking Ciprofloxacin and Metronidazole daily for 9 more days to complete the course - Take Degludec 40 Units nightly - Lispro 10 U with each meal - Please use additional units of Lispro with mealtime if needed (see below for sliding scale) - Continue rest of medications as previously prescribed - Return to the ED or call EMS if symptoms return and/or worsen If blood sugar 180-200 mg/dl --> add 2U Lispro If blood sugar 201-250 mg/dl --> add 3 U Lispro If blood sugar 251-300 mg/dl --> add 4 U Lispro If blood sugar >300 mg/dl --> add 5 U Lispro Prescriptions/Referrals Prescriptions/Med Rec: New atorvastatin 20 mg Tablet 20 mg PO HS 30 Days Qty: 30 0RF hydrocodone-acetaminophen 5-325 mg tablet 1 tab PO Q6H MDD 4 PRN (Reason: pain (scale score 7-10)) Qty: 10 0RF ciprofloxacin HCl 500 mg tablet 500 mg PO BID 9 Days Qty: 18 0RF metronidazole 500 mg tablet 500 mg PO Q8H 9 Days Qty: 27 0RF Continued oxycodone-acetaminophen [Percocet] 5-325 mg tablet 1 tab PO Q4H MDD 6 tabs PRN (Reason: pain) Qty: 10 0RF Rx Instructions: Take 1 tablet as needed every 4-6 hours for moderate to severe pain clonidine HCl 0.1 mg tablet 0.1 mg PO BID methadone 10 mg tablet 10 mg PO Q8H PRN (Reason: Pain) Patient Comments: TAKE 1 TABLET BY MOUTH EVERY 8 HOURS NEEDED FOR PAIN (MAX 3 TABLET/DAY) baclofen 10 mg tablet 10 mg PO BID Patient Comments: TAKE 1 TABLET BY MOUTH EVERYDAY AT BEDTIME promethazine 25 mg tablet 25 mg PO Q12H PRN (Reason: n/v) Patient Comments: TAKE 1 TABLET BY MOUTH DAILY NEEDED, DO NOT EXCEED MORE THAN ONCE A DAY pregabalin 25 mg capsule 25 mg PO BID Patient Comments: TAKE 1 CAPSULE BY MOUTH TWICE A DAY NEEDED MAX 2 CAPSULES DAILY (DME) Dexcom G6 Sensor Device See Rx Instructions .Route Qty: 3 0RF Patient Comments: Pending refill Rx Instructions: As directed (DME) Dexcom G6 Antisqueak Filler Misc See Rx Instructions .Route Qty: 1 0RF Rx Instructions: As directed (DME) Dexcom G6 Transmitter Device See Rx Instructions .Route Qty: 1 0RF Patient Comments: Pending refill Rx Instructions: As directed (DME) pen needle, diabetic [CareFine Pen Needle] 29 gauge x 1/2 needle See Rx Instructions .Route Qty: 100 0RF Rx Instructions: Use for insulin administration Ozempic 0.25 mg or 0.5 mg (2 mg/3 mL) pen injector 0.5 mg SUBCUT QWEEK Changed insulin lispro 100 unit/mL insulin pen 10 unit subcut TID 30 Days Qty: 9 0RF Rx Instructions: Administer three times per day with meals insulin glargine-aglr 100 unit/mL (3 mL) insulin pen 40 unit subcut HS 30 Days Qty: 12 0RF Discontinued duloxetine 30 mg capsule,delayed release(DR/EC) 30 mg PO BID Patient Comments: takes once a day Q day Referrals: Angelo Molina PA-C [Primary Care Provider] Priscila Márquez MD [Physician, General Surgery] Referral Note: You will receive a message to confirm a follow-up appt with me in 2 weeks Patient/Caregiver Discharge Instructions Print Language: Malaysian Stand Alone Forms: [employer] Info., Patient Portal Info Letter Discharge Order Discharge Orders: Discharge (Routine); Ordered 09/28/25 Ordered By: Destiny Barbosa Quality Discharge Quality Measures VTE prophylaxis Attestestation Attestation I reviewed labs, imaging, EKG, home medications and prior available records. Face to face evaluation was performed by me. I have personally examined the patient and discussed assessment and plan with the IM team. I reviewed the resident note and agree with the plan with exceptions as below. History of recent cholecystectomy Intra-abdominal abscess Insulin-dependent diabetes mellitus Cultures grew Streptococcus salivarius Will discharge on ciprofloxacin/Flagyl Prescribed short-term hydrocodone Status post drain placement, status post removal on 09/29 Will discharge on long-acting insulin 4 units +10 units with meals. Continue to monitor fingersticks closely and adjust as needed Outpatient follow-up with general surgery Time spent is 38 minutes. More than 50% of the time was spent on patient education and coordination of care.
--- NOTE | 2025-09-28 11:32 | ESPR_ITS ---
Documentation for date of: 09/28/25 Subjective Subjective Brief History: 55F with HTN, DMII on insulin, chronic back pain on methadone s/p laparoscopic cholecystectomy 09/08/25 presenting with abdominal pain. Pt had been feeling overall well after surgery but as of the last couple days felt her pain was worse and also noted chills, headache and malaise. Given the degree of pain she sought care in ER and workup showed normal WBC and LFTs however CT showed a 1 0x6cm gallbladder fossa collection concerning for abscess Narrative: Pt reports ongoing pain and mild nausea but is tolerating diet, remaining afebrile with normal WBC, drain output 35cc/24h remaining sanguinous Exam Vital Signs Temp Pulse Resp BP Pulse Ox O2 Del Method O2 Flow Rate 97.0 F 80 18 164/95 H 96 Room Air 3 09/28/25 08:00 09/28/25 08:30 09/28/25 08:00 09/28/25 08:30 09/28/25 08:00 09/28/25 08:00 09/28/25 08:00 Constitutional Constitutional: no acute distress Routine Respiratory Exam Respiratory: Present no resp distress Routine Abdominal Exam Abdominal: Present soft and drain (RUQ drain with sanguinous output, removed intact); Absent tenderness or distended Results Results: Laboratory Laboratory Narrative: Culture reviewed: strep salivarius Laboratory results: results reviewed Assessment & Plan Plan 55F with HTN, DMII on insulin, chronic back pain on methadone s/p laparoscopic cholecystectomy 09/08/25 presenting with abdominal pain, with normal WBC and LFTs but a 10x6cm gallbladder fossa collection s/p IR drain placement 09/24, reporting ongoing pain for which CT was repeated showing smaller fluid collection. Culture noted, may represent contamination Drain removed today OK from my standpoint for dc, will f/u in 2 weeks
[2025-09-28] MEDS: HYDROcodone/APAP 5/325 TABLET 1 TAB PO (11:40)
[2025-09-28 12:00] VITALS: BP 154/91; PULSE 80; RESP 18; TEMP 36.8; O2SAT 96
== END 2025-09-28 14:17 | disposition home or self-care (01) | DRG 248 ==
LOC: SERX 20:52 → SERHOLD 22:04 → S3NX 22:37 → SERHOLD 09-24 05:42 → S3NX 09-24 05:42
PROVIDERS: Nurse Practitioner Primary Care; Radiology Diagnostic Radiology; Admitting Provider Internal Medicine; Emergency Provider Emergency Medicine; PCP Family Medicine; Visit Provider Internal Medicine
DX: K65.1 Peritoneal abscess (principal); E11.40 Type 2 diabetes mellitus with diabetic neuropathy, unspecified; I10 Essential (primary) hypertension; G89.29 Other chronic pain; E11.43 Type 2 diabetes mellitus with diabetic autonomic (poly)neuropathy; K31.84 Gastroparesis; K42.0 Umbilical hernia with obstruction, without gangrene; Z86.73 Personal history of transient ischemic attack (TIA), and cerebral infarction without residual deficits; Z79.891 Long term (current) use of opiate analgesic; Z90.49 Acquired absence of other specified parts of digestive tract; Z79.4 Long term (current) use of insulin; Z79.85 Long-term (current) use of injectable non-insulin antidiabetic drugs; Z79.899 Other long term (current) drug therapy; Z88.1 Allergy status to other antibiotic agents; Z88.0 Allergy status to penicillin; Z88.5 Allergy status to narcotic agent; Z88.6 Allergy status to analgesic agent
CPT/HCPCS: 36415; 74018; 74176; 74177; 75989; 80053; 80061; 80202; 81001; 82010; 82803; 83036; 83605; 83690; 83735; 84100; 84145; 85025; 85610; 85730; 87040; 87070; 87075; 87077; 87081; 87086; 87186; 87205; 96365; 96375; 96376; 97162; 99152; 99284; A4649; J0744; J1171; J1815; J1956; J2250; J2270; J2405; J2470; J2765; J3010; J3373; J3475; J3490; J7120; Q9967; A9270; J1836

== ENCOUNTER 2025-10-06 11:08 | Emergency (ER) | payer MEDICAID, SELFPAY ==
[2025-10-06 11:28] VITALS: BP 171/91; PULSE 102; RESP 20; TEMP 36.7; O2SAT 96; BMI 31.8
--- NOTE | 2025-10-06 11:31 | XR_ITS ---
EXAMINATION: PA chest single view TECHNIQUE: Upright PA chest single view Date and time: October 06, 2025, 1218 hours INDICATIONS: Coughing congestion 6 days. FINDINGS: Mild prominence left ventricle No lobar pneumonia. Minor atelectasis subsegmental left base Moderate osteopenia IMPRESSION: No pneumonia identified
--- NOTE | 2025-10-06 11:31 | XR_ITS ---
Examination: CT abdomen with intravenous contrast CT pelvis with intravenous contrast 2-D coronal reconstructions 2-D sagittal reconstructions Date and time of exam: October 06, 2025, 1755 hours, comparison September 26, 2025 11:47 a.m. INDICATIONS: History cholecystectomy, abscess gallbladder fossa, placement abscess drainage catheter in the gallbladder fossa September 24, 2025. CTDI: vol (mGy) 9.02 DLP: (mGycm) 501 Technique: Multiple axial sections of the abdomen and pelvis have been obtained. 64 slice high-resolution scanner used. 3 mm axial sections have been obtained, post intravenous injection 60 cc [id number] 2-D sagittal, coronal reconstructions obtained. Low dose protocols were performed. One or more of the following dose reduction techniques were used; automated exposure control, adjustment of the mA and/or KV according to patient size, use of iterative reconstruction technique. Findings: The gallbladder fossa drainage catheter is no longer identified Abscess in the gallbladder fossa, 6.9 x 4.2 cm Spleen is nonenlarged No biliary tract dilatation No pancreatic mass No renal or ureteral calculi Aorta normal size 3 cm fat-containing umbilical hernia Edema in the subcutaneous fatty tissue anterior lower abdomen Normal appendix No bowel obstruction Urinary bladder intact Moderate osteopenia IMPRESSION: Abscess in the gallbladder fossa 6.9 x 4.2 cm
--- NOTE | 2025-10-06 11:31 | EKG_ITS ---
[facility] Test Date: 2025-10-06 Pat Name: JAMES GREENE Department: Room: - Gender: Female Slagger: : 1970 Requested By: Mita Henriquez Order Number: [id number] Reading MD: Mita Henriquez Measurements Intervals [place] Rate: 94 P: 28 IA: 121 QRS: 9 QRSD: 85 T: 24 QT: 354 QTc: 443 Interpretive Statements SINUS RHYTHM MINIMAL VOLTAGE CRITERIA FOR LVH, CONSIDER NORMAL VARIANT [MEETS CRITERIA IN ONE OF: R(aVL), S(V1), R(V5), R(V5/V6)+S(V1)] Compared to ECG 05/01/2025 09:49:28 No significant changes /store/S0/[id number]/[id number].pdf
--- NOTE | 2025-10-06 11:31 | XR_ITS ---
Examination: Venous duplex lower extremity sonogram, bilateral. Date and time of exam: October 06, 2025, 1216 hours INDICATIONS: Bilateral leg swelling and pain beginning 1 week ago Technique: Multiple sonographic images of the deep venous system have been obtained. B-mode/2-D grayscale imaging of vascular structures and Doppler spectral analysis (waveforms) and color performed Both legs are examined. Findings: Deep venous systems do not demonstrate abnormal echogenicity. All visualized deep veins exhibit compressibility. All visualized deep veins exhibit augmentation. Impression: Negative for deep vein thrombosis
--- NOTE | 2025-10-06 11:34 | PD.EDSKIN ---
ED Skin Abcess FB-RME/HPI General Chief complaint: Skin/Abscess/Foreign Body Stated complaint: WOUND ABSCESS; S/P LAP DEDE 09/08 Time Seen by Provider: 10/06/25 11:17 Arrival date/time: 10/06/25 11:08 55-year-old female patient with significant history of hypertension diabetes mellitus, recent admission for gallbladder fossa abscess status post percutaneous drainage, initially had laparoscopic cholecystectomy last month on the , was readmitted on the this month, came in for evaluation regarding worsening right upper quadrant pain. Patient is currently taking Cipro and Flagyl, went to PCP today for follow-up, and was advised to go to the emergency room for worsening pain to the right upper quadrant, and mild distention. Patient denies any fever but complain of not feeling well. Also complained of bilateral lower leg swelling which been ongoing for several days, with discomfort. Denies any vomiting denies any other complaints no medication was taken prior to ER visit. Related Data Home Medications ?Medication ?Instructions ?Recorded ?Confirmed baclofen 10 mg tablet 10 mg PO BID 09/14/22 09/24/25 clonidine HCl 0.1 mg tablet 0.1 mg PO BID 09/14/22 09/24/25 methadone 10 mg tablet 10 mg PO Q8H PRN Pain 09/14/22 09/24/25 pregabalin 25 mg capsule 25 mg PO BID 09/14/22 09/24/25 promethazine 25 mg tablet 25 mg PO Q12H PRN n/v 09/14/22 09/24/25 semaglutide 0.25 mg or 0.5 mg (2 0.5 mg subcut QWEEK 09/07/25 09/24/25 mg/3 mL) subcutaneous pen injector (Ozempic) Previous Rx's ?Medication ?Instructions ?Recorded blood-glucose sensor (Dexcom G6 #3 05/02/25 Sensor device) blood-glucose transmitter (Dexcom #1 05/02/25 G6 Transmitter device) blood-glucose,ld teacher,cont #1 05/02/25 (Dexcom G6 Rehab Trainer) pen needle, diabetic 29 gauge x #100 05/02/25 1/2 (CareFine Pen Needle) oxycodone-acetaminophen 5 mg-325 1 tab PO Q4H PRN pain #10 tabs 11/03/25 mg tablet (Percocet) atorvastatin 20 mg tablet 20 mg PO HS 30 days #30 tabs 09/28/25 ciprofloxacin HCl 500 mg tablet 500 mg PO BID 9 days #18 tabs 09/28/25 hydrocodone 5 mg-acetaminophen 325 1 tab PO Q6H PRN pain (scale score 09/28/25 mg tablet 7-10) #10 tabs insulin glargine-aglr 100 unit/mL 40 unit (0.4 mL) subcut HS 30 days 09/28/25 (3 mL) subcutaneous pen #12 mL insulin lispro 100 unit/mL 10 unit (0.1 mL) subcut TID 30 09/28/25 subcutaneous pen days #9 mL metronidazole 500 mg tablet 500 mg PO Q8H 9 days #27 tabs 09/28/25 Allergies Allergy/AdvReac Type Severity Reaction Status Date / Time barium iodide Allergy Severe PASSED OUT Verified 10/06/25 11:11 cephalexin Allergy Severe ITCHING Verified 10/06/25 11:11 AND VOMITING codeine Allergy Severe FAINTS Verified 10/06/25 11:11 ibuprofen Allergy Severe Swelling Verified 10/06/25 11:11 of Lip/Tongue/Throat Penicillins Allergy Severe HIVES AND Verified 10/06/25 11:11 DIFF BREATHING aspirin Allergy Unknown RASH Verified 10/06/25 11:11 Review of Systems Review of Systems Narrative Review of Systems: Review of system reviewed and within normal limits except mentioned in HPI ED Exam Narrative Physical exam: VITAL SIGNS: Reviewed. GENERAL APPEARANCE: Alert and interactive, follows commands, no acute distress, HEAD AND FACE: Non-traumatic. ENT: PERRL, pink conjunctivitis, eyelid no trauma, Mucous membrane moist. NECK: Supple, nontender, no nuchal rigidity. CHEST: No tenderness, no crepitus, no paradoxical movement, no retractions. LUNGS: Clear, well ventilated, symmetric, no rales, no wheezing, no ronchi, no stridor, good breath sounds bilaterally. HEART: Regular rate, regular rhythm, no murmur, no gallops. ABDOMEN: Soft, positive bowel sounds, tenderness to the right upper quadrant, slight distended, no masses palpated nonfluctuant, no guarding, no rebound, no masses, RECTAL: Deferred. GENITAL: Deferred. NEUROLOGICAL: Gross motor function intact sensory function intact, Appropriate for age. MUSCULOSKELETAL: low back nontender, full range of motion. EXTREMITIES: Nontender, full range of motion. + +2 bilateral lower extremity edema no redness with tenderness SKIN: Color pink, dry, no rash, no lacerations, no abrasions, no contusions. LYMPHATICS: Deferred. Course Quality Measures none Orders Category Date Time Status CT Screening NOW Care 10/06/25 11:32 Active EKG (ED ONLY) *Do not use* NOW Care 10/06/25 11:[address] abdomen pelvis w con Stat Exams 10/06/25 11:31 Completed EKG (ED Only) Stat Exams 10/06/25 11:31 Draft US venous doppler LE BI Stat Exams 10/06/25 11:31 Completed XR chest 1V Stat Exams 10/06/25 11:31 Completed B-Type Natriuretic Peptide Stat Lab 10/06/25 12:02 Completed Blood Culture (Lab) Stat Lab 10/06/25 12:06 Received C-Reactive Protein Stat Lab 10/06/25 12:02 Completed CBC Stat Lab 10/06/25 12:02 Completed Comprehensive Metabolic Panel Stat Lab 10/06/25 12:02 Completed HCG Qualitative,Urine Stat Lab 10/06/25 12:40 Completed Lactate (Lactic Acid) Stat Lab 10/06/25 12:02 Completed Partial Thromboplastin Time Stat Lab 10/06/25 12:02 Completed Procalcitonin Stat Lab 10/06/25 12:02 Completed Troponin I Stat Lab 10/06/25 12:02 Completed UA, C/S IF [Urinalysis, C/S if Indicated] Stat Lab 10/06/25 12:40 Completed Morphine* Inj Med 10/06/25 18:46 Once 4 mg IM X1 ONE Vital Signs Vital signs: Vital Signs Temperature 98.1 F 10/06/25 11:28 Pulse Rate 102 H 10/06/25 11:28 Respiratory Rate 20 10/06/25 11:28 Blood Pressure 171/91 H 10/06/25 11:28 Pulse Oximetry (%) 96 10/06/25 11:28 Oxygen Delivery Method Room Air 10/06/25 11:28 Skin / Abscess / Foreign Body MDM Narrative MDM Narrative:: 55-year-old female patient with significant history of hypertension diabetes mellitus, recent admission for gallbladder fossa abscess status post percutaneous drainage, initially had laparoscopic cholecystectomy last month on the , was readmitted on the 6 this month, came in for evaluation regarding worsening right upper quadrant pain. Patient is currently taking Cipro and Flagyl, went to PCP today for follow-up, and was advised to go to the emergency room for worsening pain to the right upper quadrant, and mild distention. Patient denies any fever but complain of not feeling well. Also complained of bilateral lower leg swelling which been ongoing for several days, with discomfort. Denies any vomiting denies any other complaints no medication was taken prior to ER visit. Patient's laboratory workup today came back unremarkable there is no leukocytosis. CMP unremarkable urinalysis no UTI. I personally reviewed and interpreted the x-ray of this patient. There is no acute abnormalities found, no infiltrates no pneumothorax no hemothorax normal chest x-ray. Review of other structures was without significant abnormal findings also. I additionally reviewed the radiologist report and agree with the interpretation. Ultrasound of bilateral lower extremity negative for DVT. CT scan of the abdomen showed abscess in the gallbladder/measuring 9.6 bx4.2 Currently patient is taking Flagyl and Cipro. Clinically patient is not septic. Afebrile no tachycardia Patient was given morphine IM. I spoke with Dr. Nix, general surgeon on-call who is following the patient discussed the case, and told me that patient can come back in the morning stable for discharge home tonight. For IR guided aspiration of the gallbladder abscess in the morning. Patient agrees with the plan Patient data External records reviewed:: None Clinical information provided by:: patient Social determinants that could affect healthcare access:: none Patient has the following chronic illnesses:: Hypertension diabetes mellitus, on methadone How is presenting disease/condition affected by chronic disease/condition?: exacerbated by Evaluation data The following diagnostics were reviewed and interpreted by me:: lab results and radiology exam(s) Lab and/or radiology exams considered but not ordered:: None Interpretation Summary: See above Medications / Prescriptions Medications or Prescriptions considered but not ordered:: None Medication administrations:: Morphine IM Consultations Consultation(s) initiated? (list below): No Diagnosis Skin/Abscess Differential Diagnosis: abscess of skin or subcutaneous tissue and other (Abdominal pain, gallbladder fossa abscess) Most likely diagnosis given after review of the tests above:: Abdominal pain gallbladder fossa abscess Admission Indicated Admission indicated?: not indicated Admission Request Was there a request for admission?: No Disposition Plan Disposition Plan: Discharge Discharge Attestation Discharge Attestation: The patient was given an opportunity to ask questions and understood the discharge instructions. Discharge instructions specifically effects, indications for sooner follow up or return to the emergency department, and the expected course of current diagnosis. Patient condition: Stable Discharge Plan Plan Patient Disposition: HOME (Self Care) Discharge Disposition comment: Stable Prescriptions/Referrals Prescriptions/Med Rec: No Action oxycodone-acetaminophen [Percocet] 5-325 mg tablet 1 tab PO Q4H MDD 6 tabs PRN (Reason: pain) Qty: 10 0RF Rx Instructions: Take 1 tablet as needed every 4-6 hours for moderate to severe pain atorvastatin 20 mg Tablet 20 mg PO HS 30 Days Qty: 30 0RF insulin lispro 100 unit/mL insulin pen 10 unit subcut TID 30 Days Qty: 9 0RF Rx Instructions: Administer three times per day with meals insulin glargine-aglr 100 unit/mL (3 mL) insulin pen 40 unit subcut HS 30 Days Qty: 12 0RF hydrocodone-acetaminophen 5-325 mg tablet 1 tab PO Q6H MDD 4 PRN (Reason: pain (scale score 7-10)) Qty: 10 0RF ciprofloxacin HCl 500 mg tablet 500 mg PO BID 9 Days Qty: 18 0RF metronidazole 500 mg tablet 500 mg PO Q8H 9 Days Qty: 27 0RF clonidine HCl 0.1 mg tablet 0.1 mg PO BID methadone 10 mg tablet 10 mg PO Q8H PRN (Reason: Pain) Patient Comments: TAKE 1 TABLET BY MOUTH EVERY 8 HOURS NEEDED FOR PAIN (MAX 3 TABLET/DAY) baclofen 10 mg tablet 10 mg PO BID Patient Comments: TAKE 1 TABLET BY MOUTH EVERYDAY AT BEDTIME promethazine 25 mg tablet 25 mg PO Q12H PRN (Reason: n/v) Patient Comments: TAKE 1 TABLET BY MOUTH DAILY NEEDED, DO NOT EXCEED MORE THAN ONCE A DAY pregabalin 25 mg capsule 25 mg PO BID Patient Comments: TAKE 1 CAPSULE BY MOUTH TWICE A DAY NEEDED MAX 2 CAPSULES DAILY (DME) Dexcom G6 Sensor Device See Rx Instructions .Route Qty: 3 0RF Patient Comments: Pending refill Rx Instructions: As directed (DME) Dexcom G6 Rehab Trainer Misc See Rx Instructions .Route Qty: 1 0RF Rx Instructions: As directed (DME) Dexcom G6 Transmitter Device See Rx Instructions .Route Qty: 1 0RF Patient Comments: Pending refill Rx Instructions: As directed (DME) pen needle, diabetic [CareFine Pen Needle] 29 gauge x 1/2 needle See Rx Instructions .Route Qty: 100 0RF Rx Instructions: Use for insulin administration Ozempic 0.25 mg or 0.5 mg (2 mg/3 mL) pen injector 0.5 mg SUBCUT QWEEK Referrals: Angelo Molina PA-C [Primary Care Provider] - In 1 week Problem List Clinical Impression: Abscess, Abdominal pain Patient/Caregiver Discharge Instructions Discharge Activity: activity as tolerated Education Materials: ED Abscess Antibiotic ... Additional Instructions: Thank you for the opportunity for serving you today. You are stable for discharged . You are advised to: Follow-up with your general surgeon in 1 to 2 days Return to emergency room in the morning around 8:00 for IR guided aspiration of your gallbladder fossa abscess per recommendation by Dr. Márquez Return to ED for worsening of symptoms Increase oral fluids Continue taking your Cipro and Flagyl Print Language: Albanian Stand Alone Forms: [employer]ierra Award Info., Patient Portal Info Letter FREDI/MARINA Supervising Physician FREDI/MARINA Supervising Physician: MD Nolberto
[2025-10-06 12:17] LABS: Lactate (Lactic Acid) 1.0 mMol/L (0.4-2.0)
[2025-10-06 12:18] LABS: Basophils # (Auto) 0.0 Thou/mm3 (0.0-0.2); Basophils % (Auto) 1 % (0-2.5); Eosinophils # (Auto) 0.2 Thou/mm3 (0.0-0.5); Eosinophils % (Auto) 4 % (0-10); Hematocrit 35.4 % (36.0-46.0); Hemoglobin 11.4 g/dL (12.0-16.0); Immature Granulocytes Auto 0.01 Thou/mm3 (0.00-0.00); Lymphocytes # (Auto) 1.9 Thou/mm3 (1.0-4.8); Lymphocytes % (Auto) 32 % (10-50); Mean Corpuscular HGB Conc 32.2 g/dl (31.0-37.0); Mean Corpuscular Hemoglobin 28.9 pg (25.0-35.0); Mean Corpuscular Volume 90 fL (80-100); Monocytes # (Auto) 0.7 Thou/mm3 (0.0-0.8); Monocytes % (Auto) 13 % (0-12); Neutrophils # (Auto) 3.0 Thou/mm3 (1.8-7.7); Neutrophils % (Auto) 51 % (37-80); Nucleated Red Blood Cell # 0.00 Thou/mm3 (0.00-0.00); Nucleated Red Blood Cell % 0 /100 WBC (0); Platelet Count 351 Thou/mm3 (140-440); RDW Standard Deviation 43.7 fL (36.4-46.3); Red Blood Count 3.95 Miln/mm3 (4.00-5.20); White Blood Count 5.8 Thou/mm3 (3.6-11.0)
[2025-10-06 12:32] LABS: Partial Thromboplastin Time 30.0 Seconds (22.0-36.0)
[2025-10-06 12:35] LABS: B-Type Natriuretic Peptide 38 pg/mL (0-100)
[2025-10-06 12:44] LABS: Alanine Aminotransferase 15 U/L (10-49); Albumin, Serum 4.2 gm/dL (3.5-5.0); Albumin/Globulin Ratio 1.7 (1.2-2.2); Alkaline Phosphatase 146 U/L (46-116); Anion Gap 9 (7-16); Aspartate Amino Transferase 20 U/L (0-34); BUN/Creatinine Ratio 18 Ratio (12-20); Bilirubin,Total 0.3 mg/dL (0.3-1.2); Blood Urea Nitrogen 16 mg/dL (9-23); C-Reactive Protein 1.6 mg/dL (0.0-0.9); Calcium 9.2 mg/dL (8.3-10.6); Calcium (Corrected) 9.2 mg/dL (8.5-10.1); Carbon Dioxide 29.2 mMol/L (20.0-31.0); Chloride 102 mMol/L (98-107); Creatinine (Component) 0.9 mg/dL (0.6-1.3); Estimated Creatinine Clearance 73.1 mL/min (>60); Globulin 2.5 gm/dL (2.3-3.5); Glucose 102 mg/dL (74-106); Osmolality,Calculated 280 (275-295); Potassium 4.3 mMol/L (3.4-5.1); Procalcitonin < 0.04 ng/ml (0.0-0.49); Sodium 140 mMol/L (136-145); Total Protein 6.7 gm/dL (5.7-8.2); Troponin I < 0.002 ng/mL (0.0-0.045); eGFR > 60 See Note
[2025-10-06 12:49] LABS: Collection Type, Urine Clean Catch
[2025-10-06 12:56] LABS: Bilirubin,Urine Negative (Negative); Blood,Urine Negative (Negative); Clarity,Urine Clear (Clear/Hazy); Color,Urine Lt-Yellow (Lt Yel-Yel); Culture Indicated,Urine Not Indicated; Glucose, Urine Negative (Negative); Ketones,Urine Negative (Negative); Leukocyte Esterase,Urine Negative (Negative); Nitrite,Urine Negative (Negative); PH,Urine 6.0 (5.0-7.0); Protein,Urine Negative (Neg - Trace); RBC,Urine < 1 /hpf (0-3); Specific Gravity,Urine 1.022 (1.001-1.035); Squamous Epithelial Cell,Urine 3 /hpf (0-5); Urobilinogen,Urine Negative mg/dL (0.0-1.0); WBC,Urine 1 /hpf (0-5)
[2025-10-06 16:29] VITALS: BP 158/72; PULSE 93; RESP 20; TEMP 37.1; O2SAT 96
[2025-10-06 17:12] LABS: HCG Qualitative,Urine Negative
[2025-10-06] MEDS: MORPHINE SULF INJ 4 MG/ML VIAL IM (19:22)
== END 2025-10-06 19:47 | disposition home or self-care (01) ==
PROVIDERS: Nurse Practitioner Family; Emergency Provider Family Medicine; PCP Family Medicine
DX: L02.211 Cutaneous abscess of abdominal wall (principal); E11.9 Type 2 diabetes mellitus without complications; I10 Essential (primary) hypertension
CPT/HCPCS: 36415; 71045; 74177; 80053; 81001; 81025; 83605; 83880; 84145; 84484; 85025; 85730; 86140; 87040; 93005; 93970; 96372; 99284; A4649; J2270; Q9967

== ENCOUNTER 2025-10-07 08:03 | Emergency (ER) | payer MEDICAID, SELFPAY ==
[2025-10-07 08:04] VITALS: BMI 31.8
[2025-10-07 08:32] VITALS: BP 172/83; PULSE 91; RESP 16; TEMP 37; O2SAT 97
--- NOTE | 2025-10-07 09:36 | EDNOTE_ITS ---
<Statement entered by Radha Ca MD - 10/07/25 18:06> I, Radha Ca MD, have reviewed the history, exam, and assessment of the patient. I have evaluated the patient independently and agree with the plan of care documented by Dr. Acharya. All diagnostic studies were reviewed and discussed. I confirm the diagnosis as documented by the Resident. I was present during the Medical Decision Making for this patient. The patient's plan of care was created between myself and the Resident and consistent with our discussion of the patient's case. ED Abdominal Pain RME/HPI General Chief Complaint: Wound Recheck / Suture Removal Stated complaint: WOUND RECHECK WITH POSS DRAIN PLACEMENT Time seen by provider: 10/07/25 08:58 Arrival date/time: 10/07/25 08:03 RME / HPI RME / HPI narrative: CC: Abdominal Pain Patient is a 55-year-old female with a past medical history of hypertension, diabetes mellitus type 2 insulin-dependent, history of peripheral neuropathy, history of chronic pain secondary to herniated disc on methadone, history of CVA, status post cholecystectomy 09/08/2025 who is presenting to the emergency room with a chief complaint of abdominal pain. Patient presented was admitted on 09/08/2025 for the cholecystectomy and readmitted on 05/07/[address] guided abscess drainage and drain recently removed about 1 to 2 weeks ago as outpatient. Patient returned to the emergency room on 10/06/[address] with contrast obtained noted to have a abscess in the gallbladder fossa 6.9 x 4.2 cm. General surgery consulted on previous ER visit. Patient continues to report right upper quadrant tenderness 10 out of 10 pain chills at home and subjective fevers at home. Patient continues to take cipro and Flagyl as outpatient prescribed by her PCP, [facility]. Denied diarrhea. Denied constipation. Consulted General Surgery Related Data Home Medications ?Medication ?Instructions ?Recorded ?Confirmed baclofen 10 mg tablet 10 mg PO BID 09/14/22 clonidine HCl 0.1 mg tablet 0.1 mg PO BID 09/14/2206/11 methadone 10 mg tablet 10 mg PO Q8H PRN Pain 09/24/25 pregabalin 25 mg capsule 25 mg PO BID 09/14/22 promethazine 25 mg tablet 25 mg PO Q12H PRN n/v 09/24/25 semaglutide 0.25 mg or 0.5 mg (2 0.5 mg subcut QWEEK 1 09/24/25 mg/3 mL) subcutaneous pen injector (Ozempic) Previous Rx's ?Medication ?Instructions ?Recorded blood-glucose sensor (Dexcom G6 #3 ea 05/02/25 Sensor device) blood-glucose transmitter (Dexcom #1 ea 05/02/25 G6 Transmitter device) blood-glucose,vault person,cont #1 ea 05/02/25 (Dexcom G6 Manager Hvac) pen needle, diabetic 29 gauge x #100 ea 05/02/2511/19 (CareFine Pen Needle) oxycodone-acetaminophen 5 mg-325 1 tab PO Q4H PRN pain #10 tabs 09/20/25 mg tablet (Percocet) atorvastatin 20 mg tablet 20 mg PO HS 30 days #30 tabs 09/28/25 hydrocodone 5 mg-acetaminophen 325 1 tab PO Q6H PRN pa in (scale score 09/28/25 mg tablet 7-10) #10 tabs insulin glargine-aglr 100 unit/mL 40 unit (0.4 mL) sub cut HS 30 days 09/28/25 (3 mL) subcutaneous pen #12 mL insulin lispro 100 unit/mL 10 unit (0.1 mL) subcut TID 30 09/28/25 subcutaneous pen days #9 mL Allergies Allergy/AdvReac Type Severity Reaction Status Date / Time barium iodide Allergy Severe PASSED OUT Verified 10/07/25 08:06 cephalexin Allergy Severe ITCHING Verified 10/07/25 08:06 AND VOMITING codeine Allergy Severe FAINTS Verified 10/07/25 08:06 ibuprofen Allergy Severe Swelling Verified 10/07/25 08:06 of Lip/Tongue/Throat Penicillins Allergy Severe HIVES AND Verified 10/07/25 08:06 DIFF BREATHING aspirin Allergy Unknown RASH Verified 10/07/25 08:06 Review of Systems Review of Systems Narrative Review of Systems: General appearance: NO weight change, NO fatigue, NO weakness, Yes subject fever, NO chills, NO night sweats, No cough Skin: NO rash, NO itching, NO sores, NO moles HEENT: NO Trauma, NO nausea, NO vomiting, NO visual changes, NO blurry vision, NO double vision, NO tinnitus, NO vertigo, NO ear discharge, NO rhinorrhea, NO stuffiness, NO sneezing, NO allergy, NO epistaxis. NO Hoarseness, NO sore throat, NO swollen neck. Cardiac: NO Palpitations, NO dyspnea on exertion, NO orthopnea, NO paroxysmal nocturnal dyspnea, NO edema Respiratory: NO Shortness of Breath, NO Wheezing, NO Cough, NO Sputum, NO hemoptysis GI:NO appetite, Yes nausea, NO vomiting, NO dysphagia, NO changes in bowel frequency, NO stool color, NO diarrhea, NO constipation, NO hemetemesis, NO hemorrhoids, NO melena, NO hematechezia, Yes abdominal pain, NO jaundice Renal: NO frequency, NO hesitancy, NO urgency, NO hematuria, NO nocturia, NO incontinence MSK: NO muscle weakness, NO gout, NO arthritis, NO muscle stiffness Neuro: NO headaches, NO tremors, NO weakness, NO paralysis, NO seizures, NO loss of consciousness, NO numbness. Hem: NO anemia, NO easy bruising/bleeding, NO petechiae, NO purpura Endo: NO heat/cold intolerance, NO excessive sweating, NO polyuria, NO polydipsia, NO polyphagia, NO thyroid problems, NO diabetes Pysch: NO mood, NO anxiety, NO depression ED Exam Narrative Physical exam: General Appearance: Alert & Oriented X3, well-nourished female who is lying in bed in mild discomfort secondary to abdominal pain. HEENT: Skull symmetrical and atraumatic. Conjunctivae pin and moist. Pupils equal, round, reactive to light and accommodation (PERRL). External ear without lesion or discharge. Straight, nares patient, mucosa pink, no discharge. Cardio: Normal Rate and Rhythm with S1 and S2 heart sounds. No murmurs or extra heart sounds auscultated. No bruits on carotid auscultation. Mild edema, 1+, dorsal feet bilaterally. Lungs: Symmetric with good expansion. Chest and back non-tender. Breath sounds vesicular without crackles, wheezing or rhonchi Abdomen: tenderness and right upper quadrant, Non-distended, Normal Reactive Bowel Sounds Neuro: Alert, cooperative, oriented to person, place, and time. Speech clear. CN grossly intact. Upper motor strength 5/5 and Lower motor strength 5/5. Sensation intact. Course Course Course Narrative: 10/07/2025: cbc cmp lactic procal CT abdomen and venous lower extremity US collect on 10/06/2025 Quality Measures none Orders Category Date Time Status Bedside Blood Glucose NOW Care 10/07/25 09:40 Completed Consult to General Surgery Routine Cons 10/07/25 09:59 Ordered EKG (ED Only) Stat Exams 10/07/25 09:40 Stop Req CBC Stat Lab 10/07/25 09:48 Completed CRP [C-Reactive Protein] Stat Lab 10/07/25 09:48 Completed Comprehensive Metabolic Panel Stat Lab 10/07/25 09:48 Completed Lactic Acid [Lactate (Lactic Acid)] Stat Lab 10/07/25 09:48 Completed Magnesium Stat Lab 10/07/25 09:48 Completed Procalcitonin Stat Lab 10/07/25 09:48 Completed Morphine* Inj Med 10/07/25 09:42 Discontinued 2 mg IVP X1 ONE Morphine* Inj Med 10/07/25 09:57 Discontinued 4 mg IM X1 ONE Ondansetron Inj [Zofran Inj] Med 10/07/25 09:52 Discontinued 4 mg IVP Q6HR PRN Vital Signs Vital signs: Vital Signs Temperature 98.6 F 10/07/25 08:32 Pulse Rate 91 10/07/25 08:32 Respiratory Rate 16 10/07/25 08:32 Blood Pressure 172/83 H 10/07/25 08:32 Pulse Oximetry (%) 97 10/07/25 08:32 Oxygen Delivery Method Room Air 10/07/25 08:32 Abdominal Pain MDM Patient data External records reviewed:: [facility] previous records Clinical information provided by:: patient and family Social determinants that could affect healthcare access:: none Patient has the following chronic illnesses:: hypertension, diabetes mellitus type 2 insulin-dependent, history of peripheral neuropathy, history of chronic pain secondary to herniated disc on methadone, history of CVA, status post cholecystectomy 09/08/2025 How is presenting disease/condition affected by chronic disease/condition?: exacerbated by (hx of cholecystectomy ) Evaluation data The following diagnostics were reviewed and interpreted by me:: lab results and radiology exam(s) Lab and/or radiology exams considered but not ordered:: None Interpretation Summary: Patient is a 55-year-old female with a past medical history of hypertension, di abetes mellitus type 2, history of peripheral neuropathy and chronic back pain who returning to the emergency room for a gallbladder fossa abscess noted on CT abdomen on 10/06/2025. Patient returned to the emergency room no leukocytosis noted on CBC. No pyrexia noted on vitals. Patient's CMP no hyperkalemia or hypokalemia noted. Potassium within normal limits. No JOSE ROBERTO noted. Elevated alkaline phosphatase likely secondary to infection. C-reactive protein elevated. General surgery consulted. Patient opted for outpatient treatment after consultation with general surgery. #Abscess in the gallbladder fossa - The patient's plan was discussed with attending Dr. Roby Acharya MD PGY2 Internal Medicine Medications / Prescriptions Medications or Prescriptions considered but not ordered:: None Medication administrations:: Medication Administration History Discontinued Medications Morphine Sulfate (Morphine Sulf Inj 4 Mg/Ml Vial) 2 mg IVP X1 ONE Stop: 10/07/25 09:43 Last Admin: 10/07/25 09:59 Dose: Not Given Documented By: EF Non-Admin Reason: Cancelled by Provider Morphine Sulfate (Morphine Sulf Inj 4 Mg/Ml Vial) 4 mg IM X1 ONE Stop: 10/07/25 09:58 Last Admin: 10/07/25 10:02 Dose: 4 mg Documented By: EF Ondansetron HCl (Ondansetron Inj 2 Mg/Ml Inj 2 Ml) 4 mg IVP Q6HR PRN; Protocol PRN Reason: NAUSEA OR VOMITING Stop: 11/06/25 09:51 same as above Consultations Consultation(s) initiated? (list below): Yes Consultation #1 (Physician, Specialty, Details): Dr. Márquez, General Surgery Time: 10:00 Diagnosis Differential diagnosis abdominal pain: abdominal pain, diverticulitis and other (abscess in abdominal fossa ) Most likely diagnosis given after review of the tests above:: Patient is a 55-year-old female with a past medical history of hypertension, diabetes mellitus type 2, history of peripheral neuropathy and chronic back pain who returning to the emergency room for a gallbladder fossa abscess noted on CT abdomen on 10/06/2025. Patient returned to the emergency room no leukocytosis noted on CBC. No pyrexia noted on vitals. Patient's CMP no hyperkalemia or hypokalemia noted. Potassium within normal limits. No JOSE ROBERTO noted. Elevated alkaline phosphatase likely secondary to infection. C-reactive protein elevated. General surgery consulted. Patient opted for outpatient treatment after consultation with general surgery. #Abscess in the gallbladder fossa - The patient's plan was discussed with attending Dr. Roby Acharya MD PGY2 Internal Medicine Admission Indicated Admission indicated?: not indicated Explain why admission is indicated or not indicated:: Consulted General Surgery, Patient made informed decision about out-patient follow up versus outpatient follow up. Patient elected outpatient follow up with general surgery and appointment on Saturday with general surgery for drainage. Admission Request Was there a request for admission?: No Disposition Plan Disposition Plan: Discharge Discharge Attestation Discharge Attestation: The patient and all family members were given an opportunity to ask questions and understood the discharge instructions. Discharge instructions specifically effects, indications for sooner follow up or return to the emergency department, and the expected course of current diagnosis. Patient condition: Stable Discharge Plan Plan Patient Disposition: HOME (Self Care) Patient condition on transfer: Stable Health Concerns: Instructions: -Please follow up with General Surgery, Dr. Márquez, as an outpatient on Saturday. -Please STOP all antibiotics. -Please continue all other medication prescribed by your primary care provider. --Please follow up with your primary care provider within one week of discharge -If your symptoms worsen,please seek immediate medical attention and return to your nearest emergency room -If you do not have a primary care provider, you may follow up at the [facility] at [address] [place] [address] [address], [place] [address], Prescriptions/Referrals Prescriptions/Med Rec: Continued oxycodone-acetaminophen [Percocet] 5-325 mg tablet 1 tab PO Q4H MDD 6 tabs PRN (Reason: pain) Qty: 10 0RF Rx Instructions: Take 1 tablet as needed every 4-6 hours for moderate to severe pain atorvastatin 20 mg Tablet 20 mg PO HS 30 Days Qty: 30 0RF insulin lispro 100 unit/mL insulin pen 10 unit subcut TID 30 Days Qty: 9 0RF Rx Instructions: Administer three times per day with meals insulin glargine-aglr 100 unit/mL (3 mL) insulin pen 40 unit subcut HS 30 Days Qty: 12 0RF hydrocodone-acetaminophen 5-325 mg tablet 1 tab PO Q6H MDD 4 PRN (Reason: pain (scale score 7-10)) Qty: 10 0RF clonidine HCl 0.1 mg tablet 0.1 mg PO BID methadone 10 mg tablet 10 mg PO Q8H PRN (Reason: Pain) Patient Comments: TAKE 1 TABLET BY MOUTH EVERY 8 HOURS NEEDED FOR PAIN (MAX 3 TABLET/DAY) baclofen 10 mg tablet 10 mg PO BID Patient Comments: TAKE 1 TABLET BY MOUTH EVERYDAY AT BEDTIME promethazine 25 mg tablet 25 mg PO Q12H PRN (Reason: n/v) Patient Comments: TAKE 1 TABLET BY MOUTH DAILY NEEDED, DO NOT EXCEED MORE THAN ONCE A DAY pregabalin 25 mg capsule 25 mg PO BID Patient Comments: TAKE 1 CAPSULE BY MOUTH TWICE A DAY NEEDED MAX 2 CAPSULES DAILY (DME) Dexcom G6 Sensor Device See Rx Instructions .Route Qty: 3 0RF Patient Comments: Pending refill Rx Instructions: As directed (DME) Dexcom G6 Manager Hvac Misc See Rx Instructions .Route Qty: 1 0RF Rx Instructions: As directed (DME) Dexcom G6 Transmitter Device See Rx Instructions .Route Qty: 1 0RF Patient Comments: Pending refill Rx Instructions: As directed (DME) pen needle, diabetic [CareFine Pen Needle] 29 gauge x 1/2 needle See Rx Instructions .Route Qty: 100 0RF Rx Instructions: Use for insulin administration Ozempic 0.25 mg or 0.5 mg (2 mg/3 mL) pen injector 0.5 mg SUBCUT QWEEK Referrals: Angelo Molina PA-C [Primary Care Provider] - In 1 week Priscila Márquez MD [Physician, General Surgery] - In 1 week Problem List Clinical Impression: Abscess of gallbladder Patient/Caregiver Discharge Instructions Print Language: Maltese Stand Alone Forms: [employer] Info., Patient Portal Info Letter
[2025-10-07 09:55] LABS: Lactate (Lactic Acid) 0.8 mMol/L (0.4-2.0)
[2025-10-07] MEDS: MORPHINE SULF INJ 4 MG/ML VIAL IM (10:02)
[2025-10-07 10:04] LABS: Basophils # (Auto) 0.0 Thou/mm3 (0.0-0.2); Basophils % (Auto) 1 % (0-2.5); Eosinophils # (Auto) 0.2 Thou/mm3 (0.0-0.5); Eosinophils % (Auto) 5 % (0-10); Hematocrit 34.4 % (36.0-46.0); Hemoglobin 11.1 g/dL (12.0-16.0); Immature Granulocytes Auto 0.01 Thou/mm3 (0.00-0.00); Lymphocytes # (Auto) 1.7 Thou/mm3 (1.0-4.8); Lymphocytes % (Auto) 38 % (10-50); Mean Corpuscular HGB Conc 32.3 g/dl (31.0-37.0); Mean Corpuscular Hemoglobin 28.9 pg (25.0-35.0); Mean Corpuscular Volume 90 fL (80-100); Monocytes # (Auto) 0.9 Thou/mm3 (0.0-0.8); Monocytes % (Auto) 20 % (0-12); Neutrophils # (Auto) 1.6 Thou/mm3 (1.8-7.7); Neutrophils % (Auto) 37 % (37-80); Nucleated Red Blood Cell # 0.00 Thou/mm3 (0.00-0.00); Nucleated Red Blood Cell % 0 /100 WBC (0); Platelet Count 289 Thou/mm3 (140-440); RDW Standard Deviation 43.6 fL (36.4-46.3); Red Blood Count 3.84 Miln/mm3 (4.00-5.20); White Blood Count 4.4 Thou/mm3 (3.6-11.0)
[2025-10-07 10:17] VITALS: BP 147/90; PULSE 79; RESP 16; O2SAT 97
[2025-10-07 10:31] LABS: Alanine Aminotransferase 22 U/L (10-49); Albumin, Serum 3.9 gm/dL (3.5-5.0); Albumin/Globulin Ratio 1.6 (1.2-2.2); Alkaline Phosphatase 190 U/L (46-116); Anion Gap 6 (7-16); Aspartate Amino Transferase 39 U/L (0-34); BUN/Creatinine Ratio 23 Ratio (12-20); Bilirubin,Total 0.3 mg/dL (0.3-1.2); Blood Urea Nitrogen 14 mg/dL (9-23); C-Reactive Protein 1.4 mg/dL (0.0-0.9); Calcium 9.6 mg/dL (8.3-10.6); Calcium (Corrected) 9.7 mg/dL (8.5-10.1); Carbon Dioxide 32.2 mMol/L (20.0-31.0); Chloride 102 mMol/L (98-107); Creatinine (Component) 0.6 mg/dL (0.6-1.3); Estimated Creatinine Clearance 109.7 mL/min (>60); Globulin 2.4 gm/dL (2.3-3.5); Glucose 112 mg/dL (74-106); Magnesium 1.7 mg/dL (1.6-2.6); Osmolality,Calculated 280 (275-295); Potassium 4.2 mMol/L (3.4-5.1); Procalcitonin 0.06 ng/ml (0.0-0.49); Sodium 140 mMol/L (136-145); Total Protein 6.3 gm/dL (5.7-8.2); eGFR > 60 See Note
== END 2025-10-07 10:18 | disposition home or self-care (01) ==
PROVIDERS: Emergency Provider Family Medicine; PCP Family Medicine
DX: L02.211 Cutaneous abscess of abdominal wall (principal); K81.0 Acute cholecystitis; E11.42 Type 2 diabetes mellitus with diabetic polyneuropathy; G89.29 Other chronic pain; I10 Essential (primary) hypertension; Z79.4 Long term (current) use of insulin; Z79.891 Long term (current) use of opiate analgesic
CPT/HCPCS: 36415; 80053; 80307; 83605; 83735; 84145; 85025; 86140; 87040; 96372; 99283; J2270

== ENCOUNTER 2025-10-11 13:41 | Outpatient (AMB) | payer MEDICAID, SELFPAY ==
--- NOTE | 2025-10-11 14:10 | GSCOFFNT_ITS ---
Vital Signs - [facility] 10/11/25 14:11 Height 1.6 m Height Method Stated Weight 79.152 kg Weight Measurement Method Standing Scale BMI 30.9 BP 130/83 Blood Pressure Source Automatic Cuff Blood Pressure Location Left Upper Arm Position Sitting Respiration 18 Pulse 104 H Pulse Source Monitor Temp 98.1 F Temp Source Temporal Artery Scan Pulse Oximetry (%) 95 Oxygen Delivery Method Room Air Med/Allergies Allergies & Medications Allergies barium iodide Allergy (Severe, Verified 10/11/25 14:11) PASSED OUT cephalexin Allergy (Severe, Verified 10/11/25 14:11) ITCHING AND VOMITING codeine Allergy (Severe, Verified 10/11/25 14:11) FAINTS ibuprofen Allergy (Severe, Verified 10/11/25 14:11) Swelling of Lip/Tongue/Throat Penicillins Allergy (Severe, Verified 10/11/25 14:11) HIVES AND DIFF BREATHING aspirin Allergy (Unknown, Verified 10/11/25 14:11) RASH Medication Reconciliation baclofen 10 mg tablet 10 mg PO BID 09/14/22 [History Confirmed 10/11/25] clonidine HCl 0.1 mg tablet 0.1 mg PO BID 09/14/22 [History Confirmed 10/11/25] methadone 10 mg tablet 10 mg PO Q8H PRN Pain 09/14/22 [History Confirmed 10/11/25] pregabalin 25 mg capsule 25 mg PO BID 09/14/22 [History Confirmed 10/11/25] promethazine 25 mg tablet 25 mg PO Q12H PRN n/v 09/14/22 [History Confirmed 10/11/25] blood-glucose sensor (Dexcom G6 Sensor device) #3 ea 05/02/25 [Rx Confirmed 10/11/25] blood-glucose transmitter (Dexcom G6 Transmitter device) #1 ea 05/02/25 [Rx Confirmed 10/11/25] blood-glucose,digital performance analyst,cont (Dexcom G6 Electrical Sign Servicer) #1 ea 05/02/25 [Rx Confirmed 10/11/25] pen needle, diabetic 29 gauge x 1/2 (CareFine Pen Needle) #100 ea 05/02/25 [Rx Confirmed 10/11/25] semaglutide 0.25 mg or 0.5 mg (2 mg/3 mL) subcutaneous pen injector (Ozempic) 0.5 mg subcut QWEEK 09/07/25 [History Confirmed 10/11/25] oxycodone-acetaminophen 5 mg-325 mg tablet (Percocet) 1 tab PO Q4H PRN pain #10 tabs 09/20/25 [Rx Confirmed 10/11/25] atorvastatin 20 mg tablet 20 mg PO HS 30 days #30 tabs 09/28/25 [Rx Confirmed 10/11/25] hydrocodone 5 mg-acetaminophen 325 mg tablet 1 tab PO Q6H PRN pain (scale score 7-10) #10 tabs 09/28/25 [Rx Confirmed 10/11/25] insulin glargine-aglr 100 unit/mL (3 mL) subcutaneous pen 40 unit (0.4 mL) subcut HS 30 days #12 mL 09/28/25 [Rx Confirmed 10/11/25] insulin lispro 100 unit/mL subcutaneous pen 10 unit (0.1 mL) subcut TID 30 days #9 mL 09/28/25 [Rx Confirmed 10/11/25] lidocaine 5 % topical patch 1 patch topical QDAY #30 ea 10/11/25 [Rx] MA Intake Visit Data Collection New Patient or Established: Established Patient (seen at [facility] within 3 years) Seen by Clinical Staff ONLY (RN/MA): No Reason for Visit:: LAP DEDE Pain Present Currently: No PCP or OBGYN visit in last 3 months: Yes Hx Now: No Do You Feel Safe at Home: Yes Authorities Contacted: N/A Smoking Status Smoking Status: Never smoker Immunization / Flu Flu Vaccine in the Last 12 Months: No Flu Vaccine Exclusion Criteria: No Exclusion Criteria Past Medical History Past Medical History NEUROLOGIC: Positive Neurological Disorders and Cerebrovascular Accident; Negative Seizures CARDIAC: Positive Cellulitis and Hypertension; Negative Cardiac Disorders, Congestive Heart Failure or Varicose Veins RESPIRATORY: Positive Pneumonia; Negative Chronic Obstructive Pulmonary Disease (COPD) or Asthma GASTROINTESTINAL: Positive Gastrointestinal Disorders, Gall Bladder Disease, Irritable Bowel and Gastroesophageal Reflux Disease; Negative Hepatitis GENITOURINARY: Negative Genitourinary Disorders or Renal Disease REPRODUCTIVE: Positive Previous Pregnancies; Negative Pelvic Inflammatory Disease MUSCULOSKELETAL: Positive Arthritis, Degenerative Disk Disease and Fibromyalgia; Negative Fractures ENT: Negative Cataracts ENDOCRINE: Positive Endocrine Disorders and Diabetes Mellitus Type 2; Negative Diabetes Mellitus Type 1 HEMATOLOGIC: Negative Blood Disorders or Sickle Cell Disease PSYCHO/SOCIAL: Negative Depression OTHER HISTORY: Positive Hospitalization and Falls; Negative Autoimmune Disease, Shingles, Blood Transfusions, Blood Transfusion Reaction, Anesthesia Reactions, MRSA, Clostridium Difficile or Cancer Family History FAMILY HISTORY: Positive Family Cardiac Disorders; Negative Family Psychiatric Problems, Family Respiratory Disorders, Family Gastrointestinal Problems, Family Cancer, Family Surgery or Family Anesthesia Reaction Surgical History SURGICAL: Positive Section Social History SMOKING STATUS: Smoking status: Never smoker ALCOHOL: Alcohol Intake: Former HOUSING: Housing: Apartment LIVES WITH: Lives With: Family HPI HPI Narrative 55F with HTN, DMII on insulin, chronic back pain on methadone s/p laparoscopic cholecystectomy 09/08/25 here for planned follow up. Patient was hospitalized 09/23 to 09/28 after she presented with abdominal pain and was found to have a fluid collection in the gallbladder fossa for which she underwent percutaneous drainage. The output was bloody in nature and grew strep salivarius which was likely a contaminant. Patient remained afebrile throughout with normal WBC, and states that the drainage procedure did little to affect her pain. Last week patient went to her PCP feeling very unwell and then was referred again to the ER, where labs showed again a normal white count and CT showed a fluid collection up to 6 cm from previously 10. I saw her in the ER and after extensive discussion we both agreed not to pursue another drainage, as there was no sign that the fluid was infected and that the first drainage procedure did not help her. Today patient reports the pain is overall stable, associated with nausea, but she denies any fever or diarrhea. She is taking half a methadone as she had been doing as well as Tylenol for her arthritis. Patient does confirm that although she is not feeling great she does feel somewhat better now compared to initially after surgery ROS Review of Systems Systems Reviewed: All systems reviewed, normal except as documented Objective/Exam General General Appearance: alert, cooperative and well groomed Resp Respiratory exam: Absent respiratory distress Abdominal Abdominal exam: Present soft and incision (c/d/i, no erythema); Absent distention Results Pathology of gallbladder reviewed Assessment & Plan Diagnosis / Problem List (1) Symptomatic cholelithiasis: Status: Acute Assessment & Plan: 55F with HTN, DMII on insulin, chronic back pain on methadone s/p laparoscopic cholecystectomy 09/08/25 here for planned follow up. Patient has had persistent pain however does not have any signs of infection. I explained that her slow recovery is likely related to history of DM as well as methadone use which tends to make patients more sensitive to pain. All questions were answered and patient did request a prescription for lidocaine patches which I will happily give. Will follow-up in 4 weeks Office Procedures GNS Level of Care Nursing/Assessment Patient Status: Established Patient Nursing Assessment/Reassesment: Medication Reconciliation, Update PMH in EMR and Vital Signs Coordination of Care: Complex Care and Chronic Disease 1-5, Consent,records obtained, informed consent, Education Simp Pt/Fam, Results/Orders obtained and Staff clarify orders Established Patient Charge Established Patient Point Assignment: 90 Established Patient Point Charge: EP Level 3 (80-115) Patient Portal Questionaires Social History Living Situation History Housing: Apartment Housing Other:: Patient lives with her son Viktor . Tobacco History Smoking Status: Never smoker Alcohol History Alcohol Intake: Former Alcohol Intake Frequency Other:: tequila,beer 27 yrs ago Domestic Abuse History Do You Feel Safe at Home: Yes Review of Systems Report any current symptoms Only answer those that you have currently: Past Medical History Past Medical History Have you ever been diagnosed with any of the following: Neurological Problems Cerebrovascular Accident (CVA): Yes Seizures: No Cardiology Problems Congestive Heart Failure: No Cellulitis: Yes Hypertension: Yes Varicose Veins: No Respiratory Problems Chronic Obstructive Pulmonary Disease (COPD): No Asthma: No Pneumonia: Yes Stomache/Intestinal Problems Hepatitis: No Gall Bladder Disease: Yes Irritable Bowel: Yes Gastroesophageal Reflux Disease: Yes Genital/Urinary Problems Renal Disease: No Reproductive Problems Pelvic Inflammatory Disease: No Previous Pregnancies: Yes Musculoskeletal Problems Arthritis: Yes Degenerative Disk Disease: Yes Fibromyalgia: Yes Fractures: No Head,Eye,Nose,Throat Problems Cataracts: No Endocrine Problems Diabetes Mellitus Type 1: No Diabetes Mellitus Type 2: Yes Blood Problems Sickle Cell Disease: No Psychologic Problems Depression: No Other Problems Hospitalization: Yes Autoimmune Disease: No Shingles: No Falls: Yes Blood Transfusions: No Blood Transfusion Reaction: No Anesthesia Reactions: No MRSA: No Clostridium Difficile: No Cancer: No
[2025-10-11 14:11] VITALS: BP 130/83; PULSE 104; RESP 18; TEMP 36.7; O2SAT 95; BMI 30.9
== END 2025-10-11 15:03 | disposition home or self-care (01) ==
LOC: HODSRG 13:41
PROVIDERS: PCP Family Medicine; Referring Provider Family Medicine; Supervising Provider Surgery; Visit Provider Surgery
DX: Z48.815 Encounter for surgical aftercare following surgery on the digestive system (principal); E11.9 Type 2 diabetes mellitus without complications; Z79.4 Long term (current) use of insulin; I10 Essential (primary) hypertension
CPT/HCPCS: 99213; G0463

== ENCOUNTER 2025-10-24 08:46 | Inpatient (IN) | payer MEDICAID, SELFPAY ==
[2025-10-24] VITALS (7 sets, daily range): BP systolic 143–183; BP diastolic 80–103; PULSE 88–108; RESP 16–18; TEMP 36.8–37.2; O2SAT 97–100; BMI 30.9
--- NOTE | 2025-10-24 08:57 | XR_ITS ---
Examination: CT abdomen and pelvis without contrast. Coronal 3-D reconstructions. Sagittal 2-D reconstructions. Date and time of exam: October 24, 2025, 0945 hours INDICATIONS: Post cholecystectomy October 09, 2025 with fever and abdominal pain post surgery CTDI: vol (mGy): 9.42 DLP: (mGycm): 502 Technique: Axial images of the abdomen have been obtained, 3 mm slice thickness Intravenous contrast material has not been administered. Low dose protocols were performed. One or more of the following dose reduction techniques were used; automated exposure control, adjustment of the mA and/or KV according to patient size, use of iterative reconstruction technique. Findings: Fatty infiltration throughout the liver. No focal liver or splenic lesions Minimal fluid air collection in the gallbladder fossa, 32 x 30 mm No pancreatic or adrenal mass No hydronephrosis or renal calculi Aorta normal size No bowel obstruction Fat-containing umbilical hernia No pericecal inflammatory change. No pelvic mass Moderate osteopenia Contracted urinary bladder IMPRESSION: Small abscess in the gallbladder fossa, 32 x 30 mm 0
--- NOTE | 2025-10-24 08:57 | XR_ITS ---
Examination: Abdomen sonogram, Limited Date and time of exam: October 24, 2025, 0954 hours INDICATIONS: Severe abdominal pain worse today, post cholecystectomy Technique: Real-time gandhi scale transabdominal sonographic images of the upper abdomen obtained. Findings: Cystic mass in the gallbladder fossa 3.9 x 2.5 x 3.8 cm Common bile duct enlarged 1.0 cm no stones Pancreatic head 1.9 cm Liver 16.6 cm fatty infiltration Normal hepatopetal portal venous flow Patent IVC IMPRESSION: Abscess in the gallbladder fossa
--- NOTE | 2025-10-24 08:58 | PD.EDABDPN ---
ED Abdominal Pain RME/HPI General Chief Complaint: Abdominal Pain Stated complaint: RUQ ABD PAIN 9/10, DIARRHEA, UNSTABLE BLOOD SUGAR Time seen by provider: 10/24/25 08:51 Arrival date/time: 10/24/25 08:46 55-year-old female with a history of a cholecystectomy last month presents to the emergency room with a chief complaint of right upper quadrant abdominal pain, diarrhea x 3 days Source: patient Mode of arrival: ambulatory Limitations: no limitations Related Data Home Medications ?Medication ?Instructions ?Recorded ?Confirmed baclofen 10 mg tablet 10 mg PO BID 09/14/22 10/11/25 clonidine HCl 0.1 mg tablet 0.1 mg PO BID 09/14/22 10/11/25 methadone 10 mg tablet 10 mg PO Q8H PRN Pain 09/14/22 10/11/25 pregabalin 25 mg capsule 25 mg PO BID 09/14/22 10/11/25 promethazine 25 mg tablet 25 mg PO Q12H PRN n/v 09/14/22 10/11/25 semaglutide 0.25 mg or 0.5 mg (2 0.5 mg subcut QWEEK 09/07/25 10/11/25 mg/3 mL) subcutaneous pen injector ([employer]) Previous Rx's ?Medication ?Instructions ?Recorded blood-glucose sensor (Dexcom G6 #3 05/02/25 Sensor device) blood-glucose transmitter (Dexcom #1 05/02/25 G6 Transmitter device) blood-glucose,freight receiver,cont #1 ea 05/02/25 (Dexcom G6 Cage Maker Machine) pen needle, diabetic 29 gauge x #100 05/02/25 1/2 ([employer] Pen Needle) oxycodone-acetaminophen 5 mg-325 1 tab PO Q4H PRN pain #10 tabs 09/20/25 mg tablet (Percocet) atorvastatin 20 mg tablet 20 mg PO HS 30 days #30 tabs 09/28/25 hydrocodone 5 mg-acetaminophen 325 1 tab PO Q6H PRN pain (scale score 09/28/25 mg tablet 7-10) #10 tabs insulin glargine-aglr 100 unit/mL 40 unit (0.4 mL) subcut HS 30 days 09/28/25 (3 mL) subcutaneous pen #12 mL insulin lispro 100 unit/mL 10 unit (0.1 mL) subcut TID 30 09/28/25 subcutaneous pen days #9 mL lidocaine 5 % topical patch 1 patch topical QDAY #30 ea 10/11/25 tramadol 50 mg tablet 50 mg PO Q6H PRN pain #30 tabs 10/19/25 Allergies Allergy/AdvReac Type Severity Reaction Status Date / Time barium iodide Allergy Severe PASSED OUT Verified 10/24/25 08:50 cephalexin Allergy Severe ITCHING Verified 10/24/25 08:50 AND VOMITING codeine Allergy Severe FAINTS Verified 10/24/25 08:50 ibuprofen Allergy Severe Swelling Verified 10/24/25 08:50 of Lip/Tongue/Throat Penicillins Allergy Severe HIVES AND Verified 10/24/25 08:50 DIFF BREATHING aspirin Allergy Unknown RASH Verified 10/24/25 08:50 Review of Systems Review of Systems Systems Reviewed: All systems reviewed, normal except as documented Constitutional Constitutional: Reports system reviewed and no additional complaints, except as documented, Denies fatigue, Denies fever(s), Denies headache(s) and Denies weakness Eyes Eyes: Reports system reviewed and no additional complaints, except as documented, Denies blurry vision and Denies change in vision ENT Ears, Nose, Mouth, and Throat: Reports system reviewed and no additional complaints, except as documented, Denies otalgia, Denies headache(s), Denies nasal congestion, Denies throat swelling and Denies vertigo Cardiovascular Cardiovascular: Reports system reviewed and no additional complaints, except as documented, Denies chest pain, Denies dyspnea and Denies dyspnea on exertion Respiratory Respiratory: Reports system reviewed and no additional complaints, except as documented, Denies chest congestion, Denies cough, Denies dyspnea, Denies dyspnea on exertion and Denies wheezing Gastrointestinal Gastrointestinal: Reports system reviewed and no additional complaints, except as documented, Reports abdominal pain, Reports cramping, Reports nausea and Denies vomiting Genitourinary Genitourinary: Reports system reviewed and no additional complaints, except as documented Musculoskeletal Musculoskeletal: Reports system reviewed and no additional complaints, except as documented and Denies back pain Integumentary/Breasts Skin/Breast: Reports system reviewed and no additional complaints, except as documented and Denies wounds Neurologic Neurologic: Reports system reviewed and no additional complaints, except as documented, Denies confusion, Denies headache(s), Denies lack of coordination, Denies vertigo and Denies weakness Psychiatric Psychiatric: Reports system reviewed and no additional complaints, except as documented, Denies anxiety, Denies confusion, Denies depression, Denies paranoia, Denies suicidal ideation and Denies tactile hallucinations Endocrine Endocrine: Reports system reviewed and no additional complaints, except as documented and Denies fatigue Hematologic/Lymphatic Hematologic/Lymphatic: Reports system reviewed and no additional complaints, except as documented and Denies lymphadenopathy Allergic/Immunologic Allergic/Immunologic: Reports system reviewed and no additional complaints, except as documented, Denies throat swelling, Denies urticaria and Denies wheezing ED Exam General Limitations: Present no limitations General appearance: Present alert and in no apparent distress Head Head exam: Present atraumatic Eye Eye exam: Present normal appearance, PERRL and EOMI ENT ENT exam: Present normal exam, normal oropharynx and mucous membranes moist Neck Neck exam: Present normal inspection, full ROM and trachea midline Chest Chest inspection: Present normal inspection and symmetric chest wall rise Respiratory Respiratory exam: Present normal lung sounds bilaterally Cardiovascular Cardiovascular exam: Present regular rate, normal rhythm and normal heart sounds Abdominal Exam Abdominal exam: Present soft and normal bowel sounds Extremities Exam Extremities exam: Present normal inspection and full ROM Back Exam Back exam: Present normal inspection and full ROM Neurological Exam Neurological exam: Present alert, oriented X3 and CN II-XII intact Psychiatric Psychiatric exam: Present normal affect and normal mood Skin Skin exam: Present warm, dry, intact and normal color Course Quality Measures none Orders Category Date Time Status CT abdomen pelvis wo con Stat Exams 10/24/25 08:57 Completed US gall bladder Stat Exams 10/24/25 08:57 Completed CBC Stat Lab 10/24/25 09:26 Completed CMP [Comprehensive Metabolic Panel] Stat Lab 10/24/25 09:26 Completed HCG Qualitative,Urine Stat Lab 10/24/25 09:15 Completed Lipase Stat Lab 10/24/25 09:26 Completed UA [Urinalysis] Stat Lab 10/24/25 09:15 Completed Urine Culture Stat Lab 10/24/25 09:15 Received Vital Signs Vital signs: Vital Signs Temperature 98.4 F 10/24/25 08:57 Pulse Rate 108 H 10/24/25 08:57 Respiratory Rate 18 10/24/25 08:57 Blood Pressure 147/80 H 10/24/25 08:57 Pulse Oximetry (%) 99 10/24/25 08:57 Oxygen Delivery Method Room Air 10/24/25 08:57 Abdominal Pain MDM [facility] Narrative [facility] Narrative:: 55-year-old female with a history of a cholecystectomy last month presents to the emergency room with a chief complaint of right upper quadrant abdominal pain, diarrhea x 3 days Patient is hemodynamically stable and in no apparent distress. She is afebrile nontachycardic nontachypneic Physical examination shows 8 out of 10 abdominal tenderness with palpation to the epigastric and right upper quadrant area of her abdomen. Patient had a cholecystectomy done [address] Nix. The patient then developed some abscesses in the gallbladder fossa which were drained. Patient states her drain was removed. A CT of the abdomen and pelvis was completed and shows a small abscess in the gallbladder fossa 33 mm x [address] Nix was consulted and the patient will be admitted to be evaluated by her tomorrow. Patient data External records reviewed:: [facility] previous records Clinical information provided by:: patient Social determinants that could affect healthcare access:: none Patient has the following chronic illnesses:: No chronic illness How is presenting disease/condition affected by chronic disease/condition?: no chronic disease Evaluation data The following diagnostics were reviewed and interpreted by me:: lab results and radiology exam(s) Lab and/or radiology exams considered but not ordered:: Labs and radiology exams considered and ordered Interpretation Summary: CT abdomen and pelvis-Findings: Fatty infiltration throughout the liver. No focal liver or splenic lesions Minimal fluid air collection in the gallbladder fossa, 32 x 30 mm No pancreatic or adrenal mass No hydronephrosis or renal calculi Aorta normal size No bowel obstruction Fat-containing umbilical hernia No pericecal inflammatory change. No pelvic mass Moderate osteopenia Contracted urinary bladder IMPRESSION: Small abscess in the gallbladder fossa, 32 x 30 mm Ultrasound gallbladder-Findings: Cystic mass in the gallbladder fossa 3.9 x 2.5 x 3.8 cm Common bile duct enlarged 1.0 cm no stones Pancreatic head 1.9 cm Liver 16.6 cm fatty infiltration Normal hepatopetal portal venous flow Patent IVC IMPRESSION: Abscess in the gallbladder fossa Medications / Prescriptions Medications or Prescriptions considered but not ordered:: No medication given Medication administrations:: Medication Administration History Discontinued Medications Ceftriaxone Sodium/Dextrose (Rocephin/D5w 1gm Iv Premix) 1 gm in 50 mls @ 100 mls/hr IV X1 ONE Stop: 10/24/25 12:28 Labetalol HCl (Labetalol Inj 5 Mg/Ml Vial 4 Ml) 10 mg IVP X1 ONE Stop: 10/24/25 12:48 No medication given Consultations Consultation(s) initiated? (list below): Yes Consultation #1 (Physician, Specialty, Details): Dr. Nix on-call general surgeon Time: 12:00 Diagnosis Differential diagnosis abdominal pain: abdominal pain, acute appendicitis, calculus of kidney and gastroenteritis Most likely diagnosis given after review of the tests above:: Gallbladder abscess Admission Indicated Admission indicated?: not indicated Admission Request Was there a request for admission?: Yes Admission Attestation Admission request attestation: Discussed case with [] from Hospitalist service regarding admission. Discussed patients ED course, exam findings, labs, and radiology results. The Hospitalist [agrees,declines] to accept the patient for admission. Disposition Plan Disposition Plan: Admit Discharge Plan Plan Patient Disposition: Admit Acute Care w/in Hospital Discharge Disposition comment: Stable Problem List Clinical Impression: Intra-abdominal abscess
[2025-10-24 09:22] LABS: Collection Type, Urine Clean Catch
[2025-10-24 09:29] LABS: HCG Qualitative,Urine Negative
[2025-10-24 09:40] LABS: Basophils # (Auto) 0.1 Thou/mm3 (0.0-0.2); Basophils % (Auto) 1 % (0-2.5); Eosinophils # (Auto) 0.2 Thou/mm3 (0.0-0.5); Eosinophils % (Auto) 3 % (0-10); Hematocrit 45.2 % (36.0-46.0); Hemoglobin 14.4 g/dL (12.0-16.0); Immature Granulocytes Auto 0.01 Thou/mm3 (0.00-0.00); Lymphocytes # (Auto) 2.7 Thou/mm3 (1.0-4.8); Lymphocytes % (Auto) 48 % (10-50); Mean Corpuscular HGB Conc 31.9 g/dl (31.0-37.0); Mean Corpuscular Hemoglobin 28.2 pg (25.0-35.0); Mean Corpuscular Volume 89 fL (80-100); Monocytes # (Auto) 0.4 Thou/mm3 (0.0-0.8); Monocytes % (Auto) 8 % (0-12); Neutrophils # (Auto) 2.2 Thou/mm3 (1.8-7.7); Neutrophils % (Auto) 40 % (37-80); Nucleated Red Blood Cell # 0.00 Thou/mm3 (0.00-0.00); Nucleated Red Blood Cell % 0 /100 WBC (0); Platelet Count 312 Thou/mm3 (140-440); RDW Standard Deviation 44.0 fL (36.4-46.3); Red Blood Count 5.10 Miln/mm3 (4.00-5.20); White Blood Count 5.6 Thou/mm3 (3.6-11.0)
[2025-10-24 09:44] LABS: Bilirubin,Urine Negative (Negative); Blood,Urine Negative (Negative); Clarity,Urine Clear (Clear/Hazy); Color,Urine Yellow (Lt Yel-Yel); Glucose, Urine Negative (Negative); Ketones,Urine Negative (Negative); Leukocyte Esterase,Urine Negative (Negative); Nitrite,Urine Negative (Negative); PH,Urine 5.5 (5.0-7.0); Protein,Urine Trace (Neg - Trace); RBC,Urine 1 /hpf (0-3); Specific Gravity,Urine 1.040 (1.001-1.035); Squamous Epithelial Cell,Urine 4 /hpf (0-5); Urobilinogen,Urine Negative mg/dL (0.0-1.0); WBC,Urine 3 /hpf (0-5)
[2025-10-24 10:16] LABS: Alanine Aminotransferase 9 U/L (10-49); Albumin, Serum 4.9 gm/dL (3.5-5.0); Albumin/Globulin Ratio 1.3 (1.2-2.2); Alkaline Phosphatase 125 U/L (46-116); Anion Gap 10 (7-16); Aspartate Amino Transferase 15 U/L (0-34); BUN/Creatinine Ratio 23 Ratio (12-20); Bilirubin,Total 0.4 mg/dL (0.3-1.2); Blood Urea Nitrogen 16 mg/dL (9-23); Calcium 10.1 mg/dL (8.3-10.6); Calcium (Corrected) 10.1 mg/dL (8.5-10.1); Carbon Dioxide 29.7 mMol/L (20.0-31.0); Chloride 103 mMol/L (98-107); Creatinine (Component) 0.7 mg/dL (0.6-1.3); Estimated Creatinine Clearance 92.7 mL/min (>60); Globulin 3.7 gm/dL (2.3-3.5); Glucose 174 mg/dL (74-106); Lipase 21 U/L (12-53); Osmolality,Calculated 290 (275-295); Potassium 4.3 mMol/L (3.4-5.1); Sodium 143 mMol/L (136-145); Total Protein 8.6 gm/dL (5.7-8.2); eGFR > 60 See Note
--- NOTE | 2025-10-24 11:58 | EKG_ITS ---
[facility] Test Date: 2025-10-24 Pat Name: JAMES GREENE Department: Room: - Gender: Female Legal Department Manager: : 1970 Requested By: Pancho Cam Order Number: [id number] Reading MD: Pancho Cam Measurements Intervals [place] Rate: 85 P: 49 GA: 137 QRS: 42 QRSD: 83 T: 46 QT: 376 QTc: 449 Interpretive Statements SINUS RHYTHM Compared to ECG 10/06/2025 11:35:24 No significant changes /store/S0/[id number].pdf
[2025-10-24] MEDS: ONDANSETRON INJ 2 MG/ML INJ 2 ML 4 MG IVP ×2 (13:22→20:40)
--- NOTE | 2025-10-24 13:22 | ESHP_ITS ---
<Statement entered by Yousuf Bonner MD - 10/24/25 14:20> I saw and examined patient personally and supervised PGY 1 resident, Dr. Richey with formulating a management plan. I agree with the documentation with the exceptions as listed below. 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 Patient presented with nausea and abdominal pain and will be admitted for treatment and management of recurrent gallbladder fossa abscess. Problem list: 1. Recurrent gallbladder fossa abscess s/p laparoscopic cholecystectomy on 09/08/2025 2. Nausea 3. Insulin-dependent diabetes mellitus type 2 4. Primary hypertension 5. History of chronic lower back pain secondary to herniated disc Patient presented with severe nausea, decreased oral intake and right upper quadrant pain for the past 24 hours. On admission patient was tachycardic 108, however afebrile. Labs did show WBC 5.6, glucose 174, ALP 125. CT abdomen pelvis did show 22 x 13 mm abscess in gallbladder fossa. Gallbladder ultrasound confirmed the same with an enlarged CBD at 1 cm. EKG showed sinus rhythm, rate 85, no acute ST changes. QTc 449. Patient started on ceftriaxone 1 g IV daily as per previous culture results. She does have a history of Keflex and penicillin allergy, however this was more than 30 years ago and has not had a reaction since then. Her PEN-FAST score was low probability for repeat reaction. Scheduled for CT guided abscess drain placement on 10/25, pending blood and urine cultures and general surgery, Dr. Márquez was consulted. Appreciate recommendations. Documentation for date of: 10/24/25 HPI History of Present Illness Chief complaint: Recurrent post-cholecystecomy abscess History of present illness: History of present illness: Patient is a 55-year-old female with past medical history of DM with neuropathy, cholecystitis presenting to the ED on 10/24/2025 for recurrent gallbladder abscess postcholecystectomy. Patient had cholecystectomy on 09/08/[address] Márquez; she subsequently developed a gallbladder abscess for which she presented on 09/23/2025 and which was drained on 09/24/2025. She then went home on 09/28/2025 and was under observation by Dr. Márquez; however she subsequently began having recurrent symptoms including fever, chills, right upper quadrant abdominal pain radiating to back and left side of abdomen and nausea 3 days prior. She therefore presented to the ER today. ED course: Patient was hemodynamically stable and in no apparent distress. Physical examination showed 8 out of 10 abdominal tenderness with palpation to the epigastric and right upper quadrant area of her abdomen. CT A/P showed abscess in the gallbladder fossa 33 mm x 30 mm. Patient admitted for recurrent postcholecystectomy abscess. PMH: DM with neuropathy, cholecystitis, PSH: Cholecystectomy, Allergies: Barium, cephalexin, codeine, ibuprofen, penicillin, aspirin Social history: no alcohol, tobacco, or drugs Review of Systems Review of Systems Narrative Review of Systems: General: Endorses fevers and chills HEENT: Denies congestion or sore throat Heart: Denies chest pain or palpitations Lungs: Denies shortness of breath or cough Abdomen: Endorses nausea and significant bilateral abdominal pain radiating from right upper quadrant Genitourinary: Denies frequency, urgency, dysuria, hematuria Musculoskeletal: Denies joint pain, denies muscular pain Neurology: Endorses peripheral neuropathy in feet ROS otherwise negative except what is mentioned above. Exam Vital Signs Temp Pulse Resp BP Pulse Ox O2 Del Method 98.9 F 94 16 154/98 H 99 Room Air 10/24/25 13:12 10/24/25 13:12 10/24/25 13:12 10/24/25 13:12 10/24/25 13:12 10/24/25 13:12 Narrative Exam General: A/O x3, some distress, well-nourished, well-developed, anxious Eyes: PERRL, EOMI. Anicteric, vision grossly intact. Ears: No ear pain, no ear discharge, Hearing grossly intact. Nose: No nasal discharge. Mouth/Throat: Moist mucous membranes, no redness, no lesions. Neck: Neck supple, non-tender, no cervical lymphadenopathy. Lungs: Clear NASIR to auscultation and percussion, No accessory muscle use. Cardio: Normal S1/S2, regular rhythm, no murmurs, no JVD or carotid bruits. Abdomen: Soft, very tender with guarding on right side Extremities: Symmetrical, no significant deformities, no peripheral edema , non-tender, peripheral pulses present. Skin: No rashes, no lesions, warm to touch. Neuro: No focal neurological deficits. Psych: Cooperative, appropriate mood and effect. Results: Labs 10/24/25 09:26 10/24/25 09:26 Labs: Short CBC 10/24/25 Range/Units 09:26 WBC 5.6 (3.6-11.0) Thou/mm3 Hgb 14.4 (12.0-16.0) g/dL Hct 45.2 (36.0-46.0) % Plt Count 312 (140-440) Thou/mm3 BMP 10/24/25 09:26 Sodium 143 Potassium 4.3 Chloride 103 Carbon Dioxide 29.7 BUN 16 Creatinine 0.7 Glucose 174 H Calcium 10.1 Liver Function 10/24/25 Range/Units 09:26 Total Bilirubin 0.4 (0.3-1.2) mg/dL AST 15 (0-34) U/L ALT 9 L (10-49) U/L Alkaline Phosphatase 125 H (46-116) U/L Albumin 4.9 (3.5-5.0) gm/dL Urine 10/24/25 Range/Units 09:15 Urine Color Yellow (Lt Yel-Yel) Urine Clarity Clear (Clear/Hazy) Urine pH 5.5 (5.0-7.0) Ur Specific [place] 1.040 H (1.001-1.035) Urine Protein Trace (Neg - Trace) Urine Glucose (UA) Negative (Negative) Quality Measures Quality Measures none Medications Home Medications and Allergies Home Medications ?Medication ?Instructions ?Recorded ?Confirmed ?Type baclofen 10 mg tablet 10 mg PO BID 09/14/22 History clonidine HCl 0.1 mg tablet 0.1 mg PO BID 09/14/2206/11 History promethazine 25 mg tablet 25 mg PO Q12H PRN n/v 10/24/25 History insulin glargine 100 unit/mL (3 50 unit subcut QPM 06/1110/24/25 History mL) subcutaneous pen (Basaglar KwikPen U-100 Insulin) insulin lispro 100 unit/mL 20 unit subcut TID 10/24/25 10/24/25 History subcutaneous pen methadone 10 mg tablet 10 mg PO TID 10/24/25 History tramadol 50 mg tablet 50 mg PO Q6H PRN pain 10/24/25 History Allergies Allergy/AdvReac Type Severity Reaction Status Date / Time barium iodide Allergy Severe PASSED OUT Verified 10/24/25 08:50 cephalexin Allergy Severe ITCHING Verified 10/24/25 08:50 AND VOMITING codeine Allergy Severe FAINTS Verified 10/24/25 08:50 ibuprofen Allergy Severe Swelling Verified 10/24/25 08:50 of Lip/Tongue/Throat Penicillins Allergy Severe HIVES AND Verified 10/24/25 08:50 DIFF BREATHING aspirin Allergy Unknown RASH Verified 10/24/25 08:50 Visit Medications Acetaminophen (Acetaminophen 325 Mg Tablet) 650 mg PO Q4HR PRN PRN Reason: Pain 1-3 or Fever > 100.4 Stop: 11/23/25 13:01 Diphenhydramine HCl (Diphenhydramine Inj 50 Mg/Ml Vial) 25 mg IVP Q4HR PRN PRN Reason: Itching, Hives or Allergy Stop: 11/23/25 13:01 Hydromorphone HCl (Hydromorphone Inj 2 Mg/Ml Vial) 1 mg IVP Q4HR PRN PRN Reason: PAIN SCALE 7-10 (Severe Stop: 10/29/25 13:01 Morphine Sulfate (Morphine Sulf Inj 4 Mg/Ml Vial) 1 mg IVP Q4HR PRN PRN Reason: PAIN SCALE 4-6 (Moderate Stop: 10/29/25 13:01 Ondansetron HCl (Ondansetron Inj 2 Mg/Ml Inj 2 Ml) 4 mg IVP Q6HR PRN; Protocol PRN Reason: NAUSEA OR VOMITING Stop: 11/23/25 13:01 Discontinued Medications Ceftriaxone Sodium/Dextrose (Rocephin/D5w 1gm Iv Premix) 1 gm in 50 mls @ 100 mls/hr IV X1 ONE Stop: 10/24/25 12:28 Insulin Degludec (Insulin Degludec 5 Unit/0.05 Ml (Per 5 Units)) 5 unit SC X1 ONE Stop: 10/24/25 13:03 Last Admin: 10/24/25 13:17 Dose: Not Given Labetalol HCl (Labetalol Inj 5 Mg/Ml Vial 4 Ml) 10 mg IVP X1 ONE Stop: 10/24/25 12:48 Last Admin: 10/24/25 13:12 Dose: Not Given Assessment & Plan Plan 55-year-old female with PMH of type 2 diabetes mellitus (on insulin), peripheral neuropathy, chronic pain secondary to herniated disc, HTN, and prior CVA 6 years ago, who presents to the ED with recurrent gallbladder abscess postcholecystectomy. Patient admitted for intra-abdominal abscess pending surgical evaluation by Dr. Márquez. #Recurrent gallbladder fossa abscess secondary to #cholecystectomy Afebrile and nontoxic. Patient had laparoscopic cholecystectomy on 09/[address] Márquez; had previous abscess 10/12, which was drained. CT A/P showed abscess in the gallbladder fossa 33 mm x 30 mm. Plan: ? Surgical consult placed, Dr. Márquez aware, to assess in a.m. - Ceftriaxone 1g daily ? Follow-up blood culture and urine culture #Type 2 diabetes, insulin-dependent Last A1c 7.4. Plan: ? Insulin sliding scale step 2 #Hypertension Patient takes clonidine 0.1 mg p.o. twice daily Plan ? Resumed home clonidine #Peripheral neuropathy, chronic pain?herniated disc Plan: Dilaudid 1mg q4 prn morphine 1mg q4 prn acetaminophen 650 q4 prn Disposition: Med-Surg DVT prophylaxis: SCD GI prophylaxis: Diet: carb consistent low Lines: PIV CODE STATUS: Full code This case was discussed with my attending physician, Dr. Preciado, and senior resident, Dr. Bonner. Shay Richey, PGY1 Attending Provider Attestation/Addendum I or my resident physicians have discussed care with the ED physician and I have made the decision to admit. I have discussed and was present for the essential components of the history, physical examination, diagnosis, and treatment plan with the resident. I agree with the patient's care as documented by the resident and amended herein by me. Fredy Preciado DO. Although this document has been carefully reviewed, there may still be some phonetic and other typographical errors. These errors are purely grammatical due to imperfections in the software program and should not be construed in any way to compromise the substance of the patient's medical care during this visit.
[2025-10-24] MEDS: HYDROmorphone INJ 2 MG/ML VIAL 1 MG IVP ×2 (13:23→20:43)
[2025-10-24] MEDS: cefTRIAXone/D5w 1gm IV premix 1 GM/50 ML BAG IV (13:33)
--- NOTE | 2025-10-24 14:16 | PC.CC ---
Patient is a 55 year-old female who presents to the hospital for an abdominal abscess. PLANT ACCOUNTANTJil made [id number] contact with patient introduced self, role, and reason for visit. Patient appeared alert and oriented to self, location, and situation. PLANT ACCOUNTANT, discussed limits of confidentiality. Patient made appropriate eye contact and engaged in initial assessment. ? Patient confirmed information on demographics and reports to living at home with her two adult sons, Viktor and Maurilio. Per patient in the event she is unable to make her own medical decisions her medical decision makers are her two sons Viktor and Maurilio Angel. At home patient is able to ambulate with a walker and cane. She reports she is able to complete all ADLs. Patient does not require other DME and does not receive dialysis. Patient receives primary care with Angelo Molina and uses [facility] for all prescription medication. Upon discharge patient plans to return back home. environmental services technician to follow up with any discharge needs.
[2025-10-24] MEDS: MORPHINE SULF INJ 4 MG/ML VIAL 1 MG IVP (15:37)
[2025-10-24] MEDS: METHADONE HCL 10 MG TABLET PO ×2 (16:09→21:39)
[2025-10-24] MEDS: ATORVASTATIN CALCIUM 20 MG TABLET PO (20:47)
[2025-10-24] MEDS: INSULIN LISPRO (AdmeLOG) 1 UNIT/0.01 ML UNIT SC (20:48)
[2025-10-25] VITALS (15 sets, daily range): BP systolic 110–180; BP diastolic 74–90; PULSE 82–98; RESP 17–20; TEMP 36.2–37.1; O2SAT 95–100
[2025-10-25] MEDS: HYDROmorphone INJ 2 MG/ML VIAL 1 MG IVP ×2 (00:59→04:58)
[2025-10-25] MEDS: ONDANSETRON INJ 2 MG/ML INJ 2 ML 4 MG IVP ×4 (02:39→21:13)
[2025-10-25] MEDS: MORPHINE SULF INJ 4 MG/ML VIAL 1 MG IVP ×2 (02:39→16:13)
[2025-10-25] MEDS: METHADONE HCL 10 MG TABLET PO ×3 (06:03→21:03)
[2025-10-25] MEDS: cefTRIAXone/D5w 1gm IV premix 1 GM/50 ML BAG IV (08:55)
--- NOTE | 2025-10-25 09:00 | XR_ITS ---
Exam: CT-guided abscess drain placement INDICATION: Post cholecystectomy gallbladder fossa fluid collection. DATE: 10/25/2025, 2:04 p.m. CTDI: 39.9 DLP: 467 PROCEDURE: After discussion of risks and benefits informed consent was obtained. The patient was brought to the CT scanner and placed supine on the exam table. Preliminary noncontrast enhanced CT again showed a approximately 3 cm fluid collection in the gallbladder fossa.. This was targeted for drain placement. The overlying skin was cleaned and draped in normal sterile surgical fashion. 10 cc 1% lidocaine was used for local anesthesia. Conscious sedation was begun with direct continuous nursing supervision. Using CT guidance an 18-gauge Chiba needle was sequentially advanced into the targeted fluid collection. Dark brown fluid was obtained. 0.035 wire was advanced through the needle and the needle was withdrawn. Tract was serially dilated and a 10 Sammarinese pigtail drainage catheter was placed over the wire and the wire removed. Catheter was attached to accordion suction bag drainage, sutured in place with a 2-0 silk suture and covered with a sterile dressing. Post catheter placement CT was performed which showed the distal catheter tip appropriately coiled in the targeted fluid collection. Patient tolerated the procedure well without evidence of complications. IMPRESSION: Successful CT-guided drain placement as above.
[2025-10-25 09:09] LABS: Magnesium 1.6 mg/dL (1.6-2.6); Phosphorous 3.9 mg/dL (2.4-5.1)
--- NOTE | 2025-10-25 09:53 | ESPR_ITS ---
<Statement entered by Yousuf Bonner MD - 10/25/25 18:02> I saw and examined patient personally and supervised PGY 1 resident, Dr. Richey with formulating a management plan. I agree with the documentation with the exceptions as listed below. Patient underwent successful IR guided placement of gallbladder fossa drain today which had only 7 cc of output. Sample was sent for culture and Gram stain. Patient continues to be on ceftriaxone 1 g IV daily for abscess. General surgery, Dr. Márquez consulted. Plan of care discussed with Attending Dr. Ilana Bonner MD PGY 2 Disclaimer: This note was dictated by speech recognition. Minor errors in flatwork supervisor may be present due to voice recognition software. Documentation for date of: 10/25/25 Subjective Subjective Interval history: Patient seen and examined at bedside; no acute events overnight. Had drain placed today. Exam Vital Signs Temp Pulse Resp BP Pulse Ox O2 Del Method 97.6 F 83 18 146/84 H 98 Room Air 10/25/25 08:00 10/25/25 08:54 10/25/25 08:00 10/25/25 08:54 10/25/25 08:00 10/25/25 04:00 Narrative Exam General: A/O x3, some distress, well-nourished, well-developed, drain placed Eyes: PERRL, EOMI. Anicteric, vision grossly intact. Ears: No ear pain, no ear discharge, Hearing grossly intact. Nose: No nasal discharge. Mouth/Throat: Moist mucous membranes, no redness, no lesions. Neck: Neck supple, non-tender, no cervical lymphadenopathy. Lungs: Clear NASIR to auscultation and percussion, No accessory muscle use. Cardio: Normal S1/S2, regular rhythm, no murmurs, no JVD or carotid bruits. Abdomen: Soft, very tender with guarding on right side Extremities: Symmetrical, no significant deformities, no peripheral edema , non-tender, peripheral pulses present. Skin: No rashes, no lesions, warm to touch. Neuro: No focal neurological deficits. Psych: Cooperative, appropriate mood and effect. Objective Labs 10/24/25 09:26 10/24/25 09:26 Labs: Laboratory Results - last 24 hr 10/24/25 10/25/25 09:26 08:19 WBC 5.6 RBC 5.10 Hgb 14.4 Hct 45.2 MCV 89 MCH 28.2 MCHC 31.9 RDW Std Deviation 44.0 Plt Count 312 Neut % (Auto) 40 Lymph % (Auto) 48 [place] % (Auto) 8 Eos % (Auto) 3 Baso % (Auto) 1 Neut # (Auto) 2.2 Lymph # (Auto) 2.7 [place] # (Auto) 0.4 Eos # (Auto) 0.2 Baso # (Auto) 0.1 Immature Gran # (Auto) 0.01 H Absolute Nucleated RBC 0.00 Immature Gran % 0 Nucleated RBC % 0 Sodium 143 Potassium 4.3 Chloride 103 Carbon Dioxide 29.7 Anion Gap 10 BUN 16 Creatinine 0.7 Estim Creat Clear Calc 92.7 eGFR > 60 BUN/Creatinine Ratio 23 H Glucose 174 H Calculated Osmolality 290 Calcium 10.1 Corrected Calcium 10.1 Phosphorus 3.9 Magnesium 1.6 Total Bilirubin 0.4 AST 15 ALT 9 L Alkaline Phosphatase 125 H Total Protein 8.6 H Albumin 4.9 Globulin 3.7 H Albumin/Globulin Ratio 1.3 Lipase 21 Quality Measures Quality Measures none Assessment & Plan Assessment Current Active Medications: Generic Name Dose Route Start Last Admin Trade Name Freq PRN Reason Stop Dose Admin Acetaminophen 650 mg 10/24/25 13:02 Acetaminophen 325 Mg Tablet PO 11/23/25 13:01 Q4HR PRN Pain 1-3 or Fever > 100.4 Atorvastatin Calcium 20 mg 10/24/25 21:00 10/24/25 20:47 Atorvastatin Calcium 20 Mg Tablet PO 11/23/25 20:59 20 mg HS DANII Administration Clonidine 0.1 mg 10/24/25 21:00 10/25/25 08:54 Clonidine Hcl 0.1 Mg Tablet PO 11/23/25 20:59 0.1 mg BID DANII Administration Dextrose 25 ml 10/24/25 13:58 Dextrose 50%-Water Inj 50 Ml Syringe IV 11/23/25 13:57 Q15MIN PRN BG 50-70 responsive npo pt Dextrose 50 ml 10/24/25 13:58 Dextrose 50%-Water Inj 50 Ml Syringe IV 11/23/25 13:57 Q15MIN PRN BG <50 OR BG <70 & pt unresponsive Diphenhydramine HCl 25 mg 10/24/25 13:02 Diphenhydramine Inj 50 Mg/Ml Vial IVP 11/23/25 13:01 Q4HR PRN Itching, Hives or Allergy Glucagon 1 mg 10/24/25 13:58 Glucagon Inj 1 Mg Vial IM Q15MIN PRN BG <70, and no IV access Hydromorphone HCl 1 mg 10/25/25 09:34 Hydromorphone Inj 2 Mg/Ml Vial IVP 10/29/25 13:01 Q4HR PRN BREAKTHROUGH PAIN Ceftriaxone Sodium/Dextrose 1 gm in 50 mls @ 100 mls/hr 10/25/25 09:00 10/25/25 08:55 Rocephin/D5w 1gm Iv Premix IV 11/01/25 08:59 100 mls/hr QDAY DANII Administration Insulin Human Lispro 0 unit 10/25/25 06:00 10/25/25 06:07 Insulin Lispro (Admelog) 1 Unit/0.01 Ml Unit SC 11/24/25 05:59 Not Given Q6HR DANII Protocol Methadone HCl 10 mg 10/24/25 16:00 10/25/25 06:03 Methadone Hcl 10 Mg Tablet PO 10/29/25 15:59 10 mg TID DANII Administration Morphine Sulfate 1 mg 10/25/25 09:34 Morphine Sulf Inj 4 Mg/Ml Vial IVP 10/29/25 13:01 Q4HR PRN PAIN SCALE 7-10 (Severe Ondansetron HCl 4 mg 10/24/25 13:02 10/25/25 08:54 Ondansetron Inj 2 Mg/Ml Inj 2 Ml IVP 11/23/25 13:01 4 mg Q6HR PRN Administration NAUSEA OR VOMITING Protocol Plan 55-year-old female with PMH of type 2 diabetes mellitus (on insulin), peripheral neuropathy, chronic pain secondary to herniated disc, HTN, and prior CVA 6 years ago, who presents to the ED with recurrent gallbladder abscess postcholecystectomy. Patient admitted for intra-abdominal abscess pending surgical evaluation by Dr. Márquez. #Recurrent gallbladder fossa abscess secondary to #cholecystectomy Afebrile and nontoxic. Patient had laparoscopic cholecystectomy on 09/[address] Márquez; had previous abscess 10/12, which was drained. CT A/P showed abscess in the gallbladder fossa 33 mm x 30 mm. 10-25-25- surgical drain placed in abscess Plan: - Ceftriaxone 1g daily ? Follow-up blood culture and urine culture #Type 2 diabetes, insulin-dependent Last A1c 7.4. Plan: ? Insulin sliding scale step 2 #Hypertension Patient takes clonidine 0.1 mg p.o. twice daily Plan ? Resumed home clonidine #Peripheral neuropathy, chronic pain?herniated disc Plan: Dilaudid 1mg q4 prn morphine 1mg q4 prn acetaminophen 650 q4 prn Disposition: Med-Surg DVT prophylaxis: SCD GI prophylaxis: Diet: carb consistent low Lines: PIV CODE STATUS: Full code This case was discussed with my attending physician, Dr. Preciado, and senior resident, Dr. Bonner. Shay Richey, PGY1 Attending Provider Attestation/Addendum I have discussed and was present for the essential components of the history, physical examination, diagnosis, and treatment plan with the resident. I agree with the patient's care as documented by the resident and amended herein by me. Fredy Preciado, DO. Although this document has been carefully reviewed, there may still be some phonetic and other typographical errors. These errors are purely grammatical due to imperfections in the software program and should not be construed in any way to compromise the substance of the patient's medical care during this visit.
--- NOTE | 2025-10-25 10:39 | PC.SS ---
Follow up note: Abscess drainage by IR today. On IV antibiotic.
--- NOTE | 2025-10-25 13:03 | PD.SURCONS ---
HPI Consult details History of present illness: 55F with HTN, DMII on insulin, chronic back pain on methadone s/p laparoscopic cholecystectomy 09/08/25 who presented to ER 09/24 due to pain, nausea and chills. Pt had previously undergone drain placement on 09/24/25 for a RUQ hematoma which grew Strep salivarius, and at that time unfortunately did not experience much relief from the drainage procedure. In ER yesterday pt was found to have a fluid collection <4cm in the gallbladder fossa, smaller than on previous imaging with normal WBC, normal LFTs and afebrile, admitted for repeat drainage Review of Systems Review of Systems ROS Unobtainable: All systems reviewed & no additional complaints except as documented Constitutional Constitutional: Denies headache(s) and Denies weakness ENT Ears, Nose, Mouth, and Throat: Denies headache(s) and Denies vertigo Neurologic Neurologic: Reports system reviewed and no additional complaints, except as documented, Denies confusion, Denies headache(s), Denies lack of coordination, Denies vertigo and Denies weakness Psychiatric Psychiatric: Denies confusion Meds Home Medications and Allergies Home Medications ?Medication ?Instructions ?Recorded ?Confirmed ?Type baclofen 10 mg tablet 10 mg PO BID 09/14/22 10/24/25 History clonidine HCl 0.1 mg tablet 0.1 mg PO BID 09/14/22 10/24/25 History promethazine 25 mg tablet 25 mg PO Q12H PRN n/v 09/14/22 10/24/25 History insulin glargine 100 unit/mL (3 50 unit subcut QPM 10/24/25 10/24/25 History mL) subcutaneous pen (Basaglar KwikPen U-100 Insulin) insulin lispro 100 unit/mL 20 unit subcut TID 10/24/25 10/24/25 History subcutaneous pen methadone 10 mg tablet 10 mg PO TID 10/24/25 10/24/25 History tramadol 50 mg tablet 50 mg PO Q6H PRN pain 10/24/25 10/24/25 History Allergies Allergy/AdvReac Type Severity Reaction Status Date / Time barium iodide Allergy Severe PASSED OUT Verified 10/24/25 08:50 cephalexin Allergy Severe ITCHING Verified 10/24/25 08:50 AND VOMITING codeine Allergy Severe FAINTS Verified 10/24/25 08:50 ibuprofen Allergy Severe Swelling Verified 10/24/25 08:50 of Lip/Tongue/Throat Penicillins Allergy Severe HIVES AND Verified 10/24/25 08:50 DIFF BREATHING aspirin Allergy Unknown RASH Verified 10/24/25 08:50 Exam Vital Signs Temp Pulse Resp BP Pulse Ox O2 Del Method 97.6 F 83 18 146/84 H 98 Room Air 10/25/25 08:00 10/25/25 08:54 10/25/25 08:00 10/25/25 08:54 10/25/25 08:00 10/25/25 04:00 Constitutional Constitutional: no acute distress Routine Respiratory Exam Respiratory: Present no resp distress Routine Abdominal Exam Abdominal: Present soft and tenderness (moderate RUQ tenderness); Absent distended, rebound or guarding Results Results: Laboratory Laboratory results: results reviewed Results: Imaging CT scan - abdomen: report reviewed and image reviewed Assessment & Plan Plan 55F with HTN, DMII on insulin, chronic back pain on methadone s/p laparoscopic cholecystectomy 09/08/25, s/p drain placement 09/24 readmitted with pain, chills and another RUQ fluid collection. I explained that drain placement is reasonable given her systemic symptoms but as it did not improve her pain before I am not sure it will this time either. Pt expressed understanding and is agreeable to proceeding Low fat/DM diet after procedure
[2025-10-25] MEDS: MIDAZOLAM INJ 1 MG/ML VIAL 2 ML 2 MG IVP (14:18)
[2025-10-25] MEDS: LIDOCAINE INJ PF 1% 30 ML VIAL 20 ML EPID (14:18)
[2025-10-25] MEDS: fentaNYL CIT INJ 50 mCg/ML AMP 2ML 200 MCG IVP (14:18)
[2025-10-25] MEDS: ATORVASTATIN CALCIUM 20 MG TABLET PO (21:03)
[2025-10-25] MEDS: MORPHINE SULF INJ 4 MG/ML VIAL 2 MG IVP (21:13)
[2025-10-26] VITALS (8 sets, daily range): BP systolic 140–156; BP diastolic 46–93; PULSE 81–98; RESP 17–18; TEMP 36.2–37.1; O2SAT 94–96
[2025-10-26] MEDS: MORPHINE SULF INJ 4 MG/ML VIAL 2 MG IVP ×5 (01:13→20:02)
[2025-10-26] MEDS: HYDROcodone/APAP 5/325 TABLET 1 TAB PO (03:08)
[2025-10-26] MEDS: METHADONE HCL 10 MG TABLET PO ×3 (05:39→21:36)
[2025-10-26] MEDS: ONDANSETRON INJ 2 MG/ML INJ 2 ML 4 MG IVP ×2 (05:42→12:14)
[2025-10-26] MEDS: INSULIN LISPRO (AdmeLOG) 1 UNIT/0.01 ML UNIT SC ×4 (07:13→20:39)
[2025-10-26] MEDS: cefTRIAXone/D5w 1gm IV premix 1 GM/50 ML BAG IV (08:20)
[2025-10-26 09:01] LABS: Basophils # (Auto) 0.0 Thou/mm3 (0.0-0.2); Basophils % (Auto) 1 % (0-2.5); Eosinophils # (Auto) 0.2 Thou/mm3 (0.0-0.5); Eosinophils % (Auto) 2 % (0-10); Hematocrit 42.1 % (36.0-46.0); Hemoglobin 14.0 g/dL (12.0-16.0); Immature Granulocytes Auto 0.02 Thou/mm3 (0.00-0.00); Lymphocytes # (Auto) 1.9 Thou/mm3 (1.0-4.8); Lymphocytes % (Auto) 25 % (10-50); Mean Corpuscular HGB Conc 33.3 g/dl (31.0-37.0); Mean Corpuscular Hemoglobin 29.4 pg (25.0-35.0); Mean Corpuscular Volume 88 fL (80-100); Monocytes # (Auto) 0.7 Thou/mm3 (0.0-0.8); Monocytes % (Auto) 10 % (0-12); Neutrophils # (Auto) 4.8 Thou/mm3 (1.8-7.7); Neutrophils % (Auto) 63 % (37-80); Nucleated Red Blood Cell # 0.00 Thou/mm3 (0.00-0.00); Nucleated Red Blood Cell % 0 /100 WBC (0); Platelet Count 255 Thou/mm3 (140-440); RDW Standard Deviation 44.1 fL (36.4-46.3); Red Blood Count 4.77 Miln/mm3 (4.00-5.20); White Blood Count 7.6 Thou/mm3 (3.6-11.0)
[2025-10-26 09:45] LABS: Alanine Aminotransferase 330 U/L (10-49); Albumin, Serum 4.3 gm/dL (3.5-5.0); Albumin/Globulin Ratio 1.2 (1.2-2.2); Alkaline Phosphatase 529 U/L (46-116); Anion Gap 8 (7-16); Aspartate Amino Transferase 333 U/L (0-34); BUN/Creatinine Ratio 19 Ratio (12-20); Bilirubin,Total 1.2 mg/dL (0.3-1.2); Blood Urea Nitrogen 13 mg/dL (9-23); Calcium 9.6 mg/dL (8.3-10.6); Calcium (Corrected) 9.6 mg/dL (8.5-10.1); Carbon Dioxide 30.4 mMol/L (20.0-31.0); Chloride 97 mMol/L (98-107); Creatinine (Component) 0.7 mg/dL (0.6-1.3); Estimated Creatinine Clearance 92.7 mL/min (>60); Globulin 3.5 gm/dL (2.3-3.5); Glucose 235 mg/dL (74-106); Osmolality,Calculated 278 (275-295); Potassium 4.2 mMol/L (3.4-5.1); Sodium 135 mMol/L (136-145); Total Protein 7.8 gm/dL (5.7-8.2); eGFR > 60 See Note
--- NOTE | 2025-10-26 14:30 | ESPR_ITS ---
<Statement entered by Yousuf Bonner MD - 10/26/25 15:44> I saw and examined patient personally and supervised PGY 1 resident, Dr. Madison with formulating a management plan. I agree with the documentation with the exceptions as listed below. Patient's abdominal drain had 0 cc of output in the past 24 hours. Patient however does remain tender to palpation in right upper quadrant which is somewhat managed by IV morphine. Patient is intolerant to Dilaudid. Spoke with general surgeon, Dr. Márquez who said she will assess the patient for removal of her drain tomorrow. Anticipate discharge within next 24 hours. Plan of care discussed with Attending Dr. Daniela Bonner MD PGY 2 Disclaimer: This note was dictated by speech recognition. Minor errors in events solutions consultant may be present due to voice recognition software. Documentation for date of: 10/26/25 Subjective Subjective Interval history: No acute overnight events. Patient seen and examined at bedside. Patient endorses right abdominal pain however improved following drainage placement, as she can now take moderately deep breaths. Not adequately controlled with morphine and norco, increased norco to 10 from 5. Continue ceftriaxone. Per Dr. Márquez, if there is no drainage by tomorrow she will remove drain. Gave degludec 25ux1 due to glucose 275 at 1620. Exam Vital Signs Temp Pulse Resp BP Pulse Ox O2 Del Method O2 Flow Rate 97.9 F 94 18 156/93 H 96 Room Air 3 10/26/25 12:00 10/26/25 12:00 10/26/25 12:00 10/26/25 12:00 10/26/25 12:00 10/26/25 12:00 10/25/25 14:35 Narrative Exam GENERAL: AOx3, no acute distress, sitting up in bed HEENT: mucous membranes moist, bilateral sclera anicteric CARDIOVASCULAR: regular rate and rhythm, S1/S2 present, no murmurs appreciated PULMONARY: clear to auscultation bilaterally, no rales/rhonchi/wheezes ABDOMINAL: soft, TTP at RUQ and R flank at drainage site, percutaneous drainage present posterior R flank with no output in bag EXTREMITIES: no peripheral edema SKIN: warm and dry, intact, no rashes NEURO: CN II-XII grossly intact, no focal deficits, alert, following commands Objective Labs 10/26/25 08:30 10/26/25 08:30 Labs: Laboratory Results - last 24 hr 10/26/25 08:30 WBC 7.6 RBC 4.77 Hgb 14.0 Hct 42.1 MCV 88 MCH 29.4 MCHC 33.3 RDW Std Deviation 44.1 Plt Count 255 D Neut % (Auto) 63 Lymph % (Auto) 25 [place] % (Auto) 10 Eos % (Auto) 2 Baso % (Auto) 1 Neut # (Auto) 4.8 Lymph # (Auto) 1.9 [place] # (Auto) 0.7 Eos # (Auto) 0.2 Baso # (Auto) 0.0 Immature Gran # (Auto) 0.02 H Absolute Nucleated RBC 0.00 Immature Gran % 0 Nucleated RBC % 0 Sodium 135 L Potassium 4.2 Chloride 97 L Carbon Dioxide 30.4 Anion Gap 8 BUN 13 Creatinine 0.7 Estim Creat Clear Calc 92.7 eGFR > 60 BUN/Creatinine Ratio 19 Glucose 235 H D Calculated Osmolality 278 Calcium 9.6 Corrected Calcium 9.6 Total Bilirubin 1.2 D AST 333 H ALT 330 H Alkaline Phosphatase 529 H D Total Protein 7.8 Albumin 4.3 D Globulin 3.5 Albumin/Globulin Ratio 1.2 Quality Measures Quality Measures none Assessment & Plan Assessment Current Active Medications: Generic Name Dose Route Start Last Admin Trade Name Freq PRN Reason Stop Dose Admin Acetaminophen 650 mg 10/24/25 13:02 Acetaminophen 325 Mg Tablet PO 11/23/25 13:01 Q4HR PRN Pain 1-3 or Fever > 100.4 Hydrocodone Bitart/Acetaminophen 1 tab 10/26/25 09:50 10/26/25 12:11 Hydrocodone/Apap 10/325 Tab PO 10/31/25 09:49 1 tab Q4HR PRN Administration Pain 4-6 Atorvastatin Calcium 20 mg 10/24/25 21:00 10/25/25 21:03 Atorvastatin Calcium 20 Mg Tablet PO 11/23/25 20:59 20 mg On Hold: 10/26/25 09:53 HS DANII Administration Clonidine 0.1 mg 10/24/25 21:00 10/26/25 08:20 Clonidine Hcl 0.1 Mg Tablet PO 11/23/25 20:59 0.1 mg BID DANII Administration Dextrose 25 ml 10/24/25 13:58 Dextrose 50%-Water Inj 50 Ml Syringe IV 11/23/25 13:57 Q15MIN PRN BG 50-70 responsive npo pt Dextrose 50 ml 10/24/25 13:58 Dextrose 50%-Water Inj 50 Ml Syringe IV 11/23/25 13:57 Q15MIN PRN BG <50 OR BG <70 & pt unresponsive Diphenhydramine HCl 25 mg 10/24/25 13:02 Diphenhydramine Inj 50 Mg/Ml Vial IVP 11/23/25 13:01 Q4HR PRN Itching, Hives or Allergy Glucagon 1 mg 10/24/25 13:58 Glucagon Inj 1 Mg Vial IM Q15MIN PRN BG <70, and no IV access Ceftriaxone Sodium/Dextrose 1 gm in 50 mls @ 100 mls/hr 10/25/25 09:00 10/26/25 08:20 Rocephin/D5w 1gm Iv Premix IV 11/01/25 08:59 100 mls/hr QDAY DANII Administration Insulin Human Lispro 0 unit 10/25/25 17:15 10/26/25 11:16 Insulin Lispro (Admelog) 1 Unit/0.01 Ml Unit SC 11/24/25 17:14 3 unit ACHS DANII Administration Protocol Methadone HCl 10 mg 10/24/25 16:00 10/26/25 14:22 Methadone Hcl 10 Mg Tablet PO 10/29/25 15:59 10 mg TID DANII Administration Morphine Sulfate 2 mg 10/25/25 16:14 10/26/25 10:19 Morphine Sulf Inj 4 Mg/Ml Vial IVP 10/29/25 13:01 2 mg Q4HR PRN Administration PAIN SCALE 7-10 (Severe Ondansetron HCl 4 mg 10/24/25 13:02 10/26/25 12:14 Ondansetron Inj 2 Mg/Ml Inj 2 Ml IVP 11/23/25 13:01 4 mg Q6HR PRN Administration NAUSEA OR VOMITING Protocol Plan 55-year-old female with PMH of type 2 diabetes mellitus (on insulin), peripheral neuropathy, chronic pain secondary to herniated disc, HTN, and prior CVA 6 years ago, who presents to the ED with recurrent gallbladder abscess postcholecystectomy. Patient admitted for intra-abdominal abscess pending surgical evaluation by Dr. Márquez. #Recurrent gallbladder fossa abscess secondary to #cholecystectomy Afebrile and nontoxic. Patient had laparoscopic cholecystectomy on 09/[address] Márquez; had previous abscess 10/12, which was drained. CT A/P showed abscess in the gallbladder fossa 33 mm x 30 mm. 10-25-25- surgical drain placed in abscess 10-26-25- no output from abscess Plan: - Ceftriaxone 1g daily ? Follow-up blood culture and urine culture, abscess culture - If no further output from drainage, Dr Márquez to remove tomorrow #Type 2 diabetes, insulin-dependent Last A1c 7.4. Plan: ? Insulin sliding scale step 2 - Degludec 25u x1 today as BS increased in afternoon #Hypertension Patient takes clonidine 0.1 mg p.o. twice daily Plan ? Resumed home clonidine #Peripheral neuropathy, chronic pain?herniated disc Plan: norco 10 q4h prn Morphine 2 mg q4h prn Disposition: Med-Surg DVT prophylaxis: SCD GI prophylaxis: none Diet: carb consistent low Lines: PIV CODE STATUS: Full code This case was discussed with my attending physician, Dr. Suarez, and senior resident, Dr. Bonner. Crystal Madison, DO Internal Medicine PGY-1 Attending Provider Attestation/Addendum Patient admitted for IV antibiotic treatment of gallbladder fossa abscess. Noted to have decreased drainage. Follow-up with Dr. Nix planning to discharge soon if she remains afebrile and no drainage output. I discussed with and supervised the resident physician who took care of this patient. I agree with the assessment and plan as above.
[2025-10-26] MEDS: INSULIN DEGLUDEC 5 UNIT/0.05 ML (PER 5 UNITS) 25 UNIT SC (16:51)
[2025-10-27] VITALS (8 sets, daily range): BP systolic 125–154; BP diastolic 81–92; PULSE 90–105; RESP 18–20; TEMP 36.6–37.3; O2SAT 90–95
[2025-10-27] MEDS: ONDANSETRON INJ 2 MG/ML INJ 2 ML 4 MG IVP ×3 (01:27→13:46)
[2025-10-27] MEDS: MORPHINE SULF INJ 4 MG/ML VIAL 2 MG IVP ×5 (01:29→21:26)
[2025-10-27] MEDS: METHADONE HCL 10 MG TABLET PO ×3 (05:03→21:26)
[2025-10-27 06:02] LABS: Basophils # (Auto) 0.1 Thou/mm3 (0.0-0.2); Basophils % (Auto) 1 % (0-2.5); Eosinophils # (Auto) 0.2 Thou/mm3 (0.0-0.5); Eosinophils % (Auto) 2 % (0-10); Hematocrit 41.8 % (36.0-46.0); Hemoglobin 13.8 g/dL (12.0-16.0); Immature Granulocytes Auto 0.02 Thou/mm3 (0.00-0.00); Lymphocytes # (Auto) 1.9 Thou/mm3 (1.0-4.8); Lymphocytes % (Auto) 25 % (10-50); Mean Corpuscular HGB Conc 33.0 g/dl (31.0-37.0); Mean Corpuscular Hemoglobin 29.2 pg (25.0-35.0); Mean Corpuscular Volume 89 fL (80-100); Monocytes # (Auto) 0.9 Thou/mm3 (0.0-0.8); Monocytes % (Auto) 12 % (0-12); Neutrophils # (Auto) 4.6 Thou/mm3 (1.8-7.7); Neutrophils % (Auto) 60 % (37-80); Nucleated Red Blood Cell # 0.00 Thou/mm3 (0.00-0.00); Nucleated Red Blood Cell % 0 /100 WBC (0); Platelet Count 232 Thou/mm3 (140-440); RDW Standard Deviation 44.4 fL (36.4-46.3); Red Blood Count 4.72 Miln/mm3 (4.00-5.20); White Blood Count 7.6 Thou/mm3 (3.6-11.0)
[2025-10-27 06:43] LABS: Alanine Aminotransferase 201 U/L (10-49); Albumin, Serum 4.5 gm/dL (3.5-5.0); Albumin/Globulin Ratio 1.4 (1.2-2.2); Alkaline Phosphatase 409 U/L (46-116); Anion Gap 11 (7-16); Aspartate Amino Transferase 80 U/L (0-34); BUN/Creatinine Ratio 22 Ratio (12-20); Bilirubin,Total 0.8 mg/dL (0.3-1.2); Blood Urea Nitrogen 13 mg/dL (9-23); Calcium 9.7 mg/dL (8.3-10.6); Calcium (Corrected) 9.7 mg/dL (8.5-10.1); Carbon Dioxide 26.7 mMol/L (20.0-31.0); Chloride 97 mMol/L (98-107); Creatinine (Component) 0.6 mg/dL (0.6-1.3); Estimated Creatinine Clearance 108.2 mL/min (>60); Globulin 3.3 gm/dL (2.3-3.5); Glucose 202 mg/dL (74-106); Magnesium 1.6 mg/dL (1.6-2.6); Osmolality,Calculated 276 (275-295); Phosphorous 4.3 mg/dL (2.4-5.1); Potassium 4.2 mMol/L (3.4-5.1); Sodium 135 mMol/L (136-145); Total Protein 7.8 gm/dL (5.7-8.2); eGFR > 60 See Note
[2025-10-27] MEDS: INSULIN LISPRO (AdmeLOG) 1 UNIT/0.01 ML UNIT SC ×4 (07:18→20:02)
[2025-10-27] MEDS: cefTRIAXone/D5w 1gm IV premix 1 GM/50 ML BAG IV (08:18)
[2025-10-27] MEDS: SODIUM CHLORIDE 1 GM TABLET PO (08:19)
--- NOTE | 2025-10-27 08:43 | ESPR_ITS ---
<Statement entered by Yousuf Bonner MD - 10/27/25 18:42> I saw and examined patient personally and supervised PGY 1 resident, Dr. Richey with formulating a management plan. I agree with the documentation with the exceptions as listed below. Patient had abscess drain removed today by general surgeon, Dr. Márquez. Patient cleared to be discharged from general surgery POV. However patient still intractable pain from site of drain removal. Will keep overnight for IV pain control. Anticipate discharge within next 24 to 48 hours with ciprofloxacin and metronidazole. Plan of care discussed with Attending Dr. Shanice Bonner MD PGY 2 Disclaimer: This note was dictated by speech recognition. 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 Documentation for date of: 10/27/25 Subjective Subjective Interval history: Patient seen and examined at bedside; no acute events overnight. Drain was removed by Dr. Márquez today; however, patient still having significant R sided pain (08/27), especially at site of drain. Will keep patient 1 more day for pain control. Exam Vital Signs Temp Pulse Resp BP Pulse Ox O2 Del Method O2 Flow Rate 98.8 F 94 18 151/92 H 92 L Room Air 3 10/27/25 07:19 10/27/25 08:19 10/27/25 07:19 10/27/25 08:19 10/27/25 07:19 10/27/25 07:19 10/25/25 14:35 Narrative Exam GENERAL: AOx3, no acute distress, sitting up in bed HEENT: mucous membranes moist, bilateral sclera anicteric CARDIOVASCULAR: regular rate and rhythm, S1/S2 present, no murmurs appreciated PULMONARY: clear to auscultation bilaterally, no rales/rhonchi/wheezes ABDOMINAL: soft, TTP at RUQ and R flank at drainage site EXTREMITIES: no peripheral edema SKIN: warm and dry, intact, no rashes NEURO: CN II-XII grossly intact, no focal deficits, alert, following commands Objective Labs 10/28/25 05:35 10/28/25 05:35 Labs: Laboratory Results - last 24 hr 10/26/25 10/27/25 08:30 04:55 WBC 7.6 7.6 RBC 4.77 4.72 Hgb 14.0 13.8 Hct 42.1 41.8 MCV 88 89 MCH 29.4 29.2 MCHC 33.3 33.0 RDW Std Deviation 44.1 44.4 Plt Count 255 D 232 Neut % (Auto) 63 60 Lymph % (Auto) [address] [place] % (Auto) 10 12 Eos % (Auto) 2 2 Baso % (Auto) 1 1 Neut # (Auto) 4.8 4.6 Lymph # (Auto) 1.[address] [place] # (Auto) 0.7 0.9 H Eos # (Auto) 0.2 0.2 Baso # (Auto) 0.0 0.1 Immature Gran # (Auto) 0.02 H 0.02 H Absolute Nucleated RBC 0.00 0.00 Immature Gran % 0 0 Nucleated RBC % 0 0 Sodium 135 L 135 L Potassium 4.2 4.2 Chloride 97 L 97 L Carbon Dioxide 30.4 26.7 Anion Gap 8 11 BUN 13 13 Creatinine 0.7 0.6 Estim Creat Clear Calc 92.7 108.2 eGFR > 60 > 60 BUN/Creatinine Ratio 19 22 H Glucose 235 H D 202 H Calculated Osmolality 278 276 Calcium 9.6 9.7 Corrected Calcium 9.6 9.7 Phosphorus 4.3 Magnesium 1.6 Total Bilirubin 1.2 D 0.8 AST 333 H 80 H ALT 330 H 201 H Alkaline Phosphatase 529 H D 409 H D Total Protein 7.8 7.8 Albumin 4.3 D 4.5 Globulin 3.5 3.3 Albumin/Globulin Ratio 1.2 1.4 Quality Measures Quality Measures none Assessment & Plan Assessment Current Active Medications: Generic Name Dose Route Start Last Admin Trade Name Freq PRN Reason Stop Dose Admin Acetaminophen 650 mg 10/24/25 13:02 Acetaminophen 325 Mg Tablet PO 11/23/25 13:01 Q4HR PRN Pain 1-3 or Fever > 100.4 Hydrocodone Bitart/Acetaminophen 1 tab 10/26/25 09:50 10/26/25 23:44 Hydrocodone/Apap 10/325 Tab PO 10/31/25 09:49 1 tab Q4HR PRN Administration Pain 4-6 Atorvastatin Calcium 20 mg 10/24/25 21:00 10/25/25 21:03 Atorvastatin Calcium 20 Mg Tablet PO 11/23/25 20:59 20 mg On Hold: 10/26/25 09:53 HS DANII Administration Clonidine 0.1 mg 10/24/25 21:00 10/27/25 08:19 Clonidine Hcl 0.1 Mg Tablet PO 11/23/25 20:59 0.1 mg BID DANII Administration Dextrose 25 ml 10/24/25 13:58 Dextrose 50%-Water Inj 50 Ml Syringe IV 11/23/25 13:57 Q15MIN PRN BG 50-70 responsive npo pt Dextrose 50 ml 10/24/25 13:58 Dextrose 50%-Water Inj 50 Ml Syringe IV 11/23/25 13:57 Q15MIN PRN BG <50 OR BG <70 & pt unresponsive Diphenhydramine HCl 25 mg 10/24/25 13:02 Diphenhydramine Inj 50 Mg/Ml Vial IVP 11/23/25 13:01 Q4HR PRN Itching, Hives or Allergy Glucagon 1 mg 10/24/25 13:58 Glucagon Inj 1 Mg Vial IM Q15MIN PRN BG <70, and no IV access Ceftriaxone Sodium/Dextrose 1 gm in 50 mls @ 100 mls/hr 10/25/25 09:00 10/27/25 08:18 Rocephin/D5w 1gm Iv Premix IV 11/01/25 08:59 100 mls/hr QDAY DANII Administration Magnesium Sulfate 2 gm in 50 mls @ 25 mls/hr 10/27/25 08:02 Magnesium Sulfate Ivpb IV 10/27/25 10:01 X1 ONE Insulin Human Lispro 0 unit 10/25/25 17:15 10/27/25 07:18 Insulin Lispro (Admelog) 1 Unit/0.01 Ml Unit SC 11/24/25 17:14 2 unit ACHS DANII Administration Protocol Methadone HCl 10 mg 10/24/25 16:00 10/27/25 05:03 Methadone Hcl 10 Mg Tablet PO 10/29/25 15:59 10 mg TID DANII Administration Morphine Sulfate 2 mg 10/25/25 16:14 10/27/25 05:40 Morphine Sulf Inj 4 Mg/Ml Vial IVP 10/29/25 13:01 2 mg Q4HR PRN Administration PAIN SCALE 7-10 (Severe Ondansetron HCl 4 mg 10/24/25 13:02 10/27/25 07:27 Ondansetron Inj 2 Mg/Ml Inj 2 Ml IVP 11/23/25 13:01 4 mg Q6HR PRN Administration NAUSEA OR VOMITING Protocol Plan 55-year-old female with PMH of type 2 diabetes mellitus (on insulin), peripheral neuropathy, chronic pain secondary to herniated disc, HTN, and prior CVA 6 years ago, who presents to the ED with recurrent gallbladder abscess postcholecystectomy. Patient admitted for intra-abdominal abscess pending surgical evaluation by Dr. Márquez. #Post-drain removal pain, peripheral neuropathy, chronic pain?herniated disc Plan: norco 10 q4h prn Morphine 2 mg q4h prn Methadone 10 TID Gabapentin 300 x1 Methcarbamol 500 TID #Recurrent gallbladder fossa abscess secondary to #cholecystectomy Afebrile and nontoxic. Patient had laparoscopic cholecystectomy on 09/[address] Márquez; had previous abscess 10/12, which was drained. CT A/P showed abscess in the gallbladder fossa 33 mm x 30 mm. 10-25-25- surgical drain placed in abscess 10-26-25- no output from abscess 10-27-25- drain removed today; gram stain showed 2+ WBCs, no growth in abscess or anaerobic culture Plan: - Ceftriaxone 1g daily #Type 2 diabetes, insulin-dependent Last A1c 7.4. Plan: ? Insulin sliding scale step 2 #Hypertension Patient takes clonidine 0.1 mg p.o. twice daily Plan ? Resumed home clonidine Disposition: Med-Surg DVT prophylaxis: SCD GI prophylaxis: none Diet: carb consistent low Lines: PIV CODE STATUS: Full code This case was discussed with my attending physician, Dr. Prasad, and senior resident, Dr. Bonner. Shay Richey Attending Provider Attestation/Addendum I reviewed labs, imaging, EKG, home medications and prior available records. Face to face evaluation was performed by me. I have personally examined the patient and discussed assessment and plan with the IM team. I reviewed the resident note and agree with the plan with exceptions as below. History of cholecystectomy Abdominal abscess Status post drain removal Cultures of the fluid showed no organisms Patient still has significant pain. Will keep for IV pain manage Outpatient follow-up with general surgery
--- NOTE | 2025-10-27 09:45 | PD.SURPROG ---
Documentation for date of: 10/27/25 Subjective Subjective Brief History: 55F with HTN, DMII on insulin, chronic back pain on methadone s/p laparoscopic cholecystectomy 09/08/25 who presented to ER 09/24 due to pain, nausea and chills. Pt had previously undergone drain placement on 09/24/25 for a RUQ hematoma which grew Strep salivarius, and at that time unfortunately did not experience much relief from the drainage procedure. In ER yesterday pt was found to have a fluid collection <4cm in the gallbladder fossa, smaller than on previous imaging with normal WBC, normal LFTs and afebrile, admitted for repeat drainage Narrative: Underwent percutaneous drain placement 10/25 with 7cc out at first, none since then, reporting ongoing pain and nausea. Tolerating diet and remaining afebrile with normal WBC Exam Vital Signs Temp Pulse Resp BP Pulse Ox O2 Del Method O2 Flow Rate 98.8 F 94 18 151/92 H 92 L Room Air 3 10/27/25 07:19 10/27/25 08:19 10/27/25 07:19 10/27/25 08:19 10/27/25 07:19 10/27/25 07:19 10/25/25 14:35 Constitutional Constitutional: no acute distress Routine Respiratory Exam Respiratory: Present no resp distress Routine Abdominal Exam Abdominal: Present soft and tenderness (moderate tenderness RUQ); Absent distended or rebound Results Results: Laboratory Laboratory results: results reviewed Assessment & Plan Plan 55F with HTN, DMII on insulin, chronic back pain on methadone s/p laparoscopic cholecystectomy 09/08/25, s/p drain placement 09/24 readmitted with pain, chills and another RUQ fluid collection drained 10/25 with culture negative, WBC remaining normal, pain stable Drain removed today From my standpoint abx not needed and pt could dc home
--- NOTE | 2025-10-27 10:05 | PC.SS ---
Follow up note: Dr. Márquez will remove drain. Pt will rturn home upon dc.
[2025-10-27] MEDS: Magnesium Sulfate 2 GM Ivpb 2 GM/50 ML BAG IV (10:13)
[2025-10-27] MEDS: GABAPENTIN 300 MG CAPSULE PO (14:21)
--- NOTE | 2025-10-27 15:44 | PC.SS ---
Follow up note: Pain control. Pt will return home upon dc.
[2025-10-28] VITALS: BP 134/87; PULSE 87; RESP 18; TEMP 35.9; O2SAT 96
[2025-10-28] MEDS: MORPHINE SULF INJ 4 MG/ML VIAL 2 MG IVP ×3 (01:46→11:25)
[2025-10-28 04:00] VITALS: BP 154/82; PULSE 90; RESP 17; TEMP 36.3; O2SAT 96
[2025-10-28] MEDS: METHADONE HCL 10 MG TABLET PO ×2 (05:07→14:34)
[2025-10-28 06:26] LABS: Basophils # (Auto) 0.0 Thou/mm3 (0.0-0.2); Basophils % (Auto) 1 % (0-2.5); Eosinophils # (Auto) 0.2 Thou/mm3 (0.0-0.5); Eosinophils % (Auto) 3 % (0-10); Hematocrit 40.2 % (36.0-46.0); Hemoglobin 13.3 g/dL (12.0-16.0); Immature Granulocytes Auto 0.01 Thou/mm3 (0.00-0.00); Lymphocytes # (Auto) 1.6 Thou/mm3 (1.0-4.8); Lymphocytes % (Auto) 24 % (10-50); Mean Corpuscular HGB Conc 33.1 g/dl (31.0-37.0); Mean Corpuscular Hemoglobin 29.4 pg (25.0-35.0); Mean Corpuscular Volume 89 fL (80-100); Monocytes # (Auto) 0.9 Thou/mm3 (0.0-0.8); Monocytes % (Auto) 14 % (0-12); Neutrophils # (Auto) 3.8 Thou/mm3 (1.8-7.7); Neutrophils % (Auto) 58 % (37-80); Nucleated Red Blood Cell # 0.00 Thou/mm3 (0.00-0.00); Nucleated Red Blood Cell % 0 /100 WBC (0); Platelet Count 248 Thou/mm3 (140-440); RDW Standard Deviation 44.3 fL (36.4-46.3); Red Blood Count 4.53 Miln/mm3 (4.00-5.20); White Blood Count 6.6 Thou/mm3 (3.6-11.0)
[2025-10-28] MEDS: ONDANSETRON INJ 2 MG/ML INJ 2 ML 4 MG IVP (06:27)
[2025-10-28 07:07] LABS: Alanine Aminotransferase 120 U/L (10-49); Albumin, Serum 4.5 gm/dL (3.5-5.0); Albumin/Globulin Ratio 1.3 (1.2-2.2); Alkaline Phosphatase 323 U/L (46-116); Anion Gap 11 (7-16); Aspartate Amino Transferase 29 U/L (0-34); BUN/Creatinine Ratio 17 Ratio (12-20); Bilirubin,Total 0.7 mg/dL (0.3-1.2); Blood Urea Nitrogen 12 mg/dL (9-23); Calcium 9.6 mg/dL (8.3-10.6); Calcium (Corrected) 9.6 mg/dL (8.5-10.1); Carbon Dioxide 30.2 mMol/L (20.0-31.0); Chloride 94 mMol/L (98-107); Creatinine (Component) 0.7 mg/dL (0.6-1.3); Estimated Creatinine Clearance 92.7 mL/min (>60); Globulin 3.4 gm/dL (2.3-3.5); Glucose 307 mg/dL (74-106); Magnesium 1.5 mg/dL (1.6-2.6); Osmolality,Calculated 281 (275-295); Phosphorous 3.9 mg/dL (2.4-5.1); Potassium 4.3 mMol/L (3.4-5.1); Sodium 135 mMol/L (136-145); Total Protein 7.9 gm/dL (5.7-8.2); eGFR > 60 See Note
[2025-10-28 07:18] VITALS: BP 142/87; PULSE 90; RESP 18; TEMP 37; O2SAT 96
[2025-10-28] MEDS: INSULIN LISPRO (AdmeLOG) 1 UNIT/0.01 ML UNIT SC ×3 (07:59→16:55)
[2025-10-28 08:38] VITALS: BP 142/87; PULSE 90
[2025-10-28] MEDS: cefTRIAXone/D5w 1gm IV premix 1 GM/50 ML BAG IV (08:38)
[2025-10-28] MEDS: SODIUM CHLORIDE 1 GM TABLET PO (08:47)
[2025-10-28] MEDS: MAGNESIUM OXIDE 400 MG TABLET PO (08:47)
--- NOTE | 2025-10-28 09:56 | ESDS_ITS ---
Planned Discharge Date 10/28/25 DS: Providers Provider Date of admission: 10/24/25 11:56 Primary care physician: Angelo Molina PA-C Admitting Provider: Doyle Preciado DO Attending Provider on Admission: George Suarez MD Consults: 10/24/25 14:06 Consult to General Surgery Urgent Comment: Consulting Provider: Priscila Márquez Attending Provider on DC: Doyle Preciado DO Discharging Provider: Doyle Preciado DO DS: Diagnosis Problem List Completed Was Problem List Reviewed/Reconciled?: Yes Hospital Course Hospital Course Hospital course: Hospital Course: Patient is a 54-year-old female with a past medical history of insulin-dependent T2DM with diabetic neuropathy, chronic lower back pain secondary to herniated disc on methadone, primary hypertension, history of CVA, status post laparoscopic cholecystectomy on 09/08/2025 complicated by abdominal abscess on 09/23 which had resolved. Patient presented on 10/24/25 with nausea and abdominal pain and was admitted on 10/24/25 for treatment and management of recurrent gallbladder fossa abscess. Patient started on ceftriaxone 1 g IV daily. On 10/25/25, patient underwent successful IR guided placement of gallbladder fossa drain. Sample sent for culture and Gram stain. Patient continues to be on ceftriaxone 1 g IV daily. On 10/26/25, drain had 0 cc of output in the past 24 hours. 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 Patient had abscess drain removed 10/27/25 by general surgeon, Dr. Márquez. Patient cleared to be discharged from general surgery point of view; however patient still had intractable pain from site of drain removal. On 10/28/25, patient pain better managed, and she is ready for discharge today. Discharge Instructions: - You have been started on antibiotics for your abdominal abscess. Take as directed. - You have been started on a pain medication methocarbomal for pain. - Follow upo with Dr. Márquez as outpatient. - Follow up with your primary care physician within 1 week of discharge. If you do not have a primary care physician, please follow up with the [facility] Residents clinic ([phone]) ? If you experience any new, worsening or persistent symptoms either call your primary doctor, or dial 911 or present to the emergency department. Problem List: #Post-drain removal pain, peripheral neuropathy, chronic pain?herniated disc #Recurrent gallbladder fossa abscess secondary to #cholecystectomy #Type 2 diabetes, insulin-dependent #Hypertension Status at Discharge Overall status at discharge: patient is progressing back to baseline Time Spent with Patient Time attestation: Total time spent providing and/or coordinating discharge services: Time spent: Greater than 30 minutes Exam Vital Signs Temp Pulse Resp BP Pulse Ox O2 Del Method O2 Flow Rate 98.6 F 90 18 142/87 H 96 Oxy Mask 2 10/28/25 07:18 10/28/25 08:38 10/28/25 07:18 10/28/25 08:38 10/28/25 07:18 10/28/25 07:18 10/28/25 07:18 Narrative Exam GENERAL: AOx3, no acute distress, sitting up in bed HEENT: mucous membranes moist, bilateral sclera anicteric CARDIOVASCULAR: regular rate and rhythm, S1/S2 present, no murmurs appreciated PULMONARY: clear to auscultation bilaterally, no rales/rhonchi/wheezes ABDOMINAL: soft, TTP at RUQ and R flank at site of previous drain insertion, but better controlled today EXTREMITIES: no peripheral edema SKIN: warm and dry, intact, no rashes NEURO: CN II-XII grossly intact, no focal deficits, alert, following commands Discharge Plan Plan Patient Disposition: HOME (Self Care) Patient condition on transfer: Stable Care Plan Goals: - You have been started on antibiotics for your abdominal abscess. Take as directed. - You have been started on a pain medication methocarbomal for pain. - Follow upo with Dr. Márquez as outpatient. - Follow up with your primary care physician within 1 week of discharge. If you do not have a primary care physician, please follow up with the [facility] Res[facility] clinic ([phone]) ? If you experience any new, worsening or persistent symptoms either call your primary doctor, or dial 911 or present to the emergency department. Prescriptions/Referrals Prescriptions/Med Rec: New methocarbamol 500 mg Tablet 500 mg PO TID 3 Days Qty: 9 0RF ciprofloxacin HCl 500 mg tablet 500 mg PO BID 7 Days Qty: 14 0RF metronidazole 500 mg tablet 500 mg PO BID 7 Days Qty: 14 0RF Continued atorvastatin 20 mg Tablet 20 mg PO HS 30 Days Qty: 30 0RF insulin glargine [Basaglar KwikPen U-100 Insulin] 100 unit/mL (3 mL) insulin pen 50 unit subcut QPM insulin lispro 100 unit/mL insulin pen 20 unit subcut TID Rx Instructions: Administer three times per day with meals methadone 10 mg tablet 10 mg PO TID tramadol 50 mg tablet 50 mg PO Q6H PRN (Reason: pain) clonidine HCl 0.1 mg tablet 0.1 mg PO BID baclofen 10 mg tablet 10 mg PO BID Patient Comments: TAKE 1 TABLET BY MOUTH EVERYDAY AT BEDTIME promethazine 25 mg tablet 25 mg PO Q12H PRN (Reason: n/v) Patient Comments: TAKE 1 TABLET BY MOUTH DAILY NEEDED, DO NOT EXCEED MORE THAN ONCE A DAY (DME) Dexcom G6 Sensor Device See Rx Instructions .Route Qty: 3 0RF Patient Comments: Pending refill Rx Instructions: As directed (DME) Dexcom G6 Motorcycle Builder Misc See Rx Instructions .Route Qty: 1 0RF Rx Instructions: As directed (DME) Dexcom G6 Transmitter Device See Rx Instructions .Route Qty: 1 0RF Patient Comments: Pending refill Rx Instructions: As directed (DME) pen needle, diabetic [CareFine Pen Needle] 29 gauge x 1/2 needle See Rx Instructions .Route Qty: 100 0RF Rx Instructions: Use for insulin administration Referrals: Angelo Molina PA-C [Primary Care Provider] Priscila Márquez MD [Physician, General Surgery] Patient/Caregiver Discharge Instructions Discharge Activity: activity as tolerated Education Materials: ED Abscess Antibiotic ... Print Language: [place] Stand Alone Forms: [employer] Award Info., Patient Portal Info Letter Discharge Order Discharge Orders: Discharge (Routine); Ordered 10/28/25 Ordered By: Yousuf Bonner Quality Discharge Quality Measures none MD Attestestation MD Attestation I reviewed labs, imaging, EKG, home medications and prior available records. Face to face evaluation was performed by me. I have personally examined the patient and discussed assessment and plan with the IM team. I reviewed the resident note and agree with the plan with exceptions as below. History of cholecystectomy Abdominal abscess Insulin-dependent diabetes mellitus Essential hypertension Status post drain removal Cultures of the fluid showed no organisms Continue management of pain upon discharge Outpatient follow-up with general surgery Time spent is 36 minutes. More than 50% of the time was spent on patient education and coordination of care.
[2025-10-28] MEDS: INSULIN LISPRO (AdmeLOG) 1 UNIT/0.01 ML UNIT 5 UNIT SC (10:19)
[2025-10-28] MEDS: INSULIN DEGLUDEC 5 UNIT/0.05 ML (PER 5 UNITS) 40 UNIT SC (10:19)
[2025-10-28] MEDS: INSULIN LISPRO (AdmeLOG) 1 UNIT/0.01 ML UNIT 7 UNIT SC ×2 (11:35→16:55)
[2025-10-28 12:00] VITALS: BP 127/88; PULSE 83; RESP 16; TEMP 36.1; O2SAT 96
[2025-10-28] MEDS: RINGERS LACTATED 1000 ML 1,000 ML 999 ML IV (14:45)
[2025-10-28] MEDS: INSULIN LISPRO (AdmeLOG) 1 UNIT/0.01 ML UNIT 10 UNIT SC (14:46)
[2025-10-28 16:00] VITALS: BP 136/84; PULSE 84; RESP 18; TEMP 36.6; O2SAT 92
== END 2025-10-28 17:55 | disposition home or self-care (01) | DRG 252 ==
LOC: SERX 09:02 → SERHOLD 12:31 → S3NX 14:49
PROVIDERS: Nurse Practitioner Family; Admitting Provider Student in an Organized Health Care Education/Training Program; Emergency Provider Emergency Medicine; PCP Family Medicine; Visit Provider Internal Medicine
DX: K91.89 Other postprocedural complications and disorders of digestive system (principal); E11.40 Type 2 diabetes mellitus with diabetic neuropathy, unspecified; M54.50 Low back pain, unspecified; I10 Essential (primary) hypertension; G89.29 Other chronic pain; K65.1 Peritoneal abscess; I69.80 Unspecified sequelae of other cerebrovascular disease; Z90.49 Acquired absence of other specified parts of digestive tract; Z79.4 Long term (current) use of insulin; Z88.0 Allergy status to penicillin; Z79.891 Long term (current) use of opiate analgesic; Z79.899 Other long term (current) drug therapy; Z88.5 Allergy status to narcotic agent; Z88.6 Allergy status to analgesic agent; Z88.1 Allergy status to other antibiotic agents
CPT/HCPCS: 36415; 74176; 75989; 76705; 80053; 81001; 81025; 83690; 83735; 84100; 85025; 87040; 87070; 87075; 87081; 87086; 87205; 93005; 99152; 99283; J0696; J1171; J1815; J2250; J2270; J2405; J3010; J3475; J3490; J7120; A9270

== ENCOUNTER 2025-11-08 08:55 | Outpatient (AMB) | payer MEDICAID, SELFPAY ==
[2025-11-08 09:08] VITALS: BP 109/70; PULSE 96; RESP 20; TEMP 36.4; O2SAT 93; BMI 31.2
--- NOTE | 2025-11-08 09:08 | PD.GSCLVISIT ---
Vital Signs - Gen [facility] Clinic 11/08/25 09:08 Height 1.6 m Height Method Measured Weight 80.031 kg Weight Measurement Method Standing Scale BMI 31.2 BP 109/70 Blood Pressure Source Automatic Cuff Blood Pressure Location Left Upper Arm Position Sitting Respiration 20 Pulse 96 Pulse Source Monitor Temp 97.6 F Temp Source Temporal Artery Scan Pulse Oximetry (%) 93 L Oxygen Delivery Method Room Air Med/Allergies Allergies & Medications Allergies barium iodide Allergy (Severe, Verified 11/08/25 09:09) PASSED OUT cephalexin Allergy (Severe, Verified 11/08/25 09:09) ITCHING AND VOMITING codeine Allergy (Severe, Verified 11/08/25 09:09) FAINTS ibuprofen Allergy (Severe, Verified 11/08/25 09:09) Swelling of Lip/Tongue/Throat Penicillins Allergy (Severe, Verified 11/08/25 09:09) HIVES AND DIFF BREATHING aspirin Allergy (Unknown, Verified 11/08/25 09:09) RASH Medication Reconciliation baclofen 10 mg tablet 10 mg PO BID 09/14/22 [History Confirmed 11/08/25] clonidine HCl 0.1 mg tablet 0.1 mg PO BID 09/14/22 [History Confirmed 11/08/25] promethazine 25 mg tablet 25 mg PO Q12H PRN n/v 09/14/22 [History Confirmed 11/08/25] blood-glucose sensor (Dexcom G6 Sensor device) #3 ea 05/02/25 [Rx Confirmed 11/08/25] blood-glucose transmitter (Dexcom G6 Transmitter device) #1 ea 05/02/25 [Rx Confirmed 11/08/25] blood-glucose,operator receptionist,cont (Dexcom G6 Heater Furnace) #1 ea 05/02/25 [Rx Confirmed 11/08/25] pen needle, diabetic 29 gauge x 1/2 (CareFine Pen Needle) #100 ea 05/02/25 [Rx Confirmed 11/08/25] insulin glargine 100 unit/mL (3 mL) subcutaneous pen (Basaglar KwikPen U-100 Insulin) 50 unit subcut QPM 10/24/25 [History Confirmed 11/08/25] insulin lispro 100 unit/mL subcutaneous pen 20 unit subcut TID 10/24/25 [History Confirmed 11/08/25] methadone 10 mg tablet 10 mg PO TID 10/24/25 [History Confirmed 11/08/25] tramadol 50 mg tablet 50 mg PO Q6H PRN pain 10/24/25 [History Confirmed 11/08/25] MA Intake Visit Data Collection New Patient or Established: Established Patient (seen at [facility] within 3 years) Seen by Clinical Staff ONLY (RN/ILIANA): No Reason for Visit:: 4 WEEK F/U Pain Present Currently: No Pain Scale Used: Cook-Al/Numerical Nature Photographer Required: No PCP or OBGYN visit in last 3 months: Yes Hx Now: No Do You Feel Safe at Home: Yes Authorities Contacted: N/A Smoking Status Smoking Status: Never smoker Immunization / Flu Flu Vaccine in the Last 12 Months: No Flu Vaccine Exclusion Criteria: Refused by Patient Past Medical History Past Medical History NEUROLOGIC: Positive Neurological Disorders and Cerebrovascular Accident; Negative Seizures CARDIAC: Positive Cellulitis and Hypertension; Negative Cardiac Disorders, Congestive Heart Failure or Varicose Veins RESPIRATORY: Positive Pneumonia; Negative Chronic Obstructive Pulmonary Disease (COPD) or Asthma GASTROINTESTINAL: Positive Gastrointestinal Disorders, Gall Bladder Disease, Irritable Bowel and Gastroesophageal Reflux Disease; Negative Hepatitis GENITOURINARY: Negative Genitourinary Disorders or Renal Disease REPRODUCTIVE: Positive Previous Pregnancies; Negative Pelvic Inflammatory Disease MUSCULOSKELETAL: Positive Arthritis, Degenerative Disk Disease and Fibromyalgia; Negative Fractures ENT: Negative Cataracts ENDOCRINE: Positive Endocrine Disorders and Diabetes Mellitus Type 2; Negative Diabetes Mellitus Type 1 HEMATOLOGIC: Negative Blood Disorders or Sickle Cell Disease PSYCHO/SOCIAL: Negative Depression OTHER HISTORY: Positive Hospitalization and Falls; Negative Autoimmune Disease, Shingles, Blood Transfusions, Blood Transfusion Reaction, Anesthesia Reactions, Organ Transplant, MRSA, Clostridium Difficile or Cancer Family History FAMILY HISTORY: Positive Family Cardiac Disorders; Negative Family Psychiatric Problems, Family Respiratory Disorders, Family Gastrointestinal Problems, Family Cancer, Family Surgery or Family Anesthesia Reaction Surgical History SURGICAL: Negative Organ Transplant Social History SMOKING STATUS: Smoking status: Never smoker ALCOHOL: Alcohol Intake: Former HOUSING: Housing: Apartment LIVES WITH: Lives With: Children HPI HPI Narrative 55F with HTN, DMII on insulin, chronic back pain on methadone s/p laparoscopic cholecystectomy 09/08/25, course complicated by persistent pain and gallbladder fossa collection s/p percutaneous drainage x2 (cultures negative) here for planned follow up. Pt reports feeling better with pain and appetite improving, no recent nausea, occasional diarrhea ROS Review of Systems Systems Reviewed: All systems reviewed, normal except as documented Objective/Exam General General Appearance: alert, cooperative and well groomed Resp Respiratory exam: Absent respiratory distress Abdominal Abdominal exam: Present soft; Absent distention or tenderness Assessment & Plan Diagnosis / Problem List (1) Symptomatic cholelithiasis: Status: Acute Assessment & Plan: 55F with HTN, DMII on insulin, chronic back pain on methadone s/p laparoscopic cholecystectomy 09/08/25, course complicated by persistent pain and gallbladder fluid collection (cultures negative), feeling better as of now. I recommended pt take fiber for regulating her BMs and encouraged her to reach out with any concerns or questions Plan: Follow up as needed Office Procedures GNS Level of Care Nursing/Assessment Patient Status: Established Patient Nursing Assessment/Reassesment: Medication Reconciliation, Update PMH in EMR and Vital Signs Coordination of Care: Complex Care and Chronic Disease 1-5, Education Complex Pt/Fam, Consent,records obtained, informed consent, Results/Orders obtained and Staff clarify orders Established Patient Charge Established Patient Point Assignment: 95 Established Patient Point Charge: EP Level 3 (80-115) Patient Portal Questionaires Social History Living Situation History Housing: Apartment Housing Other:: Patient lives with her son Viktor . Tobacco History Smoking Status: Never smoker Alcohol History Alcohol Intake: Former Alcohol Intake Frequency Other:: tequila,beer 27 yrs ago Domestic Abuse History Do You Feel Safe at Home: Yes Review of Systems Report any current symptoms Only answer those that you have currently: Past Medical History Past Medical History Have you ever been diagnosed with any of the following: Neurological Problems Cerebrovascular Accident (CVA): Yes Seizures: No Cardiology Problems Congestive Heart Failure: No Cellulitis: Yes Hypertension: Yes Varicose Veins: No Respiratory Problems Chronic Obstructive Pulmonary Disease (COPD): No Asthma: No Pneumonia: Yes Stomache/Intestinal Problems Hepatitis: No Gall Bladder Disease: Yes Irritable Bowel: Yes Gastroesophageal Reflux Disease: Yes Genital/Urinary Problems Renal Disease: No Reproductive Problems Pelvic Inflammatory Disease: No Previous Pregnancies: Yes Musculoskeletal Problems Arthritis: Yes Degenerative Disk Disease: Yes Fibromyalgia: Yes Fractures: No Head,Eye,Nose,Throat Problems Cataracts: No Endocrine Problems Diabetes Mellitus Type 1: No Diabetes Mellitus Type 2: Yes Blood Problems Sickle Cell Disease: No Psychologic Problems Depression: No Other Problems Hospitalization: Yes Autoimmune Disease: No Shingles: No Falls: Yes Blood Transfusions: No Blood Transfusion Reaction: No Anesthesia Reactions: No Organ Transplant: No MRSA: No Clostridium Difficile: No Cancer: No
== END 2025-11-08 09:17 | disposition home or self-care (01) ==
LOC: HODSRG 08:55
PROVIDERS: PCP Family Medicine; Referring Provider Family Medicine; Supervising Provider Surgery; Visit Provider Surgery
DX: Z48.815 Encounter for surgical aftercare following surgery on the digestive system (principal); Z90.5 Acquired absence of kidney
CPT/HCPCS: 99213; G0463